=== PATIENT | male | born 1945 | race Caucasian/White ===

== ENCOUNTER 2022-02-03 10:40 | Inpatient (IN) | payer MEDICARE, SELFPAY ==
--- NOTE | ~2022-02-03 | US_ITS ---
EXAMINATION: BILATERAL LOWER EXTREMITY VENOUS ULTRASOUND CLINICAL INFORMATION: Bilateral leg swelling. Right calf pain on exam. COMPARISON: None TECHNIQUE: Doppler spectral analysis and color flow Doppler imaging was performed of the lower extremities. Compression and augmentation maneuvers were performed. FINDINGS: The right and left common femoral vein, greater saphenous vein takeoff, femoral vein, and popliteal vein are normally compressible with normal augmentation responses and phasic changes seen with Doppler imaging. The midcalf peroneal and posterior tibial veins are patent as well. No popliteal cyst is seen. US/US venous duplex LE BI IMPRESSION: No evidence of deep venous thrombosis in the right or left lower extremity.
--- NOTE | ~2022-02-03 | XR_ITS ---
EXAMINATION: XR CHEST CLINICAL INFORMATION: Shortness of breath COMPARISON: None TECHNIQUE: Frontal view of the chest was obtained. FINDINGS: The cardiac silhouette is enlarged. There is a left subclavian dual chamber pacemaker in satisfactory position. There is pulmonary venous redistribution and increased perihilar markings suggestive of mild pulmonary edema. There is no pleural effusion. There are degenerative changes of the spine. XR/XR chest 1V IMPRESSION: Enlarged cardiac silhouette and mild pulmonary edema.
[2022-02-03 11:12] VITALS: BP 146/93; PULSE 70; O2SAT 97
[2022-02-03 11:13] VITALS: BP 146/83; PULSE 70; RESP 20; O2SAT 96; BMI 40.1
--- NOTE | 2022-02-03 11:28 | ECG_ITS ---
Test Reason : sob Blood Pressure : / mmHG Vent. Rate : 070 BPM Atrial Rate : 078 BPM P-R Int : 208 ms QRS Dur : 198 ms QT Int : 498 ms P-R-T Axes : 000 -64 113 degrees QTc Int : 537 ms Atrial-sensed ventricular-paced rhythm with occasional AV dual-paced complexes Background atrial flutter Abnormal ECG No previous ECGs available Referred By: Tracy Hogan Electronically Signed By:Samuel Meeks
--- NOTE | 2022-02-03 11:32 | ED.SOB ---
HPI - SOB/Dyspnea General Chief Complaint: Dyspnea Stated Complaint: SOB 93% RA,SWELLING GRACE LOW EXT Time Seen by Provider: 02/03/22 11:13 Source: patient, EMS and RN notes reviewed Mode of arrival: EMS Limitations: no limitations History of Present Illness HPI Narrative: This is a 77-year-old male, with a past medical history of diabetes on insulin, CVA in 2016, [place] with pacemaker in 2019, on apixaban, currently being followed by Dr. Matos, hypertension, hyperlipidemia, who presents today with complaints of shortness of breath and dry cough since yesterday. Patient reports that yesterday he noticed that he was extremely short of breath upon exertion and was unable to sleep due to orthopnea. He also notes that while he was sitting yesterday, he had an hour worth chest discomfort, not pain , and had associated shortness of breath at that time. Denies palpitations, numbness, tingling, weakness, headaches, or visual changes. He denies any fevers, chills, nausea, vomiting, diarrhea, sore throat, rhinorrhea or sinus congestion. Denies sick contacts. He denies any recent surgeries, hospitalizations recent travel, history of cancer, or history of clotting disorders or blood clots. He is a former smoker. He quit 20 years ago. He denies history a asthma or COPD. He denies known history of congestive heart failure. 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 Matos next week because he was informed that his pacemaker bliped and he needed to follow up. No other complaints or concerns at this time. MD elicited complaint: shortness of breath and cough Onset (ago): day(s) Timing: constant Severity: moderate Exacerbating factors: lying flat, exertion and coughing Relieving factors: nothing Known history of: diabetes Associated symptoms: chest pain ( discomfort ) and cough Treatment prior to arrival: none Related Data Home oxygen amount: none Home Medications Medication Instructions Recorded Confirmed apixaban 5 mg tablet 5 mg PO BID 02/03/22 02/03/22 atorvastatin 80 mg tablet 1 tab PO DAILY 02/03/22 02/03/22 carvedilol 6.25 mg tablet 6.25 mg PO BID 02/03/22 02/03/22 cyanocobalamin (vitamin B-12) 1,000 mcg PO DAILY 02/03/22 02/03/22 1,000 mcg tablet ergocalciferol (vitamin D2) 1,250 1,250 mcg PO TH@0900 02/03/22 02/03/22 mcg (50,000 unit) capsule furosemide 20 mg tablet 1 tab PO DAILY 02/03/22 02/03/22 insulin aspart U-100 100 unit/mL 18 unit subcut TIDAC 02/03/22 02/03/22 (3 mL) subcutaneous pen (Novolog Flexpen U-100 Insulin aspart) insulin glargine 100 unit/mL (3 44 unit subcut BEDTIME 02/03/22 02/03/22 mL) subcutaneous pen (Lantus Solostar U-100 Insulin) losartan 100 1 tab PO DAILY 02/03/22 02/03/22 mg-hydrochlorothiazide 25 mg tablet melatonin 10 mg tablet 10 mg PO BEDTIME 02/03/22 02/03/22 metformin 1,000 mg tablet 1,000 mg PO BIDWMEAL 02/03/22 02/03/22 sotalol 80 mg tablet 1 tab PO BID 02/03/22 02/03/22 Allergies Allergy/AdvReac Type Severity Reaction Status Date / Time No Known Allergies Allergy Verified 02/03/22 11:15 Review of Systems Review of Systems: Constitutional : No Fever, No Chills, No fatigue, No Malaise ENT/Mouth : No sore throat, No runny nose Eyes: No Discharge Cardiovascular : +SOB, No Chest Pain Respiratory : + dry Cough, +orthopnea, + PATEL/Orthopnea, No Sputum, No Wheezing, No Smoke Exposure Gastrointestinal : No Nausea, No Vomiting, No Diarrhea Genitourinary : No irregular bleeding, No Dysuria, No Urinary Frequency, No Hematuria, No Urinary Incontinence, No Urgency, No Flank Pain, Musculoskeletal : No Myalgia Skin : No rash Neuro : No Headache Yes all other systems are reviewed and are negative [facility] Past Medical History Attestation statement: The following information was validated with the patient. Source: old records reviewed, obtained from family and nursing notes reviewed Social History Social History Advance Directives: No Advance Directives Information Provided: No Physical Exam Vital Signs: Vital Signs: Last Vital Signs Pulse 70 02/03/22 12:03 Resp 18 02/03/22 12:03 BP 146/83 H 02/03/22 11:13 Pulse Ox 96 02/03/22 11:13 O2 Del Method 02/03/22 11:13 BMI result Body Mass Index 40.1 Vital signs have been reviewed. Blood pressure 146/83 Heart rate normal. Respiration normal. Oxygen saturation 96% on 1L Appearance: Alert. Oriented X3. No acute distress. Nasal cannula placed. Head: Normal external exam. Normocephalic. Atraumatic. Eyes: PERRLA. EOMI. Conjunctiva and sclera normal. Eyelids normal. ENT: EAC normal. TM's Normal. Pharynx normal. Uvula midline. Moist mucous membranes. No trismus noted. No drooling noted. No muffled voice noted. No stridor noted. Patient tolerating secretions well. Neck: Normal inspection. Neck supple. FROM. No adenopathy. Thyroid Normal. No meningeal signs. No neck mass noted. CVS: Normal heart rate and rhythm. Heart sound normal. Pulses normal throughout. No murmurs/rales/gallops. Respiratory: Lungs sounds diminished throughout all lung montero. No wheezes, rhonchi or rales. Speaking in 4-5 word sentences. Painless inspiration. Chest nontender. Abdomen: Obese abdomen. Soft and nontender. Bowel sounds normal in all 4 quadrants. No distention noted. No organomegaly noted. No visible injury noted. Back: No CVA tenderness. Full range of motion noted. No rashes/lesion/induration/fluctuance or signs of infection noted. Skin: Skin warm and dry. Normal skin color. Normal skin turgor. No rashes/lesions/lacerations noted. Extremities: Mild tenderness to palpation to the right calf, no erythema, edema or warmth. +3 pitting LE edema. Extremities exhibit normal range of motion. Extremities nontender. Neuro: Oriented X 3. No motor deficit. No sensory deficit. Reflexes normal. Normal steady gait. No focal neuro deficits noted. Vascular: + radial pulses/+ 2 distal pedal pulses/+2 dorsalis pedis b/l. Normal cap refill. No cyanosis noted to upper extremity nails and lower extremity toes nails. Course Course Course Narrative: 1130 - This is a 77-year-old male, with a past medical history of diabetes on insulin, CVA in 2016, [place] with pacemaker in 2019 currently being followed by Dr. Matos, hypertension, hyperlipidemia, who presents today with complaints of shortness of breath and dry cough since yesterday. Patient currently on 1L of O2 via nasal cannula. Plan: EKG, Chest x-ray, COVID-19 swab, labs, US BL lower extremities, Continuous cardiac monitoring ordered. Albuterol 10mg updraft ordered. Reevaluation(s) Reevaluation #1: - WBC 13.0, BUN 25, Creatinine 1.49. Total Bilirubin 1.4; BNP elevated at 866. Lasix 40mg IV push ordered. Time: 12:25 Reevaluation #2: - repeat troponin negative delta went from 29.8-34.9. - patient negative for COVID. - chest x-ray revealed enlarged cardiac silhouette and mild pulmonary edema otherwise no other acute processes noted. - venous duplex ultrasound of bilateral lower extremity negative for DVT. - therefore at this time will admit patient for CHF exacerbation with SUSI with hypoxia requiring nasal cannula oxygen Time: 15:59 MDM - SOB/Dyspnea Differential Diagnosis Differential diagnosis: Likely congestive heart failure, pleural effusion, sleep apnea and anemia Medical Records Attestation: I reviewed the patient's medical records. Lab Data Attestation: I reviewed the patient's lab results. Result diagrams: 02/03/22 11:53 02/03/22 11:53 Labs: Lab Results 02/03/22 02/03/22 02/03/22 Range/Units 11:09 11:53 11:53 WBC 13.0 H (4.8-10.8) X10*3/uL RBC 4.54 L (4.60-5.80) X10*6/uL Hgb 14.4 (14.0-18.0) g/dl Hct 43.4 (42.0-52.0) % MCV 95.6 (80.0-98.0) fL MCH 31.7 (27.0-33.0) pg MCHC 33.2 (31.0-36.0) g/dl RDW 13.4 (11.0-16.0) % Plt Count 240 (160-400) X10*3/uL MPV 10.2 (9.4-12.4) fL Immature Gran % (Auto) 0.4 (0.0-0.4) % Neut % (Auto) 67.6 (45-73) % Lymph % (Auto) 23.0 (20-40) % [place] % (Auto) 7.8 (2-11) % Eos % (Auto) 0.7 (0-4) % Baso % (Auto) 0.5 (0-2) % Lymph # (Auto) 3.0 (1.2-4.9) X10*3/uL [place] # (Auto) 1.0 (0.1-1.2) X10*3/uL Eos # (Auto) 0.1 (0.0-0.4) X10*3/uL Baso # (Auto) 0.1 (0.0-0.2) X10*3/uL Abs Immat Gran (auto) 0.05 H (0.00-0.03) X10*3/uL Absolute Neuts (auto) 8.8 H (2.0-8.3) x10*3/uL Absolute Nucleated RBC 0.000 (0.0-0.012) X10*3/uL Nucleated RBC % (auto) 0.0 (0.0-0.2) /100WBC PT (10.0-13.1) SEC INR (0.9-1.1) Sodium 138 (135-145) mmol/L Potassium 4.2 (3.3-5.1) mmol/L Chloride 99 (96-108) mmol/L Carbon Dioxide 26 (22-29) mmol/L Anion Gap 17 (12-20) BUN 25 H (9-16) mg/dL Creatinine 1.49 H (0.5-1.4) mg/dL Estim Creat Clear Calc 63.4 Estimated GFR 46 Random Glucose 98 (60-115) mg/dL Calcium 9.5 (8.4-10.2) mg/dL Magnesium 1.6 (1.6-2.6) mg/dL Ferritin 105 (20-250) ng/mL Total Bilirubin 1.4 H (0.0-1.0) mg/dL AST 17 (5-37) U/L ALT 13 (0-40) U/L Alkaline Phosphatase 106 (39-117) U/L Troponin I High Sens (<3.5-35.0) ng/L B-Natriuretic Peptide (<100) pg/mL Total Protein 7.1 (6.5-8.0) g/dL Albumin 4.1 (3.5-5.0) g/dL Procalcitonin ng/mL COVID-19 ([facility]) Negative (Negative) COVID-19 Clin Com See Note 02/03/22 02/03/22 02/03/22 Range/Units 11:53 11:53 11:53 WBC (4.8-10.8) X10*3/uL RBC (4.60-5.80) X10*6/uL Hgb (14.0-18.0) g/dl Hct (42.0-52.0) % MCV (80.0-98.0) fL MCH (27.0-33.0) pg MCHC (31.0-36.0) g/dl RDW (11.0-16.0) % Plt Count (160-400) X10*3/uL MPV (9.4-12.4) fL Immature Gran % (Auto) (0.0-0.4) % Neut % (Auto) (45-73) % Lymph % (Auto) (20-40) % [place] % (Auto) (2-11) % Eos % (Auto) (0-4) % Baso % (Auto) (0-2) % Lymph # (Auto) (1.2-4.9) X10*3/uL [place] # (Auto) (0.1-1.2) X10*3/uL Eos # (Auto) (0.0-0.4) X10*3/uL Baso # (Auto) (0.0-0.2) X10*3/uL Abs Immat Gran (auto) (0.00-0.03) X10*3/uL Absolute Neuts (auto) (2.0-8.3) x10*3/uL Absolute Nucleated RBC (0.0-0.012) X10*3/uL Nucleated RBC % (auto) (0.0-0.2) /100WBC PT 16.5 H (10.0-13.1) SEC INR 1.4 H (0.9-1.1) Sodium (135-145) mmol/L Potassium (3.3-5.1) mmol/L Chloride (96-108) mmol/L Carbon Dioxide (22-29) mmol/L Anion Gap (12-20) BUN (9-16) mg/dL Creatinine (0.5-1.4) mg/dL Estim Creat Clear Calc Estimated GFR Random Glucose (60-115) mg/dL Calcium (8.4-10.2) mg/dL Magnesium (1.6-2.6) mg/dL Ferritin (20-250) ng/mL Total Bilirubin (0.0-1.0) mg/dL AST (5-37) U/L ALT (0-40) U/L Alkaline Phosphatase (39-117) U/L Troponin I High Sens 29.8 (<3.5-35.0) ng/L B-Natriuretic Peptide (<100) pg/mL Total Protein (6.5-8.0) g/dL Albumin (3.5-5.0) g/dL Procalcitonin 0.12 ng/mL COVID-19 ([facility]) (Negative) COVID-19 Clin Com 02/03/22 02/03/22 Range/Units 11:53 14:51 WBC (4.8-10.8) X10*3/uL RBC (4.60-5.80) X10*6/uL Hgb (14.0-18.0) g/dl Hct (42.0-52.0) % MCV (80.0-98.0) fL MCH (27.0-33.0) pg MCHC (31.0-36.0) g/dl RDW (11.0-16.0) % Plt Count (160-400) X10*3/uL MPV (9.4-12.4) fL Immature Gran % (Auto) (0.0-0.4) % Neut % (Auto) (45-73) % Lymph % (Auto) (20-40) % [place] % (Auto) (2-11) % Eos % (Auto) (0-4) % Baso % (Auto) (0-2) % Lymph # (Auto) (1.2-4.9) X10*3/uL [place] # (Auto) (0.1-1.2) X10*3/uL Eos # (Auto) (0.0-0.4) X10*3/uL Baso # (Auto) (0.0-0.2) X10*3/uL Abs Immat Gran (auto) (0.00-0.03) X10*3/uL Absolute Neuts (auto) (2.0-8.3) x10*3/uL Absolute Nucleated RBC (0.0-0.012) X10*3/uL Nucleated RBC % (auto) (0.0-0.2) /100WBC PT (10.0-13.1) SEC INR (0.9-1.1) Sodium (135-145) mmol/L Potassium (3.3-5.1) mmol/L Chloride (96-108) mmol/L Carbon Dioxide (22-29) mmol/L Anion Gap (12-20) BUN (9-16) mg/dL Creatinine (0.5-1.4) mg/dL Estim Creat Clear Calc Estimated GFR Random Glucose (60-115) mg/dL Calcium (8.4-10.2) mg/dL Magnesium (1.6-2.6) mg/dL Ferritin (20-250) ng/mL Total Bilirubin (0.0-1.0) mg/dL AST (5-37) U/L ALT (0-40) U/L Alkaline Phosphatase (39-117) U/L Troponin I High Sens 34.9 (<3.5-35.0) ng/L B-Natriuretic Peptide 866 H (<100) pg/mL Total Protein (6.5-8.0) g/dL Albumin (3.5-5.0) g/dL Procalcitonin ng/mL COVID-19 ([facility]) (Negative) COVID-19 Clin Com Imaging Data Chest x-ray: Attestation: I personally reviewed and interpreted this imaging study as follows: Radiologist's impression: FINDINGS: The cardiac silhouette is enlarged. There is a left subclavian dual chamber pacemaker in satisfactory position. There is pulmonary venous redistribution and increased perihilar markings suggestive of mild pulmonary edema. There is no pleural effusion. There are degenerative changes of the spine. XR/XR chest 1V IMPRESSION: Enlarged cardiac silhouette and mild pulmonary edema. Venous US: Attestation: I personally reviewed and interpreted this imaging study as follows: Radiologist's impression: ADM Date: 02/03/22 EXAMINATION: BILATERAL LOWER EXTREMITY VENOUS ULTRASOUND CLINICAL INFORMATION: Bilateral leg swelling. Right calf pain on exam. COMPARISON: None TECHNIQUE: Doppler spectral analysis and color flow Doppler imaging was performed of the lower extremities. Compression and augmentation maneuvers were performed. FINDINGS: The right and left common femoral vein, greater saphenous vein takeoff, femoral vein, and popliteal vein are normally compressible with normal augmentation responses and phasic changes seen with Doppler imaging. The midcalf peroneal and posterior tibial veins are patent as well. No popliteal cyst is seen. US/US venous duplex LE BI IMPRESSION: No evidence of deep venous thrombosis in the right or left lower extremity. ?\ Dictated By: Natalie Feldman MD ECG Data Attestation: I personally reviewed and interpreted this ECG as follows: ECG interpretation date: 02/03/22 ECG interpretation time: 11:55 Prior ECG tracings: available for review Interpretation: Atrial sensed ventricular-paced rhythm with occasional AV dual-paced complexes with a ventricular rate of 70BPM, [place] interval 208, QTC 537. No previous EKG on file for comparison. Critical Care Time Critical Care Time Critical Care Time: Yes Total Critical Care Time: 60 Attestation: I personally attest to this time spent taking care of the patient Discharge Plan Discharge Clinical Impression: Congestive heart failure, SUSI (acute kidney injury), Hypoxia, Pulmonary edema Patient Disposition: Admitted As Inpatient
[2022-02-03 11:38] LABS: COVID-19 Test Negative (Negative)
[2022-02-03 11:57] LABS: MANUAL DIFF FLAG NO
[2022-02-03] MEDS: Albuterol Sulfate (0.083%) 2.5 MG/3 ML VIAL.NEB 10 MG INHALE (11:58)
[2022-02-03 12:00] LABS: Basophils Absolute Auto 0.1 X10*3/uL (0.0-0.2); Basophils Percent Auto 0.5 % (0-2); Eosinophils Absolute Auto 0.1 X10*3/uL (0.0-0.4); Eosinophils Percent Auto 0.7 % (0-4); Hematocrit 43.4 % (42.0-52.0); Hemoglobin 14.4 g/dl (14.0-18.0); Imm Gran Abs Auto 0.05 X10*3/uL (0.00-0.03); Imm Gran Pct Auto 0.4 % (0.0-0.4); Mean Corpuscular HGB Conc 33.2 g/dl (31.0-36.0); Mean Corpuscular Hemoglobin 31.7 pg (27.0-33.0); Mean Corpuscular Volume 95.6 fL (80.0-98.0); Mean Platelet Volume 10.2 fL (9.4-12.4); Monocytes Percent Auto 7.8 % (2-11); Neutrophils Absolute Auto 8.8 x10*3/uL (2.0-8.3); Neutrophils Percent Auto 67.6 % (45-73); Platelet Count 240 X10*3/uL (160-400); Red Blood Count 4.54 X10*6/uL (4.60-5.80); Red Cell Distribution Width 13.4 % (11.0-16.0)
[2022-02-03 12:03] VITALS: PULSE 70; RESP 18; O2SAT 94
[2022-02-03 12:04] LABS: INTERNATIONAL NORM RATIO 1.4 (0.9-1.1); Prothrombin Time 16.5 SEC (10.0-13.1)
[2022-02-03 12:21] LABS: Alanine Aminotransferase 13 U/L (0-40); Albumin Level 4.1 g/dL (3.5-5.0); Alkaline Phosphatase 106 U/L (39-117); Anion Gap 17 (12-20); Aspartate Amino Transferase 17 U/L (5-37); Bilirubin Total 1.4 mg/dL (0.0-1.0); Blood Urea Nitrogen 25 mg/dL (9-16); Calcium 9.5 mg/dL (8.4-10.2); Carbon Dioxide 26 mmol/L (22-29); Chloride 99 mmol/L (96-108); Creatinine Clr Calc Pharmacy 63.4; Estimated Glomerular Filt Rate 46; Glucose Random 98 mg/dL (60-115); Magnesium 1.6 mg/dL (1.6-2.6); Potassium 4.2 mmol/L (3.3-5.1); Sodium 138 mmol/L (135-145); Total Protein 7.1 g/dL (6.5-8.0)
[2022-02-03 12:22] LABS: B Type Natriuretic Peptide 866 pg/mL (<100); Troponin-I High Sensitivity 29.8 ng/L (<3.5-35.0)
[2022-02-03 12:37] LABS: Procalcitonin 0.12 ng/mL
[2022-02-03 12:40] LABS: Ferritin 105 ng/mL (20-250)
[2022-02-03] MEDS: Furosemide 40 MG/4 ML VIAL IVPUSH (13:04)
[2022-02-03 15:15] LABS: Troponin-I High Sensitivity 34.9 ng/L (<3.5-35.0)
--- NOTE | 2022-02-03 15:15 | PHA.MEDREC ---
Pharmacy Consult ? Medication Reconciliation Pharmacy has completed the medication reconciliation. Spoke with patient and who was at bedside. Patient had a list of home medications and fills some at [facility] and [facility] Questioned patient about taking Sotalol and Carvedilol. Pt states he is taking both and it was prescribed by his meter installer and remover in [place] (will notify admitting MD)
[2022-02-03 16:00] VITALS: BP 154/79; PULSE 73; RESP 26; O2SAT 99
[2022-02-03] MEDS: Furosemide 20 MG/2 ML VIAL IVPUSH (16:02)
--- NOTE | 2022-02-03 16:55 | PC.NURSE ---
Pt comes in w/c/o SOB worse with laying flat,pt is A&O4, Lungs diminished throughout, paced in the 70's on the monitor w/occasional PVC's. Pt has L sided residual weakness r/t CVA in 2016. Pt denies any pain at this time. Lasix IV given w/good effect. Pt placed in hospital bed at this time, BLE edema noted +1 pitting. Call vernon within reach, pt urinated clear yellow urine into urinal. Skin intact but dry and flaky on the LE. Pt OOB to bedside to use urinal independently. Will continue to monitor.
[2022-02-03 17:03] VITALS: BP 143/108; PULSE 82; RESP 22; TEMP 36.6; O2SAT 97
--- NOTE | 2022-02-03 17:09 | P.HPHOSP_ITS ---
History of Present Illness Date of Service: 02/03/22 Chief Complaint: dyspnea 77yo M with hx LA in 2019, AF s/p PPM and on apixaban and sotalol, hx CVA in 2016 with no residual and s/p CEA, PAULETTE on CPAP, and insulin-dependent DM2 who presents today with worsening leg sweling, dyspnea, and dry cough for one day. He describes exertional dyspnea and orthopnea. He also had chest tightness yesterday at rest for about an hour associated with dyspnea. Denies syncope or palpitations. Denies fever, chills, purulent sputum, or sick contacts. Denies medication noncompliance or dietary indiscretions; in fact, he has lost 6 lb [facility]. His talent development analyst is Dr Matos but he does not currently have a PCP. He is scheduled to see Dr Matos in 2 days as his pacemaker had some kind of issue. In the ED, he was found to be mildly hypoxic requiring 1L of O2. CXR showed mild pulmonary edema and cardiomegaly. BNP was 866. Hs-Tn-I was 29.8, then 34.9. EKG with paced rhythm. SCr 1.49 with no known baseline. He was given 60 mg of IV fursoemide and his symptoms have improved. He is now off oxygen as well. Review of Systems Review of Systems: Yes all other systems are reviewed and are negative [facility] Medical History (Updated 02/03/22 @ 17:23 by Kwame Gonzales MD) Coronary artery disease History of diverticulitis History of intestinal obstruction Hyperlipidemia Hypertension Morbid obesity Myocardial infarction Obstructive sleep apnea Stroke Type 2 diabetes mellitus Surgical History (Updated 02/03/22 @ 17:17 by Kwame Gonzales MD) History of carotid endarterectomy History of permanent cardiac pacemaker placement Social History Advance Directives: No Advance Directives Information Provided: No Meds Allergies Allergy/AdvReac Type Severity Reaction Status Date / Time No Known Allergies Allergy Verified 02/03/22 11:15 Active Medications: Current Medications Apixaban (Apixaban 5 Mg Tablet) 5 mg PO BID [facility] Atorvastatin Calcium (Atorvastatin Calcium 80 Mg Tablet) 80 mg PO DAILY [facility] Carvedilol (Carvedilol 6.25 Mg Tablet) 6.25 mg PO BID [facility]; Protocol Cyanocobalamin (Cyanocobalamin (Vitamin B-12) 1,000 Mcg Tablet) 1,000 mcg PO DAILY [facility] Dextrose (Dextrose 50 % 25 Gm/50 Ml Syringe) 25 gm IVPUSH Q15M PRN; Protocol PRN Reason: per Hypoglycemia Standing Ord. Ergocalciferol (Ergocalciferol (Vitamin D2) 1,250 Mcg Capsule) 1,250 mcg PO TH@0900 [facility] Furosemide (Furosemide 100 Mg/10 Ml Vial) 60 mg IVPUSH BID@0900,1800 [facility]; Protocol Glucose (Glucose Gel 15 Gm Gel..Gram.) 15 gm PO Q15M PRN; Protocol PRN Reason: per Hypoglycemia Standing Ord. Insulin Glargine (Insulin Glargine,Hum.Rec.Anlog 100 Unit/Ml 10 Ml Vial) 44 unit SUBCUT BEDTIME [facility] Insulin Human Lispro (Insulin Lispro 100 Unit/Ml 3 Ml Vial) 0 unit SUBCUT QIDACHS [facility]; Protocol Losartan Potassium (Losartan Potassium 50 Mg Tablet) 100 mg PO DAILY [facility]; Protocol Melatonin (Melatonin 3 Mg Tablet) 9 mg PO BEDTIME [facility] Pharmacy Consult (Consult Rx Perform Med Rec) 1 each MISCELLANE ONCE PRN PRN Reason: Consult order Sotalol HCl (Sotalol Hcl 80 Mg Tablet) 80 mg PO BID [facility] Home Medications Medication Instructions Recorded Confirmed Last Taken Type apixaban 5 mg tablet 5 mg PO BID 02/03/22 02/03/22 02/03/22 History atorvastatin 80 mg tablet 1 tab PO DAILY 02/03/22 02/03/22 02/03/22 History carvedilol 6.25 mg tablet 6.25 mg PO BID 02/03/22 02/03/22 02/03/22 History cyanocobalamin (vitamin B-12) 1,000 mcg PO DAILY 02/03/22 02/03/22 02/03/22 History 1,000 mcg tablet ergocalciferol (vitamin D2) 1,250 1,250 mcg PO TH@0900 02/03/22 02/03/22 02/01/22 History mcg (50,000 unit) capsule furosemide 20 mg tablet 1 tab PO DAILY 02/03/22 02/03/22 02/03/22 History insulin aspart U-100 100 unit/mL 18 unit subcut TIDAC 07/02/03/22 02/03/22 History (3 mL) subcutaneous pen (Novolog Flexpen U-100 Insulin aspart) insulin glargine 100 unit/mL (3 44 unit subcut BEDTIME 02/03/22 02/03/22 02/02/22 History mL) subcutaneous pen (Lantus Solostar U-100 Insulin) losartan 100 1 tab PO DAILY 02/03/22 02/03/22 02/03/22 History mg-hydrochlorothiazide 25 mg tablet melatonin 10 mg tablet 10 mg PO BEDTIME 02/03/22 02/03/22 02/03/22 History metformin 1,000 mg tablet 1,000 mg PO BIDWMEAL 02/03/22 02/03/22 02/03/22 History sotalol 80 mg tablet 1 tab PO BID 02/03/22 02/03/22 02/03/22 History Physical Exam Vital Signs and Narrative: Vital Signs: Last Vital Signs Pulse 73 02/03/22 16:00 Resp 26 H 02/03/22 16:00 BP 154/79 H 02/03/22 16:00 Pulse Ox 99 02/03/22 16:00 O2 Del Method 02/03/22 16:00 BMI result Body Mass Index 40.1 Gen: in mild resp distress HEENT: sclera anicteric, moist mucus membranes Neck: supple, JVD present Lungs: diminished air entry bilaterally Heart: regular rate and rhythm, no murmurs Abd: soft, non-tender, non-distended, morbidly obese Ext: 1+ pitting LE edema Skin: warm/well-perfused Neuro: alert and oriented x3, no focal findings Psych: appropriate affect Results Labs CBC and Chem 7: 02/03/22 11:53 02/03/22 11:53 Labs: Laboratory Results - last 24 hr 02/03/22 02/03/22 02/03/22 11:09 11:53 11:53 MCV 95.6 MCH 31.7 MCHC 33.2 RDW 13.4 Plt Count 240 MPV 10.2 Immature Gran % (Auto) 0.4 Neut % (Auto) 67.6 Lymph % (Auto) 23.0 [place] % (Auto) 7.8 Eos % (Auto) 0.7 Baso % (Auto) 0.5 Lymph # (Auto) 3.0 [place] # (Auto) 1.0 Eos # (Auto) 0.1 Baso # (Auto) 0.1 Abs Immat Gran (auto) 0.05 H Absolute Neuts (auto) 8.8 H Absolute Nucleated RBC 0.000 Nucleated RBC % (auto) 0.0 PT INR Anion Gap 17 Estim Creat Clear Calc 63.4 Estimated GFR 46 Random Glucose 98 Calcium 9.5 Magnesium 1.6 Ferritin 105 Total Bilirubin 1.4 H AST 17 ALT 13 Alkaline Phosphatase 106 Troponin I High Sens B-Natriuretic Peptide Total Protein 7.1 Albumin 4.1 Procalcitonin COVID-19 ([facility]) Negative COVID-19 Clin Com See Note 02/03/22 02/03/22 02/03/22 11:53 11:53 11:53 MCV MCH MCHC RDW Plt Count MPV Immature Gran % (Auto) Neut % (Auto) Lymph % (Auto) [place] % (Auto) Eos % (Auto) Baso % (Auto) Lymph # (Auto) [place] # (Auto) Eos # (Auto) Baso # (Auto) Abs Immat Gran (auto) Absolute Neuts (auto) Absolute Nucleated RBC Nucleated RBC % (auto) PT 16.5 H INR 1.4 H Anion Gap Estim Creat Clear Calc Estimated GFR Random Glucose Calcium Magnesium Ferritin Total Bilirubin AST ALT Alkaline Phosphatase Troponin I High Sens 29.8 B-Natriuretic Peptide Total Protein Albumin Procalcitonin 0.12 COVID-19 ([facility]) COVID-19 Bypass Mobile Com 02/03/22 02/03/22 11:53 14:51 MCV MCH MCHC RDW Plt Count MPV Immature Gran % (Auto) Neut % (Auto) Lymph % (Auto) [place] % (Auto) Eos % (Auto) Baso % (Auto) Lymph # (Auto) [place] # (Auto) Eos # (Auto) Baso # (Auto) Abs Immat Gran (auto) Absolute Neuts (auto) Absolute Nucleated RBC Nucleated RBC % (auto) PT INR Anion Gap Estim Creat Clear Calc Estimated GFR Random Glucose Calcium Magnesium Ferritin Total Bilirubin AST ALT Alkaline Phosphatase Troponin I High Sens 34.9 B-Natriuretic Peptide 866 H Total Protein Albumin Procalcitonin COVID-19 ([facility]) COVID-19 Clin Com Imaging Radiologist's Impressions: Impressions Venous Duplex 02/03/22 12:34 IMPRESSION: No evidence of deep venous thrombosis in the right or left lower extremity. Chest X-Ray 02/03/22 13:00 IMPRESSION: Enlarged cardiac silhouette and mild pulmonary edema. Assessment and Plan (1) Congestive heart failure: Status: Acute (2) SUSI (acute kidney injury): Status: Acute (3) Hypoxia: Status: Acute (4) Pulmonary edema: Status: Acute Plan 77yo M with hx LA in 2019, AF s/p PPM and on apixaban and sotalol, hx CVA in 2016 with no residual and s/p CEA, and insulin-dependent DM2 presenting with exertional dyspnea, orthopnea, and edema consistent with CHF exacebation. # CHF exacerbation, unknown EF - admit to IMC, diurese with IV furosemide, obtain TTE, monitor electrolytes + I/Os - continue losartan - continue carvedilol # AF s/p PPM - continue carvedilol - continue sotalol - continue apixaban - Cardiology consult re: pacemaker interrogation # acute hypoxic resp failure - resolved # renal insufficiency, unknown chronicity - possible cardiorenal syndrome? monitor SCr and avoid nephrotoxins # DM2 - basal/bolus insulin; hold MTF # PAULETTE - CPAP at night VTE prophylaxis: apixaban code status: DNR/DNI I anticipate that the patient will stay at least 2 midnights in hospital due to the above reasons. It is neither reasonable nor safe to care for them in a less acute setting. Quality Stroke Does the patient have a stroke diagnosis?: No VTE Prior VTE?: No VTE Risk Level:: Medical - moderate - high VTE Device Contraindication: N/A - Device Ordered VTE Drug Contraindication: N/A - Med Ordered
[2022-02-03] MEDS: Furosemide 100 MG/10 ML VIAL 60 MG IVPUSH (19:35)
--- NOTE | 2022-02-03 19:40 | PC.NURSE ---
patient a&ox3, budget director intact, vitals obtained-pt hypertensive, will notify provider, call vernon within reach, will continue to monitor.
[2022-02-03 21:22] LABS: Glucose, Whole Blood 282 mg/dL (60-115)
[2022-02-03] MEDS: Melatonin 3 MG TABLET 9 MG PO (21:27)
[2022-02-03] MEDS: carvediloL 6.25 MG TABLET PO (21:27)
[2022-02-03] MEDS: Apixaban 5 MG TABLET PO (21:27)
[2022-02-03] MEDS: Insulin Glargine,Hum.rec.anlog 100 UNIT/ML 10 ML VIAL 44 UNIT SUBCUT (21:27)
[2022-02-03] MEDS: Insulin Lispro 100 UNIT/ML 3 ML VIAL SUBCUT (21:28)
--- NOTE | 2022-02-03 21:33 | PC.NURSE ---
called respiratory for bipap, called pharmacy for missing med
[2022-02-03] MEDS: Sotalol HCL 80 MG TABLET PO (22:16)
--- NOTE | 2022-02-03 22:26 | PC.NURSE ---
pt lost iv access-accidentally pulled it out, this nurse attempted new access x2- ivs blew while attempting to start, notified charge who will attempt
[2022-02-03 22:40] VITALS: PULSE 70; O2SAT 93
[2022-02-04] VITALS (9 sets, daily range): BP systolic 124–169; BP diastolic 63–89; PULSE 69–76; RESP 16–21; TEMP 36.1–36.4; O2SAT 94–98
[2022-02-04] MEDS: 0.9 % Sodium Chloride Flush 3 ML SYRINGE IVFLUSH ×3 (01:18→23:54)
--- NOTE | 2022-02-04 07:00 | CA_ITS ---
Transthoracic Echocardiogram Patient (Last, First, Middle): Benedict Wang O Gender: Male Date of : 1945 Age: 76 Procedure Date: 02/04/2022 Procedure Type: Transthoracic Echocardiogram Location: ER Height: 185.42 cm Weight: 137.89 kg BSA: 2.57 m2 Heart Rate: 70 bpm BP: 124 / 75 mmHg Land Checker: SB Referring MD: Kwame Gonzales MD Symptoms: CHF Study Quality: Technically Difficult ECG Rhythm: Paced Conclusions: - Left ventricle is dilated. - There is normal left ventricular wall thickness. The left ventricular systolic function is moderately decreased. The visually estimated ejection fraction is between 30-35%. - The basal inferior segment is akinetic. - There is mild dilatation of the ascending aorta measuring 3.80 cm. Findings Procedure Information Contrast agent, definity, is being given per protocol without apparent complications. Left Ventricle There is normal left ventricular wall thickness. The left ventricular systolic function is moderately decreased. The visually estimated ejection fraction is between 30-35%. There is evidence of regional wall motion abnormalities. Diastolic function is indeterminate on the basis of available data. Left ventricle is dilated. Wall Motion Rest Echo Findings The basal inferior segment is akinetic. Right Ventricle Normal right ventricular cavity size and systolic function. Atria The left atrium is mildly dilated. Aortic Valve Normal aortic valve structure and function. There is no aortic valve stenosis. There is no aortic valve regurgitation. Mitral Valve There is mild mitral annular calcification. There is no mitral valve regurgitation. There is no mitral valve stenosis. Pulmonic Valve The pulmonic valve is likely normal. Tricuspid Valve Normal tricuspid valve structure and function. There is trace tricuspid valve regurgitation. Tricuspid regurgitation envelope is inadequate for calculation of right ventricular systolic pressure. Normal right atrial pressure. Great Vessels There is mild dilatation of the ascending aorta measuring 3.80 cm. The visualized portions of the pulmonary artery and branches are normal. Venous The inferior vena cava is normal in size and collapses greater than 50% with inspiration. Pericardium/Pleural There is no evidence of pericardial effusion. Prior Study Comparison No prior study available for comparison. Measurements 2D Linear Measurements IVSd: 1.18 0.6-0.9/0.6-1.0 cm LVIDd: 6.76 3.9-5.3/4.2-5.9 cm LVIDd Index: 2.63 2.4-3.2/2.2-3.1 cm/m2 LVIDs: 5.98 2.0-3.6 cm LVPWd: 0.81 0.7-1.1 cm LA Diam: 5.40 2.7-3.8/3.0-4.0 cm LAIDs Index: 2.10 1.5-2.3 cm/m2 LV Mass: 374.73 67-162/88-224 g LV Mass Index: 145.81 43-95/49-115 g/m2 LVOT Diam: 2.20 3.0+(-)1.3 cm 2D Systolic Function EF 4C: 20.80 >55% EF 2C: 29.20 >55% Aortic Valve AoV Pk Michael: 1.11 AoV Mn Michael: 0.78 AoV VTI: 0.16 AoV Pk Grad: 5.00 Aov Mn Grad: 3.00 ENEIDA Cont.VTI: 2.60 LVOT LVOT Pk Michael: 0.73 LVOT Mn Michael: 0.44 LVOT VTI: 0.11 LVOT Pk Grad: 2.00 LVOT Mn Grad: 1.00 LVOT Diam: 2.20 LVOT Area: 3.80 Tricuspid Valve RA Press: 3.00 Great Vessels Aorta Sinus of Valsalva: 3.60 2.0-3.5 cm Ao Asc: 3.80 2.1-3.4 cm Pulmonary Valve PV Pk Michael: 0.71 Peak PV Grad: 2.00 Updated in Other Vendor System with Status of Final Samuel Meeks MD electronically signed on 02/04/2022 12:56:50 PM with status of Final
[2022-02-04 07:25] LABS: Glucose, Whole Blood 162 mg/dL (60-115)
[2022-02-04] MEDS: Furosemide 100 MG/10 ML VIAL 60 MG IVPUSH ×2 (07:30→19:45)
[2022-02-04] MEDS: Insulin Lispro 100 UNIT/ML 3 ML VIAL SUBCUT ×4 (07:32→22:23)
[2022-02-04] MEDS: Losartan Potassium 50 MG TABLET 100 MG PO (07:34)
[2022-02-04] MEDS: carvediloL 6.25 MG TABLET PO ×2 (07:34→21:36)
[2022-02-04] MEDS: Atorvastatin Calcium 80 MG TABLET PO (07:36)
[2022-02-04] MEDS: Apixaban 5 MG TABLET PO ×2 (07:37→21:36)
[2022-02-04] MEDS: Cyanocobalamin (Vitamin B-12) 1,000 MCG TABLET 1000 MCG PO (07:37)
--- NOTE | 2022-02-04 07:44 | PC.NURSE ---
sitting up eating breakfast. offers no complaints. states he slept well/ no sob noted. medicated as charted
[2022-02-04 07:50] LABS: Hematocrit 44.9 % (42.0-52.0); Hemoglobin 15.1 g/dl (14.0-18.0); Mean Corpuscular HGB Conc 33.6 g/dl (31.0-36.0); Mean Corpuscular Hemoglobin 32.2 pg (27.0-33.0); Mean Corpuscular Volume 95.7 fL (80.0-98.0); Mean Platelet Volume 10.2 fL (9.4-12.4); Platelet Count 250 X10*3/uL (160-400); Red Blood Count 4.69 X10*6/uL (4.60-5.80); Red Cell Distribution Width 13.4 % (11.0-16.0); White Blood Count 10.2 X10*3/uL (4.8-10.8)
[2022-02-04 08:09] LABS: B Type Natriuretic Peptide 588 pg/mL (<100)
[2022-02-04 08:13] LABS: Anion Gap 14 (12-20); Blood Urea Nitrogen 28 mg/dL (9-16); Calcium 9.8 mg/dL (8.4-10.2); Carbon Dioxide 35 mmol/L (22-29); Chloride 94 mmol/L (96-108); Estimated Glomerular Filt Rate 42; Glucose Random 179 mg/dL (60-115); Magnesium 1.6 mg/dL (1.6-2.6); Potassium 4.1 mmol/L (3.3-5.1); Sodium 139 mmol/L (135-145)
--- NOTE | 2022-02-04 09:17 | P.CONCA_ITS ---
History of Present Illness History of Present Illness Date of Service: 02/04/22 Requesting physician: Kwame Gonzales Chief complaint: CHF, renal insuff Narrative: 76-year-old gentleman who is presenting for shortness of breath. He is a poor historian. Saying he had a pacemaker placed 3 years ago while he was in [place]. He is following with Dr. Matos. It appears he had an appointment coming up in few days for a pacemaker check. I reached out to Dr. Matos and did noticed episodes of atrial fibrillation and he was bringing him in for that. Patient is denying any symptoms currently. He was getting progressive short of breath and having some orthopnea. He also has been experiencing central chest discomfort ongoing for approximately 1 year. He is saying he walks 50 ft and gets chest discomfort. He also reports a heart attack 3 years ago when he had the pacemaker placed. He does not recall having any chest pains at that time. Overall as mentioned he is a poor historian. [facility] Past Medical History Medical History (Updated 02/03/22 @ 17:23 by Kwame Gonzales MD) Coronary artery disease History of diverticulitis History of intestinal obstruction Hyperlipidemia Hypertension Morbid obesity Myocardial infarction Obstructive sleep apnea Stroke Type 2 diabetes mellitus Surgical History Surgical History (Updated 02/03/22 @ 17:17 by Kwame Gonzales MD) History of carotid endarterectomy History of permanent cardiac pacemaker placement Social History Social History Advance Directives: No Advance Directives Information Provided: No Meds Allergies Allergy/AdvReac Type Severity Reaction Status Date / Time No Known Allergies Allergy Verified 02/03/22 11:15 Active Medications: Current Medications Acetaminophen (Acetaminophen 325 Mg Tablet) 650 mg PO Q6H PRN PRN Reason: Pain, Mild (Pain Scale 1-3) Apixaban (Apixaban 5 Mg Tablet) 5 mg PO BID [facility] Last Admin: 02/04/22 07:37 Dose: 5 mg Atorvastatin Calcium (Atorvastatin Calcium 80 Mg Tablet) 80 mg PO DAILY [facility] Last Admin: 02/04/22 07:36 Dose: 80 mg Carvedilol (Carvedilol 6.25 Mg Tablet) 6.25 mg PO BID [facility]; Protocol Last Admin: 02/04/22 07:34 Dose: 6.25 mg Cyanocobalamin (Cyanocobalamin (Vitamin B-12) 1,000 Mcg Tablet) 1,000 mcg PO DAILY [facility] Last Admin: 02/04/22 07:37 Dose: 1,000 mcg Dextrose (Dextrose 50 % 25 Gm/50 Ml Syringe) 25 gm IVPUSH Q15M PRN; Protocol PRN Reason: per Hypoglycemia Standing Ord. Ergocalciferol (Ergocalciferol (Vitamin D2) 1,250 Mcg Capsule) 1,250 mcg PO TH@0900 [facility] Furosemide (Furosemide 100 Mg/10 Ml Vial) 60 mg IVPUSH BID@0900,1800 [facility]; Protocol Last Admin: 02/04/22 07:30 Dose: 60 mg Glucose (Glucose Gel 15 Gm Gel..Gram.) 15 gm PO Q15M PRN; Protocol PRN Reason: per Hypoglycemia Standing Ord. Insulin Glargine (Insulin Glargine,Hum.Rec.Anlog 100 Unit/Ml 10 Ml Vial) 44 unit SUBCUT BEDTIME [facility] Last Admin: 02/03/22 21:27 Dose: 44 unit Insulin Human Lispro (Insulin Lispro 100 Unit/Ml 3 Ml Vial) 0 unit SUBCUT QIDACHS [facility]; Protocol Last Admin: 02/04/22 07:32 Dose: 2 unit Losartan Potassium (Losartan Potassium 50 Mg Tablet) 100 mg PO DAILY [facility]; Protocol Last Admin: 02/04/22 07:34 Dose: 100 mg Melatonin (Melatonin 3 Mg Tablet) 9 mg PO BEDTIME [facility] Last Admin: 02/03/22 21:27 Dose: 9 mg Ondansetron HCl (Ondansetron Hcl 4 Mg/2 Ml Vial) 4 mg IVPUSH Q8H PRN PRN Reason: Nausea and Vomiting Pharmacy Consult (Consult Rx Perform Med Rec) 1 each MISCELLANE ONCE PRN PRN Reason: Consult order Sodium Chloride (0.9 % Sodium Chloride Flush 3 Ml Syringe) 3 ml IVFLUSH QSHIFT [facility] Last Admin: 02/04/22 07:37 Dose: 3 ml Sotalol HCl (Sotalol Hcl 80 Mg Tablet) 80 mg PO BID [facility] Last Admin: 02/03/22 22:16 Dose: 80 mg Home Medications Medication Instructions Recorded Confirmed Last Taken Type apixaban 5 mg tablet 5 mg PO BID 02/03/22 02/03/22 02/03/22 History atorvastatin 80 mg tablet 1 tab PO DAILY 02/03/22 02/03/22 02/03/22 History carvedilol 6.25 mg tablet 6.25 mg PO BID 02/03/22 02/03/22 02/03/22 History cyanocobalamin (vitamin B-12) 1,000 mcg PO DAILY 02/03/22 02/03/22 02/03/22 History 1,000 mcg tablet ergocalciferol (vitamin D2) 1,250 1,250 mcg PO TH@0900 02/03/22 02/03/22 History mcg (50,000 unit) capsule furosemide 20 mg tablet 1 tab PO DAILY 02/03/22 02/03/22 02/03/22 History insulin aspart U-100 100 unit/mL 18 unit subcut TIDAC 02/03/22 02/03/22 02/03/22 History (3 mL) subcutaneous pen (Novolog Flexpen U-100 Insulin aspart) insulin glargine 100 unit/mL (3 44 unit subcut BEDTIME 02/03/22 02/03/22 02/02/22 History mL) subcutaneous pen (Lantus Solostar U-100 Insulin) losartan 100 1 tab PO DAILY 02/03/22 02/03/22 02/03/22 History mg-hydrochlorothiazide 25 mg tablet melatonin 10 mg tablet 10 mg PO BEDTIME 02/03/22 02/03/22 02/03/22 History metformin 1,000 mg tablet 1,000 mg PO BIDWMEAL 02/03/22 02/03/22 02/03/22 History sotalol 80 mg tablet 1 tab PO BID 02/03/22 02/03/22 02/03/22 History Physical Exam Vital Signs: Vital Signs: Last Vital Signs Temp 97.6 F 02/04/22 05:44 Pulse 70 02/04/22 07:45 Resp 19 02/04/22 05:44 BP 124/75 02/04/22 07:45 Pulse Ox 96 02/04/22 07:45 O2 Del Method 02/04/22 07:45 O2 Flow Rate 2 02/03/22 17:03 BMI result Body Mass Index 40.1 GENERAL APPEARANCE: in no acute distress. NECK: no carotid bruit, + jugular venous distention. SKIN: no suspicious lesions, warm and dry. HEART: no murmurs, regular rate and rhythm. LUNGS: Few crackles at bases. ABDOMEN: soft, nontender. EXTREMITIES: Mild edema. PERIPHERAL PULSES: equal. NEUROLOGIC: No gross deficits, AAO X 3 Objective Labs and Meds Result diagrams: 02/04/22 07:44 02/04/22 07:44 Lab results: Laboratory Results - last 24 hr 02/03/22 02/03/22 02/03/22 11:09 11:53 11:53 WBC 13.0 H RBC 4.54 L Hgb 14.4 Hct 43.4 MCV 95.6 MCH 31.7 MCHC 33.2 RDW 13.4 Plt Count 240 MPV 10.2 Immature Gran % (Auto) 0.4 Neut % (Auto) 67.6 Lymph % (Auto) 23.0 Weld % (Auto) 7.8 Eos % (Auto) 0.7 Baso % (Auto) 0.5 Lymph # (Auto) 3.0 Weld # (Auto) 1.0 Eos # (Auto) 0.1 Baso # (Auto) 0.1 Abs Immat Gran (auto) 0.05 H Absolute Neuts (auto) 8.8 H Absolute Nucleated RBC 0.000 Nucleated RBC % (auto) 0.0 PT INR Sodium 138 Potassium 4.2 Chloride 99 Carbon Dioxide 26 Anion Gap 17 BUN 25 H Creatinine 1.49 H Estim Creat Clear Calc 63.4 Estimated GFR 46 POC Glucose Random Glucose 98 Calcium 9.5 Magnesium 1.6 Ferritin 105 Total Bilirubin 1.4 H AST 17 ALT 13 Alkaline Phosphatase 106 Troponin I High Sens B-Natriuretic Peptide Total Protein 7.1 Albumin 4.1 Procalcitonin COVID-19 ([facility]) Negative COVID-19 Clin Com See Note 02/03/22 02/03/22 02/03/22 11:53 11:53 11:53 WBC RBC Hgb Hct MCV MCH MCHC RDW Plt Count MPV Immature Gran % (Auto) Neut % (Auto) Lymph % (Auto) Weld % (Auto) Eos % (Auto) Baso % (Auto) Lymph # (Auto) Weld # (Auto) Eos # (Auto) Baso # (Auto) Abs Immat Gran (auto) Absolute Neuts (auto) Absolute Nucleated RBC Nucleated RBC % (auto) PT 16.5 H INR 1.4 H Sodium Potassium Chloride Carbon Dioxide Anion Gap BUN Creatinine Estim Creat Clear Calc Estimated GFR POC Glucose Random Glucose Calcium Magnesium Ferritin Total Bilirubin AST ALT Alkaline Phosphatase Troponin I High Sens 29.8 B-Natriuretic Peptide Total Protein Albumin Procalcitonin 0.12 COVID-19 ([facility]) COVID-19 Syn[employer] Com 02/03/22 02/03/22 02/03/22 11:53 14:51 21:19 WBC RBC Hgb Hct MCV MCH MCHC RDW Plt Count MPV Immature Gran % (Auto) Neut % (Auto) Lymph % (Auto) Weld % (Auto) Eos % (Auto) Baso % (Auto) Lymph # (Auto) Weld # (Auto) Eos # (Auto) Baso # (Auto) Abs Immat Gran (auto) Absolute Neuts (auto) Absolute Nucleated RBC Nucleated RBC % (auto) PT INR Sodium Potassium Chloride Carbon Dioxide Anion Gap BUN Creatinine Estim Creat Clear Calc Estimated GFR POC Glucose 282 H Random Glucose Calcium Magnesium Ferritin Total Bilirubin AST ALT Alkaline Phosphatase Troponin I High Sens 34.9 B-Natriuretic Peptide 866 H Total Protein Albumin Procalcitonin COVID-19 ([facility]) COVID-19 [employer] 02/04/22 02/04/22 02/04/22 07:21 07:44 07:44 WBC 10.2 RBC 4.69 Hgb 15.1 Hct 44.9 MCV 95.7 MCH 32.2 MCHC 33.6 RDW 13.4 Plt Count 250 MPV 10.2 Immature Gran % (Auto) Neut % (Auto) Lymph % (Auto) Weld % (Auto) Eos % (Auto) Baso % (Auto) Lymph # (Auto) Weld # (Auto) Eos # (Auto) Baso # (Auto) Abs Immat Gran (auto) Absolute Neuts (auto) Absolute Nucleated RBC 0.000 Nucleated RBC % (auto) 0.0 PT INR Sodium 139 Potassium 4.1 Chloride 94 L Carbon Dioxide 35 H Anion Gap 14 BUN 28 H Creatinine 1.60 H Estim Creat Clear Calc 59.0 Estimated GFR 42 POC Glucose 162 H Random Glucose 179 H D Calcium 9.8 Magnesium 1.6 Ferritin Total Bilirubin AST ALT Alkaline Phosphatase Troponin I High Sens B-Natriuretic Peptide Total Protein Albumin Procalcitonin COVID-19 ([facility]) COVID-19 Synovex Com 02/04/22 07:44 WBC RBC Hgb Hct MCV MCH MCHC RDW Plt Count MPV Immature Gran % (Auto) Neut % (Auto) Lymph % (Auto) Weld % (Auto) Eos % (Auto) Baso % (Auto) Lymph # (Auto) Weld # (Auto) Eos # (Auto) Baso # (Auto) Abs Immat Gran (auto) Absolute Neuts (auto) Absolute Nucleated RBC Nucleated RBC % (auto) PT INR Sodium Potassium Chloride Carbon Dioxide Anion Gap BUN Creatinine Estim Creat Clear Calc Estimated GFR POC Glucose Random Glucose Calcium Magnesium Ferritin Total Bilirubin AST ALT Alkaline Phosphatase Troponin I High Sens B-Natriuretic Peptide 588 H Total Protein Albumin Procalcitonin COVID-19 ([facility]) COVID-19 Clin Com Imaging Radiologist's impression: Impressions Venous Duplex 02/03/22 12:34 IMPRESSION: No evidence of deep venous thrombosis in the right or left lower extremity. Chest X-Ray 02/03/22 13:00 IMPRESSION: Enlarged cardiac silhouette and mild pulmonary edema. Assessment and Plan (1) Congestive heart failure: Status: Acute Plan [age] year gentleman presenting for shortness of breath and congestive heart failure. Clinically volume overloaded and agree with IV diuretics. He was started on sotalol recently and is currently taking 80 mg b.i.d. sotalol. Given creatinine clearance of 42 I think his sotalol dose should be decreased to once a day. Monitor electrolytes closely. We have requested some records and will review them as we receive them from Dr. Matos's office. He has EKG showing paced rhythm with background atrial flutter. Diurese and reassess him. It is possible that this led to his decompensation. Continue Eliquis uninterrupted in case we have to cardiovert. For his chest discomfort, I am going to reviewed records 1st to see if there is any testing planned for him. As he improves he will need stress testing as outpatient as these symptoms are approximately 1-year-old as per his report. Thank you for allowing me to participate in the care of your patient. Please feel free to contact me if you have any questions. Procedures Date of Service Date of Service: 02/04/22
--- NOTE | 2022-02-04 12:02 | P.PNIM_ITS ---
Subjective Subjective Date of Service: 02/04/22 Interval History: breathing improved no further chest pressure -1.7L thus far this admission Review of Systems Review of Systems: Yes all other systems are reviewed and are negative Physical Exam Vital Signs: Vital Signs: Last Vital Signs Temp 97.6 F 02/04/22 05:44 Pulse 70 02/04/22 07:45 Resp 19 02/04/22 05:44 BP 124/75 02/04/22 07:45 Pulse Ox 96 02/04/22 07:45 O2 Del Method 02/04/22 07:45 O2 Flow Rate 2 02/03/22 17:03 BMI result Body Mass Index 40.1 Gen: NAD HEENT: sclera anicteric, moist mucus membranes Neck: supple, JVD present Lungs: diminished air entry bilaterally Heart: regular rate and rhythm, no murmurs Abd: soft, non-tender, non-distended, morbidly obese Ext: 1+ pitting LE edema Skin: warm/well-perfused Neuro: alert and oriented x3, no focal findings Psych: appropriate affect Objective Data Active Medications Acetaminophen (Acetaminophen 325 Mg Tablet) 650 mg PO Q6H PRN PRN Reason: Pain, Mild (Pain Scale 1-3) Apixaban (Apixaban 5 Mg Tablet) 5 mg PO BID [facility] Last Admin: 02/04/22 07:37 Dose: 5 mg Documented By: ANDREW Atorvastatin Calcium (Atorvastatin Calcium 80 Mg Tablet) 80 mg PO DAILY [facility] Last Admin: 02/04/22 07:36 Dose: 80 mg Documented By: ANDREW Carvedilol (Carvedilol 6.25 Mg Tablet) 6.25 mg PO BID [facility]; Protocol Last Admin: 02/04/22 07:34 Dose: 6.25 mg Documented By: ANDREW Cyanocobalamin (Cyanocobalamin (Vitamin B-12) 1,000 Mcg Tablet) 1,000 mcg PO DAILY [facility] Last Admin: 02/04/22 07:37 Dose: 1,000 mcg Documented By: ANDREW Dextrose (Dextrose 50 % 25 Gm/50 Ml Syringe) 25 gm IVPUSH Q15M PRN; Protocol PRN Reason: per Hypoglycemia Standing Ord. Ergocalciferol (Ergocalciferol (Vitamin D2) 1,250 Mcg Capsule) 1,250 mcg PO TH@0900 [facility] Furosemide (Furosemide 100 Mg/10 Ml Vial) 60 mg IVPUSH BID@0900,1800 [facility]; Protocol Last Admin: 02/04/22 07:30 Dose: 60 mg Documented By: ANDREW Glucose (Glucose Gel 15 Gm Gel..Gram.) 15 gm PO Q15M PRN; Protocol PRN Reason: per Hypoglycemia Standing Ord. Insulin Glargine (Insulin Glargine,Hum.Rec.Anlog 100 Unit/Ml 10 Ml Vial) 44 unit SUBCUT BEDTIME [facility] Last Admin: 02/03/22 21:27 Dose: 44 unit Documented By: ALLEN Insulin Human Lispro (Insulin Lispro 100 Unit/Ml 3 Ml Vial) 0 unit SUBCUT QIDACHS [facility]; Protocol Last Admin: 02/04/22 07:32 Dose: 2 unit Documented By: ANDREW Losartan Potassium (Losartan Potassium 50 Mg Tablet) 100 mg PO DAILY [facility]; Protocol Last Admin: 02/04/22 07:34 Dose: 100 mg Documented By: ANDREW Melatonin (Melatonin 3 Mg Tablet) 9 mg PO BEDTIME [facility] Last Admin: 02/03/22 21:27 Dose: 9 mg Documented By: ALLEN Ondansetron HCl (Ondansetron Hcl 4 Mg/2 Ml Vial) 4 mg IVPUSH Q8H PRN PRN Reason: Nausea and Vomiting Pharmacy Consult (Consult Rx Perform Med Rec) 1 each MISCELLANE ONCE PRN PRN Reason: Consult order Sodium Chloride (0.9 % Sodium Chloride Flush 3 Ml Syringe) 3 ml IVFLUSH QSHIFT [facility] Last Admin: 02/04/22 07:37 Dose: 3 ml Documented By: ANDREW Sotalol HCl (Sotalol Hcl 80 Mg Tablet) 80 mg PO DAILY [facility] Labs CBC & Chem 7: 02/04/22 07:44 02/04/22 07:44 Labs: Laboratory Results - last 24 hr 02/03/22 02/03/22 02/03/22 11:53 11:53 11:53 MCV MCH MCHC RDW Plt Count MPV Absolute Nucleated RBC Nucleated RBC % (auto) PT INR Anion Gap 17 Estim Creat Clear Calc 63.4 Estimated GFR 46 POC Glucose Random Glucose 98 Calcium 9.5 Magnesium 1.6 Ferritin 105 Total Bilirubin 1.4 H AST 17 ALT 13 Alkaline Phosphatase 106 Troponin I High Sens 29.8 B-Natriuretic Peptide Total Protein 7.1 Albumin 4.1 Procalcitonin 0.12 02/03/22 02/03/22 02/03/22 11:53 11:53 14:51 MCV MCH MCHC RDW Plt Count MPV Absolute Nucleated RBC Nucleated RBC % (auto) PT 16.5 H INR 1.4 H Anion Gap Estim Creat Clear Calc Estimated GFR POC Glucose Random Glucose Calcium Magnesium Ferritin Total Bilirubin AST ALT Alkaline Phosphatase Troponin I High Sens 34.9 B-Natriuretic Peptide 866 H Total Protein Albumin Procalcitonin 02/03/22 02/04/22 02/04/22 21:19 07:21 07:44 MCV 95.7 MCH 32.2 MCHC 33.6 RDW 13.4 Plt Count 250 MPV 10.2 Absolute Nucleated RBC 0.000 Nucleated RBC % (auto) 0.0 PT INR Anion Gap Estim Creat Clear Calc Estimated GFR POC Glucose 282 H 162 H Random Glucose Calcium Magnesium Ferritin Total Bilirubin AST ALT Alkaline Phosphatase Troponin I High Sens B-Natriuretic Peptide Total Protein Albumin Procalcitonin 02/04/22 02/04/22 07:44 07:44 MCV MCH MCHC RDW Plt Count MPV Absolute Nucleated RBC Nucleated RBC % (auto) PT INR Anion Gap 14 Estim Creat Clear Calc 59.0 Estimated GFR 42 POC Glucose Random Glucose 179 H D Calcium 9.8 Magnesium 1.6 Ferritin Total Bilirubin AST ALT Alkaline Phosphatase Troponin I High Sens B-Natriuretic Peptide 588 H Total Protein Albumin Procalcitonin Assessment and Plan (1) Congestive heart failure: Status: Acute Plan hospital d#2 77yo M with hx DE in 2019, AF s/p PPM and on apixaban and sotalol, hx CVA in 2015 with no residual and s/p CEA, and insulin-dependent DM2 presenting with exertional dyspnea, orthopnea, and edema consistent with CHF exacebation. # CHF exacerbation, unknown EF - continue diuresis with IV furosemide, obtain TTE, monitor electrolytes + I/Os - continue losartan - continue carvedilol # AF s/p PPM - continue carvedilol - continue sotalol; reduce dose for CrCl<60; if CrCl <40, contraindicated - continue apixaban - Dr Meeks spoke to Dr Matos and AF was noted on pacemaker, no other issues with the pacemaker - background A flutter- ?led to CHF- Cardiology evaluating # acute hypoxic resp failure - resolved # renal insufficiency, unknown chronicity - possible cardiorenal syndrome?? monitor SCr and avoid nephrotoxins. unknown baseline SCr- will request records from pt's prior PCP Dr Fitch at [facility] # DM2 - basal/bolus insulin; hold MTF # PAULETTE - CPAP at night VTE prophylaxis: apixaban In my clinical judgment, the patient requires continued hospitalization for the following reasons: IV diuresis Quality Stroke Does the patient have a stroke diagnosis?: No VTE Prior VTE?: No VTE Risk Level:: Medical - moderate - high VTE Device Contraindication: N/A - Device Ordered VTE Drug Contraindication: N/A - Med Ordered
[2022-02-04 13:19] LABS: Glucose, Whole Blood 248 mg/dL (60-115)
--- NOTE | 2022-02-04 15:02 | MHC.CM.PN ---
PT REPORTS HE LIVES WITH HIS AND IS INDEPENDENT HE HAS A CPAP FOR DME NO HOME SERVICES PT DOES NOT HAVE A PCP, HIS LEFT THE PRACTICE AND HE HAS BEEN UNABLE TO FIND A NEW ONE COPY OF HCP REQUESTED IMM DELIVERED, COPY SENT TO [facility] CURRENT DC PLAN IS HOME TO TRANSPORT
[2022-02-04 16:51] LABS: Glucose, Whole Blood 299 mg/dL (60-115)
[2022-02-04 19:29] LABS: Glucose, Whole Blood 361 mg/dL (60-115)
[2022-02-04] MEDS: Melatonin 3 MG TABLET 9 MG PO (21:36)
[2022-02-04] MEDS: Insulin Glargine,Hum.rec.anlog 100 UNIT/ML 10 ML VIAL 44 UNIT SUBCUT (21:37)
[2022-02-04 21:41] LABS: Glucose, Whole Blood 394 mg/dL (60-115)
--- NOTE | 2022-02-04 22:23 | PC.NURSE ---
report given to multimedia technician. awar of POC glucose
[2022-02-05] VITALS (7 sets, daily range): BP systolic 110–169; BP diastolic 68–90; PULSE 69–74; RESP 18–20; TEMP 36–36.9; O2SAT 90–98; BMI 39.6
[2022-02-05 07:20] LABS: Glucose, Whole Blood 163 mg/dL (60-115)
[2022-02-05 07:40] LABS: Anion Gap 17 (12-20); Blood Urea Nitrogen 36 mg/dL (9-16); Carbon Dioxide 31 mmol/L (22-29); Chloride 94 mmol/L (96-108); Estimated Glomerular Filt Rate 39; Glucose Random 146 mg/dL (60-115); Magnesium 1.8 mg/dL (1.6-2.6); Potassium 4.3 mmol/L (3.3-5.1); Sodium 138 mmol/L (135-145)
[2022-02-05 07:47] LABS: B Type Natriuretic Peptide 286 pg/mL (<100)
[2022-02-05] MEDS: 0.9 % Sodium Chloride Flush 3 ML SYRINGE IVFLUSH ×2 (08:13→17:00)
[2022-02-05] MEDS: carvediloL 6.25 MG TABLET PO ×2 (08:13→20:32)
[2022-02-05] MEDS: Insulin Lispro 100 UNIT/ML 3 ML VIAL SUBCUT ×4 (08:13→20:33)
[2022-02-05] MEDS: Atorvastatin Calcium 80 MG TABLET PO (08:13)
[2022-02-05] MEDS: Apixaban 5 MG TABLET PO ×2 (08:13→20:32)
[2022-02-05] MEDS: Sotalol HCL 80 MG TABLET PO (08:14)
[2022-02-05] MEDS: Cyanocobalamin (Vitamin B-12) 1,000 MCG TABLET 1000 MCG PO (08:14)
[2022-02-05 11:34] LABS: Glucose, Whole Blood 218 mg/dL (60-115)
--- NOTE | 2022-02-05 13:11 | P.PNIM_ITS ---
Subjective Subjective Date of Service: 02/05/22 Interval History: had some chest pressure today while walking to the bathroom, resolved with rest dyspnea resolved edema improved Review of Systems Review of Systems: Yes all other systems are reviewed and are negative Physical Exam Vital Signs: Vital Signs: Last Vital Signs Temp 98.3 F 02/05/22 10:49 Pulse 74 02/05/22 10:49 Resp 18 02/05/22 10:49 BP 121/71 02/05/22 10:49 Pulse Ox 95 02/05/22 10:49 O2 Del Method 02/05/22 10:49 O2 Flow Rate 2 02/04/22 13:42 Oxygen Flow Rate 3 02/05/22 08:00 BMI result Body Mass Index 39.6 Gen: NAD HEENT: sclera anicteric, moist mucus membranes Neck: supple, JVD present Lungs: diminished air entry bilaterally Heart: regular rate and rhythm, no murmurs Abd: soft, non-tender, non-distended, morbidly obese Ext: trace LE edema Skin: warm/well-perfused Neuro: alert and oriented x3, no focal findings Psych: appropriate affect Objective Data Active Medications Acetaminophen (Acetaminophen 325 Mg Tablet) 650 mg PO Q6H PRN PRN Reason: Pain, Mild (Pain Scale 1-3) Apixaban (Apixaban 5 Mg Tablet) 5 mg PO BID [facility] Last Admin: 02/05/22 08:13 Dose: 5 mg Documented By: JYOTI Atorvastatin Calcium (Atorvastatin Calcium 80 Mg Tablet) 80 mg PO DAILY [facility] Last Admin: 02/05/22 08:13 Dose: 80 mg Documented By: JYOTI Carvedilol (Carvedilol 6.25 Mg Tablet) 6.25 mg PO BID [facility]; Protocol Last Admin: 02/05/22 08:13 Dose: 6.25 mg Documented By: JYOTI Cyanocobalamin (Cyanocobalamin (Vitamin B-12) 1,000 Mcg Tablet) 1,000 mcg PO DAILY [facility] Last Admin: 02/05/22 08:14 Dose: 1,000 mcg Documented By: JYOTI Dextrose (Dextrose 50 % 25 Gm/50 Ml Syringe) 25 gm IVPUSH Q15M PRN; Protocol PRN Reason: per Hypoglycemia Standing Ord. Ergocalciferol (Ergocalciferol (Vitamin D2) 1,250 Mcg Capsule) 1,250 mcg PO TH@0900 [facility] Glucose (Glucose Gel 15 Gm Gel..Gram.) 15 gm PO Q15M PRN; Protocol PRN Reason: per Hypoglycemia Standing Ord. Insulin Glargine (Insulin Glargine,Hum.Rec.Anlog 100 Unit/Ml 10 Ml Vial) 44 unit SUBCUT BEDTIME [facility] Last Admin: 02/04/22 21:37 Dose: 44 unit Documented By: SUNDAY Insulin Human Lispro (Insulin Lispro 100 Unit/Ml 3 Ml Vial) 0 unit SUBCUT QIDACHS [facility]; Protocol Last Admin: 02/05/22 12:00 Dose: 12 unit Documented By: JYOTI Melatonin (Melatonin 3 Mg Tablet) 9 mg PO BEDTIME [facility] Last Admin: 02/04/22 21:36 Dose: 9 mg Documented By: SUNDAY Ondansetron HCl (Ondansetron Hcl 4 Mg/2 Ml Vial) 4 mg IVPUSH Q8H PRN PRN Reason: Nausea and Vomiting Pharmacy Consult (Consult Rx Perform Med Rec) 1 each MISCELLANE ONCE PRN PRN Reason: Consult order Sodium Chloride (0.9 % Sodium Chloride Flush 3 Ml Syringe) 3 ml IVFLUSH QSHIFT [facility] Last Admin: 02/05/22 08:13 Dose: 3 ml Documented By: JYOTI Labs CBC & Chem 7: 02/04/22 07:44 02/05/22 06:34 Labs: Laboratory Results - last 24 hr 02/04/22 02/04/22 02/04/22 13:12 16:45 19:23 Anion Gap Estim Creat Clear Calc Estimated GFR POC Glucose 248 H 299 H 361 H* Random Glucose Calcium Magnesium B-Natriuretic Peptide 02/04/22 02/05/22 02/05/22 21:37 06:34 06:34 Anion Gap 17 Estim Creat Clear Calc 54.0 Estimated GFR 39 POC Glucose 394 H* Random Glucose 146 H Calcium 10.0 Magnesium 1.8 B-Natriuretic Peptide 286 H 02/05/22 02/05/22 07:02 10:53 Anion Gap Estim Creat Clear Calc Estimated GFR POC Glucose 163 H 218 H Random Glucose Calcium Magnesium B-Natriuretic Peptide TTE 02/04/22 - Left ventricle is dilated. ? - There is normal left ventricular wall thickness.? The left ? ? ventricular systolic function is moderately decreased.? The? ? ? visually estimated ejection fraction is between 30-35%.? - The basal inferior segment is akinetic.? - There is mild dilatation of the ascending aorta measuring 3.80 cm.? Assessment and Plan (1) Congestive heart failure: Status: Acute Plan hospital d#3 77yo M with hx [place] in 2019, AF s/p PPM and on apixaban and sotalol, hx CVA in 2016 with no residual and s/p CEA, and insulin-dependent DM2 presenting with exertional dyspnea, orthopnea, and edema consistent with CHF exacerbation; also exertional chest pain # acute/chronic HFrEF, ischemic cardiomyopathy - d/c IV furosemide; continue carvedilol; d/c losartan for now due to increasing SCr # exertional chest pain - Cardiology consulted; may need inpt stress test # renal insufficiency, unknown chronicity - monitor SCr and avoid nephrotoxins. unknown baseline SCr- will request records from pt's prior PCP Dr Fitch at [facility] # AF s/p PPM - continue carvedilol - d/c'ed sotalol due to renal insufficiency - continue apixaban - Dr Meeks spoke to Dr Matos and AF was noted on pacemaker, no other issues with the pacemaker - background A flutter- ?led to CHF- Cardiology evaluating # acute hypoxic respiratory failure - resolved # DM2 - basal/bolus insulin; hold MTF # PAULETTE - CPAP at night VTE prophylaxis: apixaban dispo: eventual home with [facility] In my clinical judgment, the patient requires continued hospitalization for the following reasons: renal insufficency, stress test Quality Stroke Does the patient have a stroke diagnosis?: No VTE Prior VTE?: No VTE Risk Level:: Medical - moderate - high VTE Device Contraindication: N/A - Device Ordered VTE Drug Contraindication: N/A - Med Ordered
[2022-02-05 16:25] LABS: Glucose, Whole Blood 239 mg/dL (60-115)
--- NOTE | 2022-02-05 16:57 | P.PNCA_ITS ---
Subjective Subjective Date of Service: 02/05/22 Interval history: Seen and examined at bedside. Saying that he walked the hallways 2 times without any chest discomfort or shortness of breath. Feeling quite well. His creatinine was rising with diuretics and his IV diuretics have been held. Physical Exam Vital Signs: Last Vital Signs Temp 98.0 F 02/05/22 15:40 Pulse 69 02/05/22 15:40 Resp 18 02/05/22 15:40 BP 121/74 02/05/22 15:40 Pulse Ox 96 02/05/22 15:40 O2 Del Method 02/05/22 15:40 O2 Flow Rate 2 02/04/22 13:42 Oxygen Flow Rate 3 02/05/22 08:00 BMI result Body Mass Index 39.6 GENERAL APPEARANCE: in no acute distress. SKIN: no suspicious lesions, warm and dry. HEART: no murmurs, regular rate and rhythm. LUNGS: Lungs clear to auscultation. ABDOMEN: soft, nontender. EXTREMITIES: No significant peripheral edema. PERIPHERAL PULSES: equal. NEUROLOGIC: No gross deficits, AAO X 3 Objective Labs and Meds Result diagrams: 02/04/22 07:44 02/05/22 06:34 Lab results: Laboratory Results - last 24 hr 02/04/22 02/04/22 02/05/22 19:23 21:37 06:34 Sodium 138 Potassium 4.3 Chloride 94 L Carbon Dioxide 31 H Anion Gap 17 BUN 36 H Creatinine 1.74 H Estim Creat Clear Calc 54.0 Estimated GFR 39 POC Glucose 361 H* 394 H* Random Glucose 146 H Calcium 10.0 Magnesium 1.8 B-Natriuretic Peptide 02/05/22 02/05/22 02/05/22 06:34 07:02 10:53 Sodium Potassium Chloride Carbon Dioxide Anion Gap BUN Creatinine Estim Creat Clear Calc Estimated GFR POC Glucose 163 H 218 H Random Glucose Calcium Magnesium B-Natriuretic Peptide 286 H 02/05/22 16:19 Sodium Potassium Chloride Carbon Dioxide Anion Gap BUN Creatinine Estim Creat Clear Calc Estimated GFR POC Glucose 239 H Random Glucose Calcium Magnesium B-Natriuretic Peptide Progress Note: A&P Assessment and plan (1) Congestive heart failure: Status: Acute Plan 76-year-old gentleman who is presenting with shortness of breath and congestive heart failure. He has background history of atrial flutter. He recently had device interrogation which showed atrial flutter and was due to see Dr. Matos in follow-up to discuss management. His EKG at [facility] is showing paced rhythm with background atrial flutter. Echocardiography has shown ejection fraction of 30 35%. As per discussion with the patient's is a new diagnosis for him. Clinically he is improving with diuretics. His creatinine is rising so diuretics have been held. Because of worsening creatinine clearanc e have stopped the sotalol. I think he can be changed to oral diuretics tomorrow. If feeling better that potentially home with follow-up with Dr. Matos for further workup for his cardiomyopathy. Given exertion chest discomfort he potentially will need ischemic evaluation. Interestingly after diuresis he is feeling better and has no chest discomfort with ambulation. In any case he will need ischemic evaluation as outpatient. If no coronary disease then maybe this is related to pacemaker and related dyssynchrony and he may need cardiac resynchronization therapy. Stopping sotalol for now because his creatinine clearance is too low. Thank you for allowing me to participate in the care of your patient. Please feel free to contact me if you have any questions. Time Spent With Patient Time: Total time spent is greater than 50% in coordination of care (as documented) at patient's floor/unit and/or counseling patient: Progress Note: Quality Stroke Does the patient have a stroke diagnosis?: No Procedures Date of Service Date of Service: 02/05/22
[2022-02-05 20:13] LABS: Glucose, Whole Blood 315 mg/dL (60-115)
[2022-02-05] MEDS: Melatonin 3 MG TABLET 9 MG PO (20:32)
[2022-02-05] MEDS: Insulin Glargine,Hum.rec.anlog 100 UNIT/ML 10 ML VIAL 44 UNIT SUBCUT (20:33)
[2022-02-06] VITALS: BP 130/63; PULSE 70; RESP 18; TEMP 36.7; O2SAT 98
[2022-02-06] MEDS: 0.9 % Sodium Chloride Flush 3 ML SYRINGE IVFLUSH ×2 (00:21→09:18)
[2022-02-06 04:00] VITALS: BP 114/66; PULSE 69; RESP 18; TEMP 36.6; O2SAT 96
[2022-02-06 07:17] LABS: Anion Gap 14 (12-20); Blood Urea Nitrogen 41 mg/dL (9-16); Calcium 9.6 mg/dL (8.4-10.2); Carbon Dioxide 31 mmol/L (22-29); Chloride 96 mmol/L (96-108); Creatinine Clr Calc Pharmacy 56.9; Estimated Glomerular Filt Rate 41; Glucose Random 154 mg/dL (60-115); Potassium 4.1 mmol/L (3.3-5.1); Sodium 137 mmol/L (135-145)
[2022-02-06 07:36] VITALS: BP 133/67; PULSE 71; RESP 18; TEMP 36; O2SAT 95
[2022-02-06 07:42] LABS: Glucose, Whole Blood 199 mg/dL (60-115)
[2022-02-06] MEDS: Insulin Lispro 100 UNIT/ML 3 ML VIAL SUBCUT ×2 (09:17→11:48)
--- NOTE | 2022-02-06 09:17 | PM.PNCARD ---
Subjective Subjective Date of Service: 02/06/22 Interval history: Seen at bedside. Feeling better. Creatinine stable. Has been of IV diuretics since yesterday. Physical Exam Vital Signs: Last Vital Signs Temp 96.8 F 02/06/22 07:36 Pulse 71 02/06/22 07:36 Resp 18 02/06/22 07:36 BP 133/67 02/06/22 07:36 Pulse Ox 95 02/06/22 07:36 O2 Del Method 02/06/22 07:36 O2 Flow Rate 2 02/04/22 13:42 Oxygen Flow Rate 2 02/05/22 20:00 BMI result Body Mass Index 39.6 GENERAL APPEARANCE: in no acute distress. SKIN: no suspicious lesions, warm and dry. HEART: no murmurs, regular rate and rhythm. LUNGS: Lungs clear to auscultation. ABDOMEN: soft, nontender. EXTREMITIES: No significant peripheral edema. PERIPHERAL PULSES: equal. NEUROLOGIC: No gross deficits, AAO X 3 Objective Labs and Meds Result diagrams: 02/04/22 07:44 02/06/22 05:50 Lab results: Laboratory Results - last 24 hr 02/05/22 02/05/22 02/05/22 10:53 16:19 20:08 Sodium Potassium Chloride Carbon Dioxide Anion Gap BUN Creatinine Estim Creat Clear Calc Estimated GFR POC Glucose 218 H 239 H 315 H Random Glucose Calcium 02/06/22 02/06/22 05:50 07:38 Sodium 137 Potassium 4.1 Chloride 96 Carbon Dioxide 31 H Anion Gap 14 BUN 41 H Creatinine 1.65 H Estim Creat Clear Calc 56.9 Estimated GFR 41 POC Glucose 199 H Random Glucose 154 H Calcium 9.6 Progress Note: A&P Assessment and plan (1) Congestive heart failure: Status: Acute Plan [age] gentleman presenting for congestive heart failure. Echocardiography has shown moderately reduced ejection fraction. He had permanent pacemaker placed in [place] and his rhythm is mostly paced with background atrial flutter. Given abnormal kidney function I am stopping the sotalol. After diuresis he looks more last euvolemic at this stage. He has been walking without any exertional symptoms including no chest discomfort which he was complaining before. I think continue carvedilol at the same dose. Add 40 mg Lasix once a day. Stop the hydrochlorothiazide for now. He should have basic metabolic panel checked in the 3-4 days and if creatinine is stable his losartan should be resumed. He will need further workup for cardiomyopathy. I have advised him to see Dr. Matos to discuss about ischemic evaluation. Other possibility can be that the cardiomyopathy is due to cardiac pacing but ischemia has to be ruled out 1st. Sotalol has been discontinued. Detailed discussion with patient's and son was done at bedside. Thank you for allowing me to participate in the care of your patient. Please feel free to contact me if you have any questions. Time Spent With Patient Time: Total time spent is greater than 50% in coordination of care (as documented) at patient's floor/unit and/or counseling patient: Progress Note: Quality Stroke Does the patient have a stroke diagnosis?: No Procedures Date of Service Date of Service: 02/06/22
[2022-02-06] MEDS: Apixaban 5 MG TABLET PO (09:18)
[2022-02-06] MEDS: Atorvastatin Calcium 80 MG TABLET PO (09:18)
[2022-02-06] MEDS: carvediloL 6.25 MG TABLET PO (09:18)
[2022-02-06] MEDS: Cyanocobalamin (Vitamin B-12) 1,000 MCG TABLET 1000 MCG PO (09:18)
[2022-02-06 11:14] VITALS: BP 114/60; PULSE 73; RESP 18; TEMP 36.2; O2SAT 92
[2022-02-06 11:39] LABS: Glucose, Whole Blood 333 mg/dL (60-115)
--- NOTE | 2022-02-06 11:40 | MHC.CM.PN ---
CURRENT PLAN IS HOME TODAY WITH PCP FOLLOW UP
--- NOTE | 2022-02-06 14:04 | P.DS_ITS ---
DS: Providers Provider Date of Service: 02/06/22 Date of admission: 02/03/22 17:03 Primary care physician: Corine Fitch MD Consults: 02/03/22 16:47 Consult to Cardiology Routine Consulting Provider: [facility] [place] Cardiovascular Services Reason for consultation: CHF exacerbation, pacer check DS: Diagnosis Discharge Diagnosis (1) Congestive heart failure: Status: Acute DS: Summary Hospital Course Hospital Course: Chief Complaint: dyspnea 77yo M with hx CA in 2019, AF s/p PPM and on apixaban and sotalol, hx CVA in 2015 with no residual and s/p CEA, PAULETTE on CPAP, and insulin-dependent DM2 who presents today with worsening leg sweling, dyspnea, and dry cough for one day.? He describes exertional dyspnea and orthopnea.? He also had chest tightness yesterday at rest for about an hour associated with dyspnea.? Denies syncope or palpitations.? Denies fever, chills, purulent sputum, or sick contacts.? Denies medication noncompliance or dietary indiscretions; in fact, [facility] His pin drafting machine operator is Dr Matos but he does not currently have a PCP.? He is scheduled to see Dr Matos in 2 days as his pacemaker had some kind of issue. In the ED, he was found to be mildly hypoxic requiring 1L of O2.? CXR showed mild pulmonary edema and cardiomegaly.? BNP was 866.? Hs-Tn-I was 29.8, then 34.9.? EKG with paced rhythm.? SCr 1.49 with no known baseline.? He was given 60 mg of IV fursoemide and his symptoms have improved.? He is now off oxygen as well. Hospital course 77yo M with hx CA in 2019, AF s/p PPM and on apixaban and sotalol, hx CVA in 2016 with no residual and s/p CEA, and insulin-dependent DM2 presenting with exertional dyspnea, orthopnea, and edema consistent with CHF exacerbation; also exertional chest pain # admitted with diagnosis of acute/chronic HFrEF, ischemic cardiomyopathy patient treated with IV Lasix with good response, was continued on Coreg, due to renal insufficiency losartan/hydrochlorothiazide was discontinued Since patient is hemodynamically stable, he is being discharged home to have close outpatient follow-up with primary pin drafting machine operator, patient was evaluated by Dr. Meeks and since patient chest pain is not typical for ischemia he Does not recommend patient stress test, initially noted to have acute hypoxic respiratory failure that resolved with treatment # renal insufficiency, unknown chronicity recommend outpatient follow-up with PCP. # chronic persistent AF s/p PPM continued on Coreg, and Eliquis, sotalol discontinued as per Cardiology due to renal insufficiency, background atrial flutter question led to congestive heart failure # DM2 metformin discontinued due to renal insufficiency, recommend to continue Lantus and NovoLog sliding scale # PAULETTE recommend to continue CPAP Time Spent with Patient Time attestation: Total time spent providing and/or coordinating discharge services: Discharge coordination time: Greater than 30 minutes Quality: Safe Use of Opioids Does Pt have an Active Cancer Diagnosis on the Problem List?: No Quality: Stroke Does the patient have a stroke diagnosis?: No Physical Exam Vital Signs: Vital Signs: Last Vital Signs Temp 97.2 F 02/06/22 11:14 Pulse 73 02/06/22 11:14 Resp 18 02/06/22 11:14 BP 114/60 02/06/22 11:14 Pulse Ox 92 02/06/22 11:14 O2 Del Method 02/06/22 11:14 O2 Flow Rate 2 02/04/22 13:42 Oxygen Flow Rate 2 02/05/22 20:00 BMI result Body Mass Index 39.6 Const: Other: Gen: Awake alert, no acute distress HEENT: sclera anicteric, moist mucus membranes Neck: supple, no JVD present Lungs: Good air entry bilaterally Heart: regular rate and rhythm, no murmurs Abd: soft, non-tender, non-distended, morbidly obese Ext:no LE edema Skin: warm/well-perfused Neuro: alert and oriented x3, no focal findings Psych: appropriate affect ? DS: Data Data Completed and Pending Labs on day of discharge: Laboratory Results - last 24 hr 02/05/22 02/05/22 02/06/22 16:19 20:08 05:50 Sodium 137 Potassium 4.1 Chloride 96 Carbon Dioxide 31 H Anion Gap 14 BUN 41 H Creatinine 1.65 H Estim Creat Clear Calc 56.9 Estimated GFR 41 POC Glucose 239 H 315 H Random Glucose 154 H Calcium 9.6 02/06/22 02/06/22 07:38 11:18 Sodium Potassium Chloride Carbon Dioxide Anion Gap BUN Creatinine Estim Creat Clear Calc Estimated GFR POC Glucose 199 H 333 H Random Glucose Calcium Discharge Plan Discharge Patient Disposition: Home, Self-Care Discharge Diagnosis: Acute on chronic congestive heart failure with reduced EF Chronic persistent AFib Acute hypoxic respiratory failure Referrals: Corine Fitch MD [Primary Care Provider] - 1 Week Discharge Medications: New furosemide [Lasix] 40 mg tablet 40 mg PO DAILY Qty: 30 0RF Continued atorvastatin 80 mg tablet 1 tab PO DAILY carvedilol 6.25 mg Tablet 6.25 mg PO BID Rx Instructions: must administer with a meal/food ergocalciferol (vitamin D2) 1,250 mcg (50,000 unit) Capsule 1,250 mcg PO TH@0900 insulin aspart U-100 [Novolog Flexpen U-100 Insulin] 100 unit/mL (3 mL) Insulin Pen 18 unit SUBCUT TIDAC insulin glargine [Lantus Solostar U-100 Insulin] 100 unit/mL (3 mL) Insulin Pen 44 unit SUBCUT BEDTIME melatonin 10 mg Tablet 10 mg PO BEDTIME apixaban 5 mg Tablet 5 mg PO BID cyanocobalamin (vitamin B-12) 1,000 mcg Tablet 1,000 mcg PO DAILY Discontinued sotalol 80 mg tablet 1 tab PO BID losartan-hydrochlorothiazide 100-25 mg tablet 1 tab PO DAILY metformin 1,000 mg Tablet 1,000 mg PO BIDWMEAL furosemide 20 mg tablet 1 tab PO DAILY Discharge Orders: Discharge Order (Routine); Ordered 02/06/22 Ordered By: Nathan Payne Diet: Low fat, low cholesterol Activity on Discharge: As tolerated Stand Alone Forms: Patient Portal Discharge page Other Ambulatory Orders: Basic Metabolic Panel Fasting (Routine) Timeframe: [id number] Facility: [facility] - Location: Laboratory Ordered By: Nathan Payne Care Plan Goals: Acute CHF resolved, hypoxia resolved, take all medications as prescribed, check BMP in 1 week Health Concerns: CHF/diabetes follow low-calorie diet and monitor blood sugar Plan of Treatment: Outpatient follow-up with Dr. Matos call to make appointment in 1 week Assessment: As per discharge summary Discharge Date/Time: 02/06/22 14:44
--- NOTE | 2022-02-06 14:12 | MHC.CM.PN ---
PATIENT IS DC HOME - SELF CARE
== END 2022-02-06 14:44 | disposition home or self-care (01) | DRG 291 ==
LOC: HO.ED 12:34 → HO.EDOVER 17:10 → HO.S3 02-04 20:16
PROVIDERS: Physician Assistant Medical; Admitting Provider Family Medicine; Emergency Provider Emergency Medicine; PCP Family Medicine; Visit Provider Hospitalist
DX: I11.0 Hypertensive heart disease with heart failure (principal); I50.23 Acute on chronic systolic (congestive) heart failure; J96.01 Acute respiratory failure with hypoxia; I48.19 Other persistent atrial fibrillation; I48.92 Unspecified atrial flutter; I25.5 Ischemic cardiomyopathy; G47.33 Obstructive sleep apnea (adult) (pediatric); E78.5 Hyperlipidemia, unspecified; E66.01 Morbid (severe) obesity due to excess calories; I25.10 Atherosclerotic heart disease of native coronary artery without angina pectoris; Z20.822 Contact with and (suspected) exposure to COVID-19; N28.9 Disorder of kidney and ureter, unspecified; I25.2 Old myocardial infarction; Z86.73 Personal history of transient ischemic attack (TIA), and cerebral infarction without residual deficits; Z95.0 Presence of cardiac pacemaker; Z87.891 Personal history of nicotine dependence; Z79.4 Long term (current) use of insulin; Z79.01 Long term (current) use of anticoagulants; Z79.899 Other long term (current) drug therapy
CPT/HCPCS: 36415; 71045; 80048; 80053; 82728; 82947; 83735; 83880; 84145; 84484; 85025; 85027; 85610; 87635; 93005; 93306; 93970; 94640; 94660; 96374; 96376; 97162; 99285; J1940; Q9957

== ENCOUNTER 2022-03-31 14:08 | Inpatient (IN) | payer OTHER, MEDICARE, SELFPAY ==
--- NOTE | ~2022-03-31 | XR_ITS ---
EXAMINATION: XR CHEST CLINICAL INFORMATION: Shortness of breath. COMPARISON: February 03, 2022. TECHNIQUE: Portable AP view of the chest was obtained. XR/XR chest 1V FINDINGS/IMPRESSION: Examination demonstrates prominence of the pulmonary veins in their nondependent portions consistent with pulmonary venous hypertension, as well as diffuse bilateral interstitial prominence with Olivia B-lines, consistent with pulmonary edema. No effusion or pneumothorax is seen. The heart size is poorly evaluated. The aorta is atherosclerotic. The tips of left subclavian pulse generator device leads project over the right atrium and right ventricle. There are mild degenerative changes of the spine and acromioclavicular joints.
--- NOTE | 2022-03-31 14:13 | ED_ITS ---
HPI - General Adult General Chief complaint: Dyspnea Stated complaint: SOB X 4 DAYS Time Seen by Provider: 03/31/22 14:12 Source: patient and EMS Mode of arrival: EMS Limitations: no limitations History of Present Illness HPI narrative: Patient is a 76 year old male presenting to the emergency department today with shortness of breath for the last 4 days. Patient states that over the last 4 days, he has had shortness of breath that's worsening. Patient states that he had a heart attack at [facility] a week and a half ago. Patient states that they said they didn't need to do anything from an intervention stand point and discharged him with medications. Patient states that he was using his CPAP mach ine to help him breathe while sitting up and he believes that helped him somewhat. Patient denies any dizziness, lightheadedness, abdominal pain, nausea, vomiting, fever, chills, blurry vision, double vision, loss of vision, chest pain, difficulty breathing, back pain, night sweats, pain with urination, increased urinary frequency, increased urinary urgency, blood in his urine or stool, syncope or a near syncopal episode, recent trauma or falls, bowel incontinence, bladder incontinence, bowel retention, bladder retention, or any other complaints at this time. Onset (ago): day(s) (4) Severity: moderate Severity scale (1-10): 5 Relieving factors: none Exacerbating factors: movement and other (lying flat) Associated symptoms: shortness of breath Treatments prior to arrival: none Related Data Home Medications Medication Instructions Recorded Confirmed apixaban 5 mg tablet 5 mg PO BID 02/03/22 02/03/22 atorvastatin 80 mg tablet 1 tab PO DAILY 02/03/22 02/03/22 carvedilol 6.25 mg tablet 6.25 mg PO BID 02/03/22 02/03/22 cyanocobalamin (vitamin B-12) 1,000 mcg PO DAILY 02/03/22 02/03/22 1,000 mcg tablet ergocalciferol (vitamin D2) 1,250 1,250 mcg PO TH@0900 02/03/22 02/03/22 mcg (50,000 unit) capsule insulin aspart U-100 100 unit/mL 18 unit subcut TIDAC 02/03/22 02/03/22 (3 mL) subcutaneous pen (Novolog Flexpen U-100 Insulin aspart) insulin glargine 100 unit/mL (3 44 unit subcut BEDTIME 02/03/22 02/03/22 mL) subcutaneous pen (Lantus Solostar U-100 Insulin) melatonin 10 mg tablet 10 mg PO BEDTIME 02/03/22 02/03/22 amiodarone 200 mg tablet 400 mg PO BID 03/31/22 carvedilol 25 mg tablet 1 tab PO BID 03/31/22 03/31/22 losartan 100 1 tab PO DAILY 03/31/22 03/31/22 mg-hydrochlorothiazide 25 mg tablet nitroglycerin 0.4 mg sublingual mg 03/31/22 tablet Previous Rx's Medication Instructions Recorded furosemide 40 mg tablet (Lasix) 40 mg PO DAILY #30 tabs 02/06/22 Allergies Allergy/AdvReac Type Severity Reaction Status Date / Time No Known Allergies Allergy Verified 02/03/22 11:15 Review of Systems Constitutional: Constitutional: Reports no additional constitutional complaints, Denies chills, Denies fever(s) and Denies night sweats Eyes: Eyes: Reports no additional eye complaints, Denies blurry vision, Denies change in vision, Denies diplopia, Denies eye discharge, Denies loss of vision and Denies eye pain ENT: Denies dizziness Cardiovascular: Cardiovascular: Reports no additional cardiovascular complaints, Denies chest pain, Denies lightheadedness, Denies Loss of Consc iousness and Reports dyspnea Respiratory: Respiratory: Reports no additional respiratory complaints and Reports dyspnea Gastrointestinal: Gastrointestinal: Reports no additional gastrointestinal complaints, Denies abdominal pain, Denies melena, Denies hematochezia, Denies change in bowel habits and Denies change in stool character Genitourinary: Genitourinary: Reports no additional male genitourinary complaints, Denies hematuria, Denies oliguria, Denies difficulty urinating, Denies dysuria, Denies urinary frequency, Denies urinary hesitancy, Denies urinary incontinence and Denies urinary urgency Musculoskeletal: Musculoskeletal: Reports no additional musculoskeletal complaints, Denies numbness and Denies tingling Neurologic: Denies dizziness, Denies loss of vision, Denies numbness and Denies tingling Psychiatric: Psychiatric: Reports no additional psychiatric complaints Endocrine: Endocrine: Reports no additional endocrine complaints Hematologic/Lymphatic: Hematologic/Lymphatic: Reports no additional hematologic/lymphatic complaints Allergic/Immunologic: Allergic/Immunologic: Reports no additional allergic/immunologic complaints PMFSH Past Medical History Attestation statement: The following information was validated with the patient. Source: old records reviewed Medical History Coronary artery disease History of diverticulitis History of intestinal obstruction Hyperlipidemia Hypertension Morbid obesity Myocardial infarction Obstructive sleep apnea Stroke Type 2 diabetes mellitus Surgical History History of carotid endarterectomy History of permanent cardiac pacemaker placement Social History Social History Household Members: Spouse Housing: House Do you presently have visiting nurse or other home services: No Patient Tobacco Use Status: Former Tobacco user Quit Date: QUIT 20 YEARS AGO PER PT Tobacco use type: Cigarette e-Cigarette/Vaping Use: Never Used Second Hand Smoke Exposure: No Advance Directives: No Advance Directives Information Provided: Yes service: Yes Current occupational status: retired Physical Exam ED Vital Signs: Vital Signs - 24 hr 03/31/22 14:22 Temperature 97.6 F Pulse Rate 70 Respiratory Rate 20 Blood Pressure 136/73 Pulse Oximetry 96 Oxygen Delivery Method Nasal Cannula BMI result Body Mass Index 39.8 Const General: cooperative, no acute distress, alert and awake Nutritional Appearance: well nourished Orientation/consciousness: patient oriented x3 Limitations: no limitations HENMT Head: Yes normal to inspection and Yes atraumatic Ears: hearing grossly normal bilaterally and external ears normal General nose exam: Normal external nose present, no nasal discharge noted and no epistaxis Face and sinus: Yes normal facial exam, No abrasion and No laceration Mouth: Normal oral and palatal mucosa present, no drooling and no muffled voice Eyes General: appearance normal, both eyes and all related structures Periorbital: periorbital findings normal Eyelids: Yes eyelids normal Conjunctivae: conjunctivae normal Pupils: Equal, round and reactive pupils present EOM: EOMs intact bilaterally Neck Neck: Yes normal visual inspection, Yes full ROM and Yes no lymphadenopathy Chest Chest palpation & inspection: normal inspection of the chest Resp Effort & Inspection: able to speak in complete sentences, labored and tachypneic Auscultation: crackles diffuse Cardio Rate: regular rate Rhythm: regular rhythm GI Inspection: Yes normal to inspection Neuro General: patient oriented x3 and moves all extremities Cranial nerves: Yes Equal, round and reactive pupils present Cognition (Neuro): normal cognition Motor exam (neuro): 5/5 motor strength present throughout Sensory Exam: Normal double simultaneous stimulation for sensation Coordination: [id number] test normal Extrem General: Yes normal to inspection, Yes full ROM and Yes capillary refill normal Psych Appearance: grossly normal Mental Status: mental status grossly normal Affect: normal affect Attitude: cooperative Thought process: Normal thought process present Thought content: Normal thought content present Insight: Good insight present (Psych) Medical Decision Making MDM Narrative Medical decision making narrative: Patient is a 76 year old male presenting to the emergency department today with increased shortness of breath over the last 4 days. Patient's physical exam showed mild labored respirations with tachypnea and diffuse crackles. Patient was initially saturating at 90% on RA and was placed on 2LPM via NC which put him up to 100% SPO2. Patient's blood work showed an elevated BNP of >700 as well as an elevated CR 2.09. Patient's WBC count was slightly elevated as well. Giselle ent is not septic and his clinical picture is most consistent with a CHF exacerbation, not an infectious process. At this time, the patient is not requiring bipap or CPAP. Patient's urine is pending. Patient's EKG was unremarkable. Patient's chest x-ray showed evidence of pulmonary edema/congestion. I explained my physical exam findings as well as all test results to the patient and the patient's . I answered all questions asked by the patient and the patient's . Patient was given 20mg of IV Lasix and 0.4 of transdermal nitro. I spoke to Melina Danielle, the FIORELLA, who agreed to admission. Patient and the patient's verbalized agreement and understanding with this treatment plan and admission. Medical Records Medical records reviewed: Yes I reviewed the patient's medical records. Lab Data Lab results reviewed: Yes I reviewed the patient's lab results. Result diagrams: 03/31/22 14:30 03/31/22 14:30 Labs: Lab Results 03/31/22 03/31/22 03/31/22 Range/Units 14:30 14:30 14:30 WBC 11.8 H (4.8-10.8) X10*3/uL RBC 4.36 L (4.60-5.80) X10*6/uL Hgb 14.0 (14.0-18.0) g/dl Hct 42.2 (42.0-52.0) % MCV 96.8 (80.0-98.0) fL MCH 32.1 (27.0-33.0) pg MCHC 33.2 (31.0-36.0) g/dl RDW 13.6 (11.0-16.0) % Plt Count 267 (160-400) X10*3/uL MPV 10.8 (9.4-12.4) fL Immature Gran % (Auto) 0.5 H (0.0-0.4) % Neut % (Auto) 68.8 (45-73) % Lymph % (Auto) 21.8 (20-40) % Daggett % (Auto) 7.4 (2-11) % Eos % (Auto) 1.1 (0-4) % Baso % (Auto) 0.4 (0-2) % Lymph # (Auto) 2.6 (1.2-4.9) X10*3/uL Daggett # (Auto) 0.9 (0.1-1.2) X10*3/uL Eos # (Auto) 0.1 (0.0-0.4) X10*3/uL Baso # (Auto) 0.1 (0.0-0.2) X10*3/uL Abs Immat Gran (auto) 0.06 H (0.00-0.03) X10*3/uL Absolute Neuts (auto) 8.1 (2.0-8.3) x10*3/uL Absolute Nucleated RBC 0.000 (0.0-0.012) X10*3/uL Nucleated RBC % (auto) 0.0 (0.0-0.2) /100WBC VBG pH (7.32-7.43) VBG pCO2 mmHg VBG pO2 mmHg VBG HCO3 (22-26) mmol/L VBG O2 Saturation % VBG Base Excess mmol/L Sodium 139 (135-145) mmol/L Potassium 4.3 (3.3-5.1) mmol/L Chloride 100 (96-108) mmol/L Carbon Dioxide 27 (22-29) mmol/L Anion Gap 16 (12-20) BUN 37 H (9-16) mg/dL Creatinine 2.09 H (0.5-1.4) mg/dL Estim Creat Clear Calc 45.0 Estimated GFR 31 Random Glucose 160 H (60-115) mg/dL Calcium 9.2 (8.4-10.2) mg/dL Magnesium 2.1 (1.6-2.6) mg/dL Total Bilirubin 1.4 H (0.0-1.0) mg/dL AST 13 (5-37) U/L ALT 17 (0-40) U/L Alkaline Phosphatase 132 H D (39-117) U/L Troponin I High Sens 26.3 (<3.5-35.0) ng/L B-Natriuretic Peptide 796 H (<100) pg/mL Total Protein 6.9 (6.5-8.0) g/dL Albumin 4.0 (3.5-5.0) g/dL 03/31/22 Range/Units 14:38 WBC (4.8-10.8) X10*3/uL RBC (4.60-5.80) X10*6/uL Hgb (14.0-18.0) g/dl Hct (42.0-52.0) % MCV (80.0-98.0) fL MCH (27.0-33.0) pg MCHC (31.0-36.0) g/dl RDW (11.0-16.0) % Plt Count (160-400) X10*3/uL MPV (9.4-12.4) fL Immature Gran % (Auto) (0.0-0.4) % Neut % (Auto) (45-73) % Lymph % (Auto) (20-40) % Daggett % (Auto) (2-11) % Eos % (Auto) (0-4) % Baso % (Auto) (0-2) % Lymph # (Auto) (1.2-4.9) X10*3/uL Daggett # (Auto) (0.1-1.2) X10*3/uL Eos # (Auto) (0.0-0.4) X10*3/uL Baso # (Auto) (0.0-0.2) X10*3/uL Abs Immat Gran (auto) (0.00-0.03) X10*3/uL Absolute Neuts (auto) (2.0-8.3) x10*3/uL Absolute Nucleated RBC (0.0-0.012) X10*3/uL Nucleated RBC % (auto) (0.0-0.2) /100WBC VBG pH 7.34 (7.32-7.43) VBG pCO2 37 mmHg VBG pO2 46 mmHg VBG HCO3 20 L (22-26) mmol/L VBG O2 Saturation 66.0 % VBG Base Excess -4.7 mmol/L Sodium (135-145) mmol/L Potassium (3.3-5.1) mmol/L Chloride (96-108) mmol/L Carbon Dioxide (22-29) mmol/L Anion Gap (12-20) BUN (9-16) mg/dL Creatinine (0.5-1.4) mg/dL Estim Creat Clear Calc Estimated GFR Random Glucose (60-115) mg/dL Calcium (8.4-10.2) mg/dL Magnesium (1.6-2.6) mg/dL Total Bilirubin (0.0-1.0) mg/dL AST (5-37) U/L ALT (0-40) U/L Alkaline Phosphatase (39-117) U/L Troponin I High Sens (<3.5-35.0) ng/L B-Natriuretic Peptide (<100) pg/mL Total Protein (6.5-8.0) g/dL Albumin (3.5-5.0) g/dL Imaging Data Chest x-ray: Attestation: I personally reviewed and interpreted this imaging study as follows: My impression: CHF/Pulmonary edema. Radiologist's impression: EXAMINATION: XR CHEST CLINICAL INFORMATION: Shortness of breath. COMPARISON: February 03, 2022. TECHNIQUE: Portable AP view of the chest was obtained. XR/XR chest 1V FINDINGS/IMPRESSION: ? Examination demonstrates prominence of the pulmonary veins in their nondependent portions consistent with pulmonary venous hypertension, as well as diffuse bilateral interstitial prominence with Olivia B-lines, consistent with pulmonary edema. ? No effusion or pneumothorax is seen. ? The heart size is poorly evaluated. The aorta is atherosclerotic. The tips of left subclavian pulse generator device leads project over the right atrium and right ventricle. ? There are mild degenerative changes of the spine and acromioclavicular joints. Dictated By: Bipin Hdez Signed By: Electronically signed by Bipin Hdez 03/31/22 [id number] ECG Data Attestation: I personally reviewed and interpreted this ECG as follows: Prior ECG tracings: available for review Interpretation: Vent. Rate: 084 BPM ? ? Atrial Rate: 063 BPM P-R Int: 000 ms? QRS Dur: 166 ms QT Int: 500 ms ? ? ? P-R-T Axes: 000 -55 111 degrees QTc Int: 590 ms ? Ventricular-paced rhythm with frequent , and consecutive Premature ventricular complexes Abnormal ECG When compared with ECG of 03-FEB-2022 11:55, Premature ventricular complexes are now Present Vent. rate has increased BY? 14 BPM DD/ [id number] Discharge Plan Discharge Patient Disposition: Admitted As Inpatient Prescriptions: No Action atorvastatin 80 mg tablet 1 tab PO DAILY carvedilol 6.25 mg Tablet 6.25 mg PO BID Rx Instructions: must administer with a meal/food ergocalciferol (vitamin D2) 1,250 mcg (50,000 unit) Capsule 1,250 mcg PO TH@0900 insulin aspart U-100 [Novolog Flexpen U-100 Insulin] 100 unit/mL (3 mL) Insulin Pen 18 unit SUBCUT TIDAC insulin glargine [Lantus Solostar U-100 Insulin] 100 unit/mL (3 mL) Insulin Pen 44 unit SUBCUT BEDTIME melatonin 10 mg Tablet 10 mg PO BEDTIME apixaban 5 mg Tablet 5 mg PO BID cyanocobalamin (vitamin B-12) 1,000 mcg Tablet 1,000 mcg PO DAILY furosemide [Lasix] 40 mg tablet 40 mg PO DAILY Qty: 30 0RF carvedilol 25 mg tablet 1 tab PO BID amiodarone 200 mg tablet 400 mg PO BID Rx Instructions: take until 04/04 2 bid then 1 daily thereafter losartan-hydrochlorothiazide 100-25 mg tablet 1 tab PO DAILY nitroglycerin 0.4 mg tablet, sublingual
--- NOTE | 2022-03-31 14:17 | ECG_ITS ---
Test Reason : SOB Blood Pressure : / mmHG Vent. Rate : 084 BPM Atrial Rate : 063 BPM P-R Int : 000 ms QRS Dur : 166 ms QT Int : 500 ms P-R-T Axes : 000 -55 111 degrees QTc Int : 590 ms Ventricular-paced rhythm with Premature ventricular complexes Abnormal ECG When compared with ECG of 03-FEB-2022 11:55, Premature ventricular complexes are now Present Vent. rate has increased BY 14 BPM Referred By: Nellie Frost Electronically Signed By:ANGELI PLASCENCIA
[2022-03-31 14:22] VITALS: BP 136/73; BP 140/88; PULSE 70; PULSE 72; RESP 20; TEMP 36.4; O2SAT 96; O2SAT 97; BMI 39.8
[2022-03-31 14:33] LABS: MANUAL DIFF FLAG NO
[2022-03-31 14:35] LABS: Basophils Absolute Auto 0.1 X10*3/uL (0.0-0.2); Basophils Percent Auto 0.4 % (0-2); Eosinophils Absolute Auto 0.1 X10*3/uL (0.0-0.4); Eosinophils Percent Auto 1.1 % (0-4); Hematocrit 42.2 % (42.0-52.0); Imm Gran Abs Auto 0.06 X10*3/uL (0.00-0.03); Imm Gran Pct Auto 0.5 % (0.0-0.4); Lymphocytes Absolute Auto 2.6 X10*3/uL (1.2-4.9); Lymphocytes Percent Auto 21.8 % (20-40); Mean Corpuscular HGB Conc 33.2 g/dl (31.0-36.0); Mean Corpuscular Hemoglobin 32.1 pg (27.0-33.0); Mean Corpuscular Volume 96.8 fL (80.0-98.0); Mean Platelet Volume 10.8 fL (9.4-12.4); Monocytes Absolute Auto 0.9 X10*3/uL (0.1-1.2); Monocytes Percent Auto 7.4 % (2-11); Neutrophils Absolute Auto 8.1 x10*3/uL (2.0-8.3); Neutrophils Percent Auto 68.8 % (45-73); Platelet Count 267 X10*3/uL (160-400); Red Blood Count 4.36 X10*6/uL (4.60-5.80); Red Cell Distribution Width 13.6 % (11.0-16.0); White Blood Count 11.8 X10*3/uL (4.8-10.8)
[2022-03-31 14:42] LABS: VBG Base Excess -4.7 mmol/L; VBG HCO3 20 mmol/L (22-26); VBG pCO2 37 mmHg; VBG pH 7.34 (7.32-7.43); VBG pO2 46 mmHg
[2022-03-31 14:45] LABS: Venous Blood Gas Refer to POC result
[2022-03-31 14:51] LABS: Alanine Aminotransferase 17 U/L (0-40); Alkaline Phosphatase 132 U/L (39-117); Anion Gap 16 (12-20); Aspartate Amino Transferase 13 U/L (5-37); Bilirubin Total 1.4 mg/dL (0.0-1.0); Blood Urea Nitrogen 37 mg/dL (9-16); Calcium 9.2 mg/dL (8.4-10.2); Carbon Dioxide 27 mmol/L (22-29); Chloride 100 mmol/L (96-108); Estimated Glomerular Filt Rate 31; Glucose Random 160 mg/dL (60-115); Magnesium 2.1 mg/dL (1.6-2.6); Potassium 4.3 mmol/L (3.3-5.1); Sodium 139 mmol/L (135-145); Total Protein 6.9 g/dL (6.5-8.0)
[2022-03-31 14:57] LABS: B Type Natriuretic Peptide 796 pg/mL (<100); Troponin-I High Sensitivity 26.3 ng/L (<3.5-35.0)
[2022-03-31] MEDS: Furosemide 20 MG/2 ML VIAL IVPUSH (15:35)
--- NOTE | 2022-03-31 16:22 | PM.IMHP ---
History of Present Illness Date of Service: 03/31/22 Attending physician on admission: Kwame Gonzales Chief Complaint: shortness of breath This is a 76 year old male with history of chronic afib s/p ablation, PPM and recent DCCV, HFrEF, PAULETTE on CPAP, IDDM, HTN and recent admission to [facility] for NSTEMI and CHF who presents to the ED with shortness of breath. Patient was admitted to [facility] on March 14 with dyspnea and hypoxic respiratory failure found to have acute CHF/NSTEMI in the setting of hypertensive emergency and flash pulmonary edema. Was diuresed and evaluated by Cardiology. He had an echocardiogram showed reduced left ventricular ejection fraction and several wall motion abnormalities concerning for ischemia. He underwent cardiac catheterization on March 20 which demonstrated multivessel disease however cardiology recommended for medical management as he had no target lesion for PCI. His pacemaker was interrogated he was also noted to have high burden of tachyarrhythmia which was concerning to contribute to his cardiomyopathy. He underwent cardioversion on March 22 and was started on amiodarone. He was discharge from [facility] on March 22. Initially it appears he was feeling okay but he has beak some increasingly short of breath over the past 3-4 days. He endorses orthopnea, paroxysmal nocturnal dyspnea as well as dyspnea on exertion. He has intermittent dry cough. He denies any chest pain, palpitations, fever, chills. He has been unable to sleep lying flat. En route to the hospital his oxygen saturation was around 90% per EMS. Workup in the emergency department was consistent with acute CHF. Chest x-ray shows evidence of vascular congestion. BNP was elevated around 800. He received dose of IV Lasix as well as nitropaste. Lab work was significant for SUSI with a creatinine of 2.09. Initial highly sensitive troponin was 26.3, repeat pending at this time. The decision was made to admit him for further management of acute CHF. Review of Systems Review of Systems: Yes all other systems are reviewed and are negative Constitutional: Constitutional: Denies chills and Denies fever(s) ENT: Denies dizziness Cardiovascular: Cardiovascular: Denies chest pain, Denies palpitations, Reports dyspnea, Reports dyspnea on exertion and Reports orthopnea Respiratory: Respiratory: Reports cough, Reports dyspnea and Reports dyspnea on exertion Gastrointestinal: Gastrointestinal: Denies abdominal pain, Denies nausea and Denies vomiting Neurologic: Denies dizziness Endocrine: Endocrine: Denies palpitations [facility] Medical History Coronary artery disease History of diverticulitis History of intestinal obstruction Hyperlipidemia Hypertension Morbid obesity Myocardial infarction Obstructive sleep apnea Stroke Type 2 diabetes mellitus Functional capacity: independent ambulation Surgical History History of carotid endarterectomy History of permanent cardiac pacemaker placement Social History Household Members: Spouse Housing: House Do you presently have visiting nurse or other home services: No Patient Tobacco Use Status: Former Tobacco user Quit Date: QUIT 20 YEARS AGO PER PT Tobacco use type: Cigarette e-Cigarette/Vaping Use: Never Used Second Hand Smoke Exposure: No Advance Directives: No Advance Directives Information Provided: Yes service: Yes Current occupational status: retired [employer] Allergies Allergy/AdvReac Type Severity Reaction Status Date / Time No Known Allergies Allergy Verified 02/03/22 11:15 Active Medications: Current Medications Pharmacy Consult (Consult Rx Perform Med Rec) 1 each MISCELLANE ONCE PRN PRN Reason: Consult order Home Medications Medication Instructions Recorded Confirmed Last Taken Type apixaban 5 mg tablet 5 mg PO BID 02/03/22 03/31/22 03/31/22 History atorvastatin 80 mg tablet 1 tab PO BEDTIME 02/03/22 03/31/22 03/30/22 History cyanocobalamin (vitamin B-12) 1,000 mcg PO DAILY 02/03/22 03/31/22 03/31/22 History 1,000 mcg tablet insulin aspart U-100 100 unit/mL 18 unit subcut TIDAC 02/03/22 03/31/22 03/31/22 History (3 mL) subcutaneous pen (Novolog Flexpen U-100 Insulin aspart) insulin glargine 100 unit/mL (3 50 unit subcut BEDTIME 02/03/22 03/31/22 03/30/22 History mL) subcutaneous pen (Lantus Solostar U-100 Insulin) melatonin 10 mg tablet 10 mg PO BEDTIME PRN Insomnia 02/03/22 03/31/22 03/30/22 History amiodarone 200 mg tablet 400 mg PO BID 03/31/22 03/31/22 03/31/22 History carvedilol 25 mg tablet 1 tab PO BID 03/31/22 03/31/22 03/31/22 History furosemide 40 mg tablet (Lasix) 80 mg PO DAILY 03/31/22 03/31/22 03/31/22 History nitroglycerin 0.4 mg sublingual 0.4 mg sublingual Q5M 03/31/22 03/31/22 Unknown History tablet Physical Exam Vital Signs and Narrative: Vital Signs: Last Vital Signs Temp 97.6 F 03/31/22 14:22 Pulse 70 03/31/22 14:22 Resp 20 03/31/22 14:22 BP 136/73 03/31/22 14:22 Pulse Ox 96 03/31/22 14:22 O2 Del Method 03/31/22 14:22 Oxygen Flow Rate 4 03/31/22 14:22 BMI result Body Mass Index 39.8 Const: General: cooperative, alert and awake Nutritional Appearance: obese Orientation/consciousness: patient oriented x3 Resp: Other: speaks in few word sentences Effort & Inspection: tachypneic and uses accessory muscles Auscultation: diminished lung sounds Cardio: Rate: regular rate Heart sounds: S1 normal heart sound present and S2 normal heart sound present GI: Inspection: No distended and Yes obesity Palpation (GI): Soft to palpation and nontender Neuro: General: patient oriented x3 and CN's II-XI intact bilaterally Extrem: General: Yes no pedal edema Results Labs CBC and Chem 7: 03/31/22 14:30 03/31/22 14:30 Labs: Laboratory Results - last 24 hr 03/31/22 03/31/22 03/31/22 14:30 14:30 14:30 MCV 96.8 MCH 32.1 MCHC 33.2 RDW 13.6 Plt Count 267 MPV 10.8 Immature Gran % (Auto) 0.5 H Neut % (Auto) 68.8 Lymph % (Auto) 21.8 [place] % (Auto) 7.4 Eos % (Auto) 1.1 Baso % (Auto) 0.4 Lymph # (Auto) 2.6 [place] # (Auto) 0.9 Eos # (Auto) 0.1 Baso # (Auto) 0.1 Abs Immat Gran (auto) 0.06 H Absolute Neuts (auto) 8.1 Absolute Nucleated RBC 0.000 Nucleated RBC % (auto) 0.0 VBG pH VBG pCO2 VBG pO2 VBG HCO3 VBG O2 Saturation VBG Base Excess Anion Gap 16 Estim Creat Clear Calc 45.0 Estimated GFR 31 Random Glucose 160 H Calcium 9.2 Magnesium 2.1 Total Bilirubin 1.4 H AST 13 ALT 17 Alkaline Phosphatase 132 H D B-Natriuretic Peptide 796 H Total Protein 6.9 Albumin 4.0 03/31/22 14:38 MCV MCH MCHC RDW Plt Count MPV Immature Gran % (Auto) Neut % (Auto) Lymph % (Auto) [place] % (Auto) Eos % (Auto) Baso % (Auto) Lymph # (Auto) [place] # (Auto) Eos # (Auto) Baso # (Auto) Abs Immat Gran (auto) Absolute Neuts (auto) Absolute Nucleated RBC Nucleated RBC % (auto) VBG pH 7.34 VBG pCO2 37 VBG pO2 46 VBG HCO3 20 L VBG O2 Saturation 66.0 VBG Base Excess -4.7 Anion Gap Estim Creat Clear Calc Estimated GFR Random Glucose Calcium Magnesium Total Bilirubin AST ALT Alkaline Phosphatase B-Natriuretic Peptide Total Protein Albumin Imaging Radiologist's Impressions: Impressions Chest X-Ray 03/31/22 14:35 FINDINGS/IMPRESSION: Examination demonstrates prominence of the pulmonary veins in their nondependent portions consistent with pulmonary venous hypertension, as well as diffuse bilateral interstitial prominence with Olivia B-lines, consistent with pulmonary edema. No effusion or pneumothorax is seen. The heart size is poorly evaluated. The aorta is atherosclerotic. The tips of left subclavian pulse generator device leads project over the right atrium and right ventricle. There are mild degenerative changes of the spine and acromioclavicular joints. Assessment and Plan (1) SUSI (acute kidney injury): Status: Acute (2) Acute CHF: Status: Acute Plan This is a 76 year old male with history of chronic afib s/p PPM and recent cardioversion, HFrEF, PAULETTE on CPAP, IDDM, HTN, prior CVA s/p left CEA, recent admission to [facility] [facility] for CHF/NSTEMI (discharged 03/22) who presents with progressively worsening shortness of breath found to be in CHF Acute respiratory failure with hypoxia saturating mid 90s on 4L NC r/t CHF does have long history of smoking, but no formal diagnosis of COPD -continue supplemental oxygen, wean as tolerated Acute on chronic HFrEF LVEF 30-35% trop flat -IV lasix -follow Is&Os; low sodium diet -cardiology consult chronic afib had DCCV 03/22 at [facility] and was started on amio load; in vpaced rhythm continue amio continue AC with Eliquis SUSI on CKD3 creatinine 2.09, basline around 1.6 getting diuresed for CHF, follow renal function closely CAD/ischemic cardiomyopathy cardiac cath at [facility] 03/20 showing multivessel dz - deemed not to be candidate for CABG and no target lesion for PCI - managed medically -continue coreg, atorastatin, IDDM -SSI, POCs, ADA diet -continue Lantus -hold premeal insulin for now, if sugars elevated can be resumed PAULETTE continue CPAP Morbid obesity BMI 39.8 dvt ppx - code status - pt with MOL[facility] form indicating wishes to be DNR/DNI HCP - son Carlos Eduardo and daughter Quality Stroke Does the patient have a stroke diagnosis?: No VTE Prior VTE?: No VTE Risk Level:: Medical - moderate - high VTE Device Contraindication: N/A - Device Ordered VTE Drug Contraindication: N/A - Med Ordered
[2022-03-31] MEDS: Nitroglycerin 0.4 MG PATCH.TD24 TRANSDERMA (16:27)
[2022-03-31 16:31] LABS: COVID-19 Test Negative (Negative); IDNOW Serial# 16C4AD1C
[2022-03-31 16:36] LABS: Troponin-I High Sensitivity 28.1 ng/L (<3.5-35.0)
--- NOTE | 2022-03-31 17:11 | PHA.MEDREC ---
Pharmacy Consult ? Medication Reconciliation Pharmacy has completed the medication reconciliation. Patient has starting amiodarone 400mg bid for 13 days and then will go down to 200mg once daily starting 04/04.
[2022-03-31] MEDS: Furosemide 40 MG/4 ML VIAL IVPUSH (18:37)
--- NOTE | 2022-03-31 18:59 | PM.EVENT ---
Event Note Date of Service: 03/31/22 Event Note: Addendum to history and physical by mid-level provider FIORELLA Danielle I interviewed and examined the patient. I discussed their presentation and management with the mid-level provider. I reviewed the history and physical and agree with the documentation, with the following additions and corrections: 76yo M with chronic AF s/p ablation + PPM and recent DCCV, HFrEF [30%], PAULETTE on CPAP, DM2, HTN, recently admitted to [facility] for CHF + NSTEMI with HTN urgency + flash pulmonary edema. Cardiac cath 03/20/22 showed multivessel dz; medical mgmt recommended. DCCV 03/22 due to high burden of tachyarrhythmia and concern for cardiomyopathy trigger. Started on amiodarone. C/o 4 days of worsening orthopnea + dyspnea. Found to be hypoxic with pulmonary vascular congestion. Plan admit for IV diuresis, supplemetnal O2 to wean as tolerated, Cardiology consultation. ?addition of spironolactone, Jardiance
[2022-03-31 19:58] VITALS: BP 121/59; PULSE 70; RESP 26; TEMP 36.8; O2SAT 94
[2022-03-31 20:06] LABS: Glucose, Whole Blood 179 mg/dL (60-115)
[2022-03-31 20:09] LABS: Appearance Urine Clear; Color Urine Yellow; Glucose Urine UA Negative (Negative); Leukocyte Esterase Urine Negative (Negative); Nitrite Urine Negative (Negative); Urine Blood Negative (Negative); Urine Ketones Negative (Negative); Urine Protein Negative (Neg-Trace)
[2022-03-31] MEDS: Insulin Glargine,Hum.rec.anlog 100 UNIT/ML 10 ML VIAL 50 UNIT SUBCUT (21:30)
[2022-03-31] MEDS: Insulin Lispro 100 UNIT/ML 3 ML VIAL SUBCUT (21:31)
[2022-03-31] MEDS: Amiodarone HCL 200 MG TABLET 400 MG PO (21:31)
[2022-03-31] MEDS: Atorvastatin Calcium 80 MG TABLET PO (21:32)
[2022-03-31] MEDS: carvediloL 25 MG TABLET PO (21:32)
[2022-03-31] MEDS: Apixaban 5 MG TABLET PO (21:32)
[2022-03-31 21:33] VITALS: BP 111/81; PULSE 72; RESP 20; O2SAT 92
--- NOTE | 2022-03-31 22:06 | PC.NURSE ---
Nurse to nurse report provided to Renetta CASPER. Pt pending transport via stretcher to [facility]
[2022-03-31 23:16] VITALS: BP 118/74; PULSE 70; RESP 19; TEMP 36.4; O2SAT 95
[2022-03-31] MEDS: 0.9 % Sodium Chloride Flush 3 ML SYRINGE IVFLUSH (23:56)
[2022-04-01] VITALS (7 sets, daily range): BP systolic 100–138; BP diastolic 65–82; PULSE 69–74; RESP 16–20; TEMP 35.7–36.6; O2SAT 90–97
[2022-04-01 08:00] LABS: Hematocrit 40.6 % (42.0-52.0); Hemoglobin 13.5 g/dl (14.0-18.0); Mean Corpuscular HGB Conc 33.3 g/dl (31.0-36.0); Mean Corpuscular Hemoglobin 31.5 pg (27.0-33.0); Mean Corpuscular Volume 94.9 fL (80.0-98.0); Mean Platelet Volume 10.7 fL (9.4-12.4); Platelet Count 230 X10*3/uL (160-400); Red Blood Count 4.28 X10*6/uL (4.60-5.80); Red Cell Distribution Width 13.8 % (11.0-16.0); White Blood Count 8.2 X10*3/uL (4.8-10.8)
[2022-04-01 08:08] LABS: Glucose, Whole Blood 110 mg/dL (60-115)
[2022-04-01 08:14] LABS: Anion Gap 14 (12-20); Blood Urea Nitrogen 33 mg/dL (9-16); Calcium 9.1 mg/dL (8.4-10.2); Carbon Dioxide 30 mmol/L (22-29); Chloride 101 mmol/L (96-108); Creatinine Clr Calc Pharmacy 49.5; Estimated Glomerular Filt Rate 35; Glucose Random 102 mg/dL (60-115); Potassium 4.1 mmol/L (3.3-5.1); Sodium 141 mmol/L (135-145)
[2022-04-01] MEDS: Furosemide 40 MG/4 ML VIAL IVPUSH (09:22)
[2022-04-01] MEDS: Cyanocobalamin (Vitamin B-12) 1,000 MCG TABLET 1000 MCG PO (09:22)
[2022-04-01] MEDS: carvediloL 25 MG TABLET PO ×2 (09:22→20:55)
[2022-04-01] MEDS: Amiodarone HCL 200 MG TABLET 400 MG PO ×2 (09:22→20:55)
[2022-04-01] MEDS: Apixaban 5 MG TABLET PO ×2 (09:22→20:55)
[2022-04-01] MEDS: 0.9 % Sodium Chloride Flush 3 ML SYRINGE IVFLUSH ×2 (09:23→17:45)
--- NOTE | 2022-04-01 09:24 | P.CONCA_ITS ---
History of Present Illness History of Present Illness Date of Service: 04/01/22 Requesting physician: Melina Danielle Consult reason: congestive heart failure Chief complaint: dyspnea Narrative: I was consulted to see Benedict in cardiology consultation today for progressive shortness of breath and elevated BNP consistent with decompensated congestive heart failure. Benedict has a complicated past medical history with prior history of severe LV systolic dysfunction with diffuse severe three-vessel disease not revascularize able, findings most consistent with ischemic cardiomyopathy, heart failure with reduced ejection fraction, atrial fibrillation, dual-chamber [employer] pacemaker placement for sick sinus syndrome / ablation, he has had atrial flutter ablation in the past, chronic kidney disease, hypertension. He was recently discharged in [facility] after admission for decompensated congestive heart failure ean underwent a cardiac catheterization as per the note, I do not have a copy of the same. Maribel don was noted to have severe diffuse three-vessel coronary disease not revascularize above I PCI or surgical revascularization. He was noted to be in persistent atrial fibrillation at that time and was then cardioverted and started loading with amiodarone. He continues to be on amiodarone loading which completes on 04/03/2022. He is on oral anticoagulation with Eliquis which she has been taking. He has also been taking his diuretic regimen. He said he did see his energy consultant office and did complain of shortness of breath however it was felt that this was not cardiac in origin at that point time. However since then he has been getting progressively increasing shortness of breath along with orthopnea. He has not noted much weight increase or significant leg edema or abdominal distension. He has not had any chest discomfort. He came to the emergency room because of progressive shortness of breath very was noted to be in decompensated congestive heart failure with BNP in the 800 range with creatinine up to 2. He was then started on Lasix IV and has diuresed as per the chart up to 900 cc. He said he feels better. I was apparently still short of breath walking back from the bathroom to the bed. He denies any chest pain right now. Denies any palpitations, lightheadedness, syncope. EKG shows ventricular paced rhythm and underlying atrial rhythm is unclear but could be atrial fibrillation again. He denies any fever, chills or any other systemic symptoms. Has been taking all his medications regularly. Review of Systems Constitutional: Constitutional: Reports no additional constitutional complaints Eyes: Eyes: Reports no additional eye complaints Cardiovascular: Cardiovascular: Denies Abdominal Distension, Denies chest pain, Denies rapid heart rate, Denies leg edema, Denies lightheadedness, Denies Loss of Consciousness, Denies palpitations, Reports dyspnea on exertion and Reports orthopnea Respiratory: Respiratory: Reports no additional respiratory complaints, Reports cough and Reports dyspnea on exertion Gastrointestinal: Gastrointestinal: Reports no additional gastrointestinal complaints Genitourinary: Genitourinary: Reports no additional male genitourinary complaints Musculoskeletal: Musculoskeletal: Reports no additional musculoskeletal complaints Integumentary/Breasts: Skin/Breast: Reports system reviewed and no additional complaints, except as docu Neurologic: Reports system reviewed and no additional complaints, except as documented Psychiatric: Psychiatric: Reports no additional psychiatric complaints Endocrine: Endocrine: Denies palpitations PMFSH Past Medical History Medical History Coronary artery disease History of diverticulitis History of intestinal obstruction Hyperlipidemia Hypertension Morbid obesity Myocardial infarction Obstructive sleep apnea Stroke Type 2 diabetes mellitus Functional capacity: independent ambulation Surgical History Surgical History History of carotid endarterectomy History of permanent cardiac pacemaker placement Social History Social History Household Members: Spouse Housing: House Do you presently have visiting nurse or other home services: No Patient Tobacco Use Status: Former Tobacco user Quit Date: QUIT 20 YEARS AGO PER PT Tobacco use type: Cigarette e-Cigarette/Vaping Use: Never Used Second Hand Smoke Exposure: No service: Yes Current occupational status: retired [employer] Allergies Allergy/AdvReac Type Severity Reaction Status Date / Time No Known Allergies Allergy Verified 02/03/22 11:15 Active Medications: Current Medications Acetaminophen (Acetaminophen 325 Mg Tablet) 650 mg PO Q6H PRN PRN Reason: Pain, Mild (Pain Scale 1-3) Amiodarone HCl (Amiodarone Hcl 200 Mg Tablet) 400 mg PO BID [facility] Stop: 04/03/22 20:59 Last Admin: 04/01/22 09:22 Dose: 400 mg Amiodarone HCl (Amiodarone Hcl 200 Mg Tablet) 200 mg PO DAILY [facility] Apixaban (Apixaban 5 Mg Tablet) 5 mg PO BID [facility] Last Admin: 04/01/22 09:22 Dose: 5 mg Atorvastatin Calcium (Atorvastatin Calcium 80 Mg Tablet) 80 mg PO BEDTIME [facility] Last Admin: 03/31/22 21:32 Dose: 80 mg Carvedilol (Carvedilol 25 Mg Tablet) 25 mg PO BID [facility]; Protocol Last Admin: 04/01/22 09:22 Dose: 25 mg Cyanocobalamin (Cyanocobalamin (Vitamin B-12) 1,000 Mcg Tablet) 1,000 mcg PO DAILY [facility] Last Admin: 04/01/22 09:22 Dose: 1,000 mcg Dextrose (Dextrose 50 % 25 Gm/50 Ml Syringe) 25 gm IVPUSH Q15M PRN; Protocol PRN Reason: per Hypoglycemia Standing Ord. Docusate Sodium (Docusate Sodium 100 Mg Capsule) 100 mg PO DAILY PRN PRN Reason: Constipation Furosemide (Furosemide 40 Mg/4 Ml Vial) 40 mg IVPUSH BID@0900,1800 [facility]; Protocol Last Admin: 04/01/22 09:22 Dose: 40 mg Glucose (Glucose Gel 15 Gm Gel..Gram.) 15 gm PO Q15M PRN; Protocol PRN Reason: per Hypoglycemia Standing Ord. Insulin Glargine (Insulin Glargine,Hum.Rec.Anlog 100 Unit/Ml 10 Ml Vial) 50 unit SUBCUT BEDTIME [facility] Last Admin: 03/31/22 21:30 Dose: 50 unit Insulin Human Lispro (Insulin Lispro 100 Unit/Ml 3 Ml Vial) 0 unit SUBCUT QIDACHS [facility]; Protocol Last Admin: 04/01/22 09:17 Dose: Not Given Melatonin (Melatonin 3 Mg Tablet) 9 mg PO BEDTIME PRN PRN Reason: Insomnia Pharmacy Consult (Consult Rx Perform Med Rec) 1 each MISCELLANE ONCE PRN PRN Reason: Consult order Sodium Chloride (0.9 % Sodium Chloride Flush 3 Ml Syringe) 3 ml IVFLUSH QSHIFT [facility] Last Admin: 04/01/22 09:23 Dose: 3 ml Home Medications Medication Instructions Recorded Confirmed Last Taken Type apixaban 5 mg tablet 5 mg PO BID 02/03/22 03/31/22 03/31/22 History atorvastatin 80 mg tablet 1 tab PO BEDTIME 02/03/22 03/31/22 03/30/22 History cyanocobalamin (vitamin B-12) 1,000 mcg PO DAILY 02/03/22 03/31/22 03/31/22 History 1,000 mcg tablet insulin aspart U-100 100 unit/mL 18 unit subcut TIDAC 02/03/22 03/31/22 03/31/22 History (3 mL) subcutaneous pen (Novolog Flexpen U-100 Insulin aspart) insulin glargine 100 unit/mL (3 50 unit subcut BEDTIME 02/03/22 03/31/22 03/30/22 History mL) subcutaneous pen (Lantus Solostar U-100 Insulin) melatonin 10 mg tablet 10 mg PO BEDTIME PRN Insomnia 02/03/22 03/31/22 03/30/22 History amiodarone 200 mg tablet 400 mg PO BID 03/31/22 03/31/22 03/31/22 History aspirin 81 mg tablet,delayed 81 mg PO DAILY 03/31/22 03/31/22 03/31/22 History release carvedilol 25 mg tablet 1 tab PO BID 03/31/22 03/31/22 03/31/22 History furosemide 40 mg tablet (Lasix) 80 mg PO DAILY 03/31/22 03/31/22 03/31/22 History nitroglycerin 0.4 mg sublingual 0.4 mg sublingual Q5M 03/31/22 03/31/22 Unknown History tablet Physical Exam Vital Signs: Vital Signs: Last Vital Signs Temp 96.9 F 04/01/22 07:13 Pulse 69 04/01/22 07:13 Resp 17 04/01/22 07:13 BP 125/74 04/01/22 07:13 Pulse Ox 96 04/01/22 07:13 O2 Del Method 04/01/22 07:13 O2 Flow Rate 2 04/01/22 07:13 Oxygen Flow Rate 4 03/31/22 14:22 BMI result Body Mass Index 39.8 Const: General: cooperative, comfortable, alert, awake and in distress mild and respiratory Nutritional Appearance: obese Orientation/consciousness: patient oriented x3 Limitations: no limitations HEENT: Head: Yes normocephalic and Yes atraumatic Neck: Neck: Yes trachea midline, Yes supple and Yes JVD Chest: Chest palpation & inspection: normal inspection of the chest Resp: Effort & Inspection: normal respiratory effort Auscultation: clear to auscultation bilaterally Cardio: Jugular venous distension: JVD Palpation: abnormal PMI displaced PMI Rate: regular rate Rhythm: regular rhythm Heart sounds: S1 normal heart sound present, S2 normal heart sound present, no click, no gallops and no murmurs GI: Auscultation: normal bowel sounds Skin: General skin exam: no rashes or lesions noted Neuro: General: patient oriented x3 and no focal motor deficits Extrem: General: No clubbing, No cyanosis and Yes edema Objective Labs and Meds Result diagrams: 04/01/22 07:39 04/01/22 07:39 Lab results: Laboratory Results - last 24 hr 03/31/22 03/31/22 03/31/22 14:30 14:30 14:30 WBC 11.8 H RBC 4.36 L Hgb 14.0 Hct 42.2 MCV 96.8 MCH 32.1 MCHC 33.2 RDW 13.6 Plt Count 267 MPV 10.8 Immature Gran % (Auto) 0.5 H Neut % (Auto) 68.8 Lymph % (Auto) 21.8 [place] % (Auto) 7.4 Eos % (Auto) 1.1 Baso % (Auto) 0.4 Lymph # (Auto) 2.6 [place] # (Auto) 0.9 Eos # (Auto) 0.1 Baso # (Auto) 0.1 Abs Immat Gran (auto) 0.06 H Absolute Neuts (auto) 8.1 Absolute Nucleated RBC 0.000 Nucleated RBC % (auto) 0.0 VBG pH VBG pCO2 VBG pO2 VBG HCO3 VBG O2 Saturation VBG Base Excess Sodium 139 Potassium 4.3 Chloride 100 Carbon Dioxide 27 Anion Gap 16 BUN 37 H Creatinine 2.09 H Estim Creat Clear Calc 45.0 Estimated GFR 31 POC Glucose Random Glucose 160 H Calcium 9.2 Magnesium 2.1 Total Bilirubin 1.4 H AST 13 ALT 17 Alkaline Phosphatase 132 H D Troponin I High Sens 26.3 B-Natriuretic Peptide 796 H Total Protein 6.9 Albumin 4.0 Urine Color Urine Appearance Urine pH Ur Specific [place] Urine Protein Urine Glucose (UA) Urine Ketones Urine Blood Urine Nitrite Ur Leukocyte Esterase COVID-19 ([facility]) COVID-19 Clin Com 03/31/22 03/31/22 03/31/22 14:38 16:07 16:07 WBC RBC Hgb Hct MCV MCH MCHC RDW Plt Count MPV Immature Gran % (Auto) Neut % (Auto) Lymph % (Auto) [place] % (Auto) Eos % (Auto) Baso % (Auto) Lymph # (Auto) [place] # (Auto) Eos # (Auto) Baso # (Auto) Abs Immat Gran (auto) Absolute Neuts (auto) Absolute Nucleated RBC Nucleated RBC % (auto) VBG pH 7.34 VBG pCO2 37 VBG pO2 46 VBG HCO3 20 L VBG O2 Saturation 66.0 VBG Base Excess -4.7 Sodium Potassium Chloride Carbon Dioxide Anion Gap BUN Creatinine Estim Creat Clear Calc Estimated GFR POC Glucose Random Glucose Calcium Magnesium Total Bilirubin AST ALT Alkaline Phosphatase Troponin I High Sens 28.1 B-Natriuretic Peptide Total Protein Albumin Urine Color Urine Appearance Urine pH Ur Specific [place] Urine Protein Urine Glucose (UA) Urine Ketones Urine Blood Urine Nitrite Ur Leukocyte Esterase COVID-19 ([facility]) Negative COVID-19 Countdown To Buy Com See Note 03/31/22 03/31/22 04/01/22 20:01 20:03 07:39 WBC 8.2 RBC 4.28 L Hgb 13.5 L Hct 40.6 L MCV 94.9 MCH 31.5 MCHC 33.3 RDW 13.8 Plt Count 230 MPV 10.7 Immature Gran % (Auto) Neut % (Auto) Lymph % (Auto) [place] % (Auto) Eos % (Auto) Baso % (Auto) Lymph # (Auto) [place] # (Auto) Eos # (Auto) Baso # (Auto) Abs Immat Gran (auto) Absolute Neuts (auto) Absolute Nucleated RBC 0.000 Nucleated RBC % (auto) 0.0 VBG pH VBG pCO2 VBG pO2 VBG HCO3 VBG O2 Saturation VBG Base Excess Sodium Potassium Chloride Carbon Dioxide Anion Gap BUN Creatinine Estim Creat Clear Calc Estimated GFR POC Glucose 179 H Random Glucose Calcium Magnesium Total Bilirubin AST ALT Alkaline Phosphatase Troponin I High Sens B-Natriuretic Peptide Total Protein Albumin Urine Color Yellow Urine Appearance Clear Urine pH 6.0 Ur Specific [place] 1.010 Urine Protein Negative Urine Glucose (UA) Negative Urine Ketones Negative Urine Blood Negative Urine Nitrite Negative Ur Leukocyte Esterase Negative COVID-19 ([facility]) COVID-[employer]ium Com 04/01/22 04/01/22 07:39 08:04 WBC RBC Hgb Hct MCV MCH MCHC RDW Plt Count MPV Immature Gran % (Auto) Neut % (Auto) Lymph % (Auto) [place] % (Auto) Eos % (Auto) Baso % (Auto) Lymph # (Auto) [place] # (Auto) Eos # (Auto) Baso # (Auto) Abs Immat Gran (auto) Absolute Neuts (auto) Absolute Nucleated RBC Nucleated RBC % (auto) VBG pH VBG pCO2 VBG pO2 VBG HCO3 VBG O2 Saturation VBG Base Excess Sodium 141 Potassium 4.1 Chloride 101 Carbon Dioxide 30 H Anion Gap 14 BUN 33 H Creatinine 1.90 H Estim Creat Clear Calc 49.5 Estimated GFR 35 POC Glucose 110 Random Glucose 102 D Calcium 9.1 Magnesium Total Bilirubin AST ALT Alkaline Phosphatase Troponin I High Sens B-Natriuretic Peptide Total Protein Albumin Urine Color Urine Appearance Urine pH Ur Specific [place] Urine Protein Urine Glucose (UA) Urine Ketones Urine Blood Urine Nitrite Ur Leukocyte Esterase COVID-19 ([facility]) COVID-19 Clin Com Imaging Radiologist's impression: Impressions Chest X-Ray 03/31/22 14:35 FINDINGS/IMPRESSION: Examination demonstrates prominence of the pulmonary veins in their nondependent portions consistent with pulmonary venous hypertension, as well as diffuse bilateral interstitial prominence with Olivia B-lines, consistent with pulmonary edema. No effusion or pneumothorax is seen. The heart size is poorly evaluated. The aorta is atherosclerotic. The tips of left subclavian pulse generator device leads project over the right atrium and right ventricle. There are mild degenerative changes of the spine and acromioclavicular joints. Assessment and Plan (1) Acute CHF: Status: Acute Patient presents with symptoms consistent with acute decompensated congestive heart failure. Cause unclear. There is no dietary indiscretion or medical noncompliance. He was noted to be slightly hypertensive on admission at this possibility of renal artery stenosis given his diffuse vascular disease. Also possibility of recurrent atrial fibrillation with loss of atrial kick and AV synchrony. Will need to check his pacemaker as 12 lead EKG is not completely diagnostic for the same. This might correlate with this symptom onset. If he has recurrent atrial fibrillation as determine by pacer evaluation will require possible repeat cardioversion after complete loading of amiodarone has been done to achieve better long-term success results. Continue full oral anticoagulation Eliquis for now. Continue IV diuresis but will switch her to Lasix drip 5 mg an hour. He is already on carvedilol therapy and should continue the same. Currently not on any renin angiotensin receptor antagonist and should consider Diovan 40 mg b.i.d. for afterload reduction as well as neurohormonal modulation. Follow renal function closely. Continue strict intake and output chart. Provide with CHF education. Continue supportive care. Advised patient to ambulate in the room as much as possible. Will continue to follow with you Procedures Date of Service Date of Service: 04/01/22
[2022-04-01 11:06] LABS: Glucose, Whole Blood 287 mg/dL (60-115)
--- NOTE | 2022-04-01 11:59 | P.PNIM_ITS ---
Subjective Subjective Date of Service: 04/01/22 Interval History: Follow-up congestive heart failure Still with some dyspnea especially with exertion and lying flat Denies chest pain, nausea, vomiting, diarrhea Review of Systems Review of Systems: Yes all other systems are reviewed and are negative Physical Exam Vital Signs: Vital Signs: Last Vital Signs Temp 97.1 F 04/01/22 10:55 Pulse 70 04/01/22 10:55 Resp 18 04/01/22 10:55 BP 100/65 04/01/22 10:55 Pulse Ox 94 04/01/22 10:55 O2 Del Method 04/01/22 10:55 O2 Flow Rate 2 04/01/22 10:55 Oxygen Flow Rate 4 03/31/22 14:22 BMI result Body Mass Index 39.8 Appearing in no acute distress lung sounds mild rales heart regular rate rhythm, clear S1, S2, LE edema noted positive bowel sounds, abdomen is soft, nontender neuro patient is alert x3, no focal deficits Objective Data Active Medications Acetaminophen (Acetaminophen 325 Mg Tablet) 650 mg PO Q6H PRN PRN Reason: Pain, Mild (Pain Scale 1-3) Amiodarone HCl (Amiodarone Hcl 200 Mg Tablet) 400 mg PO BID [facility] Stop: 04/03/22 20:59 Last Admin: 04/01/22 09:22 Dose: 400 mg Documented By: JYOTI Amiodarone HCl (Amiodarone Hcl 200 Mg Tablet) 200 mg PO DAILY [facility] Apixaban (Apixaban 5 Mg Tablet) 5 mg PO BID [facility] Last Admin: 04/01/22 09:22 Dose: 5 mg Documented By: JYOTI Atorvastatin Calcium (Atorvastatin Calcium 80 Mg Tablet) 80 mg PO BEDTIME [facility] Last Admin: 03/31/22 21:32 Dose: 80 mg Documented By: ASHLEE Carvedilol (Carvedilol 25 Mg Tablet) 25 mg PO BID [facility]; Protocol Last Admin: 04/01/22 09:22 Dose: 25 mg Documented By: JYOTI Cyanocobalamin (Cyanocobalamin (Vitamin B-12) 1,000 Mcg Tablet) 1,000 mcg PO DAILY [facility] Last Admin: 04/01/22 09:22 Dose: 1,000 mcg Documented By: JYOTI Dextrose (Dextrose 50 % 25 Gm/50 Ml Syringe) 25 gm IVPUSH Q15M PRN; Protocol PRN Reason: per Hypoglycemia Standing Ord. Docusate Sodium (Docusate Sodium 100 Mg Capsule) 100 mg PO DAILY PRN PRN Reason: Constipation Furosemide (Furosemide 40 Mg/4 Ml Vial) 40 mg IVPUSH BID@0900,1800 [facility]; Protocol Last Admin: 04/01/22 09:22 Dose: 40 mg Documented By: JYOTI Glucose (Glucose Gel 15 Gm Gel..Gram.) 15 gm PO Q15M PRN; Protocol PRN Reason: per Hypoglycemia Standing Ord. Insulin Glargine (Insulin Glargine,Hum.Rec.Anlog 100 Unit/Ml 10 Ml Vial) 50 unit SUBCUT BEDTIME [facility] Last Admin: 03/31/22 21:30 Dose: 50 unit Documented By: ASHLEE Insulin Human Lispro (Insulin Lispro 100 Unit/Ml 3 Ml Vial) 0 unit SUBCUT QIDACHS [facility]; Protocol Last Admin: 04/01/22 09:17 Dose: Not Given Documented By: JYOTI Non-Admin Reason: No Insulin Coverage Melatonin (Melatonin 3 Mg Tablet) 9 mg PO BEDTIME PRN PRN Reason: Insomnia Pharmacy Consult (Consult Rx Perform Med Rec) 1 each MISCELLANE ONCE PRN PRN Reason: Consult order Sodium Chloride (0.9 % Sodium Chloride Flush 3 Ml Syringe) 3 ml IVFLUSH QSHIFT [facility] Last Admin: 04/01/22 09:23 Dose: 3 ml Documented By: JYOTI Labs CBC & Chem 7: 04/01/22 07:39 04/01/22 07:39 Labs: Laboratory Results - last 24 hr 03/31/22 03/31/22 03/31/22 14:30 14:30 14:30 MCV 96.8 MCH 32.1 MCHC 33.2 RDW 13.6 Plt Count 267 MPV 10.8 Immature Gran % (Auto) 0.5 H Neut % (Auto) 68.8 Lymph % (Auto) 21.8 [place] % (Auto) 7.4 Eos % (Auto) 1.1 Baso % (Auto) 0.4 Lymph # (Auto) 2.6 [place] # (Auto) 0.9 Eos # (Auto) 0.1 Baso # (Auto) 0.1 Abs Immat Gran (auto) 0.06 H Absolute Neuts (auto) 8.1 Absolute Nucleated RBC 0.000 Nucleated RBC % (auto) 0.0 VBG pH VBG pCO2 VBG pO2 VBG HCO3 VBG O2 Saturation VBG Base Excess Anion Gap 16 Estim Creat Clear Calc 45.0 Estimated GFR 31 POC Glucose Random Glucose 160 H Calcium 9.2 Magnesium 2.1 Total Bilirubin 1.4 H AST 13 ALT 17 Alkaline Phosphatase 132 H D B-Natriuretic Peptide 796 H Total Protein 6.9 Albumin 4.0 Urine Color Urine Appearance Urine pH Ur Specific [place] Urine Protein Urine Glucose (UA) Urine Ketones Urine Blood Urine Nitrite Ur Leukocyte Esterase COVID-19 ([facility]) COVID-19 Clin Com 03/31/22 03/31/22 03/31/22 14:38 16:07 20:01 MCV MCH MCHC RDW Plt Count MPV Immature Gran % (Auto) Neut % (Auto) Lymph % (Auto) [place] % (Auto) Eos % (Auto) Baso % (Auto) Lymph # (Auto) [place] # (Auto) Eos # (Auto) Baso # (Auto) Abs Immat Gran (auto) Absolute Neuts (auto) Absolute Nucleated RBC Nucleated RBC % (auto) VBG pH 7.34 VBG pCO2 37 VBG pO2 46 VBG HCO3 20 L VBG O2 Saturation 66.0 VBG Base Excess -4.7 Anion Gap Estim Creat Clear Calc Estimated GFR POC Glucose Random Glucose Calcium Magnesium Total Bilirubin AST ALT Alkaline Phosphatase B-Natriuretic Peptide Total Protein Albumin Urine Color Yellow Urine Appearance Clear Urine pH 6.0 Ur Specific [place] 1.010 Urine Protein Negative Urine Glucose (UA) Negative Urine Ketones Negative Urine Blood Negative Urine Nitrite Negative Ur Leukocyte Esterase Negative COVID-19 ([facility]) Negative COVID-19 Clin Com See Note 03/31/22 04/01/22 04/01/22 20:03 07:39 07:39 MCV 94.9 MCH 31.5 MCHC 33.3 RDW 13.8 Plt Count 230 MPV 10.7 Immature Gran % (Auto) Neut % (Auto) Lymph % (Auto) [place] % (Auto) Eos % (Auto) Baso % (Auto) Lymph # (Auto) [place] # (Auto) Eos # (Auto) Baso # (Auto) Abs Immat Gran (auto) Absolute Neuts (auto) Absolute Nucleated RBC 0.000 Nucleated RBC % (auto) 0.0 VBG pH VBG pCO2 VBG pO2 VBG HCO3 VBG O2 Saturation VBG Base Excess Anion Gap 14 Estim Creat Clear Calc 49.5 Estimated GFR 35 POC Glucose 179 H Random Glucose 102 D Calcium 9.1 Magnesium Total Bilirubin AST ALT Alkaline Phosphatase B-Natriuretic Peptide Total Protein Albumin Urine Color Urine Appearance Urine pH Ur Specific [place] Urine Protein Urine Glucose (UA) Urine Ketones Urine Blood Urine Nitrite Ur Leukocyte Esterase COVID-19 ([facility]) COVID-19 Clin Com 04/01/22 04/01/22 08:04 11:02 MCV MCH MCHC RDW Plt Count MPV Immature Gran % (Auto) Neut % (Auto) Lymph % (Auto) [place] % (Auto) Eos % (Auto) Baso % (Auto) Lymph # (Auto) [place] # (Auto) Eos # (Auto) Baso # (Auto) Abs Immat Gran (auto) Absolute Neuts (auto) Absolute Nucleated RBC Nucleated RBC % (auto) VBG pH VBG pCO2 VBG pO2 VBG HCO3 VBG O2 Saturation VBG Base Excess Anion Gap Estim Creat Clear Calc Estimated GFR POC Glucose 110 287 H Random Glucose Calcium Magnesium Total Bilirubin AST ALT Alkaline Phosphatase B-Natriuretic Peptide Total Protein Albumin Urine Color Urine Appearance Urine pH Ur Specific [place] Urine Protein Urine Glucose (UA) Urine Ketones Urine Blood Urine Nitrite Ur Leukocyte Esterase COVID-19 ([facility]) COVID-19 Clin Com Assessment and Plan (1) Congestive heart failure: Status: Resolved Plan 77yo M with hx VT in 2018, AF s/p PPM and on apixaban and sotalol, hx CVA in 2015 with no residual and s/p CEA, and insulin-dependent DM2 presenting with exertional dyspnea, orthopnea, and edema consistent with CHF exacerbation; also exertional chest pain Acute on chronic heart failure with reduced ejection fraction, ischemic cardiomyopathy with acute on chronic respiratory failure Was on scheduled Lasix now will start Lasix drip continue carvedilol, losartan. Due to increasing creatinine On 2 L nasal cannula CKD 3 baseline Avoid nephrotoxins Chronic paroxysmal atrial fibrillation History of pacemaker placement Continue carvedilol Sotalol DC due to renal insufficiency Continue apixaban Pacemaker interrogation while inpatient Status post NSTEMI Admission to [facility] on 03/14 Cardiac catheterization revealed left main mild disease, RCA occluded at origin with poor collaterals, lad with subtotal occlusion of distal LAD, left circumflex with collaterals and 60% mid left circ stenosis Apparently patient was not a candidate for stent placement according to the patient's likely not a candidate for CABG either For now treating symptoms of severe coronary artery disease symptomatically Acute hypoxic respiratory failure secondary to acute congestive heart failure Resolved Diabetes mellitus Sliding scale, ADA diet and PAULETTE CPAP at night VTE prophylaxis: apixaban dispo: eventual home with VNA Attending Dr. Bahena In my clinical judgment, the patient requires continued hospitalization for the following reasons: renal insufficency, stress test Quality Stroke Does the patient have a stroke diagnosis?: No VTE Prior VTE?: No VTE Risk Level:: Medical - moderate - high VTE Device Contraindication: N/A - Device Ordered VTE Drug Contraindication: N/A - Med Ordered
[2022-04-01] MEDS: Insulin Lispro 100 UNIT/ML 3 ML VIAL SUBCUT ×3 (12:37→20:54)
--- NOTE | 2022-04-01 16:31 | MHC.CM.PN ---
IMM 04/01/22 Male 76 DX Dyspnea He lives with his . He is independent with all functional mobility. He is [facility] connected. VA PCP. [facility] pharmacy with [facility] Mian Chatman for new prescriptions. A HCP has been documented and placed on the chart. He has been vaccinated x4 Moderna. DP home no services family transport.
[2022-04-01 16:52] LABS: Glucose, Whole Blood 218 mg/dL (60-115)
[2022-04-01] MEDS: Furosemide 200 MG in 0.9 % Sodium Chloride 80 ML IVCONT (18:22)
--- NOTE | 2022-04-01 18:47 | PC.NURSE ---
Alert and oriented. Denies pain, VSS, afebrile,no acute resp. distress noted. Medicated per SEP. IVP lasix changed to Lasix gtt 5mg/hr. VSS remained stable.
[2022-04-01 20:47] LABS: Glucose, Whole Blood 238 mg/dL (60-115)
[2022-04-01] MEDS: Insulin Glargine,Hum.rec.anlog 100 UNIT/ML 10 ML VIAL 50 UNIT SUBCUT (20:54)
[2022-04-01] MEDS: Atorvastatin Calcium 80 MG TABLET PO (20:55)
[2022-04-01] MEDS: Melatonin 3 MG TABLET 9 MG PO (20:55)
[2022-04-02 03:40] VITALS: BP 121/76; PULSE 70; RESP 16; TEMP 36.4; O2SAT 94
[2022-04-02 07:05] VITALS: BP 113/88; PULSE 70; RESP 18; TEMP 36.4; O2SAT 99
[2022-04-02 07:11] LABS: Glucose, Whole Blood 157 mg/dL (60-115)
[2022-04-02] MEDS: Cyanocobalamin (Vitamin B-12) 1,000 MCG TABLET 1000 MCG PO (08:05)
[2022-04-02] MEDS: Insulin Lispro 100 UNIT/ML 3 ML VIAL SUBCUT ×4 (08:05→21:05)
[2022-04-02] MEDS: carvediloL 25 MG TABLET PO ×2 (08:06→21:06)
[2022-04-02] MEDS: Amiodarone HCL 200 MG TABLET 400 MG PO ×2 (08:06→21:06)
[2022-04-02] MEDS: Apixaban 5 MG TABLET PO ×2 (08:06→21:06)
[2022-04-02 08:51] LABS: Anion Gap 14 (12-20); Blood Urea Nitrogen 33 mg/dL (9-16); Calcium 9.5 mg/dL (8.4-10.2); Carbon Dioxide 31 mmol/L (22-29); Chloride 101 mmol/L (96-108); Creatinine Clr Calc Pharmacy 45.4; Estimated Glomerular Filt Rate 32; Glucose Random 202 mg/dL (60-115); Potassium 4.6 mmol/L (3.3-5.1); Sodium 141 mmol/L (135-145)
[2022-04-02 08:57] LABS: B Type Natriuretic Peptide 529 pg/mL (<100)
[2022-04-02 11:17] VITALS: BP 142/73; PULSE 71; RESP 17; TEMP 36.2; O2SAT 95
[2022-04-02 11:22] LABS: Glucose, Whole Blood 246 mg/dL (60-115)
--- NOTE | 2022-04-02 12:40 | P.PNCA_ITS ---
Subjective Subjective Date of Service: 04/02/22 <JILL Draper - Last Filed: 04/02/22 13:05> 04/02/22 <Carlos Salcedo MD - Last Filed: 04/02/22 15:00> Principal diagnosis: CHF <JILL Draper - Last Filed: 04/02/22 13:05> Interval history: Seen at 0945. Today he report feeling better but breathing not completely back to normal yet. He has sob in laying down position. No cough. Still requires use of supplemental O2. Slept with CPAP. Edema in legs improved. No chest pains, palpitations or dizziness. IV Lasix drip infusing. Voiding frequently. Tele showing V paced rhythm, P waves difficult to see. <JILL Draper - Last Filed: 04/02/22 13:05> Review of Systems Review of Systems as above <JILL Draper - Last Filed: 04/02/22 13:05> Yes all other systems are reviewed and are negative <JILL Draper - Last Filed: 04/02/22 13:05> Physical Exam Vital Signs: Last Vital Signs Temp 97.2 F 04/02/22 11:17 Pulse 71 04/02/22 11:17 Resp 17 04/02/22 11:17 BP 142/73 H 04/02/22 11:17 Pulse Ox 95 04/02/22 11:17 O2 Del Method 04/02/22 11:17 O2 Flow Rate 2 04/02/22 11:17 Oxygen Flow Rate 4 03/31/22 14:22 BMI result Body Mass Index 39.8 <JILL Draper - Last Filed: 04/02/22 13:05> Const Other: Obese, sitting on edge of bed <JILL Draper - Last Filed: 13:05> General: cooperative, comfortable and no acute distress <JILL Draper - Last Filed: 04/02/22 13:05> Orientation/consciousness: patient oriented x3 <JILL Draper - Last Filed: 04/02/22 13:05> Neck Neck: Yes normal visual inspection (Obese, difficult to assess for JVD) <Magda MontemayorJOVONC - Last Filed: 04/02/22 13:05> Chest Other: Pacer site left upper chest benign <Magda MontemayorJOVON - Last Filed: 04/02/22 13:05> Resp Other: Wearing O2 with nasal cannula <Magda MontemayorJOVONC - Last Filed: 04/02/22 13:05> Effort & Inspection: normal respiratory effort <Magda MontemayorJOVON - Last Filed: 04/02/22 13:05> Auscultation: clear to auscultation bilaterally, no crackles, no rales, no rhonchi and no wheezes <Magda MontemayorJOVON - Last Filed: 04/02/22 13:05> Cardio Rate: regular rate <Magda MontemayorJOVON - Last Filed: 04/02/22 13:05> Rhythm: regular rhythm <Magda Montemayor [facility] - Last Filed: 04/02/22 13:05> Heart sounds: S1 normal heart sound present, S2 normal heart sound present, no gallops, no murmurs and no rubs <Magda MontemayorJOVONC - Last Filed: 04/02/22 13:05> GI Inspection: Yes normal to inspection <Magda MontemayorJOVON - Last Filed: 04/02/22 13:05> Neuro General: patient oriented x3 <Magda MontemayorJOVON - Last Filed: 04/02/22 13:05> Extrem Other: No pitting edema in lower legs. Purple discoloration in feet and ankle with legs in dependent position. Denies numbness, has normal mobility <Magda Proctor JOVON MontemayorC - Last Filed: 04/02/22 13:05> Psych Appearance: grossly normal <Magda MontemayorJOVONC - Last Filed: 04/02/22 13:05> Mental Status: mental status grossly normal <Magda MontemayorJOVONC - Last Filed: 04/02/22 13:05> Speech and movement: Normal speech and movement present <Magda Proctor JOVON Montemayor-C - Last Filed: 04/02/22 13:05> Objective Labs and Meds Result diagrams: : 04/01/22 07:39 04/02/22 08:18 <JILL Draper - Last Filed: 04/02/22 13:05> Lab results: Laboratory Results - last 24 hr 04/01/22 04/01/22 04/02/22 16:45 20:44 07:03 Sodium Potassium Chloride Carbon Dioxide Anion Gap BUN Creatinine Estim Creat Clear Calc Estimated GFR POC Glucose 218 H 238 H 157 H Random Glucose Calcium B-Natriuretic Peptide 04/02/22 04/02/22 04/02/22 08:18 08:18 11:15 Sodium 141 Potassium 4.6 Chloride 101 Carbon Dioxide 31 H Anion Gap 14 BUN 33 H Creatinine 2.07 H Estim Creat Clear Calc 45.4 Estimated GFR 32 POC Glucose 246 H Random Glucose 202 H D Calcium 9.5 B-Natriuretic Peptide 529 H <JILL Draper - Last Filed: 04/02/22 13:05> Progress Note: A&P Assessment and plan (1) Acute CHF: Status: Acute <JILL Draper - Last Filed: 04/02/22 13:05> Assessment and Plan: Recent [facility] admission with Congestive heart failure, new finding of cardiomyopathy, NSTEMI, AFib, status post cardioversion. Was discharged on 03/22 and [place] [facility] [place] increasing shortness of breath. His BNP was elevated at 796 and chest x-ray showed findings of pulmonary edema. Unknown cause of his current decompensation. Last echo done 02/04/2022 showed EF 30-35%, basal inferior akinesis. He is now known to have significant CAD and his reduced EF is likely related to ischemic cardiomyopathy. This admission, He is being diuresed with IV Lasix drip. Fluid balance currently 3980 cc since a dmission. He continues to report orthopnea and requires O2 supplement. He did wear a CPAP during the night which he states is his usual at home. On exam lungs are now clear and edema improved. He has known CKD and creatinine 2.07 today which is mild increased from yesterday. BNP is down to 529. Unable to start Arb due to kidney function. Will start hydralazine 10 mg t.i.d. and Isordil 2.5 mg t.i.d, to help with preload and afterload reduction. His currently V pacing at heart rate of 70. He is not on beta-rocío however is on amiodarone. Continue strict I&O monitoring, close monitoring of electrolytes and kidney function. BNP in the a.m. O2 supplement as needed to keep sat greater t sotomayor 90%. Nighttime use of CPAP. We will continue to follow. <JILL Varner Ch - Last Filed: 04/02/22 13:05> Recent [facility] admission with Congestive heart failure, new finding of cardiomyopathy, NSTEMI, AFib, status post cardioversion. Was discharged on 03/22 and [place] [facility] [place] with increasing shortness of breath. His BNP was elevated at 796 and chest x-ray showed findings of pulmonary edema. Unknown cause of his current decompensation. Last echo done 02/04/2022 showed EF 30-35%, basal inferior akinesis. He is now known to have significant CAD and his reduced EF is likely related to ischemic cardiomyopathy. This admission, He is being diuresed with IV Lasix drip. Fluid balance currently 3980 cc since admission. He continues to report orthopnea and requires O2 supplement. He did wear a CPAP during the night which he states is his usual at home. On exam lungs are now clear and edema improved. He has known CKD and creatinine 2.07 today which is mild increased from yesterday. BNP is down to 529. Unable to start Arb due to kidney function. Will start hydralazine 10 mg t.i.d. and Isordil 2.5 mg t.i.d, to help with preload and afterload reduction. His currently V pacing at heart rate of 70. He is not on beta-rocío however is on amiodarone. Continue strict I&O monitoring, close monitoring of electrolytes and kidney function. BNP in the a.m. O2 supplement as needed to keep sat greater than 90%. Nighttime use of CPAP. We will continue to follow. Patient seen and examined. Case discussed with Magda roach here. Patient says he is feeling better. Has diuresed well. Continue IV diuresis. Creatinine is stable. Will start on afterload and preload reduction with Isordil and hydralazine slowly. Continue to trend renal function as well as BNP. Need to check his pacemaker to see if he has recurrent atrial fibrillation for which she may require repeat cardioversion after complete loading of amiodarone. Will continue to follow with you <Carlos Salcedo MD - Last Filed: 04/02/22 15:00> (2) Ischemic cardiomyopathy: Status: Acute <JILL Draper - Last Filed: 04/02/22 13:05> (3) Coronary artery disease: Status: Acute <JILL Draper - Last Filed: 04/02/22 13:05> Assessment and Plan: Cardiac catheterization done on 03/20/2022 showing LAD distal 99% stenosis, left circumflex proximal ostial 60% stenosis, RCA proximal [employer] with collaterals, manage medically. He is currently not on rate slowing medication with the exception of amiodarone. He is not on aspirin as he is on Eliquis. He is on high-dose atorvastatin. No reports of angina. Troponins normal this admission. <JILL Draper - Last Filed: 04/02/22 13:05> (4) Afib: Status: Acute <JILL Draper - Last Filed: 04/02/22 13:05> Assessment and Plan: History of atrial fibrillation with prior ablation. He had recurrent AFib during recent [facility] admission and did have a cardioversion there on 03/22/22. He was then started on an amiodarone loading dose of 400 mg b.i.d. for 2 weeks. Starting on 04/04 he will be again 200 mg once daily. experimental [employer] shows V paced rhythm. Unclear if he has underlying atrial fib rillation or not. We will be obtaining a [employer] device interrogation to better evaluate. Remains on Eliquis for anticoagulation. No bleeding issues reported. <JILL Draper - Last Filed: 04/02/22 13:05> (5) History of permanent cardiac pacemaker placement: Status: Acute <JILL Draper - Last Filed: 04/02/22 13:05> Assessment and Plan: [employer] pacemaker in place. Site benign. Appears to be functioning normally on telemetry monitoring. Interrogation as above <JILL Draper - Last Filed: 04/02/22 13:05> Time Spent With Patient Time: Total time spent is greater than 50% in coordination of care (as documented) at patient's floor/unit and/or counseling patient: 22 <JILL Draper - Last Filed: 04/02/22 13:05> Progress Note: Quality Stroke Does the patient have a stroke diagnosis?: No <JILL Draper - Last Filed: 04/02/22 13:05> Procedures Date of Service Date of Service: 04/02/22 <JILL Draper - Last Filed: 04/02/22 13:05>
--- NOTE | 2022-04-02 12:58 | P.CDIC_ITS ---
CDI Concurrent Query Documentation Clarification: PHYSICIAN'S DOCUMENTATION REQUEST Date of Query: 04/02/22 1259 Patient Name: Benedict Wang Admit Date: 03/31/22 Dear Doctor, A review of the medical record indicates additional documentation may be needed. Please review below and update the documentation accordingly. Clinical Indicators: Is there a diagnosis that correlates with these lab findings below: Risk Factors/Clinical Indicators/Treatments POCs: 04/01 Based on the above, could you clarify in the Progress Notes the appropriate diagnosis, if significant, that supports the above abnormalities and additional evaluation, monitoring, and/or treatment rendered: * Hyperglycemia * Other (please specify) * Unable to determine Use of terms such as suspected, likely, concern for, or probable (associated with a specific diagnosis that is being evaluated, monitored, or treated as if it exists) are acceptable and can be coded in the inpatient setting, when documented at the time of discharge. Thank you, Ade Gipson MS, RN, CCRN Extension: [phone] Please use your independent medical judgment in providing your response. THIS QUERY IS PART OF THE PERMANENT MEDICAL RECORD Other Diagnosis: Diabetes with hyperglycemia
--- NOTE | 2022-04-02 13:08 | P.PNIM_ITS ---
Subjective Subjective Date of Service: 04/02/22 Physical Exam Vital Signs: Vital Signs: Last Vital Signs Temp 97.2 F 04/02/22 11:17 Pulse 71 04/02/22 11:17 Resp 17 04/02/22 11:17 BP 142/73 H 04/02/22 11:17 Pulse Ox 95 04/02/22 11:17 O2 Del Method 04/02/22 11:17 O2 Flow Rate 2 04/02/22 11:17 Oxygen Flow Rate 4 03/31/22 14:22 BMI result Body Mass Index 39.8 Objective Data Active Medications Acetaminophen (Acetaminophen 325 Mg Tablet) 650 mg PO Q6H PRN PRN Reason: Pain, Mild (Pain Scale 1-3) Amiodarone HCl (Amiodarone Hcl 200 Mg Tablet) 400 mg PO BID [facility] Stop: 04/03/22 20:59 Last Admin: 04/02/22 08:06 Dose: 400 mg Documented By: JYOTI Amiodarone HCl (Amiodarone Hcl 200 Mg Tablet) 200 mg PO DAILY [facility] Apixaban (Apixaban 5 Mg Tablet) 5 mg PO BID [facility] Last Admin: 04/02/22 08:06 Dose: 5 mg Documented By: JYOTI Atorvastatin Calcium (Atorvastatin Calcium 80 Mg Tablet) 80 mg PO BEDTIME [facility] Last Admin: 04/01/22 20:55 Dose: 80 mg Documented By: OMID Carvedilol (Carvedilol 25 Mg Tablet) 25 mg PO BID [facility]; Protocol Last Admin: 04/02/22 08:06 Dose: 25 mg Documented By: JYOTI Cyanocobalamin (Cyanocobalamin (Vitamin B-12) 1,000 Mcg Tablet) 1,000 mcg PO DAILY [facility] Last Admin: 04/02/22 08:05 Dose: 1,000 mcg Documented By: JYOTI Dextrose (Dextrose 50 % 25 Gm/50 Ml Syringe) 25 gm IVPUSH Q15M PRN; Protocol PRN Reason: per Hypoglycemia Standing Ord. Docusate Sodium (Docusate Sodium 100 Mg Capsule) 100 mg PO DAILY PRN PRN Reason: Constipation Glucose (Glucose Gel 15 Gm Gel..Gram.) 15 gm PO Q15M PRN; Protocol PRN Reason: per Hypoglycemia Standing Ord. Hydralazine HCl (Hydralazine Hcl 10 Mg Tablet) 10 mg PO TID [facility]; Protocol Furosemide 200 mg/ Sodium (Chloride) 100 mls @ 2.5 mls/hr IVCONT .Q24H [facility] Last Admin: 04/01/22 18:22 Dose: 5 mg/hr, 2.5 mls/hr Documented By: JYOTI Insulin Glargine (Insulin Glargine,Hum.Rec.Anlog 100 Unit/Ml 10 Ml Vial) 50 unit SUBCUT BEDTIME [facility] Last Admin: 04/01/22 20:54 Dose: 50 unit Documented By: OMID Insulin Human Lispro (Insulin Lispro 100 Unit/Ml 3 Ml Vial) 0 unit SUBCUT QIDACHS [facility]; Protocol Last Admin: 04/02/22 11:50 Dose: 4 unit Documented By: JYOTI Isosorbide Dinitrate (Isosorbide Dinitrate 5 Mg Tablet) 2.5 mg PO TID [facility]; Protocol Melatonin (Melatonin 3 Mg Tablet) 9 mg PO BEDTIME PRN PRN Reason: Insomnia Last Admin: 04/01/22 20:55 Dose: 9 mg Documented By: OMID Pharmacy Consult (Consult Rx Perform Med Rec) 1 each MISCELLANE ONCE PRN PRN Reason: Consult order Sodium Chloride (0.9 % Sodium Chloride Flush 3 Ml Syringe) 3 ml IVFLUSH QSHIFT [facility] Last Admin: 04/02/22 08:04 Dose: Not Given Documented By: JYOTI Non-Admin Reason: IV Running Labs CBC & Chem 7: 04/01/22 07:39 04/02/22 08:18 Labs: Laboratory Results - last 24 hr 04/01/22 04/01/22 04/02/22 16:45 20:44 07:03 Anion Gap Estim Creat Clear Calc Estimated GFR POC Glucose 218 H 238 H 157 H Random Glucose Calcium B-Natriuretic Peptide 04/02/22 04/02/22 04/02/22 08:18 08:18 11:15 Anion Gap 14 Estim Creat Clear Calc 45.4 Estimated GFR 32 POC Glucose 246 H Random Glucose 202 H D Calcium 9.5 B-Natriuretic Peptide 529 H Assessment and Plan (1) Congestive heart failure: Status: Resolved Plan 77yo M with hx AK in 2019, AF s/p PPM and on apixaban and sotalol, hx CVA in 2016 with no residual and s/p CEA, and insulin-dependent DM2 presenting with exertional dyspnea, orthopnea, and edema consistent with CHF exacerbation; also exertional chest pain Acute on chronic heart failure with reduced ejection fraction, ischemic cardiomyopathy with acute on chronic respiratory failure Continue Lasix drip 5 mg an hour Continue isosorbide, amiodarone, carvedilol On 2 L nasal cannula -3.9 L Follow daily weights, strict intake and output CKD 3 baseline Avoid nephrotoxins Chronic paroxysmal atrial fibrillation History of pacemaker placement, paced rhythm Continue carvedilol Sotalol DC due to renal insufficiency Continue apixaban Pacemaker interrogation while inpatient Status post NSTEMI Admission to [facility] on 03/14 Cardiac catheterization revealed left main mild disease, RCA occluded at origin with poor collaterals, lad with subtotal occlusion of distal LAD, left circumf fito with collaterals and 60% mid left circ stenosis Apparently patient was not a candidate for stent placement according to the patient's likely not a candidate for CABG either For now treating symptoms of severe coronary artery disease symptomatically Acute hypoxic respiratory failure secondary to acute congestive heart failure Resolved Diabetes mellitus with episodes of hyperglycemia Sliding scale, ADA diet and PAULETTE CPAP at night VTE prophylaxis: apixaban dispo: eventual home with VNA Attending Dr. Bahena In my clinical judgment, the patient requires continued hospitalization for the following reasons: renal insufficency, stress test Quality Stroke Does the patient have a stroke diagnosis?: No VTE Prior VTE?: No VTE Risk Level:: Medical - moderate - high VTE Device Contraindication: N/A - Device Ordered VTE Drug Contraindication: N/A - Med Ordered
[2022-04-02 16:00] VITALS: BP 124/85; PULSE 69; RESP 18; TEMP 36.2; O2SAT 93
[2022-04-02] MEDS: Isosorbide Dinitrate 5 MG TABLET 2.5 MG PO ×2 (16:01→21:06)
[2022-04-02] MEDS: hydrALAZINE HCl 10 MG TABLET PO ×2 (16:02→21:06)
[2022-04-02 16:57] LABS: Glucose, Whole Blood 182 mg/dL (60-115)
[2022-04-02] MEDS: Furosemide 200 MG in 0.9 % Sodium Chloride 80 ML IVCONT (17:33)
[2022-04-02 20:00] VITALS: BP 127/60; PULSE 71; RESP 18; TEMP 36.3; O2SAT 93
[2022-04-02 20:52] LABS: Glucose, Whole Blood 230 mg/dL (60-115)
[2022-04-02] MEDS: Insulin Glargine,Hum.rec.anlog 100 UNIT/ML 10 ML VIAL 50 UNIT SUBCUT (21:05)
[2022-04-02] MEDS: Melatonin 3 MG TABLET 9 MG PO (21:06)
[2022-04-02] MEDS: Atorvastatin Calcium 80 MG TABLET PO (21:06)
[2022-04-02] MEDS: 0.9 % Sodium Chloride Flush 3 ML SYRINGE IVFLUSH (21:07)
[2022-04-02 23:47] VITALS: BP 117/61; PULSE 69; RESP 18; TEMP 36.6; O2SAT 97
[2022-04-03 03:37] VITALS: BP 119/77; PULSE 70; RESP 18; TEMP 36.6; O2SAT 100
[2022-04-03 06:00] VITALS: BMI 39.4
[2022-04-03 06:56] LABS: Anion Gap 15 (12-20); Blood Urea Nitrogen 36 mg/dL (9-16); Calcium 9.1 mg/dL (8.4-10.2); Carbon Dioxide 29 mmol/L (22-29); Chloride 99 mmol/L (96-108); Creatinine Clr Calc Pharmacy 45.9; Estimated Glomerular Filt Rate 32; Glucose Random 179 mg/dL (60-115); Potassium 3.8 mmol/L (3.3-5.1); Sodium 139 mmol/L (135-145)
[2022-04-03 06:59] LABS: B Type Natriuretic Peptide 361 pg/mL (<100)
[2022-04-03 07:19] VITALS: BP 124/69; PULSE 70; RESP 20; TEMP 37; O2SAT 97
[2022-04-03 07:22] LABS: Glucose, Whole Blood 155 mg/dL (60-115)
[2022-04-03] MEDS: Insulin Lispro 100 UNIT/ML 3 ML VIAL SUBCUT ×4 (07:26→20:26)
[2022-04-03] MEDS: Amiodarone HCL 200 MG TABLET 400 MG PO (07:26)
[2022-04-03] MEDS: 0.9 % Sodium Chloride Flush 3 ML SYRINGE IVFLUSH ×2 (07:26→15:57)
[2022-04-03] MEDS: hydrALAZINE HCl 10 MG TABLET PO ×2 (07:27→15:57)
[2022-04-03] MEDS: Apixaban 5 MG TABLET PO ×2 (07:27→20:27)
[2022-04-03] MEDS: Isosorbide Dinitrate 5 MG TABLET 2.5 MG PO ×2 (07:27→15:56)
[2022-04-03] MEDS: carvediloL 25 MG TABLET PO ×2 (07:27→20:27)
[2022-04-03] MEDS: Cyanocobalamin (Vitamin B-12) 1,000 MCG TABLET 1000 MCG PO (07:27)
[2022-04-03 10:49] VITALS: BP 105/59; PULSE 70; RESP 20; TEMP 36.3; O2SAT 93
[2022-04-03 10:56] LABS: Glucose, Whole Blood 225 mg/dL (60-115)
--- NOTE | 2022-04-03 11:53 | HO.PM.IMPN ---
Subjective Subjective Date of Service: 04/03/22 Review of Systems Follow-up congestive heart failure Feeling better with less shortness of breath but still shortness breath with exertion Denies chest pain Physical Exam Vital Signs: Vital Signs: Last Vital Signs Temp 97.3 F 04/03/22 10:49 Pulse 70 04/03/22 10:49 Resp 20 04/03/22 10:49 BP 105/59 L 04/03/22 10:49 Pulse Ox 93 04/03/22 10:49 O2 Del Method 04/03/22 10:49 O2 Flow Rate 2 04/03/22 10:49 Oxygen Flow Rate 4 03/31/22 14:22 BMI result Body Mass Index 39.4 Appearing in no acute distress lung sounds are clear to auscultation heart regular rate rhythm, clear S1, S2 positive bowel sounds, abdomen is soft, nontender neuro patient is alert x3, no focal deficits Objective Data Active Medications Acetaminophen (Acetaminophen 325 Mg Tablet) 650 mg PO Q6H PRN PRN Reason: Pain, Mild (Pain Scale 1-3) Amiodarone HCl (Amiodarone Hcl 200 Mg Tablet) 400 mg PO BID [facility] Stop: 04/03/22 20:59 Last Admin: 04/03/22 07:26 Dose: 400 mg Documented By: LG Amiodarone HCl (Amiodarone Hcl 200 Mg Tablet) 200 mg PO DAILY [facility] Apixaban (Apixaban 5 Mg Tablet) 5 mg PO BID [facility] Last Admin: 04/03/22 07:27 Dose: 5 mg Documented By: LG Atorvastatin Calcium (Atorvastatin Calcium 80 Mg Tablet) 80 mg PO BEDTIME [facility] Last Admin: 04/02/22 21:06 Dose: 80 mg Documented By: PIERO Carvedilol (Carvedilol 25 Mg Tablet) 25 mg PO BID [facility]; Protocol Last Admin: 04/03/22 07:27 Dose: 25 mg Documented By: LG Cyanocobalamin (Cyanocobalamin (Vitamin B-12) 1,000 Mcg Tablet) 1,000 mcg PO DAILY [facility] Last Admin: 04/03/22 07:27 Dose: 1,000 mcg Documented By: LG Dextrose (Dextrose 50 % 25 Gm/50 Ml Syringe) 25 gm IVPUSH Q15M PRN; Protocol PRN Reason: per Hypoglycemia Standing Ord. Docusate Sodium (Docusate Sodium 100 Mg Capsule) 100 mg PO DAILY PRN PRN Reason: Constipation Glucose (Glucose Gel 15 Gm Gel..Gram.) 15 gm PO Q15M PRN; Protocol PRN Reason: per Hypoglycemia Standing Ord. Hydralazine HCl (Hydralazine Hcl 10 Mg Tablet) 10 mg PO TID [facility]; Protocol Last Admin: 04/03/22 07:27 Dose: 10 mg Documented By: LG Comments: BP-124/69, HR-70 Furosemide 200 mg/ Sodium (Chloride) 100 mls @ 2.5 mls/hr IVCONT .Q24H [facility] Last Admin: 04/02/22 17:33 Dose: 5 mg/hr, 2.5 mls/hr Documented By: JYOTI Insulin Glargine (Insulin Glargine,Hum.Rec.Anlog 100 Unit/Ml 10 Ml Vial) 50 unit SUBCUT BEDTIME [facility] Last Admin: 04/02/22 21:05 Dose: 50 unit Documented By: PIERO Insulin Human Lispro (Insulin Lispro 100 Unit/Ml 3 Ml Vial) 0 unit SUBCUT QIDACHS [facility]; Protocol Last Admin: 04/03/22 11:16 Dose: 4 unit Documented By: LG Isosorbide Dinitrate (Isosorbide Dinitrate 5 Mg Tablet) 2.5 mg PO TID [facility]; Protocol Last Admin: 04/03/22 07:27 Dose: 2.5 mg Documented By: LG Melatonin (Melatonin 3 Mg Tablet) 9 mg PO BEDTIME PRN PRN Reason: Insomnia Last Admin: 04/02/22 21:06 Dose: 9 mg Documented By: PIERO Pharmacy Consult (Consult Rx Perform Med Rec) 1 each MISCELLANE ONCE PRN PRN Reason: Consult order Sodium Chloride (0.9 % Sodium Chloride Flush 3 Ml Syringe) 3 ml IVFLUSH QSHIFT [facility] Last Admin: 04/03/22 07:26 Dose: 3 ml Documented By: LG Labs CBC & Chem 7: 04/01/22 07:39 04/03/22 06:27 Labs: Laboratory Results - last 24 hr 04/02/22 04/02/22 04/03/22 16:34 20:47 06:27 Anion Gap 15 Estim Creat Clear Calc 45.9 Estimated GFR 32 POC Glucose 182 H 230 H Random Glucose 179 H Calcium 9.1 B-Natriuretic Peptide 04/03/22 04/03/22 04/03/22 06:27 07:15 10:48 Anion Gap Estim Creat Clear Calc Estimated GFR POC Glucose 155 H 225 H Random Glucose Calcium B-Natriuretic Peptide 361 H Assessment and Plan (1) Congestive heart failure: Status: Resolved Plan 77yo M with hx [place] in 2019, AF s/p PPM and on apixaban and sotalol, hx CVA in 2015 with no residual and s/p CEA, and insulin-dependent DM2 presenting with exertional dyspnea, orthopnea, and edema consistent with CHF exacerbation; also exertional chest pain Acute on chronic heart failure with reduced ejection fraction, ischemic cardiomyopathy with acute on chronic respiratory failure Continue Lasix drip 5 mg an hour Continue isosorbide, amiodarone, carvedilol On 2 L nasal cannula -5.5 L Follow daily weights, strict intake and output CKD 3 baseline Avoid nephrotoxins Chronic paroxysmal atrial fibrillation History of pacemaker placement, paced rhythm Continue carvedilol Sotalol DC due to renal insufficiency, started on amiodarone Continue apixaban Plan for cardioversion tomorrow npo after breakfast sched for 4pm has been on eliquis for total 10 days and before that he was at [facility] Status post NSTEMI Admission to [facility] on 03/14 Cardiac catheterization revealed left main mild disease, RCA occluded at origin with poor collaterals, lad with subtotal occlusion of distal LAD, left circumflex with collaterals and 60% mid left circ stenosis Apparently patient was not a candidate for stent placement according to the patient's likely not a candidate for CABG either For now treating symptoms of severe coronary artery disease symptomatically Acute hypoxic respiratory failure secondary to acute congestive heart failure Resolved Diabetes mellitus with episodes of hyperglycemia Sliding scale, ADA diet and PAULETTE CPAP at night VTE prophylaxis: apixaban dispo: eventual home with VNA Attending Dr. Bahena continued hospitalization for renal insufficency, cardioversion Quality Stroke Does the patient have a stroke diagnosis?: No VTE Prior VTE?: No VTE Risk Level:: Medical - moderate - high VTE Device Contraindication: N/A - Device Ordered VTE Drug Contraindication: N/A - Med Ordered
--- NOTE | 2022-04-03 12:11 | PM.PNCARD ---
Subjective Subjective Date of Service: 04/03/22 <JILL Draper - Last Filed: 04/03/22 12:27> 04/03/22 <Carlos Salcedo MD - Last Filed: 04/03/22 15:57> Principal diagnosis: CHF, afib <JILL Draper - Last Filed: 04/03/22 12:27> Interval history: Seen at 1100. Today he reports ongoing sob in laying down position. Continues to require supplemental O2. Denies feeling sob with walking in room. No chest pains, palpitations, dizziness, edema. Voiding large amounts. Tele showing afib, V paced rhythm. IV lasix drip infusing. <JILL Draper - Last Filed: 04/03/22 12:27> Review of Systems Review of Systems as above <JILL Draper - Last Filed: 04/03/22 12:27> Yes all other systems are reviewed and are negative <JILL Draper - Last Filed: 04/03/22 12:27> Physical Exam Vital Signs: Last Vital Signs Temp 97.3 F 04/03/22 10:49 Pulse 70 04/03/22 10:49 Resp 20 04/03/22 10:49 BP 105/59 L 04/03/22 10:49 Pulse Ox 93 04/03/22 10:49 O2 Del Method 04/03/22 10:49 O2 Flow Rate 2 04/03/22 10:49 Oxygen Flow Rate 4 03/31/22 14:22 BMI result Body Mass Index 39.4 <JILL Draper - Last Filed: 04/03/22 12:27> Const General: cooperative, comfortable and no acute distress <JILL Draper - Last Filed: 04/03/22 12:27> Neck Neck: Yes normal visual inspection <JILL Draper Last Filed: 04/03/22 12:27> Resp Effort & Inspection: normal respiratory effort <JILL Draper Last Filed: 04/03/22 12:27> Auscultation: clear to auscultation bilaterally, no crackles, no rales, no rhonchi and no wheezes <Magda Montemayor CARMENC - Last Filed: 04/03/22 12:27> Cardio Rate: regular rate <Magda Montemayor JILL - Last Filed: 04/03/22 12:27> Rhythm: regular rhythm <Magda Montemayor CARMENC - Last Filed: 04/03/22 12:27> Heart sounds: S1 normal heart sound present, S2 normal heart sound present, no gallops, no murmurs and no rubs <Magda MontemayorJOVONNetoC - Last Filed: 04/03/22 12:27> GI Inspection: Yes normal to inspection <Magda MontemayorJOVONNetoC - Last Filed: 04/03/22 12:27> Extrem Other: trace edema left schumacher <Magda MontemayorJOVONKen - Last Filed: 04/03/22 12:27> General: Yes normal to inspection <Magda MontemayorJOVONNetoC - Last Filed: 04/03/22 12:27> Psych Appearance: grossly normal <Magda MontemayorJOVONKen - Last Filed: 04/03/22 12:27> Mental Status: mental status grossly normal <Magda Montemayor CARMENC - Last Filed: 04/03/22 12:27> Speech and movement: Normal speech and movement present <Magda MontemayorJOVONKen - Last Filed: 04/03/22 12:27> Objective Labs and Meds Result diagrams: : 04/01/22 07:39 04/03/22 06:27 <Magda MontemayorJOVONNetoC - Last Filed: 04/03/22 12:27> Lab results: Laboratory Results - last 24 hr 04/02/22 04/02/22 04/03/22 16:34 20:47 06:27 Sodium 139 Potassium 3.8 Chloride 99 Carbon Dioxide 29 Anion Gap 15 BUN 36 H Creatinine 2.04 H Estim Creat Clear Calc 45.9 Estimated GFR 32 POC Glucose 182 H 230 H Random Glucose 179 H Calcium 9.1 B-Natriuretic Peptide 04/03/22 04/03/22 04/03/22 06:27 07:15 10:48 Sodium Potassium Chloride Carbon Dioxide Anion Gap BUN Creatinine Estim Creat Clear Calc Estimated GFR POC Glucose 155 H 225 H Random Glucose Calcium B-Natriuretic Peptide 361 H <JILL Draper - Last Filed: 04/03/22 12:27> Progress Note: A&P Assessment and plan (1) Acute CHF: Status: Acute <JILL Draper - Last Filed: 04/03/22 12:27> Assessment and Plan: Recent [facility] admission with Congestive heart failure, new finding of cardiomyopathy, NSTEMI, AFib, status post cardioversion. Was discharged on 03/22 and presented to [facility] on 03/31 with increasing shortness of breath. His BNP was elevated at 796 and chest x-ray showed findings of pulmonary edema. Last echo done 02/04/2022 showed EF 30-35%, basal inferior akinesis. He is now known to have significant CAD and his reduced EF is likely related to ischemic cardiomyopathy. This admission, He is being diuresed with IV Lasix drip. Fluid balance currently 5500 cc since admission, 2000cc in last 24 hr. He continues to report orthopnea and requires O2 supplement. He is wearing CPAP during the night which he states is his usual at home. On exam lungs are clear and edema improved. He has known CKD and creatinine 2.04 today ( stable). BNP down to 361 today.. Unable to start Arb due to kidney function.Yesterday he was started on hydralazine and Isordil to help with preload and afterload reduction. A [employer] Device check yesterday confirms that he is in atrial fibrillation. The loss of atrial kick has most likely contributed to his current CHF. Planning Cardioversion tomorrow. Will continue with IV Lasix drip another day. Continue strict I&O monitoring, close monitoring of electrolytes and kidney function. O2 supplement as needed to keep sat greater than 90%. Nighttime use of CPAP. We will continue to follow. <JILL Draper - Last Filed: 04/03/22 12:27> Recent [facility] admission with Congestive heart failure, new finding of cardiomyopathy, NSTEMI, AFib, status post cardioversion. Was discharged on 03/22 and presented to [facility] on 03/31 with increasing shortness of breath. His BNP was elevated at 796 and chest x-ray showed findings of pulmonary edema. Last echo done 02/04/2022 showed EF 30-35%, basal inferior akinesis. He is now known to have significant CAD and his reduced EF is likely related to ischemic cardiomyopathy. This admission, He is being diuresed with IV Lasix drip. Fluid balance currently 5500 cc since admission, 2000cc in last 24 hr. He continues to report orthopnea and requires O2 supplement. He is wearing CPAP during the night which he states is his usual at home. On exam lungs are clear and edema improved. He has known CKD and creatinine 2.04 today ( stable). BNP down to 361 today.. Unable to start Arb due to kidney function.Yesterday he was started on hydralazine and Isordil to help with preload and afterload reduction. A [employer] Device check yesterday confirms that he is in atrial fibrillation. The loss of atrial kick has most likely contributed to his current CHF. Planning Cardioversion tomorrow. Will continue with IV Lasix drip another day. Continue strict I&O monitoring, close monitoring of electrolytes and kidney function. O2 supplement as needed to keep sat greater than 90%. Nighttime use of CPAP. We will continue to follow. Patient seen and examined. Case discussed with Magda Montemayor. Patient says he is better and does not need oxygen when he is walking around the room. However when he lays back he still gets short of breath and needs to use oxygen. Diuresing well. Creatinine is stable. Overall negative balance of 5.5 L. responding well to diuretic regimen. Tolerating hydralazine and Isordil. Pacemaker evaluation yesterday suggested recurrent atrial fibrillation within 24 hours after last cardioversion. Most likely cause of his recurrent heart failure. Continue current diuresis. Will perform synchronized cardioversion tomorrow see below. Continue neurohormonal modulation with carvedilol and pre and afterload reduction Isordil and hydralazine. <Carlos Salcedo MD - Last Filed: 04/03/22 15:57> (2) Afib: Status: Acute <JILL Draper - Last Filed: 04/03/22 12:27> Assessment and Plan: History of atrial fibrillation with prior ablation. He had recurrent AFib during recent [facility] admission and did have a cardioversion there on 03/22/22. He was then started on an amiodarone loading dose of 400 mg b.i.d. for 2 weeks. Starting on 04/04 he will start 200 mg once daily. photographer assistant shows V paced rhythm, initially unclear if he was in AF however a pacemaker check yesteday confirms that he was in SR only about 12 hrs following his 03/22 cardioversion. Reviewed this with pt and . Plan for cardioversion tomorrow with Dr Salcedo. Procedure and risks discussed, pt agreeable to proceed. With rhythm control, his atrial kick will be restored which will help reduce his risk of recurrent HF. Continue Eliquis for anticoagulation. No bleeding issues reported. <JILL Draper - Last Filed: 04/03/22 12:27> History of atrial fibrillation with prior ablation. He had recurrent AFib during recent [facility] admission and did have a cardioversion there on 03/22/22. He was then started on an amiodarone loading dose of 400 mg b.i.d. for 2 weeks. Starting on 04/04 he will start 200 mg once daily. photographer assistant shows V paced rhythm, initially unclear if he was in AF however a pacemaker check yesteday confirms that he was in SR only about 12 hrs following his 03/22 cardioversion. Reviewed this with pt and . Plan for cardioversion tomorrow with Dr Salcedo. Procedure and risks discussed, pt agreeable to proceed. With rhythm control, his atrial kick will be restored which will help reduce his risk of recurrent HF. Continue Eliquis for anticoagulation. No bleeding issues reported. As discussed above patient requires synchronized cardioversion to hopefully achieve AV synchrony. He is not completely loaded with amiodarone as of end of today. Starting tomorrow will be 200 mg daily and will probably the best chance to convert to sinus rhythm and hopefully maintain it. Continue full oral anticoagulation. Discussed with patient the risks, benefits, alternatives to synchronized cardioversion. Will continue to follow with you <Carlos Salcedo MD - Last Filed: 04/03/22 15:57> (3) Ischemic cardiomyopathy: Status: Acute <JILL Draper - Last Filed: 04/03/22 12:27> (4) Coronary artery disease: Status: Acute <JILL Draper - Last Filed: 04/03/22 12:27> Assessment and Plan: Cardiac catheterization done on 03/20/2022 showing LAD distal 99% stenosis, left circumflex proximal ostial 60% stenosis, RCA proximal SHOEMAKER CUSTOM with collaterals, manage medically. He is currently not on rate slowing medication with the exception of amiodarone. He is not on aspirin as he is on Eliquis. He is on high-dose atorvastatin. No reports of angina. Troponins normal this admission. <JILL Draper - Last Filed: 04/03/22 12:27> (5) History of permanent cardiac pacemaker placement: Status: Acute <JILL Draper - Last Filed: 04/03/22 12:27> Assessment and Plan: [employer] pacemaker in place. Site benign. Appears to be functioning normally on telemetry monitoring. Interrogation done yesterday shows device is functioning normally. Pt is in persistent AF. <JILL Draper - Last Filed: 04/03/22 12:27> Time Spent With Patient Time: Total time spent is greater than 50% in coordination of care (as documented) at patient's floor/unit and/or counseling patient: 24 <JILL Draper - Last Filed: 04/03/22 12:27> Progress Note: Quality Stroke Does the patient have a stroke diagnosis?: No <JILL Draper Last Filed: 04/03/22 12:27> Procedures Date of Service Date of Service: 04/03/22 <JILL Draper - Last Filed: 04/03/22 12:27>
[2022-04-03 15:10] VITALS: BP 136/78; PULSE 69; RESP 18; TEMP 36.4; O2SAT 97
[2022-04-03 16:02] LABS: Glucose, Whole Blood 219 mg/dL (60-115)
--- NOTE | 2022-04-03 16:48 | MHC.CM.PN ---
Male 76 DX Dyspnea No discharge today per MD rounds. Patient remains on an IV lasix gtt. Plan to convert to PO Lasic tomorrow. Patient reports that he has VNA services Friday +. He is not sure of agency. DP home resume services family transport.
[2022-04-03 19:32] VITALS: BP 133/73; PULSE 71; RESP 20; TEMP 36.9; O2SAT 97
[2022-04-03 20:16] LABS: Glucose, Whole Blood 166 mg/dL (60-115)
[2022-04-03] MEDS: hydrALAZINE HCl 25 MG TABLET PO (20:27)
[2022-04-03] MEDS: Atorvastatin Calcium 80 MG TABLET PO (20:27)
[2022-04-03] MEDS: Insulin Glargine,Hum.rec.anlog 100 UNIT/ML 10 ML VIAL 50 UNIT SUBCUT (20:27)
[2022-04-03] MEDS: Isosorbide Dinitrate 5 MG TABLET PO (20:27)
[2022-04-03] MEDS: Furosemide 200 MG in 0.9 % Sodium Chloride 80 ML IVCONT (20:28)
[2022-04-03] MEDS: Melatonin 3 MG TABLET 9 MG PO (20:32)
[2022-04-04] VITALS (16 sets, daily range): BP systolic 99–162; BP diastolic 49–99; PULSE 60–73; RESP 15–24; TEMP 35.8–36.8; O2SAT 92–99; BMI 39.6
[2022-04-04 07:39] LABS: Glucose, Whole Blood 133 mg/dL (60-115)
[2022-04-04] MEDS: Amiodarone HCL 200 MG TABLET PO (08:04)
[2022-04-04] MEDS: Isosorbide Dinitrate 5 MG TABLET PO ×2 (08:05→22:27)
[2022-04-04] MEDS: hydrALAZINE HCl 25 MG TABLET PO ×2 (08:05→22:26)
[2022-04-04] MEDS: Cyanocobalamin (Vitamin B-12) 1,000 MCG TABLET 1000 MCG PO (08:05)
[2022-04-04] MEDS: Apixaban 5 MG TABLET PO ×2 (08:05→22:26)
[2022-04-04] MEDS: carvediloL 25 MG TABLET PO ×2 (08:05→22:27)
[2022-04-04 09:56] LABS: Anion Gap 18 (12-20); Blood Urea Nitrogen 39 mg/dL (9-16); Calcium 9.7 mg/dL (8.4-10.2); Carbon Dioxide 29 mmol/L (22-29); Chloride 99 mmol/L (96-108); Creatinine Clr Calc Pharmacy 42.8; Estimated Glomerular Filt Rate 30; Glucose Random 163 mg/dL (60-115); Potassium 4.4 mmol/L (3.3-5.1); Sodium 142 mmol/L (135-145)
[2022-04-04 09:56] LABS: B Type Natriuretic Peptide 397 pg/mL (<100)
[2022-04-04 11:14] LABS: Glucose, Whole Blood 162 mg/dL (60-115)
--- NOTE | 2022-04-04 12:45 | PM.PNCARD ---
Subjective Subjective Date of Service: 04/04/22 <JILL Draper - Last Filed: 04/04/22 13:04> 04/04/22 <Carlos Salcedo MD - Last Filed: 04/04/22 15:46> Principal diagnosis: CHF, afib <JILL Draper - Last Filed: 04/04/22 13:04> Interval history: See at 0950. Today he reports feeling better. He is noticing less sob when laying down. No cough, no sob with walking in room and aviles. Has been taking O2 supplement off at times. No chest pains, palpitations, dizziness, edema. Had bowl of cereal at 7a today. NPO since then. Plan for cardioversion today. Tele showing atrial flutter with V paced rhythm. <JILL Draper - Last Filed: 04/04/22 13:04> Review of Systems Review of Systems as above <JILL Draper - Last Filed: 04/04/22 13:04> Yes all other systems are reviewed and are negative <JILL Draper - Last Filed: 04/04/22 13:04> Physical Exam Vital Signs: Last Vital Signs Temp 97.5 F 04/04/22 10:59 Pulse 70 04/04/22 10:59 Resp 20 04/04/22 10:59 BP 120/80 04/04/22 10:59 Pulse Ox 96 04/04/22 10:59 O2 Del Method 04/04/22 10:59 O2 Flow Rate 2 04/04/22 10:59 Oxygen Flow Rate 4 03/31/22 14:22 BMI result Body Mass Index 39.6 <JILL Draper - Last Filed: 04/04/22 13:04> Const General: cooperative, healthy appearing, comfortable and no acute distress <JILL Draper Last Filed: 04/04/22 13:04> Orientation/consciousness: patient oriented x3 <JILL Draper - Last Filed: 04/04/22 13:04> Neck Neck: Yes normal visual inspection and Yes no JVD <JILL Draper - Last Filed: 04/04/22 13:04> Resp Effort & Inspection: normal respiratory effort <[facility] - Last Filed: 04/04/22 13:04> Auscultation: clear to auscultation bilaterally, no crackles, no rales, no rhonchi and no wheezes <[facility] - Last Filed: 04/04/22 13:04> Cardio Jugular venous distension: no JVD [facility] Last Filed: 04/04/22 13:04> Rate: regular rate [facility] - Last Filed: 04/04/22 13:04> Rhythm: regular rhythm [facility] Last Filed: 04/04/22 13:04> Heart sounds: S1 normal heart sound present, S2 normal heart sound present, no gallops, no murmurs and no rubs <[facility] - Last Filed: 04/04/22 13:04> Peripheral pulses: Peripheral pulses 2+ throughout <[facility] - Last Filed: 04/04/22 13:04> Neuro General: patient oriented x3 [facility] - Last Filed: 04/04/22 13:04> Extrem General: Yes normal to inspection, No no pedal edema and No calf tenderness [facility] - Last Filed: 04/04/22 13:04> Psych Appearance: grossly normal <[facility] Last Filed: 04/04/22 13:04> Mental Status: mental status grossly normal [facility] - Last Filed: 04/04/22 13:04> Speech and movement: Normal speech and movement present [facility] Last Filed: 04/04/22 13:04> Objective Labs and Meds Result diagrams: : 04/01/22 07:39 04/04/22 08:18 <[facility] Last Filed: 04/04/22 13:04> Lab results: Laboratory Results - last 24 hr 04/03/22 04/03/22 04/04/22 15:58 20:12 07:16 Sodium Potassium Chloride Carbon Dioxide Anion Gap BUN Creatinine Estim Creat Clear Calc Estimated GFR POC Glucose 219 H 166 H 133 H Random Glucose Calcium Magnesium B-Natriuretic Peptide 04/04/22 04/04/22 04/04/22 08:18 09:00 10:58 Sodium 142 Potassium 4.4 Chloride 99 Carbon Dioxide 29 Anion Gap 18 BUN 39 H Creatinine 2.19 H Estim Creat Clear Calc 42.8 Estimated GFR 30 POC Glucose 162 H Random Glucose 163 H Calcium 9.7 D Magnesium 2.0 B-Natriuretic Peptide 397 H <JILL Draper - Last Filed: 04/04/22 13:04> Progress Note: A&P Assessment and plan (1) Acute CHF: Status: Acute <JILL Draper - Last Filed: 04/04/22 13:04> Assessment and Plan: Recent [facility] admission with Congestive heart failure, new finding of cardiomyopathy EF 30-35%, NSTEMI, AFib, status post cardioversion. Was discharged on 03/22 and presented to [facility] on 03/31 with increasing shortness of breath. He has been treated with HFrEF which is likely related to loss of AV syncrony with him having a findng of recurrent Afib. He is being diuresed with IV Lasix drip. Fluid balance currently 5800 cc since admission. He reports that orthopnea is improving. Ambulating in room off O2 without symptoms. He is wearing CPAP during the night which is his normal. On exam lungs are clear and edema resolved. He has known CKD and creatinine 2.12 today. . BNP 397 today, was 361 yesterday. Continue with IV Lasix drip another day. Continue strict I&O monitoring, close monitoring of electrolytes and kidney function. O2 supplement as needed to keep sat greater than 90%. Nighttime use of CPAP. We will continue to follow. . <JILL Draper - Last Filed: 04/04/22 13:04> Recent [facility] admission with Congestive heart failure, new finding of cardiomyopathy EF 30-35%, NSTEMI, AFib, status post cardioversion. Was discharged on 03/22 and presented to [facility] on 03/31 with increasing shortness of breath. He has been treated with HFrEF which is likely related to loss of AV syncrony with him having a findng of recurrent Afib. He is being diuresed with IV Lasix drip. Fluid balance currently 5800 cc since admission. He reports that orthopnea is improving. Ambulating in room off O2 without symptoms. He is wearing CPAP during the night which is his normal. On exam lungs are clear and edema resolved. He has known CKD and creatinine 2.12 today. . BNP 397 today, was 361 yesterday. Continue with IV Lasix drip another day. Continue strict I&O monitoring, close monitoring of electrolytes and kidney function. O2 supplement as needed to keep sat greater than 90%. Nighttime use of CPAP. We will continue to follow. . Patient seen and examined. Case discussed with Magda Montemayor. Patient feels better today. Continue IV diuresis for 1 more day. Strict intake and output chart needs to be pursued. Continue heart failure medications with hydralazine Isordil as well as metoprolol therapy. Will perform synchronized cardioversion later today. EKG shows more organized rhythm with atrial flutter. <Carlos Salcedo MD - Last Filed: 04/04/22 15:46> (2) Afib: Status: Acute <JILL Draper - Last Filed: 04/04/22 13:04> Assessment and Plan: History of atrial fibrillation with prior ablation. He had recurrent AFib during recent [facility] admission and did have a HERMANN cardioversion ( showed no LA appendage thrombus) on 03/22/22. He was started on Eliquis for anticoagulation. He was started on an amiodarone loading and will start Maintenance dose today. monitoring and evaluation advisor shows V paced rhythm, initially unclear if he was in AF however A [employer] Device check 04/02 confirmed that he is in atrial fibrillation. He was in SR for only about 12 hrs following his 03/22 cardioversion. Tele today more clearly shows atrial flutter with V paced rhythm. Cardioversion is planned for 4 p today. Pt aware of plan and is agreeable. Keep NPO. <JILL Draper - Last Filed: 04/04/22 13:04> History of atrial fibrillation with prior ablation. He had recurrent AFib during recent [facility] admission and did have a HERMANN cardioversion ( showed no LA appendage thrombus) on 03/22/22. He was started on Eliquis for anticoagulation. He was started on an amiodarone loading and will start Maintenance dose today. monitoring and evaluation advisor shows V paced rhythm, initially unclear if he was in AF however A [employer] Device check 04/02 confirmed that he is in atrial fibrillation. He was in SR for only about 12 hrs following his 03/22 cardioversion. Tele today more clearly shows atrial flutter with V paced rhythm. Cardioversion is planned for 4 p today. Pt aware of plan and is agreeable. Keep NPO. Will pursue synchronized cardioversion today. Risks, benefits, alternatives 2nd open to procedure were discussed understand agree. Patient has been on Eliquis since his last attempt at cardioversion at [facility] which was a HERMANN guided cardioversion with no intracardiac thrombi. Hopefully this will lead to improvement in his heart failure syndrome overall. <Carlos Salcedo MD - Last Filed: 04/04/22 15:46> (3) Ischemic cardiomyopathy: Status: Acute <JILL Draper - Last Filed: 04/04/22 13:04> Assessment and Plan: On Carvedilol for neurohormonal modulation. Not on tamara/ arb due to CKD. He is on Hydralazine and Isordil for preload/ afterload reduction. 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 He is currently not on rate slowing medication with the exception of amiodarone. He is not on aspirin as he is on Eliquis. He is on high-dose atorvastatin. No reports of angina. Troponins normal this admission. <JILL Draper - Last Filed: 04/04/22 13:04> (5) History of permanent cardiac pacemaker placement: Status: Acute <JILL Draper - Last Filed: 04/04/22 13:04> Assessment and Plan: [employer] pacemaker in place. Site benign. Appears to be functioning normally on telemetry monitoring. Interrogation done yesterday shows device is functioning normally. Pt is in persistent AF. <JILL Draper - Last Filed: 04/04/22 13:04> Time Spent With Patient Time: Total time spent is greater than 50% in coordination of care (as documented) at patient's floor/unit and/or counseling patient: 22 <JILL Draper - Last Filed: 04/04/22 13:04> Progress Note: Quality Stroke Does the patient have a stroke diagnosis?: No <JILL Draper - Last Filed: 04/04/22 13:04> Procedures Date of Service Date of Service: 04/04/22 <JILL Draper - Last Filed: 04/04/22 13:04>
--- NOTE | 2022-04-04 12:58 | P.PNIM_ITS ---
Subjective Subjective Date of Service: 04/04/22 Interval History: Seen and examined this morning Follow-up for CHF - continues on Lasix drip Breathing improving. Plan for cardioversion this afternoon. Denies chest pain abdominal pain Review of Systems Review of Systems: Yes all other systems are reviewed and are negative Constitutional Constitutional: Denies chills and Denies fever(s) Cardiovascular Cardiovascular: Denies chest pain and Denies palpitations Respiratory Respiratory: Denies cough Gastrointestinal Gastrointestinal: Denies abdominal pain Endocrine Endocrine: Denies palpitations Physical Exam Vital Signs: Vital Signs: Last Vital Signs Temp 97.5 F 04/04/22 10:59 Pulse 70 04/04/22 10:59 Resp 20 04/04/22 10:59 BP 120/80 04/04/22 10:59 Pulse Ox 96 04/04/22 10:59 O2 Del Method 04/04/22 10:59 O2 Flow Rate 2 04/04/22 10:59 Oxygen Flow Rate 4 03/31/22 14:22 BMI result Body Mass Index 39.6 Const: General: cooperative, alert and awake Nutritional Appearance: obese Orientation/consciousness: patient oriented x3 Cardio: Rate: regular rate Heart sounds: S1 normal heart sound present and S2 normal heart sound present GI: Inspection: No distended and Yes obesity Palpation (GI): Soft to palpation and nontender Neuro: General: patient oriented x3 and CN's II-XI intact bilaterally Extrem: General: Yes no pedal edema Objective Data Active Medications Acetaminophen (Acetaminophen 325 Mg Tablet) 650 mg PO Q6H PRN PRN Reason: Pain, Mild (Pain Scale 1-3) Amiodarone HCl (Amiodarone Hcl 200 Mg Tablet) 200 mg PO DAILY [facility] Last Admin: 04/04/22 08:04 Dose: 200 mg Documented By: AMELIA Apixaban (Apixaban 5 Mg Tablet) 5 mg PO BID [facility] Last Admin: 04/04/22 08:05 Dose: 5 mg Documented By: AMELIA Atorvastatin Calcium (Atorvastatin Calcium 80 Mg Tablet) 80 mg PO BEDTIME [facility] Last Admin: 04/03/22 20:27 Dose: 80 mg Documented By: PIERO Carvedilol (Carvedilol 25 Mg Tablet) 25 mg PO BID [facility]; Protocol Last Admin: 04/04/22 08:05 Dose: 25 mg Documented By: AMELIA Cyanocobalamin (Cyanocobalamin (Vitamin B-12) 1,000 Mcg Tablet) 1,000 mcg PO DAILY [facility] Last Admin: 04/04/22 08:05 Dose: 1,000 mcg Documented By: AMELIA Dextrose (Dextrose 50 % 25 Gm/50 Ml Syringe) 25 gm IVPUSH Q15M PRN; Protocol PRN Reason: per Hypoglycemia Standing Ord. Docusate Sodium (Docusate Sodium 100 Mg Capsule) 100 mg PO DAILY PRN PRN Reason: Constipation Glucose (Glucose Gel 15 Gm Gel..Gram.) 15 gm PO Q15M PRN; Protocol PRN Reason: per Hypoglycemia Standing Ord. Hydralazine HCl (Hydralazine Hcl 25 Mg Tablet) 25 mg PO TID [facility]; Protocol Last Admin: 04/04/22 08:05 Dose: 25 mg Documented By: AMELIA Furosemide 200 mg/ Sodium (Chloride) 100 mls @ 2.5 mls/hr IVCONT .Q24H [facility] Last Admin: 04/03/22 20:28 Dose: 5 mg/hr, 2.5 mls/hr Documented By: PIERO Insulin Glargine (Insulin Glargine,Hum.Rec.Anlog 100 Unit/Ml 10 Ml Vial) 50 unit SUBCUT BEDTIME [facility] Last Admin: 04/03/22 20:27 Dose: 50 unit Documented By: PIERO Insulin Human Lispro (Insulin Lispro 100 Unit/Ml 3 Ml Vial) 0 unit SUBCUT QIDACHS [facility]; Protocol Last Admin: 04/04/22 11:15 Dose: Not Given Documented By: AMELIA Non-Admin Reason: NPO Isosorbide Dinitrate (Isosorbide Dinitrate 5 Mg Tablet) 5 mg PO TID [facility]; Protocol Last Admin: 04/04/22 08:05 Dose: 5 mg Documented By: AMELIA Melatonin (Melatonin 3 Mg Tablet) 9 mg PO BEDTIME PRN PRN Reason: Insomnia Last Admin: 04/03/22 20:32 Dose: 9 mg Documented By: PIERO Pharmacy Consult (Consult Rx Perform Med Rec) 1 each MISCELLANE ONCE PRN PRN Reason: Consult order Sodium Chloride (0.9 % Sodium Chloride Flush 3 Ml Syringe) 3 ml IVFLUSH QSHIFT [facility] Last Admin: 04/04/22 08:07 Dose: Not Given Documented By: AMELIA Non-Admin Reason: IV Running Labs CBC & Chem 7: 04/01/22 07:39 04/04/22 08:18 Labs: Laboratory Results - last 24 hr 04/03/22 04/03/22 04/04/22 15:58 20:12 07:16 Anion Gap Estim Creat Clear Calc Estimated GFR POC Glucose 219 H 166 H 133 H Random Glucose Calcium Magnesium B-Natriuretic Peptide 04/04/22 04/04/22 04/04/22 08:18 09:00 10:58 Anion Gap 18 Estim Creat Clear Calc 42.8 Estimated GFR 30 POC Glucose 162 H Random Glucose 163 H Calcium 9.7 D Magnesium 2.0 B-Natriuretic Peptide 397 H Assessment and Plan (1) Afib: Status: Acute (2) Coronary artery disease: Status: Acute (3) Ischemic cardiomyopathy: Status: Acute (4) Acute CHF: Status: Acute Plan 77yo M with hx VA in 2018, AF s/p PPM and on apixaban and sotalol, hx CVA in 2015 with no residual and s/p CEA, and insulin-dependent DM2 presenting with exertional dyspnea, orthopnea, and edema consistent with CHF exacerbation; also exertional chest pain Acute on chronic respiratory failure with hypoxia Secondary to acute on chronic CHF -continue supplemental oxygen, wean as tolerated Acute on chronic heart failure with reduced ejection fraction, ischemic cardiomyopathy Continue Lasix drip 5 mg an hour Continue isosorbide, amiodarone, carvedilol On 2 L nasal cannula Net negative around 6 L -Follow daily weights, strict intake and output -cardiology following CKD 3 baseline Avoid nephrotoxins Chronic paroxysmal atrial fibrillation History of pacemaker placement, paced rhythm, recent CV at [facility] [place], device check - in afib Continue carvedilol started on amio at [facility] [place] Continue apixaban Plan for cardioversion today Status post NSTEMI Admission to [facility] on 03/14 Cardiac catheterization revealed left main mild disease, RCA occluded at origin with poor collaterals, lad with subtotal occlusion of distal LAD, left circumflex with collaterals and 60% mid left circ stenosis Apparently patient was not a candidate for stent placement according to the ronen ent's likely not a candidate for CABG either For now treating symptoms of severe coronary artery disease symptomatically Diabetes mellitus Sliding scale, ADA diet and PAULETTE CPAP at night VTE prophylaxis: apixaban dispo: eventual home with VNA Attending Dr. Bahena continued hospitalization for renal insufficency, cardioversion, CHF requiring IV lasix drip Quality Stroke Does the patient have a stroke diagnosis?: No VTE Prior VTE?: No VTE Risk Level:: Medical - moderate - high VTE Device Contraindication: N/A - Device Ordered VTE Drug Contraindication: N/A - Med Ordered
[2022-04-04] MEDS: 0.9 % Sodium Chloride Flush 3 ML SYRINGE IVFLUSH (15:08)
--- NOTE | 2022-04-04 15:53 | P.CONAN_ITS ---
HPI - Anesthesia Eval Consult details Narrative: 76 M for Cardioversion CAD , A fib , CKD, PPM being treated for CHF , recent CT in february , admitted to [facility] CVA in the past , left sided weakness more than right . Carotid artery disease . Obesity . PAULETTE uses CPAP . Case discussed with the Truck Spotter [facility] Active Problems Active Problems: All Active Problems (Updated 04/02/22 @ 12:49 by Magda Montemayor, JOVON-C) History of permanent cardiac pacemaker placement (Acute) Afib (Acute) Coronary artery disease (Acute) Ischemic cardiomyopathy (Acute) Dyspnea (Acute) Acute CHF (Acute) SUSI (acute kidney injury) (Acute) Past Medical History Medical History (Updated 04/02/22 @ 12:49 by Magda Montemayor, PLANT ACCOUNTANT-C) Coronary artery disease History of diverticulitis History of intestinal obstruction Hyperlipidemia Hypertension Morbid obesity Myocardial infarction Obstructive sleep apnea Stroke Type 2 diabetes mellitus Functional capacity: independent ambulation Family History Family history of problems with anesthesia: No Surgical History Surgical History (Updated 04/02/22 @ 12:49 by Magda Montemayor NP-C) History of carotid endarterectomy History of permanent cardiac pacemaker placement History of Problems with Anesthesia: Yes (Delayed emergence ) Social History Social History Household Members: Spouse Housing: House Do you presently have visiting nurse or other home services: No Patient Tobacco Use Status: Former Tobacco user Quit Date: QUIT 20 YEARS AGO PER PT Tobacco use type: Cigarette e-Cigarette/Vaping Use: Never Used Second Hand Smoke Exposure: No service: Yes Current occupational status: retired Meds Allergies Allergy/AdvReac Type Severity Reaction Status Date / Time No Known Allergies Allergy Verified 02/03/22 11:15 Active Medications: Current Medications Acetaminophen (Acetaminophen 325 Mg Tablet) 650 mg PO Q6H PRN PRN Reason: Pain, Mild (Pain Scale 1-3) Amiodarone HCl (Amiodarone Hcl 200 Mg Tablet) 200 mg PO DAILY [facility] Last Admin: 04/04/22 08:04 Dose: 200 mg Apixaban (Apixaban 5 Mg Tablet) 5 mg PO BID [facility] Last Admin: 04/04/22 08:05 Dose: 5 mg Atorvastatin Calcium (Atorvastatin Calcium 80 Mg Tablet) 80 mg PO BEDTIME [facility] Last Admin: 04/03/22 20:27 Dose: 80 mg Carvedilol (Carvedilol 25 Mg Tablet) 25 mg PO BID [facility]; Protocol Last Admin: 04/04/22 08:05 Dose: 25 mg Cyanocobalamin (Cyanocobalamin (Vitamin B-12) 1,000 Mcg Tablet) 1,000 mcg PO DAILY [facility] Last Admin: 04/04/22 08:05 Dose: 1,000 mcg Dextrose (Dextrose 50 % 25 Gm/50 Ml Syringe) 25 gm IVPUSH Q15M PRN; Protocol PRN Reason: per Hypoglycemia Standing Ord. Docusate Sodium (Docusate Sodium 100 Mg Capsule) 100 mg PO DAILY PRN PRN Reason: Constipation Glucose (Glucose Gel 15 Gm Gel..Gram.) 15 gm PO Q15M PRN; Protocol PRN Reason: per Hypoglycemia Standing Ord. Hydralazine HCl (Hydralazine Hcl 25 Mg Tablet) 25 mg PO TID [facility]; Protocol Last Admin: 04/04/22 15:07 Dose: Not Given Furosemide 200 mg/ Sodium (Chloride) 100 mls @ 2.5 mls/hr IVCONT .Q24H [facility] Last Admin: 04/03/22 20:28 Dose: 5 mg/hr, 2.5 mls/hr Insulin Glargine (Insulin Glargine,Hum.Rec.Anlog 100 Unit/Ml 10 Ml Vial) 50 unit SUBCUT BEDTIME [facility] Last Admin: 04/03/22 20:27 Dose: 50 unit Insulin Human Lispro (Insulin Lispro 100 Unit/Ml 3 Ml Vial) 0 unit SUBCUT QIDACHS [facility]; Protocol Last Admin: 04/04/22 11:15 Dose: Not Given Isosorbide Dinitrate (Isosorbide Dinitrate 5 Mg Tablet) 5 mg PO TID [facility]; Protocol Last Admin: 04/04/22 15:07 Dose: Not Given Melatonin (Melatonin 3 Mg Tablet) 9 mg PO BEDTIME PRN PRN Reason: Insomnia Last Admin: 04/03/22 20:32 Dose: 9 mg Pharmacy Consult (Consult Rx Perform Med Rec) 1 each MISCELLANE ONCE PRN PRN Reason: Consult order Sodium Chloride (0.9 % Sodium Chloride Flush 3 Ml Syringe) 3 ml IVFLUSH QSHIFT [facility] Last Admin: 04/04/22 15:08 Dose: 3 ml Home Medications Medication Instructions Recorded Confirmed Last Taken Type apixaban 5 mg tablet 5 mg PO BID 07/17/22 09/11/22 09/11/22 History atorvastatin 80 mg tablet 1 tab PO BEDTIME 02/03/22 03/31/22 03/30/22 History cyanocobalamin (vitamin B-12) 1,000 mcg PO DAILY 02/03/22 03/31/22 03/31/22 History 1,000 mcg tablet insulin aspart U-100 100 unit/mL 18 unit subcut TIDAC 02/03/22 03/31/22 03/31/22 History (3 mL) subcutaneous pen (Novolog Flexpen U-100 Insulin aspart) insulin glargine 100 unit/mL (3 50 unit subcut BEDTIME 02/03/22 03/31/22 03/30/22 History mL) subcutaneous pen (Lantus Solostar U-100 Insulin) melatonin 10 mg tablet 10 mg PO BEDTIME PRN Insomnia 02/03/22 03/31/22 03/30/22 History amiodarone 200 mg tablet 400 mg PO BID 03/31/22 03/31/22 03/31/22 History aspirin 81 mg tablet,delayed 81 mg PO DAILY 03/31/22 03/31/22 03/31/22 History release carvedilol 25 mg tablet 1 tab PO BID 03/31/22 03/31/22 03/31/22 History furosemide 40 mg tablet (Lasix) 80 mg PO DAILY 03/31/22 03/31/22 03/31/22 History nitroglycerin 0.4 mg sublingual 0.4 mg sublingual Q5M 03/31/22 03/31/22 Unknown History tablet Exam Exam Date and Time: April 04, 2022 1553 Height,Weight and Vital Signs: Height 6 ft 1 in Weight 136.1 kg Last Vital Signs Temp 97.5 F 04/04/22 10:59 Pulse 70 04/04/22 10:59 Resp 20 04/04/22 10:59 BP 120/80 04/04/22 10:59 Pulse Ox 96 04/04/22 10:59 O2 Del Method 04/04/22 10:59 O2 Flow Rate 2 04/04/22 10:59 Oxygen Flow Rate 4 03/31/22 14:22 Pertinent Lab Results Pertinent Lab Results: Laboratory Tests 03/31/22 03/31/22 03/31/22 14:30 14:30 14:30 WBC 11.8 H RBC 4.36 L Hgb 14.0 Hct 42.2 MCV 96.8 MCH 32.1 MCHC 33.2 RDW 13.6 Plt Count 267 MPV 10.8 Immature Gran % (Auto) 0.5 H Neut % (Auto) 68.8 Lymph % (Auto) 21.8 [place] % (Auto) 7.4 Eos % (Auto) 1.1 Baso % (Auto) 0.4 Lymph # (Auto) 2.6 [place] # (Auto) 0.9 Eos # (Auto) 0.1 Baso # (Auto) 0.1 Abs Immat Gran (auto) 0.06 H Absolute Neuts (auto) 8.1 Absolute Nucleated RBC 0.000 Nucleated RBC % (auto) 0.0 VBG pH VBG pCO2 VBG pO2 VBG HCO3 VBG O2 Saturation VBG Base Excess Sodium 139 Potassium 4.3 Chloride 100 Carbon Dioxide 27 Anion Gap 16 BUN 37 H Creatinine 2.09 H Estim Creat Clear Calc 45.0 Estimated GFR 31 POC Glucose Random Glucose 160 H Calcium 9.2 Magnesium 2.1 Total Bilirubin 1.4 H AST 13 ALT 17 Alkaline Phosphatase 132 H D Troponin I High Sens 26.3 B-Natriuretic Peptide 796 H Total Protein 6.9 Albumin 4.0 Urine Color Urine Appearance Urine pH Ur Specific White Urine Protein Urine Glucose (UA) Urine Ketones Urine Blood Urine Nitrite Ur Leukocyte Esterase COVID-19 ([facility]) COVID-19 Clin Com 03/31/22 03/31/22 03/31/22 14:38 16:07 16:07 WBC RBC Hgb Hct MCV MCH MCHC RDW Plt Count MPV Immature Gran % (Auto) Neut % (Auto) Lymph % (Auto) [place] % (Auto) Eos % (Auto) Baso % (Auto) Lymph # (Auto) [place] # (Auto) Eos # (Auto) Baso # (Auto) Abs Immat Gran (auto) Absolute Neuts (auto) Absolute Nucleated RBC Nucleated RBC % (auto) VBG pH 7.34 VBG pCO2 37 VBG pO2 46 VBG HCO3 20 L VBG O2 Saturation 66.0 VBG Base Excess -4.7 Sodium Potassium Chloride Carbon Dioxide Anion Gap BUN Creatinine Estim Creat Clear Calc Estimated GFR POC Glucose Random Glucose Calcium Magnesium Total Bilirubin AST ALT Alkaline Phosphatase Troponin I High Sens 28.1 B-Natriuretic Peptide Total Protein Albumin Urine Color Urine Appearance Urine pH Ur Specific White Urine Protein Urine Glucose (UA) Urine Ketones Urine Blood Urine Nitrite Ur Leukocyte Esterase COVID-19 ([facility]) Negative COVID-19 Clin Com See Note 03/31/22 03/31/22 04/01/22 20:01 20:03 07:39 WBC 8.2 RBC 4.28 L Hgb 13.5 L Hct 40.6 L MCV 94.9 MCH 31.5 MCHC 33.3 RDW 13.8 Plt Count 230 MPV 10.7 Immature Gran % (Auto) Neut % (Auto) Lymph % (Auto) [place] % (Auto) Eos % (Auto) Baso % (Auto) Lymph # (Auto) [place] # (Auto) Eos # (Auto) Baso # (Auto) Abs Immat Gran (auto) Absolute Neuts (auto) Absolute Nucleated RBC 0.000 Nucleated RBC % (auto) 0.0 VBG pH VBG pCO2 VBG pO2 VBG HCO3 VBG O2 Saturation VBG Base Excess Sodium Potassium Chloride Carbon Dioxide Anion Gap BUN Creatinine Estim Creat Clear Calc Estimated GFR POC Glucose 179 H Random Glucose Calcium Magnesium Total Bilirubin AST ALT Alkaline Phosphatase Troponin I High Sens B-Natriuretic Peptide Total Protein Albumin Urine Color Yellow Urine Appearance Clear Urine pH 6.0 Ur Specific White 1.010 Urine Protein Negative Urine Glucose (UA) Negative Urine Ketones Negative Urine Blood Negative Urine Nitrite Negative Ur Leukocyte Esterase Negative COVID-19 ([facility]) COVID-19 [employer] Com 04/01/22 04/01/22 04/01/22 07:39 08:04 11:02 WBC RBC Hgb Hct MCV MCH MCHC RDW Plt Count MPV Immature Gran % (Auto) Neut % (Auto) Lymph % (Auto) [place] % (Auto) Eos % (Auto) Baso % (Auto) Lymph # (Auto) [place] # (Auto) Eos # (Auto) Baso # (Auto) Abs Immat Gran (auto) Absolute Neuts (auto) Absolute Nucleated RBC Nucleated RBC % (auto) VBG pH VBG pCO2 VBG pO2 VBG HCO3 VBG O2 Saturation VBG Base Excess Sodium 141 Potassium 4.1 Chloride 101 Carbon Dioxide 30 H Anion Gap 14 BUN 33 H Creatinine 1.90 H Estim Creat Clear Calc 49.5 Estimated GFR 35 POC Glucose 110 287 H Random Glucose 102 D Calcium 9.1 Magnesium Total Bilirubin AST ALT Alkaline Phosphatase Troponin I High Sens B-Natriuretic Peptide Total Protein Albumin Urine Color Urine Appearance Urine pH Ur Specific White Urine Protein Urine Glucose (UA) Urine Ketones Urine Blood Urine Nitrite Ur Leukocyte Esterase COVID-19 ([facility]) COVID-19 [place] 04/01/22 04/01/22 04/02/22 16:45 20:44 07:03 WBC RBC Hgb Hct MCV MCH MCHC RDW Plt Count MPV Immature Gran % (Auto) Neut % (Auto) Lymph % (Auto) [place] % (Auto) Eos % (Auto) Baso % (Auto) Lymph # (Auto) [place] # (Auto) Eos # (Auto) Baso # (Auto) Abs Immat Gran (auto) Absolute Neuts (auto) Absolute Nucleated RBC Nucleated RBC % (auto) VBG pH VBG pCO2 VBG pO2 VBG HCO3 VBG O2 Saturation VBG Base Excess Sodium Potassium Chloride Carbon Dioxide Anion Gap BUN Creatinine Estim Creat Clear Calc Estimated GFR POC Glucose 218 H 238 H 157 H Random Glucose Calcium Magnesium Total Bilirubin AST ALT Alkaline Phosphatase Troponin I High Sens B-Natriuretic Peptide Total Protein Albumin Urine Color Urine Appearance Urine pH Ur Specific White Urine Protein Urine Glucose (UA) Urine Ketones Urine Blood Urine Nitrite Ur Leukocyte Esterase COVID-19 ([facility]) COVID-19 [place] 04/02/22 04/02/22 04/02/22 08:18 08:18 11:15 WBC RBC Hgb Hct MCV MCH MCHC RDW Plt Count MPV Immature Gran % (Auto) Neut % (Auto) Lymph % (Auto) [place] % (Auto) Eos % (Auto) Baso % (Auto) Lymph # (Auto) [place] # (Auto) Eos # (Auto) Baso # (Auto) Abs Immat Gran (auto) Absolute Neuts (auto) Absolute Nucleated RBC Nucleated RBC % (auto) VBG pH VBG pCO2 VBG pO2 VBG HCO3 VBG O2 Saturation VBG Base Excess Sodium 141 Potassium 4.6 Chloride 101 Carbon Dioxide 31 H Anion Gap 14 BUN 33 H Creatinine 2.07 H Estim Creat Clear Calc 45.4 Estimated GFR 32 POC Glucose 246 H Random Glucose 202 H D Calcium 9.5 Magnesium Total Bilirubin AST ALT Alkaline Phosphatase Troponin I High Sens B-Natriuretic Peptide 529 H Total Protein Albumin Urine Color Urine Appearance Urine pH Ur Specific White Urine Protein Urine Glucose (UA) Urine Ketones Urine Blood Urine Nitrite Ur Leukocyte Esterase COVID-19 ([facility]) COVID-19 [place] 04/02/22 04/02/22 04/03/22 16:34 20:47 06:27 WBC RBC Hgb Hct MCV MCH MCHC RDW Plt Count MPV Immature Gran % (Auto) Neut % (Auto) Lymph % (Auto) [place] % (Auto) Eos % (Auto) Baso % (Auto) Lymph # (Auto) [place] # (Auto) Eos # (Auto) Baso # (Auto) Abs Immat Gran (auto) Absolute Neuts (auto) Absolute Nucleated RBC Nucleated RBC % (auto) VBG pH VBG pCO2 VBG pO2 VBG HCO3 VBG O2 Saturation VBG Base Excess Sodium 139 Potassium 3.8 Chloride 99 Carbon Dioxide 29 Anion Gap 15 BUN 36 H Creatinine 2.04 H Estim Creat Clear Calc 45.9 Estimated GFR 32 POC Glucose 182 H 230 H Random Glucose 179 H Calcium 9.1 Magnesium Total Bilirubin AST ALT Alkaline Phosphatase Troponin I High Sens B-Natriuretic Peptide Total Protein Albumin Urine Color Urine Appearance Urine pH Ur Specific White Urine Protein Urine Glucose (UA) Urine Ketones Urine Blood Urine Nitrite Ur Leukocyte Esterase COVID-19 ([facility]) COVID-19 [place] 04/03/22 04/03/22 04/03/22 06:27 07:15 10:48 WBC RBC Hgb Hct MCV MCH MCHC RDW Plt Count MPV Immature Gran % (Auto) Neut % (Auto) Lymph % (Auto) [place] % (Auto) Eos % (Auto) Baso % (Auto) Lymph # (Auto) [place] # (Auto) Eos # (Auto) Baso # (Auto) Abs Immat Gran (auto) Absolute Neuts (auto) Absolute Nucleated RBC Nucleated RBC % (auto) VBG pH VBG pCO2 VBG pO2 VBG HCO3 VBG O2 Saturation VBG Base Excess Sodium Potassium Chloride Carbon Dioxide Anion Gap BUN Creatinine Estim Creat Clear Calc Estimated GFR POC Glucose 155 H 225 H Random Glucose Calcium Magnesium Total Bilirubin AST ALT Alkaline Phosphatase Troponin I High Sens B-Natriuretic Peptide 361 H Total Protein Albumin Urine Color Urine Appearance Urine pH Ur Specific White Urine Protein Urine Glucose (UA) Urine Ketones Urine Blood Urine Nitrite Ur Leukocyte Esterase COVID-19 ([facility]) COVID-19 [place] 04/03/22 04/03/22 04/04/22 15:58 20:12 07:16 WBC RBC Hgb Hct MCV MCH MCHC RDW Plt Count MPV Immature Gran % (Auto) Neut % (Auto) Lymph % (Auto) [place] % (Auto) Eos % (Auto) Baso % (Auto) Lymph # (Auto) [place] # (Auto) Eos # (Auto) Baso # (Auto) Abs Immat Gran (auto) Absolute Neuts (auto) Absolute Nucleated RBC Nucleated RBC % (auto) VBG pH VBG pCO2 VBG pO2 VBG HCO3 VBG O2 Saturation VBG Base Excess Sodium Potassium Chloride Carbon Dioxide Anion Gap BUN Creatinine Estim Creat Clear Calc Estimated GFR POC Glucose 219 H 166 H 133 H Random Glucose Calcium Magnesium Total Bilirubin AST ALT Alkaline Phosphatase Troponin I High Sens B-Natriuretic Peptide Total Protein Albumin Urine Color Urine Appearance Urine pH Ur Specific White Urine Protein Urine Glucose (UA) Urine Ketones Urine Blood Urine Nitrite Ur Leukocyte Esterase COVID-19 ([facility]) COVID-19 [place] 04/04/22 04/04/22 04/04/22 08:18 09:00 10:58 WBC RBC Hgb Hct MCV MCH MCHC RDW Plt Count MPV Immature Gran % (Auto) Neut % (Auto) Lymph % (Auto) [place] % (Auto) Eos % (Auto) Baso % (Auto) Lymph # (Auto) [place] # (Auto) Eos # (Auto) Baso # (Auto) Abs Immat Gran (auto) Absolute Neuts (auto) Absolute Nucleated RBC Nucleated RBC % (auto) VBG pH VBG pCO2 VBG pO2 VBG HCO3 VBG O2 Saturation VBG Base Excess Sodium 142 Potassium 4.4 Chloride 99 Carbon Dioxide 29 Anion Gap 18 BUN 39 H Creatinine 2.19 H Estim Creat Clear Calc 42.8 Estimated GFR 30 POC Glucose 162 H Random Glucose 163 H Calcium 9.7 D Magnesium 2.0 Total Bilirubin AST ALT Alkaline Phosphatase Troponin I High Sens B-Natriuretic Peptide 397 H Total Protein Albumin Urine Color Urine Appearance Urine pH Ur Specific White Urine Protein Urine Glucose (UA) Urine Ketones Urine Blood Urine Nitrite Ur Leukocyte Esterase COVID-19 ([facility]) COVID-19 [place] Airway Mallampati Class: IV TM Dist: >3cm Loose/Missing/Broken Teeth: Yes (Missing teeth , Poor dentition globally ) Heart: Irregular Lungs: distant breath sounds Assessment and Plan Assessment Anesthesia Assessment: Anesthesia Plan Discussed and Chart Reviewed Final Anesthetic Review Family History of Problems with Anesthesia: No History of Problems with Anesthesia: Yes (Delayed emergence ) NPO: Yes ASA Class: IV and Emergency Final Preanesthetic Review: Meds/Allgs Chart Reviewed, Consent Obtained/Reviewed and Anes Risks/Benef Reviewed Patient Risk: High Procedure Risk: Intermediate Anesthetic Plan Anesthetic Plan: MAC: Disposition: Inp. Admit - Standard Bed
--- NOTE | 2022-04-04 16:18 | ECG_ITS ---
Test Reason : status post cardial version Blood Pressure : / mmHG Vent. Rate : 060 BPM Atrial Rate : 060 BPM P-R Int : 320 ms QRS Dur : 168 ms QT Int : 518 ms P-R-T Axes : -40 040 -71 degrees QTc Int : 518 ms Junctional Rhythm Right bundle branch block Abnormal ECG When compared with ECG of 31-MAR-2022 14:09, Ventricular-paced rhythm is no longer Present Referred By: Carlos Salcedo Electronically Signed By:ANGELI PLASCENCIA
[2022-04-04 16:22] LABS: Glucose, Whole Blood 110 mg/dL (60-115)
--- NOTE | 2022-04-04 16:23 | P.PNCAR_ITS ---
Cardioversion Procedure Note Cardioversion Date of Procedure: Today Ordering Provider: Myself Performing Provider: Myself Indication for Procedure: Persistent atrial flutter with ventricular pacing in patient with decompensated heart failure Pre-Op Diagnosis: Same Post-Op Diagnosis: Sinus rhythm Performed with Transesophageal Echo: No History: See history and physical Consent: Verbal and Written consent was obtained from the patient before starting. The patient was made aware of the risk of synchronized cardioversion including benefits, alternatives and 2nd opinion Procedure: After consent obtained, cardioversion pads were attached in AP configuration and the patient was sedated by the anesthesia team. Once adequate sedation achieved, patient was delivered 200 joules of biphasic synchronized energy in anteroposterior configuration Complications: None Impression: Converted to sinus rhythm with redding AV pacing Recommendations: 1. Full pacemaker evaluation tomorrow 2. 12 lead EKG 3. Continue full oral anticoagulation without interruption 4. Continue amiodarone therapy at 200 mg daily
--- NOTE | 2022-04-04 18:33 | PC.NURSE ---
0700. Report received from walter CASPER. Pt awake, A+Ox4 and states he is hungry. Scheduled for cardioversion at 1600, checked with and stated that it is ok for pt to eat early breakfast. hyperion administrator preformed. Pt NPO at 0800. Call vernon in reach, safety precautions in place. 1030. Pt resting comfortably in bed, no c/o pain or discomfort. safety precautions in place, call vernon in reach. 1440. Report given to Radha CASPER. Lasix gtt on hold for procedure. IV flushed and patent. Pt transported to OR at 1500. 1745. Report received from Radha CASPER, states pt responded well to procedure. Pt back to floor at 1800, A+Ox4, lungs clear on 2L NC. VSS. No c/o pain. Lasix gtt restarted. Call vernon within reach, safety precautions in place.
[2022-04-04 19:37] LABS: Glucose, Whole Blood 109 mg/dL (60-115)
[2022-04-04 21:53] LABS: Glucose, Whole Blood 206 mg/dL (60-115)
[2022-04-04] MEDS: Melatonin 3 MG TABLET 9 MG PO (22:26)
[2022-04-04] MEDS: Atorvastatin Calcium 80 MG TABLET PO (22:26)
[2022-04-04] MEDS: Insulin Glargine,Hum.rec.anlog 100 UNIT/ML 10 ML VIAL 50 UNIT SUBCUT (22:27)
[2022-04-04] MEDS: Insulin Lispro 100 UNIT/ML 3 ML VIAL SUBCUT (22:27)
[2022-04-05] VITALS (7 sets, daily range): BP systolic 114–138; BP diastolic 61–69; PULSE 60–80; RESP 16–20; TEMP 36.1–36.7; O2SAT 92–99
--- NOTE | 2022-04-05 | ECG_ITS ---
Test Reason : post cardioversion done 04/04 Blood Pressure : / mmHG Vent. Rate : 060 BPM Atrial Rate : 060 BPM P-R Int : 360 ms QRS Dur : 154 ms QT Int : 512 ms P-R-T Axes : 011 034 204 degrees QTc Int : 512 ms Junctional Rhythm Right bundle branch block Abnormal ECG When compared with ECG of 04-APR-2022 16:27, No significant change was found Referred By: Magda Montemayor Electronically Signed By:ANGELI PLASCENCIA
[2022-04-05 06:52] LABS: Anion Gap 17 (12-20); Blood Urea Nitrogen 38 mg/dL (9-16); Calcium 9.6 mg/dL (8.4-10.2); Carbon Dioxide 29 mmol/L (22-29); Chloride 100 mmol/L (96-108); Estimated Glomerular Filt Rate 31; Glucose Random 133 mg/dL (60-115); Potassium 3.6 mmol/L (3.3-5.1); Sodium 142 mmol/L (135-145)
--- NOTE | 2022-04-05 06:52 | HO.POSTANES ---
Post Anesthesia Evaluation Post Anesthesia Evaluation Vital Signs: Vital Signs Temp Pulse Resp BP Pulse Ox O2 Del Method O2 Flow Rate 04/05/22 04:00 96.9 F 60 20 127/67 93 CPAP 04/05/22 02:00 20 04/04/22 23:53 97.6 F 60 20 124/49 L 92 CPAP 04/04/22 19:05 96.5 F L 60 18 162/92 H Nasal Cannula 2 FiO2 04/05/22 04:00 04/05/22 02:00 04/04/22 23:53 04/04/22 19:05 100 Anesthesia: General Mental Status: Awake Pain Control: Satisfactory Nausea/Vomiting: None Hydration: Adequate Anesthesia-Related Issues: No Anes. Related Issues
[2022-04-05 07:38] LABS: Glucose, Whole Blood 125 mg/dL (60-115)
[2022-04-05] MEDS: Amiodarone HCL 200 MG TABLET PO (08:30)
[2022-04-05] MEDS: Cyanocobalamin (Vitamin B-12) 1,000 MCG TABLET 1000 MCG PO (08:30)
[2022-04-05] MEDS: hydrALAZINE HCl 25 MG TABLET PO ×3 (08:30→21:18)
[2022-04-05] MEDS: carvediloL 25 MG TABLET PO ×2 (08:30→21:18)
[2022-04-05] MEDS: Apixaban 5 MG TABLET PO ×2 (08:31→21:18)
[2022-04-05] MEDS: Isosorbide Dinitrate 5 MG TABLET PO ×3 (08:31→21:18)
--- NOTE | 2022-04-05 09:58 | MHC.CM.PN ---
Male 76 S/P Cardioversion continues on a Lasix gtt. No dc planned for today. DP home resume VNA services. Patients with provide transportation home.
[2022-04-05 10:58] LABS: Glucose, Whole Blood 181 mg/dL (60-115)
[2022-04-05] MEDS: Insulin Lispro 100 UNIT/ML 3 ML VIAL SUBCUT ×3 (11:22→21:19)
--- NOTE | 2022-04-05 11:31 | P.PNCA_ITS ---
Subjective Subjective Date of Service: 04/05/22 <JILL Draper - Last Filed: 04/05/22 11:43> 04/05/22 <Carlos Salcedo MD - Last Filed: 04/05/22 13:32> Principal diagnosis: CHF, afib <JILL Draper - Last Filed: 04/05/22 11:43> Interval history: Seen at 0930. Today he is observed laying nearly flat in bed with 1 pillow and reports breathing improved. He is still wearing oxygen with nasal cannula. He tells me he walks in the room without the oxygen. He is not feeling short of breath. No chest pains, palpitations, dizziness, edema. His tele monitor is showing atrial paced rhythm. A device interrogation was done this a.m. confirming the ongoing suppression of AFib. Spoke with on the phone and given details about patient's condition and plan of care, at his request. <JILL Draper - Last Filed: 04/05/22 11:43> Review of Systems Review of Systems As above <JILL Draper - Last Filed: 04/05/22 11:43> Yes all other systems are reviewed and are negative <JILL Draper - Last Filed: 04/05/22 11:43> Physical Exam Vital Signs: Last Vital Signs Temp 97.0 F 04/05/22 07:32 Pulse 62 04/05/22 07:32 Resp 20 04/05/22 07:32 BP 123/69 04/05/22 07:32 Pulse Ox 99 04/05/22 07:32 O2 Del Method 04/05/22 07:32 O2 Flow Rate 2 04/05/22 07:32 FiO2 100 04/04/22 19:05 Oxygen Flow Rate 4 03/31/22 14:22 BMI result Body Mass Index 39.6 <JILL Draper Last Filed: 04/05/22 11:43> Const General: cooperative, healthy appearing, comfortable and no acute distress <JILL Draper - Last Filed: 04/05/22 11:43> Orientation/consciousness: patient oriented x3 <JILL Draper - Last Filed: 04/05/22 11:43> Neck Neck: Yes normal visual inspection and Yes no JVD <Magdamalina Montemayor NP - Last Filed: 04/05/22 11:43> Resp Effort & Inspection: normal respiratory effort <Magda Montemayor NP - Last Filed: 04/05/22 11:43> Auscultation: clear to auscultation bilaterally, no crackles, no rales, no rhonchi and no wheezes <[facility] [place] Last Filed: 04/05/22 11:43> Cardio Jugular venous distension: no JVD <Magda Albina [facility] - Last Filed: 04/05/22 11:43> Rate: regular rate <Magda Albina [facility] Last Filed: 04/05/22 11:43> Rhythm: regular rhythm <Magda [facility] [place] Last Filed: 04/05/22 11:43> Heart sounds: S1 normal heart sound present, S2 normal heart sound present, no gallops, no murmurs and no rubs <Magda [facility] [place] Last Filed: 04/05/22 11:43> Peripheral pulses: Peripheral pulses 2+ throughout <Magda Albina [facility] Last Filed: 04/05/22 11:43> Neuro General: patient oriented x3 <[facility] [place] Last Filed: 04/05/22 11:43> Extrem General: Yes normal to inspection, No no pedal edema and No calf tenderness <Magda [facility]or [facility] [place] Last Filed: 04/05/22 11:43> Psych Appearance: grossly normal <Magda [facility]ON [facility] [place] Last Filed: 04/05/22 11:43> Mental Status: mental status grossly normal <Magda JOVON Montemayor - Last Filed: 04/05/22 11:43> Speech and movement: Normal speech and movement present <Magda [facility]or [facility] [place] Last Filed: 04/05/22 11:43> Objective Labs and Meds Result diagrams: : 04/01/22 07:39 04/05/22 06:06 <Magda Montemayor NP - Last Filed: 04/05/22 11:43> Lab results: Laboratory Results - last 24 hr 04/04/22 04/04/22 04/04/22 15:47 19:32 21:49 Sodium Potassium Chloride Carbon Dioxide Anion Gap BUN Creatinine Estim Creat Clear Calc Estimated GFR POC Glucose 110 109 206 H Random Glucose Calcium 04/05/22 04/05/22 04/05/22 06:06 07:31 10:55 Sodium 142 Potassium 3.6 Chloride 100 Carbon Dioxide 29 Anion Gap 17 BUN 38 H Creatinine 2.13 H Estim Creat Clear Calc 44.0 Estimated GFR 31 POC Glucose 125 H 181 H Random Glucose 133 H Calcium 9.6 <JILL Draper - Last Filed: 04/05/22 11:43> Progress Note: A&P Assessment and plan (1) Acute CHF: Status: Acute <JILL Draper - Last Filed: 04/05/22 11:43> Assessment and Plan: Recent [facility] admission with Congestive heart failure, new finding of cardiomyopathy EF 30-35%, NSTEMI, AFib, status post cardioversion. Was discharged on 03/22 and presented to [facility] on 03/31 with increasing shortness of breath. He has been treated with HFrEF which is likely related to loss of AV syncrony with recurrent Afib. He was diuresed with IV Lasix drip. Fluid balance currently 6000 cc since admission. He reports that orthopnea is resolved. Ambulating in room off O2 without symptoms. He is wearing CPAP during the night which is his normal. On exam lungs are clear and edema resolved. He has known CKD and creatinine 1.96 today, down from 2.12 yesterday. Will stop Lasix drip. Will start on Lasix 80 mg p.o. daily. Spoke with patient and about taking additional doses if needed at home for weight gain over 3 lb in a day or 5 lb in a week, leg edema or shortness of breath. Increase ambulation today. Check O2 sat off oxygen at rest and with activity. If sat running less than 90% with walking than recommend respiratory evaluation for home O2. Continue strict I&O monitoring, close monitoring of electrolytes and kidney function. Ongoing Nighttime use of CPAP. Plan for discharge tomorrow. <JILL Draper - Last Filed: 04/05/22 11:43> Recent [facility] admission with Congestive heart failure, new finding of cardiomyopathy EF 30-35%, NSTEMI, AFib, status post cardioversion. Was discharged on 03/22 and presented to [facility] on 03/31 with increasing shortness of breath. He has been treated with HFrEF which is likely related to loss of AV syncrony with recurrent Afib. He was diuresed with IV Lasix drip. Fluid balance currently 6000 cc since admission. He reports that orthopnea is resolved. Ambulating in room off O2 without symptoms. He is wearing CPAP during the night which is his normal. On exam lungs are clear and edema resolved. He has known CKD and creatinine 1.96 today, down from 2.12 yesterday. Will stop Lasix drip. Will start on Lasix 80 mg p.o. daily. Spoke with patient and about taking additional doses if needed at home for weight gain over 3 lb in a day or 5 lb in a week, leg edema or shortness of breath. Increase ambulation today. Check O2 sat off oxygen at rest and with activity. If sat running less than 90% with walking than recommend respiratory evaluation for home O2. Continue strict I&O monitoring, close monitoring of electrolytes and kidney function. Ongoing Nighttime use of CPAP. Plan for discharge tomorrow. Patient seen and examined. Case discussed with Magda Montemayor. Patient feels better. However well he is sleeping is still using oxygen. Plan for performance of oxygen desaturation study. Also suggest overnight oximetry to see if he will require oxygen with the CPAP machine. Continue CPAP therapy. Continue current diuretics and switch to p.o. Lasix 80 mg daily his usual dose. CHF education should be provided with information for use of extra Lasix as needed. Will trend BMP and BNP tomorrow. Has converted back to sinus rhythm a nd maintaining rhythm. I think there will be overall gradual improvement in his heart failure syndrome over time. Continue vasodilators therapy with Isordil and hydralazine. Continue neurohormonal modulation with carvedilol <Carlos Salcedo MD - Last Filed: 04/05/22 13:32> (2) Afib: Status: Acute <JILL Draper - Last Filed: 04/05/22 11:43> Assessment and Plan: History of atrial fibrillation with prior ablation. He had recurrent AFib during recent [facility] admission and did have a HERMANN cardioversion ( showed no LA appendage thrombus) on 03/22/22. He was started on Eliquis for anticoagulation. He was started on an amiodarone loading and will start Maintenance dose yesterday. This admission he was found to have recurrent atrial fibrillation. A [employer] Device check 04/02 confirmed that he was in SR for only about 12 hrs following his /2 cardioversion. He underwent a cardioversion with Dr. Salcedo yesterday and converted to an atrial paced rhythm. Telemetry monitoring continues to show atrial paced, ventricular sensed rhythm. Device interrogation confirms absence of AFib. Patient reports feeling well today. Continue amiodarone and carvedilol, continue Eliquis. <JILL Draper - Last Filed: 04/05/22 11:43> History of atrial fibrillation with prior ablation. He had recurrent AFib during recent [facility] admission and did have a HERMANN cardioversion ( showed no LA appendage thrombus) on 03/22/22. He was started on Eliquis for anticoagulation. He was started on an amiodarone loading and will start Maintenance dose yesterday. This admission he was found to have recurrent atrial fibrillation. A [employer] Device check 04/02 confirmed that he was in SR for only about 12 hrs following his 03/22 cardioversion. He underwent a cardioversion with Dr. Salcedo yesterday and converted to an atrial paced rhythm. Telemetry monitoring continues to show atrial paced, ventricular sensed rhythm. Device interrogation confirms absence of AFib. Patient reports feeling well today. Continue amiodarone and carvedilol, continue Eliquis. Patient converted to sinus rhythm yesterday after synchronized cardioversion after adequate loading with amiodarone. Currently maintaining rhythm. Will continue amiodarone therapy for rhythm control. Continue full oral anticoagulation with Eliquis. The patient stable by tomorrow will plan to discharge and will follow-up as outpatient. <Carlos Salcedo MD - Last Filed: 04/05/22 13:32> (3) Ischemic cardiomyopathy: Status: Acute <JILL Draper - Last Filed: 04/05/22 11:43> Assessment and Plan: On Carvedilol for neurohormonal modulation. Not on tamara/ arb due to CKD. He is on Hydralazine and Isordil for preload/ afterload reduction. <JILL Draper - Last Filed: 04/05/22 11:43> (4) Coronary artery disease: Status: Acute <JILL Draper - Last Filed: 04/05/22 11:43> Assessment and Plan: Cardiac catheterization done on 03/20/2022 showing LAD distal 99% stenosis, left circumflex proximal ostial 60% stenosis, RCA proximal [employer] with collaterals, manage medically. He is currently not on rate slowing medication with the exception of amiodarone. He is not on aspirin as he is on Eliquis. He is on high-dose atorvastatin. No reports of angina. Troponins normal this admission. <JILL Draper - Last Filed: 04/05/22 11:43> (5) History of permanent cardiac pacemaker placement: Status: Acute <JILL Draper - Last Filed: 04/05/22 11:43> Assessment and Plan: [employer] pacemaker in place. Site benign. Appears to be functioning normally on telemetry monitoring. Interrogation done today shows device is functioning normally, battery life approximately 4 years. Not in AFib presently. <JILL Draper - Last Filed: 04/05/22 11:43> Time Spent With Patient Time: Total time spent is greater than 50% in coordination of care (as johny john) at patient's floor/unit and/or counseling patient: 22 <JILL Draper Last Filed: 04/05/22 11:43> Progress Note: Quality Stroke Does the patient have a stroke diagnosis?: No <JILL Draper Last Filed: 04/05/22 11:43> Procedures Date of Service Date of Service: 04/05/22 <JILL Draper Last Filed: 04/05/22 11:43>
--- NOTE | 2022-04-05 14:13 | HO.PM.IMPN ---
Subjective Subjective Date of Service: 04/05/22 Interval History: Seen and examined this morning Follow-up for CHF, AFib Status post cardioversion yesterday, still in sinus rhythm thus far No chest pain, shortness of breath, dyspnea on exertion Review of Systems Review of Systems: Yes all other systems are reviewed and are negative Constitutional Constitutional: Denies chills and Denies fever(s) ENT Ears, Nose, Mouth, and Throat: Denies dizziness Cardiovascular Cardiovascular: Denies chest pain, Denies palpitations and Denies dyspnea Respiratory Respiratory: Denies cough and Denies dyspnea Gastrointestinal Gastrointestinal: Denies abdominal pain, Denies nausea and Denies vomiting Neurologic Neurologic: Denies dizziness Endocrine Endocrine: Denies palpitations Physical Exam Vital Signs: Vital Signs: Last Vital Signs Temp 96.9 F 04/05/22 11:46 Pulse 60 04/05/22 11:46 Resp 20 04/05/22 11:46 BP 116/61 04/05/22 11:46 Pulse Ox 92 04/05/22 11:46 O2 Del Method 04/05/22 11:46 O2 Flow Rate 2 04/05/22 07:32 FiO2 100 04/04/22 19:05 Oxygen Flow Rate 4 03/31/22 14:22 BMI result Body Mass Index 39.6 Const: General: cooperative, alert and awake Nutritional Appearance: obese Orientation/consciousness: patient oriented x3 Resp: Effort & Inspection: normal respiratory effort and able to speak in complete sentences Auscultation: clear to auscultation bilaterally Cardio: Rate: regular rate Heart sounds: S1 normal heart sound present and S2 normal heart sound present GI: Inspection: No distended and Yes obesity Palpation (GI): Soft to palpation and nontender Neuro: General: patient oriented x3 and CN's II-XI intact bilaterally Extrem: General: Yes no pedal edema Objective Data Active Medications Acetaminophen (Acetaminophen 325 Mg Tablet) 650 mg PO Q6H PRN PRN Reason: Pain, Mild (Pain Scale 1-3) Amiodarone HCl (Amiodarone Hcl 200 Mg Tablet) 200 mg PO DAILY [facility] Last Admin: 04/05/22 08:30 Dose: 200 mg Documented By: AMELIA Apixaban (Apixaban 5 Mg Tablet) 5 mg PO BID [facility] Last Admin: 04/05/22 08:31 Dose: 5 mg Documented By: AMELIA Atorvastatin Calcium (Atorvastatin Calcium 80 Mg Tablet) 80 mg PO BEDTIME [facility] Last Admin: 04/04/22 22:26 Dose: 80 mg Documented By: PIERO Carvedilol (Carvedilol 25 Mg Tablet) 25 mg PO BID [facility]; Protocol Last Admin: 04/05/22 08:30 Dose: 25 mg Documented By: AMELIA Cyanocobalamin (Cyanocobalamin (Vitamin B-12) 1,000 Mcg Tablet) 1,000 mcg PO DAILY [facility] Last Admin: 04/05/22 08:30 Dose: 1,000 mcg Documented By: AMELIA Dextrose (Dextrose 50 % 25 Gm/50 Ml Syringe) 25 gm IVPUSH Q15M PRN; Protocol PRN Reason: per Hypoglycemia Standing Ord. Docusate Sodium (Docusate Sodium 100 Mg Capsule) 100 mg PO DAILY PRN PRN Reason: Constipation Furosemide (Furosemide 40 Mg Tablet) 80 mg PO DAILY [facility]; Protocol Glucose (Glucose Gel 15 Gm Gel..Gram.) 15 gm PO Q15M PRN; Protocol PRN Reason: per Hypoglycemia Standing Ord. Hydralazine HCl (Hydralazine Hcl 25 Mg Tablet) 25 mg PO TID [facility]; Protocol Last Admin: 04/05/22 08:30 Dose: 25 mg Documented By: AMELIA Insulin Glargine (Insulin Glargine,Hum.Rec.Anlog 100 Unit/Ml 10 Ml Vial) 50 unit SUBCUT BEDTIME [facility] Last Admin: 04/04/22 22:27 Dose: 50 unit Documented By: PIERO Insulin Human Lispro (Insulin Lispro 100 Unit/Ml 3 Ml Vial) 0 unit SUBCUT QIDACHS [facility]; Protocol Last Admin: 04/05/22 11:22 Dose: 2 unit Documented By: AMELIA Isosorbide Dinitrate (Isosorbide Dinitrate 5 Mg Tablet) 5 mg PO TID [facility]; Protocol Last Admin: 04/05/22 08:31 Dose: 5 mg Documented By: AMELIA Melatonin (Melatonin 3 Mg Tablet) 9 mg PO BEDTIME PRN PRN Reason: Insomnia Last Admin: 04/04/22 22:26 Dose: 9 mg Documented By: PIERO Pharmacy Consult (Consult Rx Perform Med Rec) 1 each MISCELLANE ONCE PRN PRN Reason: Consult order Sodium Chloride (0.9 % Sodium Chloride Flush 3 Ml Syringe) 3 ml IVFLUSH QSHIFT ERWIN Last Admin: 04/05/22 08:32 Dose: Not Given Documented By: AMELIA Non-Admin Reason: IV Running Labs CBC & Chem 7: 04/01/22 07:39 04/05/22 06:06 Labs: Laboratory Results - last 24 hr 04/04/22 04/04/22 04/04/22 15:47 19:32 21:49 Anion Gap Estim Creat Clear Calc Estimated GFR POC Glucose 110 109 206 H Random Glucose Calcium 04/05/22 04/05/22 04/05/22 06:06 07:31 10:55 Anion Gap 17 Estim Creat Clear Calc 44.0 Estimated GFR 31 POC Glucose 125 H 181 H Random Glucose 133 H Calcium 9.6 Assessment and Plan (1) Ischemic cardiomyopathy: Status: Acute (2) Afib: Status: Acute Plan 77yo M with hx PR in 2018, AF s/p PPM and on apixaban and sotalol, hx CVA in 2015 with no residual and s/p CEA, and insulin-dependent DM2 presenting with exertional dyspnea, orthopnea, and edema consistent with CHF exacerbation; also exertional chest pain Acute on chronic respiratory failure with hypoxia Secondary to acute on chronic CHF weaned to room air Acute on chronic heart failure with reduced ejection fraction, ischemic cardiomyopathy Transitioned from Lasix drip back to oral Lasix Continue isosorbide, amiodarone, carvedilol -Follow daily weights, strict intake and output -cardiology following CKD 3 baseline Avoid nephrotoxins Chronic paroxysmal atrial fibrillation History of pacemaker placement, paced rhythm, recent CV at [facility], device check - in afib s/p CV 04/04 - now in atrial paced rhythm, device interrogation confirms no AFib at this time Continue carvedilol, started on amio at [facility] Continue apixaban Status post NSTEMI Admission to [facility] on 03/14 Cardiac catheterization revealed left main mild disease, RCA occluded at origin with poor collaterals, lad with subtotal occlusion of distal LAD, left circumflex with collaterals and 60% mid left circ stenosis Apparently patient was not a candidate for stent placement according to the patient's likely not a candidate for CABG either For now treating symptoms of severe coronary artery disease symptomatically Diabetes mellitus Sliding scale, ADA diet and PAULETTE CPAP at night VTE prophylaxis: apixaban dispo: eventual home with VNA Attending Dr. Melgoza continued hospitalization for CHF, afib Quality Stroke Does the patient have a stroke diagnosis?: No VTE Prior VTE?: No VTE Risk Level:: Medical - moderate - high VTE Device Contraindication: N/A - Device Ordered VTE Drug Contraindication: N/A - Med Ordered
[2022-04-05 15:58] LABS: Glucose, Whole Blood 195 mg/dL (60-115)
[2022-04-05] MEDS: 0.9 % Sodium Chloride Flush 3 ML SYRINGE IVFLUSH (16:06)
--- NOTE | 2022-04-05 18:08 | PC.NURSE ---
Pt A+Ox4. Ambulates in the room independently. No complaints of pain. Compliant with care, eager to go home. Pt has been using 2L NC during stay, able to wean to room air successfully, 02 sats sustained in 90s. Home 02 study completed by RT, pt educated about reason with good understanding. Call vernon within reach. Safety precautions in place.
[2022-04-05 19:54] LABS: Glucose, Whole Blood 216 mg/dL (60-115)
[2022-04-05] MEDS: Atorvastatin Calcium 80 MG TABLET PO (21:18)
[2022-04-05] MEDS: Melatonin 3 MG TABLET 9 MG PO (21:19)
[2022-04-05] MEDS: Insulin Glargine,Hum.rec.anlog 100 UNIT/ML 10 ML VIAL 50 UNIT SUBCUT (21:19)
[2022-04-06 00:43] VITALS: PULSE 77; RESP 16; O2SAT 95
[2022-04-06 04:00] VITALS: BP 116/62; PULSE 64; RESP 16; TEMP 36.2; O2SAT 95
[2022-04-06 07:22] VITALS: BP 138/73; PULSE 60; RESP 12; TEMP 36; O2SAT 99
[2022-04-06 07:34] LABS: Glucose, Whole Blood 77 mg/dL (60-115)
[2022-04-06 07:48] LABS: Anion Gap 14 (12-20); Blood Urea Nitrogen 41 mg/dL (9-16); Calcium 9.9 mg/dL (8.4-10.2); Carbon Dioxide 33 mmol/L (22-29); Chloride 102 mmol/L (96-108); Creatinine Clr Calc Pharmacy 45.7; Estimated Glomerular Filt Rate 32; Glucose Random 64 mg/dL (60-115); Sodium 144 mmol/L (135-145)
[2022-04-06 07:51] VITALS: BMI 39.6
[2022-04-06 08:42] LABS: Potassium 4.5 mmol/L (3.3-5.1)
[2022-04-06] MEDS: Cyanocobalamin (Vitamin B-12) 1,000 MCG TABLET 1000 MCG PO (08:46)
[2022-04-06] MEDS: Amiodarone HCL 200 MG TABLET PO (08:46)
[2022-04-06] MEDS: Apixaban 5 MG TABLET PO (08:46)
[2022-04-06] MEDS: hydrALAZINE HCl 25 MG TABLET PO (08:46)
[2022-04-06] MEDS: carvediloL 25 MG TABLET PO (08:46)
[2022-04-06] MEDS: Furosemide 40 MG TABLET 80 MG PO (08:46)
[2022-04-06] MEDS: Isosorbide Dinitrate 5 MG TABLET PO (08:47)
[2022-04-06] MEDS: 0.9 % Sodium Chloride Flush 3 ML SYRINGE IVFLUSH (08:50)
--- NOTE | 2022-04-06 10:45 | P.PNCA_ITS ---
Subjective Subjective Date of Service: 04/06/22 Principal diagnosis: CHF, afib Interval history: Christopher is doing very well. His oxygen saturation room air is 99% overnight oximetry did not show any significant hypoxemia. He is feeling better. Remaining in atrially paced rhythm. Denies any worsening shortness of breath. Review of Systems Review of Systems Yes all other systems are reviewed and are negative Physical Exam Vital Signs: Last Vital Signs Temp 96.8 F 04/06/22 07:22 Pulse 60 04/06/22 07:22 Resp 12 04/06/22 07:22 BP 138/73 04/06/22 07:22 Pulse Ox 99 04/06/22 07:22 O2 Del Method 04/06/22 07:22 O2 Flow Rate 2 04/05/22 07:32 FiO2 100 04/04/22 19:05 Oxygen Flow Rate 4 03/31/22 14:22 BMI result Body Mass Index 39.6 Const General: cooperative, healthy appearing, comfortable and no acute distress Orientation/consciousness: patient oriented x3 Neck Neck: Yes normal visual inspection and Yes no JVD Resp Effort & Inspection: normal respiratory effort Auscultation: clear to auscultation bilaterally, no crackles, no rales, no rhonchi and no wheezes Cardio Jugular venous distension: no JVD Rate: regular rate Rhythm: regular rhythm Heart sounds: S1 normal heart sound present, S2 normal heart sound present, no gallops, no murmurs and no rubs Peripheral pulses: Peripheral pulses 2+ throughout Neuro General: patient oriented x3 Extrem General: Yes normal to inspection, No no pedal edema and No calf tenderness Psych Appearance: grossly normal Mental Status: mental status grossly normal Speech and movement: Normal speech and movement present Objective Labs and Meds Result diagrams: 04/01/22 07:39 04/06/22 06:26 Lab results: Laboratory Results - last 24 hr 04/05/22 04/05/22 04/05/22 10:55 15:54 19:47 Sodium Potassium Chloride Carbon Dioxide Anion Gap BUN Creatinine Estim Creat Clear Calc Estimated GFR POC Glucose 181 H 195 H 216 H Random Glucose Calcium 04/06/22 04/06/22 06:26 07:25 Sodium 144 Potassium 4.5 D Chloride 102 Carbon Dioxide 33 H Anion Gap 14 BUN 41 H Creatinine 2.05 H Estim Creat Clear Calc 45.7 Estimated GFR 32 POC Glucose 77 Random Glucose 64 D Calcium 9.9 Progress Note: A&P Assessment and plan (1) Acute CHF: Status: Acute Assessment and Plan: Acute systolic heart failure most likely related to recurrent atrial fibrillation. Has been diuresed well and is doing much better since diuresis. Agree with current medical therapy with hydralazine and Isordil as vasodilators as well as carvedilol for neurohormonal modulation. Discharged on Lasix 80 mg daily. Recommend to daily weight monitor and avoid salt loading. Additional diuretics as discussed. Continue CPAP therapy. Continue amiodarone for rhythm control, see below. Will set up for follow-up in 7-10 days in the office. Advised to call me with worsening symptoms. Patient can be discharged home today. (2) Afib: Status: Acute Assessment and Plan: Atrial fibrillation, paroxysmal. Currently suppressed after cardioversion amiodarone therapy after adequate loading. Continue amiodarone to maintain rhyt hm which has helped his heart failure syndrome. Anticipate improvement in his renal function as well as heart failure hospitalizations with maintenance of rhythm. Continue the same. Continue full oral anticoagulation with Eliquis. Will follow up in the clinic in 7-10 days. (3) Ischemic cardiomyopathy: Status: Acute Assessment and Plan: Severe ischemic cardiomyopathy in the setting of diffuse coronary artery disease not revascularize able. LV ejection fraction is significantly depressed. Will follow-up ejection fraction in few weeks time and if he has persistent severe LV systolic dysfunction may require upgrade of his device therapy to defibrillator and if need be Bi V ICD. Heart failure management was discussed in details. Continue current carvedilol therapy as well as vasodilators therapy. If his renal function improves may consider addition of renin angina stents in antagonist as outpatient. Will follow up in the clinic in 7-10 days. Thank you for allowing me to partake in his care Time Spent With Patient Time: Total time spent is greater than 50% in coordination of care (as documented) at patient's floor/unit and/or counseling patient: Progress Note: Quality Stroke Does the patient have a stroke diagnosis?: No Procedures Date of Service Date of Service: 04/06/22
[2022-04-06 11:42] LABS: Glucose, Whole Blood 124 mg/dL (60-115)
--- NOTE | 2022-04-06 12:45 | P.DS_ITS ---
DS: Providers Provider Date of Service: 04/06/22 Date of admission: 03/31/22 16:17 Primary care physician: FIORELLA Cabrales Consults: 03/31/22 16:16 Consult to Cardiology Routine Consulting Provider: Samuel Meeks Reason for consultation: chf; recent NSTEMI at [facility] Has provider been notified: No Attending physician on discharge: Heriberto Son Discharging clinician: Nanda Fowler DS: Diagnosis Discharge Diagnosis (1) Acute CHF: Status: Acute (2) Afib: Status: Acute (3) Ischemic cardiomyopathy: Status: Acute DS: Summary Hospital Course Hospital Course: HP as per admitting provider This is a 76 year old male with history of chronic afib s/p ablation, PPM and recent DCCV, HFrEF, PAULETTE on CPAP, IDDM, HTN and recent admission to [facility] for NSTEMI and CHF who presents to the ED with shortness of breath.? Patient was admitted to [facility] on March 14 with dyspnea and hypoxic respiratory failure found to have acute CHF/NSTEMI in the setting of hypertensive emergency and flash pulmonary edema.? Was diuresed and evaluated by Cardiology.? He had an echocardiogram showed reduced left ventricular ejection fraction and several wall motion abnormalities concerning for ischemia.? He underwent cardiac catheterization on March 20 which de monstrated multivessel disease however cardiology recommended for medical management as he had no target lesion for PCI.? His pacemaker was interrogated he was also noted to have high burden of tachyarrhythmia which was concerning to contribute to his cardiomyopathy.? He underwent cardioversion on March 22 and was started on amiodarone.? He was discharge from [facility] on March 22.? Initially it appears he was feeling okay but he has beak some increasingly short of breath over the past 3-4 days.? He endorses orthopnea, paroxysmal nocturnal dyspnea as well as dyspnea on exertion.? He has intermittent dry cough.? He denies any chest pain, palpitations, fever, chills.? He has been unable to sleep lying flat.? En route to the hospital his oxygen saturation was around 90% per EMS.? Workup in the emergency department was consistent with acute CHF.? Chest x-ray shows evidence of vascular congestion.? BNP was elevated around 800.? He received dose of IV Lasix as well as nitropaste.? Lab work was significant for SUSI with a creatinine of 2.09.? Initial highly sensitive troponin was 26.3, repeat pending at this time.? The decision was made to admit him for further management of acute CHF . Acute on chronic respiratory failure with hypoxia secondary to acute on chronic heart failure with reduced ejection fraction and ischemic cardiomyopathy. He was initially treated with IV Lasix and switch to Lasix drip. He did well and was diuresed with the negative balance of almost 6 L. He was continued on isosorbide amiodarone and carvedilol. Evaluated by Cardiology with recommendati on to discharge on current regimen. One point had been on oxygen but has since been weaned off. His CKD stage 3 has been at baseline. No issues with his chronic paroxysmal atrial fibrillation and has continued on carvedilol and apixaban. He was cardioverted on 04/04 and since has been atrial paced. Continue amiodarone to maintain current rhythm. Diabetes mellitus to was treated with sliding scale diabetic diet. Time Spent with Patient Time attestation: Total time spent providing and/or coordinating discharge services: Discharge coordination time: Greater than 30 minutes Quality: Safe Use of Opioids Does Pt have an Active Cancer Diagnosis on the Problem List?: No Quality: Stroke Does the patient have a stroke diagnosis?: No Physical Exam Vital Signs: Vital Signs: Last Vital Signs Temp 96.8 F 04/06/22 07:22 Pulse 60 04/06/22 07:22 Resp 12 04/06/22 07:22 BP 138/73 04/06/22 07:22 Pulse Ox 99 04/06/22 07:22 O2 Del Method 04/06/22 07:22 O2 Flow Rate 2 04/05/22 07:32 FiO2 100 04/04/22 19:05 Oxygen Flow Rate 4 03/31/22 14:22 BMI result Body Mass Index 39.6 Appearing in no acute distress head is normocephalic atraumatic eyes pupils are PERRLA sclera is anicteric mouth throat mucous membranes are intact and moist neck is supple no lymphadenopathy, no JVD noted lung sounds are clear to auscultation heart regular rate rhythm, clear S1, S2 positive bowel sounds, abdomen is soft, nontender, obese neuro patient is alert x3, no focal deficits DS: Data Data Completed and Pending Labs on day of discharge: Laboratory Results - last 24 hr 04/05/22 04/05/2222 15:54 19:47 06:26 Sodium 144 Potassium 4.5 D Chloride 102 Carbon Dioxide 33 H Anion Gap 14 BUN 41 H Creatinine 2.05 H Estim Creat Clear Calc 45.7 Estimated GFR 32 POC Glucose 195 H 216 H Random Glucose 64 D Calcium 9.9 04/06/22 04/06/22 07:25 11:33 Sodium Potassium Chloride Carbon Dioxide Anion Gap BUN Creatinine Estim Creat Clear Calc Estimated GFR POC Glucose 77 124 H Random Glucose Calcium Discharge Plan Discharge Anticipated Discharge Date/Time: 04/06/22 13:05 Patient Disposition: Home, Self-Care Discharge Diagnosis: Acute on chronic respiratory failure with hypoxia Acute on chronic heart failure with reduced ejection fraction Ischemic cardiomyopathy Chronic paroxysmal atrial fibrillation status post cardioversion Referrals: Samuel Meeks MD [Physician] - 1 Week Isaac Montoya PA [Primary Care Provider] - 1 Week Discharge Medications: New amiodarone 200 mg Tablet 200 mg PO DAILY Qty: 30 0RF hydralazine 25 mg Tablet 25 mg PO TID Qty: 90 0RF Protocol: Hold for SBP< HOLD for SBP < : 90 isosorbide dinitrate 5 mg Tablet 5 mg PO TID Qty: 90 0RF Protocol: Hold for SBP< HOLD for SBP < : 90 Continued atorvastatin 80 mg tablet 1 tab PO BEDTIME insulin aspart U-100 [Novolog Flexpen U-100 Insulin] 100 unit/mL (3 mL) Insulin Pen 18 unit SUBCUT TIDAC insulin glargine [Lantus Solostar U-100 Insulin] 100 unit/mL (3 mL) Insulin Pen 50 unit SUBCUT BEDTIME melatonin 10 mg Tablet 10 mg PO BEDTIME PRN (Reason: Insomnia) apixaban 5 mg Tablet 5 mg PO BID cyanocobalamin (vitamin B-12) 1,000 mcg Tablet 1,000 mcg PO DAILY carvedilol 25 mg tablet 1 tab PO BID nitroglycerin 0.4 mg tablet, sublingual 0.4 mg sublingual Q5M furosemide [Lasix] 40 mg tablet 80 mg PO DAILY aspirin 81 mg Tablet,Delayed Release (Dr/Ec) 81 mg PO DAILY Discontinued amiodarone 200 mg tablet 400 mg PO BID Rx Instructions: take until 04/04 2 bid then 1 daily thereafter Discharge Orders: Discharge Order (Routine); Ordered 09/17/22 Ordered By: Nanda Fowler Diet: Advance to usual diet Activity on Discharge: As tolerated Stand Alone Forms: Patient Portal Discharge page Care Plan Goals: Complete resolution of symptoms Health Concerns: Acute on chronic respiratory failure with hypoxia Acute on chronic heart failure with reduced ejection fraction Ischemic cardiomyopathy Chronic paroxysmal atrial fibrillation status post cardioversion Plan of Treatment: Follow-up with cardiology Follow-up with primary care provider as needed Take all medications as prescribed Assessment: See discharge summary
--- NOTE | 2022-04-06 14:01 | MHC.CM.PN ---
PT WILL DC HOME TODAY WITH NO SERVICES FAMILY TO TRANSPORT
--- NOTE | 2022-04-06 14:04 | PC.NURSE ---
Pt remains A+Ox4, sustaining oxygenation on room air, cleared for DC today. Discharge instructions given, pt demonstrates understanding and no further questions. Brought down to main entrance by AUTO PORTER, picking him up.
== END 2022-04-06 14:06 | disposition home or self-care (01) | DRG 280 ==
LOC: HO.ED 14:45 → HO.EDOVER 16:26 → HO.IMC 21:25
PROVIDERS: Internal Medicine Cardiovascular Disease; Nurse Practitioner Family; Physician Assistant Medical; Admitting Provider Physician Assistant Medical; Emergency Provider Emergency Medicine; PCP Physician Assistant; Visit Provider Nurse Practitioner Acute Care
PROC: 5A2204Z Restoration of Cardiac Rhythm, Single (ICD-10-PCS; principal; 2022-04-04 16:00)
DX: I13.0 Hypertensive heart and chronic kidney disease with heart failure and stage 1 through stage 4 chronic kidney disease, or unspecified chronic kidney disease (principal); I50.23 Acute on chronic systolic (congestive) heart failure; I21.4 Non-ST elevation (NSTEMI) myocardial infarction; J96.21 Acute and chronic respiratory failure with hypoxia; N17.9 Acute kidney failure, unspecified; E11.22 Type 2 diabetes mellitus with diabetic chronic kidney disease; I25.5 Ischemic cardiomyopathy; N18.30 Chronic kidney disease, stage 3 unspecified; I48.0 Paroxysmal atrial fibrillation; I25.10 Atherosclerotic heart disease of native coronary artery without angina pectoris; E78.5 Hyperlipidemia, unspecified; G47.33 Obstructive sleep apnea (adult) (pediatric); Z66 Do not resuscitate; E11.65 Type 2 diabetes mellitus with hyperglycemia; E66.01 Morbid (severe) obesity due to excess calories; Z68.39 Body mass index [BMI] 39.0-39.9, adult; Z20.822 Contact with and (suspected) exposure to COVID-19; Z86.73 Personal history of transient ischemic attack (TIA), and cerebral infarction without residual deficits; I25.2 Old myocardial infarction; Z95.0 Presence of cardiac pacemaker; Z87.891 Personal history of nicotine dependence; Z79.4 Long term (current) use of insulin; Z79.01 Long term (current) use of anticoagulants; Z79.82 Long term (current) use of aspirin; Z79.899 Other long term (current) drug therapy
CPT/HCPCS: 36415; 71045; 80048; 80053; 81003; 82803; 82947; 83735; 83880; 84484; 85025; 85027; 87635; 92960; 93005; 94660; 96374; 99284; 99285; J0171; J0461; J1940; J2370

== ENCOUNTER → 2022-04-10 13:06 | Outpatient (BNVA) | payer OTHER, MEDICARE, SELFPAY | PROVIDERS: PCP Physician Assistant; Visit Provider Internal Medicine Cardiovascular Disease | DX: I48.91 Unspecified atrial fibrillation (principal); I25.10 Atherosclerotic heart disease of native coronary artery without angina pectoris; I25.5 Ischemic cardiomyopathy; I25.2 Old myocardial infarction; Z98.61 Coronary angioplasty status | CPT/HCPCS: 99212 ==

== ENCOUNTER → 2022-04-24 09:03 | Outpatient (REF) | payer OTHER, MEDICARE, SELFPAY ==
--- NOTE | 2022-04-24 09:06 | CA_ITS ---
Transthoracic Echocardiogram Patient (Last, First, Middle): Benedict Wang O Gender: Male Date of : 1945 Age: 76 Procedure Date: 04/24/2022 Procedure Type: Transthoracic Echocardiogram Location: OP Height: 185.42 cm Weight: 135.63 kg BSA: 2.55 m2 Heart Rate: 60 bpm BP: 110 / 70 mmHg Nut Roaster Helper: MADELEINE Echavarria MD: Samuel Meeks MD Retail Department Manager: Samuel Meeks MD Symptoms: I25.5 - Ischemic cardiomyopathy Study Quality: Poor/Limited w Contrast ECG Rhythm: Sinus Conclusions: - Normal left ventricular cavity size. There is mildly increased left ventricular wall thickness. The left ventricular systolic function is mildly decreased. The visually estimated ejection fraction is between 40-45%. - The apex, apical anterior, apical lateral, and mid anterolateral segments are hypokinetic. - The basal inferior segment is akinetic. Findings Procedure Information Contrast agent, definity, is being given per protocol without apparent complications. Left Ventricle Normal left ventricular cavity size. There is mildly increased left ventricular wall thickness. The left ventricular systolic function is mildly decreased. The visually estimated ejection fraction is between 40-45%. There is evidence of regional wall motion abnormalities. Abnormal diastolic function is noted. Spectral Doppler is indicative of a pseudonormal filling pattern. E/E prime ratio is >15, consistent with elevated filling pressures. LV is dilated. Wall Motion Rest Echo Findings The apex, apical anterior, apical lateral, and mid anterolateral segments are hypokinetic. The basal inferior segment is akinetic. Right Ventricle Normal right ventricular cavity size and systolic function. Atria The left atrium is mildly dilated. Venous The inferior vena cava is normal in size and collapses greater than 50% with inspiration. Pericardium/Pleural There is no evidence of pericardial effusion. Prior Study Comparison Changes noted compared to prior study dated: 02/04/2022. EF 40-45%, The apex, apical anterior, mid anterolateral and apical lateral segments are hypokinetic. Measurements 2D Linear Measurements IVSd: 1.16 0.6-0.9/0.6-1.0 cm LVIDd: 6.23 3.9-5.3/4.2-5.9 cm LVIDd Index: 2.44 2.4-3.2/2.2-3.1 cm/m2 LVIDs: 5.37 2.0-3.6 cm LVPWd: 1.40 0.7-1.1 cm LV Mass: 454.84 67-162/88-224 g LV Mass Index: 178.37 43-95/49-115 g/m2 2D Systolic Function EF 4C: 53.40 >55% EF 2C: 47.70 >55% EF BiP: 50.60 >55% Mitral Valve MV Pk E: 0.88 MV PK A: 0.58 MV Decel Time: 214.00 E/A: 1.50 E'Lateral: 5.03 E'Medial: 4.28 E/E' Med: 20.60 E/E' Lat: 17.50 PHT: 63.00 MVA PHT: 3.49 Decel [place]: 4.11 Diastolic Function MV Pk E: 0.88 MV Pk A: 0.58 E/A: 1.50 E'Medial: 4.28 E/E' Med: 20.60 E' Laterial: 5.03 E/E' Lat: 17.50 Tricuspid Valve RA Press: 3.00 Updated in Other Vendor System with Status of Final Samuel Meeks MD electronically signed on 04/24/2022 6:24:52 PM with status of Final
== END ==
LOC: HO.CARD 09:03
PROVIDERS: Visit Provider Internal Medicine Cardiovascular Disease
DX: I25.5 Ischemic cardiomyopathy (principal)
CPT/HCPCS: 93308; Q9957

== ENCOUNTER 2022-07-09 12:57 | Outpatient (RCR) | payer OTHER, SELFPAY ==
[2022-07-09 10:42] VITALS: BP 132/74; BP 136/68
--- NOTE | 2022-07-09 14:50 | MHC.CR.ITI ---
[address] [phone] F: [phone] Please see additional notes from [facility] Cardiac Rehab Initial Assessment/ITP Cardiac Rehab Initial Assessment/ITP Start: 06/27/22 10:32 Freq: Status: Active Protocol: Activity Type Activity Date Activity User E-sign Co-sign Detail Recorded Client Recorded Date Recorded By Document 07/09/22 10:42 MARLI [id number] 07/09/22 10:58 MARLI 07/09/22 10:42 Cardiac Rehab ITP Initial [Excercise] -Cemetery Warden Required No -Preferred Language Danish -Diagnosis NSTEMI I21.4 -Other Diagnosis CAD, HTN, HLD, DMII, PAULETTE, Obesity, CVA -Comments Hx A Fib w/RVR, diverticulitis , Carotid endarterectomy, intestinal blockage, left sided weakness since stroke, [Functional Assessment] -6 Min Walk (distance in ft) 1,175 -Stress Test (Mode) walk -METS Achieved 2.5 -Resting HR 84 -Resting BP 132/74 -Resting SpO2 95 -Exercise HR 102 -Exercise BP 136/68 -Exercise SpO2 96 -RPE 13 -Dyspnea No -ECG Summary paced -Comments c/o right hip pain at 6 minute mercedes [Pre Rehab] -Pre Rehab Home Exercise No -Comments states walks dog for 15 minutes 1 or 2 x weekly -Risk Stratification: Intermediate Functional Risk Participants capacity < 5-6 METs,Mild to moderate depressed LV function (EF 31 -49%) -Fall Risk No -Assistive Devices Walker,None -Comments has not had any recent falls, gait easy and steady/ states can be SOB after short period of time. [Exercise Plan] [Intervention] -Exercise Prescription NuStep, Recumbent Bike, Recumbent Elliptical, Rower,Treadmill ,UBE,Upright Bike,Weights -Duration Intensity 36 Sessions -Frequency 2-3x/week -Angina with Exercise Yes [Exercise Education] -Exercise Education Exercise orientation, Exercise safety ,Home exercise, RPE,Self pulse checking,Signs and symptoms, Warmup/cooldown -Date Completed 07/09/22 -Initials JA -Education Summary states checks bp and hr every evening before bed [Exercise Goals] -Exercise Most Days of the Week Yes -Exercise 30-45 mins/day Yes -Target HR Range +20 - +30 beats above resting -Target RPE range 11-13 -Increase METS next 30 days 0.5-1.0 METS Every two weeks -METs goal by Discharge 4 METS [Nutrition] [Hyperlipidemia] -Hyperlipidemia Yes -Are lab results available No [Diabetes] -Diabetes Yes -Diabetes Type 2 -Are lab results available No -Monitors Glucose Yes -Frequency qam... poc fbs 147 [Weight Management] -Height 6 ft 1 in -Weight 136 kg -Comments GIVEN DASH DIET AND READING NUTRITIONAL LABELS PAMPHLETS [Drug/Alchohol Use] -Drug/Alcohol Use No [Nutritional Screen (Rate Your Plate)] -Score 54 -Interpretation of Score making some good chaices but room for improvement -Comments just completed the [employer] program/ lost 6 lbs [Nutrition Plan] [Intervention] -Referral(s) Nutrition Brochures [Nutrition Education] -Nutrition Education Diabetes and excercise, Hydration, Nutrition, Reading food labels,Signs and symptoms of Hypo/Hyper- glycemia -Date Completed 07/09/22 -Initials JA [Nutrition Goals] -Goals BMI < 25, Fasting BG 80- 120 mg/dL,HDL > 40,LDL < 70, Total CHOL < 200 -Weight goal 220 [Psycho/Social] -Stage of Change Maintenance -Learning Barriers None -Occupation 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 -PHQ9 Score 10 -Interpretation of Score moderate risk for depression -Plan of Action/Follow-up faxed PHQ9 to PCP -Patient Self-Reports Depression No -Family Support Lives with spouse/others [Psycho/Social Plan] [Intervention] -Referral(s) No consult needed [Psycho/Social Education] -Psycho/Social Education Advanced directives, Coping techniques, Depression and CAD,Positive support system, Relaxation Techniques, Reviewed PHQ9 Score w/pt, Sexuality and CAD,Signs and symptoms of CAD ,Stress management -Date Completed 07/09/22 -Initials JA -Education Summary denies questions/ concerns [Psycho/Social Goals] -Goals Improve depression screen score -Comments states has minimal stress in his life [Other Core Comp] [Risk Factors] -Risk Factors Diabetes, Dyslipidemia, Family History of CAD, Hypertension, Obesity, Physical Inactivity [Hypertension] -Hypertention Yes -Resting BP: 132/74 [Tobacco Use] -Patient Tobacco Use Status Former Tobacco user -Tobacco use type Cigarette -Smoking Quit Date QUIT 20 YEARS AGO PER PT [Heart Failure] -EF% 40-45 -NYHF Class III -Dyspnea at Rest No -Dyspnea with Exercise Yes [Other Core Comp Plan] [Intervention] -Referral(s) Self Monitoring BP [Other Core Comp Education] -Other Core Comp Education HF Disease progression, Medication compliance,Risk factor modifications, RPD Scale/SOB management, Understanding hypertension -Date Completed 07/09/22 -Initials JA -Education Summary denies questions/ concerns [Other Core Comp Goals] -Goals Improve dyspnea ,Manage risk factors,Manage signs and symptoms of CHF ,Medication compliance, Resting BP < 130/80 [Medication Plan] [Intervention] -Medications AMIODORONE 200 MG DAILY APIXABAN 5 MG BID ASA 81 MG DAILY ATORVASTATIN 80 MG HS CARVEDOLOL 25 MG BID CYANOCOBALAMIN 1000 MCG DAILY FUROSEMIDE 80 MG DAILY HYDRALAZINE 25 MG TID INSULIN ASPART U-100 18 UNITS TID AC INSULIN GLARGINE 54 UNITS HS ISOSORBIDE DINITRATE 5 MG TID MELATONIN 10 MG HS NTG 0.4MG SL Q5 MIN PRN CHEST PAIN/ PER PROTOCOL -Compliance Patient reports compliance w/ prescribed meds [Medication Education] -Education Importance of medication compliance, Medication purpose, Medication schedule, Medication side effects -Date Completed 07/09/22 -Initials JA [Medication Goals] -Goals Adherence to medication compliance [Treatment Times] -Rehab Services with ECG Monitor -Time 1300 -End Time 1445 -Visit Duration 105
[2022-08-14 12:25] VITALS: BP 132/74
--- NOTE | 2022-08-14 12:37 | MHC.CR.ITR ---
[address] [phone] F: [phone] Please see additional notes from [facility] Reassessment/ITP Cardiac Rehab Reassessment/ITP Start: 06/27/22 10:32 Freq: Status: Active Protocol: Activity Type Activity Date Activity User E-sign Co-sign Detail Recorded Client Recorded Date Recorded By Document 08/14/22 12:25 MARLI Desktop 08/14/22 12:37 MARLI 08/14/22 12:25 Cardiac Rehab Reassessment/ITP [Exercise] -Bad Cloth Checker Required No -Preferred Language Kiswahili -Progress Note Type 30-Day Note -Total Sessions Attended 1 -Comments Hx A Fib w/RVR, diverticulitis , Carotid endarterectomy, intestinal blockage, left sided weakness since stroke, Has not returned to [facility] since his intake on 07/09 [Functional Assessment] -ECG Summary paced rhythm -Home-Based Rehab Pt approved for home-based exercise -Fall Risk No [Exercise Plan] [Intervention] -Exercise Prescription NuStep, Recumbent Bike, Recumbent Elliptical, Rower,Treadmill ,UBE,Upright Bike,Weights -Duration Intensity 36 Sessions -Exercise Minutes/Day 30 -Exercise Days/Week 7 -Angina with Exercise Yes -Peak METs 3 [Home Exercise] -Mode walking -Frequency bid 7 days week -Intensity moderate -Comments states walks dog x 2 daily ( for 15-20 minutes each time) [Exercise Education] -Exercise Education Exercise orientation, Exercise safety ,Home exercise, RPE,Self pulse checking,Signs and symptoms, Warmup/cooldown -Date Completed 07/09/22 -Initials JA -Education Summary states checks bp and hr every evening before bed [Exercise Goals] -Exercise Most Days of the Week Yes -Exercise 30-45 mins/day Yes -Target HR Range +20 - +30 beats above resting -Target RPE range 11-13 -Increase METS next 30 days 0.5-1.0 METS Every two weeks -METs goal by Discharge 4 METS [Nutrition] [Hyperlipidemia] -Are lab results available Yes -Hyperlipidemia Yes -Comments 07/30/22 Chol- 122 Tri- 120 LDL- 68 HDL- 29 [Diabetes] -Diabetes Yes -Diabetes Type 2 -Comments random BG 279 [Weight Management] -Weight 136 kg -Comments GIVEN DASH DIET AND READING NUTRITIONAL LABELS PAMPHLETS [Drug/Alchohol Use] -Drug/Alcohol Use No [Nutrition Plan] [Intervention] -Attended Nutrition Brochures [Nutrition Education] -Nutrition Education Diabetes and excercise, Hydration, Nutrition, Reading food labels,Signs and symptoms of Hypo/Hyper- glycemia -Date Completed 07/09/22 -Initials JA [Nutrition Goals] -Goals BMI < 25, Fasting BG 80- 120 mg/dL,HDL > 40,LDL < 70, Total CHOL < 200 -Weight goal 220 [Psycho/Social] -Stage of Change Maintenance -Occupation Retired -PHQ9 Score 10 -Interpretation of Score moderate risk for depression -Plan of Action/Follow-up faxed PHQ9 to PCP -Patient Self-Reports Depression No [Psycho/Social Plan] [Intervention] -Attended No consult needed [Psycho/Social Education] -Psycho/Social Education Advanced directives, Coping techniques, Depression and CAD,Positive support system, Relaxation Techniques, Reviewed PHQ9 Score w/pt, Sexuality and CAD,Signs and symptoms of CAD ,Stress management -Date Completed 07/09/22 -Initials JA -Education Summary denies questions/ concerns [Psycho/Social Goals] -Goals Improve depression screen score -Comments states has minimal stress in his life [Other Core Comp] [Hypertension] -Hypertention Yes -Resting BP: 132/74 [Heart Failure] -Dyspnea at Rest No -Dyspnea with Exercise Yes [Other Core Comp Plan] [Intervention] -Attended Self Monitoring BP [Other Core Comp Education] -Other Core Comp Education HF Disease progression, Medication compliance,Risk factor modifications, RPD Scale/SOB management, Understanding hypertension -Date Completed 07/09/22 -Initials JA -Education Summary denies questions/ concerns [Other Core Comp Goals] -Goals Improve dyspnea ,Manage risk factors,Manage signs and symptoms of CHF ,Medication compliance, Resting BP < 130/80 [Medication Plan] [Intervention] -Medications AMIODORONE 200 MG DAILY APIXABAN 5 MG BID ASA 81 MG DAILY ATORVASTATIN 80 MG HS CARVEDOLOL 25 MG BID CYANOCOBALAMIN 1000 MCG DAILY FUROSEMIDE 80 MG DAILY HYDRALAZINE 25 MG TID INSULIN ASPART U-100 18 UNITS TID AC INSULIN GLARGINE 54 UNITS HS ISOSORBIDE DINITRATE 5 MG TID MELATONIN 10 MG HS NTG 0.4MG SL Q5 MIN PRN CHEST PAIN/ PER PROTOCOL -Compliance Patient reports compliance w/ prescribed meds [Medication Education] -Education Importance of medication compliance, Medication purpose, Medication schedule, Medication side effects -Date Completed 07/09/22 -Initials JA [Medication Goals] -Goals Adherence to medication compliance
[2022-09-03 11:26] VITALS: BP 132/74
--- NOTE | 2022-09-03 11:26 | MHC.CR.ITR ---
[address] [phone] F: [phone] Please see additional notes from [facility] Card[facility] Rehab Reassessment/ITP Cardiac Rehab Reassessment/ITP Start: 06/27/22 10:32 Freq: Status: Active Protocol: Activity Type Activity Date Activity User E-sign Co-sign Detail Recorded Client Recorded Date Recorded By Document 09/03/22 11:26 MARLI [id number] 09/03/22 11:26 MARLI 09/03/22 11:26 Cardiac Rehab Reassessment/ITP [Exercise] -Magento Web Developer Required No -Preferred Language Azeri -Progress Note Type 60-Day Note -Total Sessions Attended 1 -Comments Hx A Fib w/RVR, diverticulitis , Carotid endarterectomy, intestinal blockage, left sided weakness since stroke, Has not returned to [facility] since his intake on 07/09 [Functional Assessment] -ECG Summary paced rhythm -Home-Based Rehab Pt approved for home-based exercise -Fall Risk No [Exercise Plan] [Intervention] -Exercise Prescription NuStep, Recumbent Bike, Recumbent Elliptical, Rower,Treadmill ,UBE,Upright Bike,Weights -Duration Intensity 36 Sessions -Exercise Minutes/Day 30 -Exercise Days/Week 7 -Angina with Exercise Yes -Peak METs 3 [Home Exercise] -Mode walking -Frequency bid 7 days week -Intensity moderate -Comments states walks dog x 2 daily ( for 15-20 minutes each time) [Exercise Education] -Exercise Education Exercise orientation, Exercise safety ,Home exercise, RPE,Self pulse checking,Signs and symptoms, Warmup/cooldown -Date Completed 07/09/22 -Initials JA -Education Summary states checks bp and hr every evening before bed [Exercise Goals] -Exercise Most Days of the Week Yes -Exercise 30-45 mins/day Yes -Target HR Range +20 - +30 beats above resting -Target RPE range 11-13 -Increase METS next 30 days 0.5-1.0 METS Every two weeks -METs goal by Discharge 4 METS [Nutrition] [Hyperlipidemia] -Are lab results available Yes -Hyperlipidemia Yes -Comments 07/30/22 Chol- 122 Tri- 120 LDL- 68 HDL- 29 [Diabetes] -Diabetes Yes -Diabetes Type 2 -Comments random BG 279 [Weight Management] -Weight 136 kg -Comments GIVEN DASH DIET AND READING NUTRITIONAL LABELS PAMPHLETS [Drug/Alchohol Use] -Drug/Alcohol Use No [Nutrition Plan] [Intervention] -Attended Nutrition Brochures [Nutrition Education] -Nutrition Education Diabetes and excercise, Hydration, Nutrition, Reading food labels,Signs and symptoms of Hypo/Hyper- glycemia -Date Completed 07/09/22 -Initials JA [Nutrition Goals] -Goals BMI < 25, Fasting BG 80- 120 mg/dL,HDL > 40,LDL < 70, Total CHOL < 200 -Weight goal 220 [Psycho/Social] -Stage of Change Maintenance -Occupation Retired -PHQ9 Score 10 -Interpretation of Score moderate risk for depression -Plan of Action/Follow-up faxed PHQ9 to PCP -Patient Self-Reports Depression No [Psycho/Social Plan] [Intervention] -Attended No consult needed [Psycho/Social Education] -Psycho/Social Education Advanced directives, Coping techniques, Depression and CAD,Positive support system, Relaxation Techniques, Reviewed PHQ9 Score w/pt, Sexuality and CAD,Signs and symptoms of CAD ,Stress management -Date Completed 07/09/22 -Initials JA -Education Summary denies questions/ concerns [Psycho/Social Goals] -Goals Improve depression screen score -Comments states has minimal stress in his life [Other Core Comp] [Hypertension] -Hypertention Yes -Resting BP: 132/74 [Heart Failure] -Dyspnea at Rest No -Dyspnea with Exercise Yes [Other Core Comp Plan] [Intervention] -Attended Self Monitoring BP [Other Core Comp Education] -Other Core Comp Education HF Disease progression, Medication compliance,Risk factor modifications, RPD Scale/SOB management, Understanding hypertension -Date Completed 07/09/22 -Initials JA -Education Summary denies questions/ concerns [Other Core Comp Goals] -Goals Improve dyspnea ,Manage risk factors,Manage signs and symptoms of CHF ,Medication compliance, Resting BP < 130/80 [Medication Plan] [Intervention] -Medications AMIODORONE 200 MG DAILY APIXABAN 5 MG BID ASA 81 MG DAILY ATORVASTATIN 80 MG HS CARVEDOLOL 25 MG BID CYANOCOBALAMIN 1000 MCG DAILY FUROSEMIDE 80 MG DAILY HYDRALAZINE 25 MG TID INSULIN ASPART U-100 18 UNITS TID AC INSULIN GLARGINE 54 UNITS HS ISOSORBIDE DINITRATE 5 MG TID MELATONIN 10 MG HS NTG 0.4MG SL Q5 MIN PRN CHEST PAIN/ PER PROTOCOL -Compliance Patient reports compliance w/ prescribed meds [Medication Education] -Education Importance of medication compliance, Medication purpose, Medication schedule, Medication side effects -Date Completed 07/09/22 -Initials JA [Medication Goals] -Goals Adherence to medication compliance
[2022-09-17 09:15] VITALS: BP 132/74
--- NOTE | 2022-09-17 09:16 | MHC.CR.ITD ---
[address] [phone] F: [phone] Please see additional notes from [facility] Card[facility] Rehab Discharge/ITP Cardiac Rehab Discharge/ITP Start: 06/27/22 10:32 Freq: Status: Active Protocol: Activity Type Activity Date Activity User E-sign Co-sign Detail Recorded Client Recorded Date Recorded By Document 09/17/22 09:15 MARLI Desktop 09/17/22 09:16 MARLI 09/17/22 09:15 Cardiac Rehab Discharge/ITP [Exercise] -Clinical Data Analyst Required No -Preferred Language Telugu -Total Sessions Attended 1 -Comments This is Benedict 's discharge note. He has not returned to [facility] since his intake on 07/09 Hx A Fib w/RVR, diverticulitis , Carotid endarterectomy, intestinal blockage, left sided weakness since stroke, [Functional Assessment] -ECG Summary paced rhythm -Fall Risk No [Exercise Plan] [Intervention] -Exercise Prescription NuStep, Recumbent Bike, Recumbent Elliptical, Rower,Treadmill ,UBE,Upright Bike,Weights -Duration Intensity 36 Sessions -Exercise Minutes/Day 30 -Exercise Days/Week 7 -Angina with Exercise Yes -Peak METs 3 [Home Exercise] -Mode walking -Frequency bid 7 days week -Intensity moderate -Comments states walks dog x 2 daily ( for 15-20 minutes each time) [Exercise Education] -Exercise Education Exercise orientation, Exercise safety ,Home exercise, RPE,Self pulse checking,Signs and symptoms, Warmup/cooldown -Date Completed 07/09/22 -Initials JA -Education Summary states checks bp and hr every evening before bed [Exercise Goals] -Exercise Most Days of the Week Yes -Exercise 30-45 mins/day Yes -Target HR Range +20 - +30 beats above resting -Target RPE range 11-13 -Increase METS next 30 days 0.5-1.0 METS Every two weeks -METs goal by Discharge 4 METS [Nutrition] [Hyperlipidemia] -Are lab results available Yes -Hyperlipidemia Yes -Comments 07/30/22 Chol- 122 Tri- 120 LDL- 68 HDL- 29 [Diabetes] -Diabetes Yes -Diabetes Type 2 -Comments random BG 279 [Weight Management] -Weight 136 kg -Comments GIVEN DASH DIET AND READING NUTRITIONAL LABELS PAMPHLETS [Drug/Alchohol Use] -Drug/Alcohol Use No [Nutrition Plan] [Intervention] -Attended Nutrition Brochures [Nutrition Education] -Nutrition Education Diabetes and excercise, Hydration, Nutrition, Reading food labels,Signs and symptoms of Hypo/Hyper- glycemia -Date Completed 07/09/22 -Initials JA [Nutrition Goals] -Goals BMI < 25, Fasting BG 80- 120 mg/dL,HDL > 40,LDL < 70, Total CHOL < 200 -Weight goal 220 [Psycho/Social] -Stage of Change Maintenance -Occupation Retired -PHQ9 Score 10 -Interpretation of Score moderate risk for depression -Plan of Action/Follow-up faxed PHQ9 to PCP -Patient Self-Reports Depression No [Psycho/Social Plan] [Intervention] -Attended No consult needed [Psycho/Social Education] -Psycho/Social Education Advanced directives, Coping techniques, Depression and CAD,Positive support system, Relaxation Techniques, Reviewed PHQ9 Score w/pt, Sexuality and CAD,Signs and symptoms of CAD ,Stress management -Date Completed 07/09/22 -Initials JA -Education Summary denies questions/ concerns [Psycho/Social Goals] -Goals Improve depression screen score -Comments states has minimal stress in his life [Other Core Comp] [Hypertension] -Hypertention Yes -Resting BP: 132/74 [Heart Failure] -Dyspnea at Rest No -Dyspnea with Exercise Yes [Other Core Comp Plan] [Intervention] -Attended Self Monitoring BP [Other Core Comp Education] -Other Core Comp Education HF Disease progression, Medication compliance,Risk factor modifications, RPD Scale/SOB management, Understanding hypertension -Date Completed 07/09/22 -Initials JA -Education Summary denies questions/ concerns [Other Core Comp Goals] -Goals Improve dyspnea ,Manage risk factors,Manage signs and symptoms of CHF ,Medication compliance, Resting BP < 130/80 [Medication Plan] [Intervention] -Medications AMIODORONE 200 MG DAILY APIXABAN 5 MG BID ASA 81 MG DAILY ATORVASTATIN 80 MG HS CARVEDOLOL 25 MG BID CYANOCOBALAMIN 1000 MCG DAILY FUROSEMIDE 80 MG DAILY HYDRALAZINE 25 MG TID INSULIN ASPART U-100 18 UNITS TID AC INSULIN GLARGINE 54 UNITS HS ISOSORBIDE DINITRATE 5 MG TID MELATONIN 10 MG HS NTG 0.4MG SL Q5 MIN PRN CHEST PAIN/ PER PROTOCOL -Compliance Patient reports compliance w/ prescribed meds [Medication Education] -Education Importance of medication compliance, Medication purpose, Medication schedule, Medication side effects -Date Completed 07/09/22 -Initials JA [Medication Goals] -Goals Adherence to medication compliance
== END 2022-09-27 13:33 | disposition home or self-care (01) ==
LOC: HO.CR 12:57
PROVIDERS: Visit Provider Internal Medicine Cardiovascular Disease
DX: I25.5 Ischemic cardiomyopathy (principal); Z98.61 Coronary angioplasty status
CPT/HCPCS: 93798

== ENCOUNTER 2022-07-30 11:43 | Outpatient (REF) | payer MEDICARE, SELFPAY ==
[2022-07-30 14:28] LABS: Hemoglobin 13.8 g/dl (14.0-18.0); Mean Corpuscular HGB Conc 32.1 g/dl (31.0-36.0); Mean Corpuscular Hemoglobin 31.2 pg (27.0-33.0); Mean Corpuscular Volume 97.1 fL (80.0-98.0); Mean Platelet Volume 10.3 fL (9.4-12.4); Platelet Count 314 X10*3/uL (160-400); Red Blood Count 4.43 X10*6/uL (4.60-5.80); Red Cell Distribution Width 13.8 % (11.0-16.0); White Blood Count 10.8 X10*3/uL (4.8-10.8)
[2022-07-30 14:51] LABS: Appearance Urine Cloudy; Glucose Urine UA 500 mg/dL (Negative); Leukocyte Esterase Urine Negative (Negative); Nitrite Urine Negative (Negative); PH 5.5 (5.0-9.0); Specific Gravity - Urine 1.015 (1.005-1.025); UMIC TRIGGER UACC YES; Urine Blood Large (3+) (Negative); Urine Ketones Negative (Negative); Urine Protein Trace mg/dL (Neg-Trace)
[2022-07-30 14:52] LABS: Color Urine Red
[2022-07-30 14:55] LABS: Bacteria Urine None Seen (None Seen); Hyaline Casts Urine 0-2 /LPF (0-2); RBC Urine >20 /HPF (0-2); Squamous Epithelial Cell Urine 0-2 /HPF (0-2); WBC Urine 0-5 /HPF (0-5)
[2022-07-30 15:02] LABS: Alanine Aminotransferase 10 U/L (0-40); Albumin Level 4.1 g/dL (3.5-5.0); Alkaline Phosphatase 153 U/L (39-117); Anion Gap 14 (12-20); Aspartate Amino Transferase 13 U/L (5-37); Bilirubin Direct 0.4 mg/dL (0.0-0.5); Bilirubin Total 1.1 mg/dL (0.0-1.0); Blood Urea Nitrogen 38 mg/dL (9-16); Calcium 9.6 mg/dL (8.4-10.2); Carbon Dioxide 28 mmol/L (22-29); Chloride 100 mmol/L (96-108); Cholesterol 122 mg/dL; Estimated Glomerular Filt Rate 37; Glucose Random 279 mg/dL (60-115); HDL Cholesterol 29 mg/dL; LDL Cholesterol Calculated 69 mg/dl; Potassium 4.5 mmol/L (3.3-5.1); Sodium 137 mmol/L (135-145); Total Protein 7.2 g/dL (6.5-8.0); Triglycerides 120 mg/dL
== END 2022-07-30 11:44 | disposition home or self-care (01) ==
LOC: HO.HMGCLDS 11:43
PROVIDERS: PCP Physician Assistant; Visit Provider Internal Medicine
DX: R31.9 Hematuria, unspecified (principal)
CPT/HCPCS: 36415; 80048; 80061; 80076; 81001; 84443; 85027

== ENCOUNTER 2022-07-30 11:48 | Outpatient (REF) | payer MEDICARE, SELFPAY | END 2022-07-30 11:49 | disposition home or self-care (01) | LOC: HO.LAB 11:48 | PROVIDERS: Visit Provider Internal Medicine | DX: Z13.89 Encounter for screening for other disorder (principal) ==

== ENCOUNTER 2022-08-09 08:49 | Outpatient (REF) | payer MEDICARE, SELFPAY ==
[2022-08-09 17:38] LABS: Urine Cytology See Pathology rpt
== END 2022-08-09 08:50 | disposition home or self-care (01) ==
LOC: HO.LAB 08:49
PROVIDERS: PCP Physician Assistant; Visit Provider Nurse Practitioner Family
DX: R31.9 Hematuria, unspecified (principal); E11.9 Type 2 diabetes mellitus without complications; Z79.4 Long term (current) use of insulin
CPT/HCPCS: 88112; 99202

== ENCOUNTER 2022-08-16 08:25 | Outpatient (REF) | payer MEDICARE, SELFPAY ==
--- NOTE | ~2022-08-16 | CT_ITS ---
EXAMINATION: CT ABDOMEN AND PELVIS WITHOUT CONTRAST CLINICAL INFORMATION: Hematuria. COMPARISON: None. TECHNIQUE: Multidetector volumetric imaging was performed from the superior aspect of the liver through the pubic symphysis. Sagittal and coronal reformatted images were obtained on the technologist's workstation. This CT examination was performed using dose optimization techniques as appropriate, variously including the following: *Automated exposure control *Adjustment of mA and/or kV according to patient size (this includes techniques or standardized protocols for targeted exams where dose is matched to indication/reason for exam; i.e. extremities or head) *Use of iterative reconstruction technique DLP: 958 mGy-cm. FINDINGS: LUNG BASES: There is bibasilar dependent atelectasis and/or scarring. There is a 4 mm nodule right lower lobe axial image 14/5. Heart size is normal. There are pacer electrodes in right atrium and right ventricle. No pericardial effusion seen. LIVER, GALLBLADDER, AND BILIARY TREE: The liver is normal in size, shape, and attenuation. No focal hepatic lesion or biliary ductal dilatation is present. The gallbladder has been surgically removed. PANCREAS: Unremarkable. SPLEEN: Unremarkable. ADRENAL GLANDS: Unremarkable. KIDNEYS AND URETERS: The left kidney measures 11.6 cm in length. The right kidney is small and measures 6.7 cm in length. There is a nonobstructive 1.1 cm radiopaque calculi lower pole right kidney. BLADDER: Unremarkable. GASTROINTESTINAL TRACT: There is scattered stool and gas in the colon without distention. The small bowel loops are normal caliber. Appendix is normal caliber. There is no free air or inflammatory process. ABDOMINAL WALL: No significant hernia is appreciated. There is moderate atrophy of right mid and lower rectus muscle. LYMPH NODES: No abnormal-sized retroperitoneal lymph nodes seen. VASCULAR: There is mild atherosclerotic changes of abdominal aorta without aneurysmal dilatation. PELVIC VISCERA: There is no free air or free fluid. OSSEOUS STRUCTURES: No aggressive lytic or sclerotic process seen. There is mild ventral spondylosis throughout lower dorsal and mid lumbar spine. CT/CT abdomen pelvis wo IV con IMPRESSION: 1. Nonobstructive 1.1 cm radiopaque calculi lower pole right kidney. No hydronephrosis seen. 2. Moderate atrophy of right mid and lower rectus muscle. 3. Mild constipation. Normal appendix. 4. Right lower lobe 4 mm nodule. Fleischner guidelines were followed.
== END 2022-08-16 08:26 | disposition home or self-care (01) ==
LOC: HO.CT 08:25
PROVIDERS: Visit Provider Nurse Practitioner Family
DX: R31.9 Hematuria, unspecified (principal)
CPT/HCPCS: 74176

== ENCOUNTER → 2022-08-29 13:57 | Outpatient (BNVA) | payer MEDICARE, SELFPAY | PROVIDERS: PCP Physician Assistant; Referring Provider Physician Assistant; Visit Provider Nurse Practitioner Family | DX: Z45.018 Encounter for adjustment and management of other part of cardiac pacemaker (principal); I50.9 Heart failure, unspecified; I25.10 Atherosclerotic heart disease of native coronary artery without angina pectoris; I25.5 Ischemic cardiomyopathy; I48.91 Unspecified atrial fibrillation | CPT/HCPCS: 93005; 93280; 99212 ==

== ENCOUNTER 2022-08-30 08:41 | Outpatient (REF) | payer MEDICARE, SELFPAY ==
[2022-09-02 07:33] LABS: Urine Cytology See Pathology rpt
== END 2022-08-30 08:42 | disposition home or self-care (01) ==
LOC: HO.LAB 08:41
PROVIDERS: PCP Physician Assistant; Visit Provider Urology
DX: N20.0 Calculus of kidney (principal); R31.9 Hematuria, unspecified
CPT/HCPCS: 52000; 87086; 88112; 99212

== ENCOUNTER 2022-10-02 08:29 | Day surgery (SDC) | payer OTHER, SELFPAY ==
[2022-07-09 10:42] VITALS: BP 132/74
[2022-09-26 15:40] VITALS: BMI 39.4
--- NOTE | 2022-10-01 13:10 | HO.ANESPROP2 ---
Documented by User: Preethi Whitney NP 10/01/22 13:12 HPI - Anesthesia Eval Consult details Narrative: 77yo M for Cardioversion s/p cardioversion 03/2022 with TIVA PMFSH Active Problems Active Problems: All Active Problems (Updated 09/18/22 @ 10:14 by Samuel Meeks MD) Hematuria (Acute) Nephrolithiasis (Acute) Afib (Acute) Past Medical History Medical History (Updated 09/18/22 @ 10:14 by Samuel Meeks MD) Afib Coronary artery disease History of diverticulitis History of intestinal obstruction Hyperlipidemia Hypertension Ischemic cardiomyopathy Morbid obesity Myocardial infarction Obstructive sleep apnea Stroke Type 2 diabetes mellitus Family History Family history of problems with anesthesia: No Surgical History Surgical History (Updated 09/26/22 @ 15:37 by Tiffanie Hawkins RN) History of cardiac cath History of cardioversion History of carotid endarterectomy History of permanent cardiac pacemaker placement History of Problems with Anesthesia: Yes Social History Social History Household Members: Spouse Housing: House Do you presently have visiting nurse or other home services: No Patient Tobacco Use Status: Former Tobacco user Quit Date: QUIT 20 YEARS AGO PER PT Tobacco use type: Cigarette e-Cigarette/Vaping Use: Never Used Second Hand Smoke Exposure: No Use of substances other than those prescribed or required for medical reasons: No Are you DNR?: No Advance Directives: No Advance Directives Information Provided: Yes Advance Directives on File: No service: Yes Current occupational status: retired Meds Allergies Allergy/AdvReac Type Severity Reaction Status Date / Time No Known Allergies Allergy Verified 08/29/22 14:06 Home Medications Medication Instructions Recorded Confirmed Last Taken Type apixaban 5 mg tablet 5 mg PO BID 02/03/22 10/02/22 10/02/22 History cyanocobalamin (vitamin B-12) 1,000 mcg PO DAILY 02/03/22 10/02/22 03/31/22 History 1,000 mcg tablet insulin aspart U-100 100 unit/mL 18 unit subcut TIDAC 02/03/22 10/02/22 03/31/22 History (3 mL) subcutaneous pen (Novolog FlexPen U-100 Insulin aspart) insulin glargine 100 unit/mL (3 50 unit subcut BEDTIME 02/03/22 10/02/22 03/30/22 History mL) subcutaneous pen (Lantus Solostar U-100 Insulin) melatonin 10 mg tablet 10 mg PO BEDTIME PRN Insomnia 02/03/22 10/02/22 03/30/22 History aspirin 81 mg tablet,delayed 81 mg PO DAILY 03/31/22 10/02/22 03/31/22 History release furosemide 40 mg tablet (Lasix) 80 mg PO DAILY 03/31/22 10/02/22 03/31/22 History atorvastatin 80 mg tablet 80 mg PO BEDTIME 04/10/22 10/02/22 Unknown History carvedilol 25 mg tablet 25 mg PO BID 04/10/22 10/02/22 10/02/22 History Exam Exam Date and Time: October 01, 2022 1310 Height,Weight and Vital Signs: Height 6 ft 1 in Weight 135.624 kg Pertinent Lab Results Pertinent Lab Results: Laboratory Tests 07/30/22 07/30/22 11:48 11:48 WBC 10.8 Hgb 13.8 L Hct 43.0 Plt Count 314 D Sodium 137 Potassium 4.5 Chloride 100 Carbon Dioxide 28 BUN 38 H Creatinine 1.81 H Narrative Narrative: EKG 08/2022 atrial tach versus atrial flutter with V paced rhythm, left axis deviation, rate 70, QTC falsely prolonged done EKG do to wide QRS ECHO 04/2022 Conclusions: - Normal left ventricular cavity size.? There is mildly increased left ventricular wall thickness.? The left ventricular systolic? function is mildly decreased.? The visually estimated ejection ? fraction is between 40-45%.? - The apex, apical anterior, apical lateral, and mid ? anterolateral segments are hypokinetic.? - The basal inferior segment is akinetic.? ? ? Assessment and Plan Assessment Anesthesia Assessment: Chart Reviewed Final Anesthetic Review Family History of Problems with Anesthesia: No History of Problems with Anesthesia: Yes Documented by User: Regina Salas MD 10/02/22 09:25 [facility] Past Medical History Medical History (Updated 09/18/22 @ 10:14 by Samuel Meeks MD) Afib Coronary artery disease History of diverticulitis History of intestinal obstruction Hyperlipidemia Hypertension Ischemic cardiomyopathy Morbid obesity Myocardial infarction Obstructive sleep apnea Stroke Type 2 diabetes mellitus Surgical History Surgical History (Updated 09/26/22 @ 15:37 by Tiffanie Hawkins RN) History of cardiac cath History of cardioversion History of carotid endarterectomy History of permanent cardiac pacemaker placement Social History Social History Household Members: Spouse Housing: House Do you presently have visiting nurse or other home services: No Patient Tobacco Use Status: Former Tobacco user Quit Date: QUIT 20 YEARS AGO PER PT Tobacco use type: Cigarette e-Cigarette/Vaping Use: Never Used Second Hand Smoke Exposure: No Use of substances other than those prescribed or required for medical reasons: No Are you DNR?: No Advance Directives: No Advance Directives Information Provided: Yes Advance Directives on File: No service: Yes Current occupational status: retired Meds Allergies Allergy/AdvReac Type Severity Reaction Status Date / Time No Known Allergies Allergy Verified 08/29/22 14:06 Home Medications Medication Instructions Recorded Confirmed Last Taken Type apixaban 5 mg tablet 5 mg PO BID 02/03/22 10/02/22 10/02/22 History cyanocobalamin (vitamin B-12) 1,000 mcg PO DAILY 02/03/22 10/02/22 03/31/22 History 1,000 mcg tablet insulin aspart U-100 100 unit/mL 18 unit subcut TIDAC 02/03/22 10/02/22 03/31/22 History (3 mL) subcutaneous pen (Novolog FlexPen U-100 Insulin aspart) insulin glargine 100 unit/mL (3 50 unit subcut BEDTIME 02/03/22 10/02/22 03/30/22 History mL) subcutaneous pen (Lantus Solostar U-100 Insulin) melatonin 10 mg tablet 10 mg PO BEDTIME PRN Insomnia 02/03/22 10/02/22 03/30/22 History aspirin 81 mg tablet,delayed 81 mg PO DAILY 03/31/22 10/02/22 03/31/22 History release furosemide 40 mg tablet (Lasix) 80 mg PO DAILY 03/31/22 10/02/22 03/31/22 History atorvastatin 80 mg tablet 80 mg PO BEDTIME 04/10/22 10/02/22 Unknown History carvedilol 25 mg tablet 25 mg PO BID 04/10/22 10/02/22 10/02/22 History Exam Airway Mallampati Class: III (Thick neck) TM Dist: >3cm Neck ROM: Full Heart: rrr Lungs: cta Assessment and Plan Assessment Anesthesia Assessment: Anesthesia Plan Discussed Final Anesthetic Review NPO: Yes ASA Class: III Final Preanesthetic Review: No Changes in Pt Med Stat, Meds/Allgs Chart Reviewed and Consent Obtained/Reviewed Patient Risk: Intermediate Procedure Risk: Intermediate Anesthetic Plan Anesthetic Plan: MAC: Disposition: Standard PACU
[2022-10-02] VITALS (8 sets, daily range): BP systolic 101–134; BP diastolic 62–79; PULSE 60–70; RESP 16–18; TEMP 36.2–36.8; O2SAT 93–98
--- NOTE | 2022-10-02 | ECG_ITS ---
Test Reason : s/p cardioversion Blood Pressure : / mmHG Vent. Rate : 060 BPM Atrial Rate : 060 BPM P-R Int : 334 ms QRS Dur : 142 ms QT Int : 476 ms P-R-T Axes : -31 071 -59 degrees QTc Int : 476 ms AV dual-paced rhythm with prolonged AV conduction Abnormal ECG When compared with ECG of 02-OCT-2022 10:16, Vent. rate has decreased BY 10 BPM Referred By: Samuel Meeks Electronically Signed By:Samuel Meeks
[2022-10-02 09:11] LABS: Glucose, Whole Blood 255 mg/dL (60-115)
--- NOTE | 2022-10-02 09:57 | ECG_ITS ---
Test Reason : rhythm check Blood Pressure : / mmHG Vent. Rate : 070 BPM Atrial Rate : 069 BPM P-R Int : 000 ms QRS Dur : 190 ms QT Int : 490 ms P-R-T Axes : 000 -61 098 degrees QTc Int : 529 ms Ventricular-paced rhythm with bacground atrial tach vs flutter Abnormal ECG When compared with ECG of 05-APR-2022 09:36, v paced rhythm present now Referred By: Samuel Meeks Electronically Signed By:Samuel Meeks
--- NOTE | 2022-10-02 10:38 | MHC.SHP ---
Pre-Procedural Eval Section A Date of Service: 10/02/22 The patient is an INPATIENT: No Section B Chief Complaint: Atrial flutter Details of Present Illness: Here for cardioversion Allergies: Allergies Allergy/AdvReac Type Severity Reaction Status Date / Time No Known Allergies Allergy Verified 08/29/22 14:06 Plan Diagnosis/Plan: Unchanged I have reviewed the history and physical and performed a pertinent physical examination on my patient. No changes have occurred unless specified. Time Spent With Patient Time: Total time managing care of this patient today ____ minutes.
--- NOTE | 2022-10-02 10:48 | HO.CARDIVERS ---
Cardioversion Procedure Note Cardioversion Date of Procedure: 10/02/22 Ordering Provider: Samuel Meeks Performing Provider: Samuel Meeks Indication for Procedure: Atrial flutter. PATEL Consent: Verbal and Written consent was obtained from the patient before starting. The patient was made aware of the risk of stroke, skin irritation and failure. Procedure: After consent obtained, defib pads were attached and the patient was sedated by the anesthesia team. Once adequate sedation achieved, single synchronized shock of 200 J was given. The patient converted to atrial paced rhythm after the shock which was confirmed by EKG. No Atrial flutter noted. Complications: No acute complications. Impression: Success cardioversion Recommendations: Same medications. Eliquis should not be stopped for next 6 weeks.
== END 2022-10-02 11:18 | disposition home or self-care (01) ==
PROVIDERS: PCP Physician Assistant; Visit Provider Internal Medicine Cardiovascular Disease
PROC: 5A2204Z Restoration of Cardiac Rhythm, Single (ICD-10-PCS; principal; 2022-10-02 10:00)
DX: I48.92 Unspecified atrial flutter (principal); Z79.01 Long term (current) use of anticoagulants; Z95.0 Presence of cardiac pacemaker; I10 Essential (primary) hypertension; E78.5 Hyperlipidemia, unspecified; E11.9 Type 2 diabetes mellitus without complications; Z79.4 Long term (current) use of insulin; Z87.891 Personal history of nicotine dependence
CPT/HCPCS: 82947; 92960; 93005

== ENCOUNTER → 2022-10-14 19:30 | Outpatient (REF) | payer OTHER, SELFPAY ==
[2022-09-17 09:15] VITALS: BP 132/74
== END ==
LOC: HO.SL 19:30
PROVIDERS: PCP Physician Assistant; Visit Provider Physician Assistant
DX: G47.30 Sleep apnea, unspecified (principal)
CPT/HCPCS: 95811

== ENCOUNTER → 2022-10-16 09:06 | Outpatient (REF) | payer OTHER, SELFPAY ==
[2022-09-17 09:15] VITALS: BP 132/74
--- NOTE | 2022-10-16 09:08 | HM_ITS ---
Conclusion: 1. Patient was monitored for total period of 2 days and 23 hours 2. 45% of the time there was baseline artifact 3. Baseline atrial rhythm appears to be atrial fibrillation 4. Ventricular pacing noted 5. Maximal heart rate was 81 beats per minute with average heart of 61 beats per minute 6. Occasional PVCs noted 7. No patient reported events MTDD
== END ==
LOC: HO.CARD 09:06
PROVIDERS: Visit Provider Internal Medicine Cardiovascular Disease
DX: I48.91 Unspecified atrial fibrillation (principal)
CPT/HCPCS: 93242

== ENCOUNTER → 2022-10-23 13:29 | Outpatient (BNVA) | payer OTHER, SELFPAY | PROVIDERS: PCP Physician Assistant; Visit Provider Internal Medicine Cardiovascular Disease | DX: I48.91 Unspecified atrial fibrillation (principal); I25.5 Ischemic cardiomyopathy; I25.10 Atherosclerotic heart disease of native coronary artery without angina pectoris; R06.09 Other forms of dyspnea | CPT/HCPCS: 93005; 99212 ==

== ENCOUNTER 2022-12-12 19:25 | Inpatient (IN) | payer OTHER, MEDICARE, SELFPAY ==
[2022-07-09 10:42] VITALS: BP 132/74; BP 136/68
--- NOTE | ~2022-12-12 | US_ITS ---
EXAMINATION: US EXTRACRANIAL CAROTID DUPLEX, BILATERAL CLINICAL INFORMATION: CVA. COMPARISON: None available. TECHNIQUE: Real-time ultrasound and Doppler techniques (integrating B-mode 2-D vascular images, Doppler spectral analysis and color-flow Doppler imaging) were utilized to interrogate the extracranial carotid arteries, the vertebral arteries and proximal subclavian arteries bilaterally. The degree of stenosis is determined by criteria similar to NASCET. FINDINGS: Right Side: 1. There is severe atherosclerotic plaque seen in the bifurcation/proximal ICA region. 2. The common carotid artery PSV proximally is 67 cm/s and distally 42 cm/s. 3. The proximal internal carotid artery is occluded. 4. The proximal external carotid artery PSV is 424 cm/s. 5. The vertebral artery shows antegrade flow. 6. The subclavian artery waveforms are normal. Left Side: 1. There is moderate atherosclerotic plaque seen in the bifurcation/proximal ICA region. 2. The common carotid artery PSV proximally is 113 cm/s and distally 94 cm/s. 3. The proximal internal carotid artery velocities are 110 cm/s systolic and 21 cm/s diastolic. 4. The proximal external carotid artery PSV is 102 cm/s. 5. The vertebral artery shows antegrade flow. 6. The subclavian artery waveforms are normal. There is an irregular cardiac rhythm. US/US carotid duplex BI IMPRESSION: 1. 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 2. LEFT: Minimal, non-hemodynamically significant stenosis of the proximal left internal carotid artery corresponding to a 0-49% stenosis by velocity criteria. 3. Incidental note of an irregular cardiac rhythm.
--- NOTE | ~2022-12-12 | XR_ITS ---
EXAMINATION: XR CHEST CLINICAL INFORMATION: Dyspnea COMPARISON: Chest radiograph yesterday, 12/12/2022 TECHNIQUE: Frontal view of the chest was obtained. FINDINGS: Again noted is cardiomegaly and a left chest wall bipolar pacemaker. One lead is in the right atria the other in the right ventricle. A believe that on yesterday's exam there was some upper zone redistribution which could've reflected elevated left ventricular end-diastolic pressure is. This has resolved. No infiltrates, pleural effusions or lung masses are seen. The left costophrenic angle is not included on these radiographs. XR/XR chest 1V IMPRESSION: Cardiomegaly. No acute intrathoracic disease. Resolution of pulmonary vascular congestion.
--- NOTE | ~2022-12-12 | CT_ITS ---
EXAMINATION: CT brain without contrast. CLINICAL INDICATION: Left facial droop. Rule out stroke. TECHNIQUE: 5 mm thin axial and reformatted 3 mm thin sagittal and coronal images of brain were obtained without contrast. DLP [id number]. This CT examination was performed using dose optimization technique as appropriate, variously including the following: Automated exposure control Adjustment of MA and/or KV according to patient size(this includes techniques or standardized protocols for targeted exams where dose is matched to indication/reason for exam; extremities or head. Use of iterative reconstruction techniques. Chest 2 views. FINDINGS: Brain: There is no acute intra-axial, extra-axial bleed, masses or midline shift. There is a lacunar infarction right anterior external capsule. No acute infarction in evolution. There is no edema. The lateral ventricles are asymmetrical with extra-axial dilatation of right frontal horn lateral ventricle. The cortical sulci are symmetrical and normal. The [place] to white matter differentiation is maintained normal. Bone windows reveal no calvarial abnormality. There is no scalp soft tissue abnormality. There is diffuse mucoperiosteal thickening bilateral maxillary, ethmoid, sphenoid and frontal sinuses. The mastoid air cells are well-aerated. CHEST: There is mild cardiomegaly with normal pulmonary vascularity. There are pacer electrodes in right atrium and right ventricle. The lungs are expanded and clear. No gross bony abnormality seen. CT/CT head/brain wo IV con IMPRESSION: No acute intracranial process seen. Right anterior external capsule old infarction with ex-vacuole dilatation of right frontal horn lateral ventricle. Mild cardiomegaly without congestion.
[2022-12-12 19:36] VITALS: BP 113/85; BP 143/96; PULSE 66; PULSE 74; RESP 18; O2SAT 94; O2SAT 96; BMI 41.2
--- NOTE | 2022-12-12 19:55 | ECG_ITS ---
Test Reason : ?STROKE Blood Pressure : / mmHG Vent. Rate : 069 BPM Atrial Rate : 357 BPM P-R Int : 254 ms QRS Dur : 150 ms QT Int : 436 ms P-R-T Axes : 000 063 021 degrees QTc Int : 467 ms Atrial-paced rhythm with prolonged AV conduction with premature ventricular or aberrantly conducted complexes Right bundle branch block Abnormal ECG When compared with ECG of 02-OCT-2022 10:44, No significant changes seen Referred By: Mitchell Velez Electronically Signed By:JIMMY THAPA
--- NOTE | 2022-12-12 19:56 | PC.NURSE ---
pt comes in to ED via EMS after and nurse convinced him to call after noticing some left sided facial droop at 3pm. Neuro exam shows some left facial unevenness and droop. pt not slurring any words and strength is equal in upper and lower extremities. MD made aware of pt in ED. EKG done, nursing swallow pass. Pt hx of afib on elequis
[2022-12-12 20:12] LABS: Glucose, Whole Blood 138 mg/dL (60-115)
--- NOTE | 2022-12-12 20:38 | PC.NURSE ---
pt family at bedside, pt reports that pt has been dragging his left foot when he walks since earlier today.
[2022-12-12 20:39] LABS: MANUAL DIFF FLAG NO
[2022-12-12 20:43] LABS: Basophils Percent Auto 0.2 % (0-2); Hematocrit 43.6 % (42.0-52.0); Hemoglobin 14.7 g/dl (14.0-18.0); Imm Gran Abs Auto 0.06 X10*3/uL (0.00-0.03); Imm Gran Pct Auto 0.4 % (0.0-0.4); Lymphocytes Absolute Auto 1.9 X10*3/uL (1.2-4.9); Lymphocytes Percent Auto 11.9 % (20-40); Mean Corpuscular HGB Conc 33.7 g/dl (31.0-36.0); Mean Corpuscular Hemoglobin 31.7 pg (27.0-33.0); Mean Platelet Volume 9.9 fL (9.4-12.4); Monocytes Absolute Auto 1.3 X10*3/uL (0.1-1.2); Monocytes Percent Auto 8.2 % (2-11); Neutrophils Absolute Auto 12.7 x10*3/uL (2.0-8.3); Neutrophils Percent Auto 79.3 % (45-73); Platelet Count 205 X10*3/uL (160-400); Red Blood Count 4.64 X10*6/uL (4.60-5.80); Red Cell Distribution Width 14.5 % (11.0-16.0)
[2022-12-12 20:58] LABS: Alanine Aminotransferase 14 U/L (0-40); Albumin Level 4.1 g/dL (3.5-5.0); Alkaline Phosphatase 157 U/L (39-117); Anion Gap 15 (12-20); Aspartate Amino Transferase 14 U/L (5-37); Bilirubin Total 1.4 mg/dL (0.0-1.0); Blood Urea Nitrogen 27 mg/dL (9-16); Calcium 9.3 mg/dL (8.4-10.2); Carbon Dioxide 27 mmol/L (22-29); Chloride 102 mmol/L (96-108); Creatinine Clr Calc Pharmacy 53.9; Estimated Glomerular Filt Rate 38; Glucose Random 108 mg/dL (60-115); Potassium 3.7 mmol/L (3.3-5.1); Sodium 140 mmol/L (135-145); Total Protein 7.2 g/dL (6.5-8.0)
[2022-12-12 20:59] LABS: INTERNATIONAL NORM RATIO 1.4 (0.9-1.1); Prothrombin Time 16.2 SEC (10.0-13.1)
[2022-12-12 21:02] LABS: Partial Thromboplastin Time 33.9 SEC (26.0-36.4)
[2022-12-12 21:04] LABS: Troponin-I High Sensitivity 34.8 ng/L (<3.5-35.0)
--- NOTE | 2022-12-12 21:20 | ED_ITS ---
HPI - Neuro Symptoms/Deficit General Chief Complaint: Stroke Stated Complaint: general weakness Time Seen by Provider: 12/12/22 19:43 Source: patient Mode of arrival: EMS Limitations: no limitations History of Present Illness HPI Narrative: 77-year-old male history of diabetes mellitus, hypertension, hyperlipidemia, atrial fibrillation on Eliquis, congestive heart failure, obstructive sleep apnea, stroke 7 years prior with left-sided numbness which resolved and persistent left leg/foot weakness who presents emergency department for evaluation of left-sided abdominal pain and left facial droop. The patient st ates that he got a new CPAP mask and in order to get comfortable he had to lie in his left side last night. He states that around 3 or 04:00 o'clock in the morning he then developed left flank pain. He describes as a constant, irritating pain that lasted several hours but then resolved. He called his insurance [employer] visiting nurse who went to his house to evaluate him at around 15:00 hours today. The nurse was concerned that the patient had a left facial droop. The nurse was concerned that he may have had a stroke and wanted the patient to go to the emergency department for evaluation but the patient initially refused. He states that his family finally convinced him to come to the emergency department and he was then brought to emergency department by ambulance. He denied headache, nausea, vomiting, numbness, weakness. He states that he has had occasional chills over the last 24 hours . He also states he has a chronic cough. I did obtain more information for the patient's . She states that he has always had a slight left facial droop and left leg weakness however the symptoms became worse today. She states that he was having difficulty walking secondary to his left leg being weaker than usual. Related Data Home Medications Medication Instructions Recorded Confirmed apixaban 5 mg tablet 5 mg PO BID 02/03/22 10/23/22 cyanocobalamin (vitamin B-12) 1,000 mcg PO DAILY 02/03/22 10/23/22 1,000 mcg tablet insulin aspart U-100 100 unit/mL 18 unit subcut TIDAC 02/03/22 10/23/22 (3 mL) subcutaneous pen (Novolog FlexPen U-100 Insulin aspart) insulin glargine 100 unit/mL (3 50 unit subcut BEDTIME 02/03/22 10/23/22 mL) subcutaneous pen (Lantus Solostar U-100 Insulin) melatonin 10 mg tablet 10 mg PO BEDTIME PRN Insomnia 02/03/22 10/23/22 aspirin 81 mg tablet,delayed 81 mg PO DAILY 03/31/22 10/23/22 release furosemide 40 mg tablet (Lasix) 80 mg PO DAILY 03/31/22 10/23/22 atorvastatin 80 mg tablet 80 mg PO BEDTIME 04/10/22 10/23/22 carvedilol 25 mg tablet 25 mg PO BID 04/10/22 10/23/22 Previous Rx's Medication Instructions Recorded amiodarone 200 mg tablet 200 mg PO DAILY #30 tabs 04/06/22 hydralazine 25 mg tablet 25 mg PO TID #90 tabs 04/06/22 isosorbide dinitrate 5 mg tablet 5 mg PO TID #90 tabs 04/06/22 sulfamethoxazole 800 1 tab PO BID UTI 5 days #10 tabs 09/03/22 mg-trimethoprim 160 mg tablet (Bactrim DS) Allergies Allergy/AdvReac Type Severity Reaction Status Date / Time No Known Allergies Allergy Verified 10/23/22 14:09 Review of Systems Review of Systems: Yes all other systems are reviewed and are negative [facility] Past Medical History Medical History (Updated 12/12/22 @ 21:59 by Mitchell Velez MD) Afib Coronary artery disease History of diverticulitis History of intestinal obstruction Hyperlipidemia Hypertension Ischemic cardiomyopathy Morbid obesity Myocardial infarction Obstructive sleep apnea Stroke Type 2 diabetes mellitus Surgical History History of cardiac cath History of cardioversion History of carotid endarterectomy History of permanent cardiac pacemaker placement Social History Social History Household Members: Spouse Housing: House Do you presently have visiting nurse or other home services: No Alcohol intake: never Patient Tobacco Use Status: Former Tobacco user Quit Date: QUIT 20 YEARS AGO PER PT Tobacco use type: Cigarette Smoked in Last 30 Days: No e-Cigarette/Vaping Use: Never Used Second Hand Smoke Exposure: No Use of substances other than those prescribed or required for medical reasons: No Advance Directives: Yes Advance Directives on File: Yes Advance Directives Date on File: 04/04/22 service: Yes Current occupational status: retired Physical Exam Vital Signs: Vital Signs: Last Vital Signs Pulse 66 12/12/22 19:36 Resp 18 12/12/22 19:36 BP 113/85 12/12/22 19:36 Pulse Ox 94 12/12/22 19:36 O2 Del Method Room Air 12/12/22 19:36 BMI result Body Mass Index 41.2 Const: Other: Awake, alert, male patient, pleasant, cooperative, answers all questions appropriately, normal speech pattern, he does have a left facial droop HEENT: Head: Yes normal to inspection, Yes normocephalic and Yes atraumatic Ears: external ears normal General nose exam: Normal external nose present Face and sinus: Yes other (Left facial droop) Mouth: Normal oral and palatal mucosa present Throat: Yes posterior oropharynx normal Eyes: General: appearance normal, both eyes and all related structures Pupils: Equal, round and reactive pupils present Neck: Neck: Yes normal visual inspection, Yes no lymphadenopathy, Yes trachea midline and Yes supple Chest: Chest palpation & inspection: normal inspection of the chest and normal palpation of entire chest wall Resp: Effort & Inspection: normal respiratory effort and able to speak in complete sentences Auscultation: clear to auscultation bilaterally Cardio: Rate: regular rate Rhythm: regular rhythm Heart sounds: S1 normal heart sound present, S2 normal heart sound present and no murmurs GI: Inspection: Yes normal to inspection Palpation (GI): Soft to palpation, nontender and no guarding Auscultation: normal bowel sounds : General: Yes no CVA tenderness Back/Spine/Pelvis: Back: no CVA tenderness Skin: General skin exam: no rashes or lesions noted Neuro: Other: Cranial nerves 2-12 revealed a left facial droop, patient had normal speech pattern with no difficulty with word finding or identifying objects, strength was symmetric bilaterally with no weakness-patient's gait was not tested Cranial nerves: Yes Equal, round and reactive pupils present Extrem: General: Yes normal to inspection Psych: Appearance: grossly normal Speech and movement: Normal speech and movement present Affect: normal affect Attitude: cooperative Thought process: Normal thought process present Thought content: Normal thought content present Medical Decision Making Medical Decision Making MDM Narrative: 77-year-old male history of diabetes mellitus, hypertension, hyperlipidemia, atrial fibrillation on Eliquis, congestive heart failure, ischemic cardiomyopathy, obstructive sleep apnea, stroke 7 years prior with left-sided numbness which resolved and persistent left leg/foot weakness who presents emergency department for evaluation of left-sided abdominal pain and left facial droop. Physical examination did reveal left facial droop otherwise was unremarkable. The patient's NIH stroke scale was 1. The patient's exact last well-known time is unknown since the facial droop was noted by the visiting nurse at 15:00 hours. Also, patient is on Eliquis. Given these 2 factors, the patient is not a thrombolytics candidate. Laboratory evaluation, EKG, CT scan of the head without contrast was ordered. 2146: My interpretation patient's laboratory evaluation is as follows: WBC elevated 16,000. INR elevated 1.4. BUN creatinine elevated 27 and 1.75-consistent with his baseline. Urinalysis pending collection CT scan of the brain without IV contrast revealed no acute bleed, no acute stroke. Old right anterior external capsular infarct. Chest x-ray revealed no acute disease, mild cardiomegaly without CHF I did discuss the patient's presentation with the covering hospitalist, Dr. Kramer the patient will be admitted to the hospital service for further evaluation and treatment of his stroke. Differential Diagnosis Differential Diagnoses: The differential diagnosis associated with the presenta tion includes Differential diagnosis includes was not limited to stroke, hemorrhagic stroke, cerebral bleed, Forman palsy Admission/Observation Consideration of admission/observation: Escalation of care including admission/observation considered Consult Healthcare Provider Management of the patient was discussed with: Hospitalist Lab Data MDM Lab Attestation statement: I reviewed the patient's lab results. 12/12/22 20:33 12/12/22 20:33 Labs: Lab Results 12/12/22 12/12/22 12/12/22 Range/Units 20:01 20:33 20:33 WBC 16.0 H (4.8-10.8) X10*3/uL RBC 4.64 (4.60-5.80) X10*6/uL Hgb 14.7 (14.0-18.0) g/dl Hct 43.6 (42.0-52.0) % MCV 94.0 (80.0-98.0) fL MCH 31.7 (27.0-33.0) pg MCHC 33.7 (31.0-36.0) g/dl RDW 14.5 (11.0-16.0) % Plt Count 205 D (160-400) X10*3/uL MPV 9.9 (9.4-12.4) fL Immature Gran % (Auto) 0.4 (0.0-0.4) % Neut % (Auto) 79.3 H (45-73) % Lymph % (Auto) 11.9 L (20-40) % Antelope % (Auto) 8.2 (2-11) % Eos % (Auto) 0.0 (0-4) % Baso % (Auto) 0.2 (0-2) % Lymph # (Auto) 1.9 (1.2-4.9) X10*3/uL Antelope # (Auto) 1.3 H (0.1-1.2) X10*3/uL Eos # (Auto) 0.0 (0.0-0.4) X10*3/uL Baso # (Auto) 0.0 (0.0-0.2) X10*3/uL Abs Immat Gran (auto) 0.06 H (0.00-0.03) X10*3/uL Absolute Neuts (auto) 12.7 H (2.0-8.3) x10*3/uL Absolute Nucleated RBC 0.000 (0.0-0.012) X10*3/uL Nucleated RBC % (auto) 0.0 (0.0-0.2) /100WBC PT 16.2 H (10.0-13.1) SEC INR 1.4 H (0.9-1.1) APTT 33.9 (26.0-36.4) SEC Sodium (135-145) mmol/L Potassium (3.3-5.1) mmol/L Chloride (96-108) mmol/L Carbon Dioxide (22-29) mmol/L Anion Gap (12-20) BUN (9-16) mg/dL Creatinine (0.5-1.4) mg/dL Estim Creat Clear Calc Estimated GFR POC Glucose 138 H (60-115) mg/dL Random Glucose (60-115) mg/dL Calcium (8.4-10.2) mg/dL Total Bilirubin (0.0-1.0) mg/dL AST (5-37) U/L ALT (0-40) U/L Alkaline Phosphatase (39-117) U/L Troponin I High Sens (<3.5-35.0) ng/L Total Protein (6.5-8.0) g/dL Albumin (3.5-5.0) g/dL 12/12/22 12/12/22 Range/Units 20:33 20:33 WBC (4.8-10.8) X10*3/uL RBC (4.60-5.80) X10*6/uL Hgb (14.0-18.0) g/dl Hct (42.0-52.0) % MCV (80.0-98.0) fL MCH (27.0-33.0) pg MCHC (31.0-36.0) g/dl RDW (11.0-16.0) % Plt Count (160-400) X10*3/uL MPV (9.4-12.4) fL Immature Gran % (Auto) (0.0-0.4) % Neut % (Auto) (45-73) % Lymph % (Auto) (20-40) % Antelope % (Auto) (2-11) % Eos % (Auto) (0-4) % Baso % (Auto) (0-2) % Lymph # (Auto) (1.2-4.9) X10*3/uL Antelope # (Auto) (0.1-1.2) X10*3/uL Eos # (Auto) (0.0-0.4) X10*3/uL Baso # (Auto) (0.0-0.2) X10*3/uL Abs Immat Gran (auto) (0.00-0.03) X10*3/uL Absolute Neuts (auto) (2.0-8.3) x10*3/uL Absolute Nucleated RBC (0.0-0.012) X10*3/uL Nucleated RBC % (auto) (0.0-0.2) /100WBC PT (10.0-13.1) SEC INR (0.9-1.1) APTT (26.0-36.4) SEC Sodium 140 (135-145) mmol/L Potassium 3.7 (3.3-5.1) mmol/L Chloride 102 (96-108) mmol/L Carbon Dioxide 27 (22-29) mmol/L Anion Gap 15 (12-20) BUN 27 H (9-16) mg/dL Creatinine 1.75 H (0.5-1.4) mg/dL Estim Creat Clear Calc 53.9 Estimated GFR 38 POC Glucose (60-115) mg/dL Random Glucose 108 (60-115) mg/dL Calcium 9.3 (8.4-10.2) mg/dL Total Bilirubin 1.4 H (0.0-1.0) mg/dL AST 14 (5-37) U/L ALT 14 (0-40) U/L Alkaline Phosphatase 157 H (39-117) U/L Troponin I High Sens 34.8 (<3.5-35.0) ng/L Total Protein 7.2 (6.5-8.0) g/dL Albumin 4.1 (3.5-5.0) g/dL Independent Interpretation I performed an independent interpretation of an: EKG Interpretation: My independent interpretation patient's 12 EKG is as follows: Atrial paced rhythm with a rate of 69, Radiology Impression Discussion of test interpretation with radiology: I have reviewed the radiologist's reading. Radiologist Impression: CT head/brain wo IV con IMPRESSION: No acute intracranial process seen. Right anterior external capsule old infarction with ex-vacuole dilatation of right frontal horn lateral ventricle. Mild cardiomegaly without congestion. Dictated By:Eyal Bennett MD Independent Historian Clinical information obtained from an independent historian. History obtained from or confirmed by: Spouse External Record Review External record reviewed: Office record (Cardiology note, 10/23/2021) NIH Stroke Scale Internal: Initial- Upon Arrival Level of Consciousness: Alert Level of Consciousness Questions: Answers both questions correctly Level of Consciousness Commands: Performs both tasks correctly Best Gaze: Normal Visual: No visual loss Facial Palsy: Minor paralyis Motor Arm (Right): No drift Motor Arm (Left): No drift Motor Leg (Right): No drift Motor Leg (Left): No drift Limb Ataxia: Absent Sensory: Normal Best Language: No aphasia Dysarthia: Normal Extinction and Inattention: No abnormality Score: 1 Discharge Plan Discharge Patient Disposition: Admitted As Inpatient Prescriptions: No Action sulfamethoxazole-trimethoprim [Bactrim DS] 800-160 mg tablet 1 tab PO BID 5 Days Qty: 10 0RF insulin aspart U-100 [Novolog FlexPen U-100 Insulin] 100 unit/mL (3 mL) Insulin Pen 18 unit SUBCUT TIDAC insulin glargine [Lantus Solostar U-100 Insulin] 100 unit/mL (3 mL) Insulin Pen 50 unit SUBCUT BEDTIME melatonin 10 mg Tablet 10 mg PO BEDTIME PRN (Reason: Insomnia) apixaban 5 mg Tablet 5 mg PO BID cyanocobalamin (vitamin B-12) 1,000 mcg Tablet 1,000 mcg PO DAILY atorvastatin 80 mg tablet 80 mg PO BEDTIME furosemide [Lasix] 40 mg tablet 80 mg PO DAILY aspirin 81 mg Tablet,Delayed Release (Dr/Ec) 81 mg PO DAILY amiodarone 200 mg Tablet 200 mg PO DAILY Qty: 30 0RF hydralazine 25 mg Tablet 25 mg PO TID Qty: 90 0RF Protocol: Hold for SBP< HOLD for SBP < : 90 isosorbide dinitrate 5 mg Tablet 5 mg PO TID Qty: 90 0RF Protocol: Hold for SBP< HOLD for SBP < : 90 carvedilol 25 mg tablet 25 mg PO BID
[2022-12-12 21:48] VITALS: BP 138/58; PULSE 51; RESP 20; TEMP 37.7; O2SAT 93
--- NOTE | 2022-12-12 22:02 | PM.IMHP ---
History of Present Illness Date of Service: 12/12/22 Chief Complaint: Facial droop This is a 77-year-old male with pertinent history of chronic atrial fibrillation on Eliquis status post pacemaker placement, congestive heart failure with reduced ejection fraction, PAULETTE on CPAP, insulin-dependent diabetes mellitus, essential hypertension, chronic kidney disease stage 3, history of CVA 7 years ago who presents to the emergency department for evaluation of left-sided facial droop. Patient got a new CPAP mask and states he in order to be comfortable he laid on his left side. [employer] visiting nurse noted left-sided facial droop at around 15:00. Patient states that 7 years ago he had a similar left-sided facial droop with left sided weakness which had completely resolved. Patient states the left-sided facial droop noted today is new and he was sent to the ER for further evaluation. Patient denies fever, chills, chest discomfort, palpitations, shortness of breath, changes in urinary or bowel habits. The reported that patient also had left lower extremity weakness today and difficulty ambulating because of the same In the emergency department, CT head without any acute abnormalities Review of Systems Constitutional: Constitutional: Reports no additional constitutional complaints Cardiovascular: Cardiovascular: Reports no additional cardiovascular complaints Respiratory: Respiratory: Reports no additional respiratory complaints Gastrointestinal: Gastrointestinal: Reports no additional gastrointestinal complaints Genitourinary: Genitourinary: Reports no additional male genitourinary complaints Neurologic: Comments: Facial droop [facility] Medical History Afib Coronary artery disease History of diverticulitis History of intestinal obstruction Hyperlipidemia Hypertension Ischemic cardiomyopathy Morbid obesity Myocardial infarction Obstructive sleep apnea Stroke Type 2 diabetes mellitus Surgical History History of cardiac cath History of cardioversion History of carotid endarterectomy History of permanent cardiac pacemaker placement Social History Household Members: Spouse Housing: House Do you presently have visiting nurse or other home services: No Alcohol intake: never Patient Tobacco Use Status: Former Tobacco user Quit Date: QUIT 20 YEARS AGO PER PT Tobacco use type: Cigarette Smoked in Last 30 Days: No e-Cigarette/Vaping Use: Never Used Second Hand Smoke Exposure: No Use of substances other than those prescribed or required for medical reasons: No Advance Directives: Yes Advance Directives on File: Yes Advance Directives Date on File: 04/04/22 service: Yes Current occupational status: retired Meds Allergies Allergy/AdvReac Type Severity Reaction Status Date / Time No Known Allergies Allergy Verified 10/23/22 14:09 Home Medications Medication Instructions Recorded Confirmed Last Taken Type apixaban 5 mg tablet 5 mg PO BID 02/03/22 10/23/22 10/02/22 History cyanocobalamin (vitamin B-12) 1,000 mcg PO DAILY 02/03/22 10/23/22 10/01/22 History 1,000 mcg tablet insulin aspart U-100 100 unit/mL 18 unit subcut TIDAC 02/03/22 10/23/22 10/01/22 History (3 mL) subcutaneous pen (Novolog FlexPen U-100 Insulin aspart) insulin glargine 100 unit/mL (3 50 unit subcut BEDTIME 02/03/22 10/23/22 10/01/22 History mL) subcutaneous pen (Lantus Solostar U-100 Insulin) melatonin 10 mg tablet 10 mg PO BEDTIME PRN Insomnia 02/03/22 10/23/22 03/30/22 History aspirin 81 mg tablet,delayed 81 mg PO DAILY 03/31/22 10/23/22 10/01/22 History release furosemide 40 mg tablet (Lasix) 80 mg PO DAILY 03/31/22 10/23/22 10/01/22 History atorvastatin 80 mg tablet 80 mg PO BEDTIME 04/10/22 10/23/22 10/01/22 History carvedilol 25 mg tablet 25 mg PO BID 04/10/22 10/23/22 10/02/22 History Physical Exam Vital Signs and Narrative: Vital Signs: Last Vital Signs Temp 99.9 F 12/12/22 21:48 Pulse 51 12/12/22 21:48 Resp 20 12/12/22 21:48 BP 138/58 L 12/12/22 21:48 Pulse Ox 93 12/12/22 21:48 O2 Del Method Room Air 12/12/22 21:48 BMI result Body Mass Index 41.2 Middle-aged male lying in bed in no distress Neck supple, no JVD Regular rate and rhythm, S1-S2 heard Regular breath sounds bilaterally, no wheezing or crackles appreciated Abdomen soft nontender, no guarding, no rigidity Patient is awake, alert and oriented to self, place, time and person ; left facial droop noted, strength equal in bilateral upper and lower extremities, tongue and uvula midline, no pronator drift Psych: Normal mood No pedal edema Results Labs 12/12/22 20:33 12/12/22 20:33 Labs: Laboratory Results - last 24 hr 12/12/22 12/12/22 12/12/22 20:01 20:33 20:33 MCV 94.0 MCH 31.7 MCHC 33.7 RDW 14.5 Plt Count 205 D MPV 9.9 Immature Gran % (Auto) 0.4 Neut % (Auto) 79.3 H Lymph % (Auto) 11.9 L [place] % (Auto) 8.2 Eos % (Auto) 0.0 Baso % (Auto) 0.2 Lymph # (Auto) 1.9 [place] # (Auto) 1.3 H Eos # (Auto) 0.0 Baso # (Auto) 0.0 Abs Immat Gran (auto) 0.06 H Absolute Neuts (auto) 12.7 H Absolute Nucleated RBC 0.000 Nucleated RBC % (auto) 0.0 PT 16.2 H INR 1.4 H APTT 33.9 Anion Gap Estim Creat Clear Calc Estimated GFR POC Glucose 138 H Random Glucose Calcium Total Bilirubin AST ALT Alkaline Phosphatase Troponin I High Sens Total Protein Albumin 12/12/22 12/12/22 20:33 20:33 MCV MCH MCHC RDW Plt Count MPV Immature Gran % (Auto) Neut % (Auto) Lymph % (Auto) [place] % (Auto) Eos % (Auto) Baso % (Auto) Lymph # (Auto) [place] # (Auto) Eos # (Auto) Baso # (Auto) Abs Immat Gran (auto) Absolute Neuts (auto) Absolute Nucleated RBC Nucleated RBC % (auto) PT INR APTT Anion Gap 15 Estim Creat Clear Calc 53.9 Estimated GFR 38 POC Glucose Random Glucose 108 Calcium 9.3 Total Bilirubin 1.4 H AST 14 ALT 14 Alkaline Phosphatase 157 H Troponin I High Sens 34.8 Total Protein 7.2 Albumin 4.1 Imaging Radiologist's Impressions: Impressions Chest X-Ray 12/12/22 20:17 IMPRESSION: No acute intracranial process seen. Right anterior external capsule old infarction with ex-vacuole dilatation of right frontal horn lateral ventricle. Mild cardiomegaly without congestion. Head CT 12/12/22 20:17 IMPRESSION: No acute intracranial process seen. Right anterior external capsule old infarction with ex-vacuole dilatation of right frontal horn lateral ventricle. Mild cardiomegaly without congestion. Assessment and Plan (1) Facial droop: Status: Acute (2) Stroke: Status: Acute Plan This is a 77-year-old male with pertinent history of chronic atrial fibrillation on Eliquis status post pacemaker placement, congestive heart failure with reduced ejection fraction, PAULETTE on CPAP, insulin-dependent diabetes mellitus, essential hypertension, chronic kidney disease stage 3, history of CVA 7 years ago who presents to the emergency department for evaluation of left-sided facial droop. #. Left-sided facial droop with ?left lower extremity weakness, concerning for acute CVA. Will admit patient with court monitor. Cannot obtain MRI as patient has a pacemaker. Will consult Neurology. Obtaining echo, carotid ultrasound, A1c and lipid panel to optimize risk factors. Consulting PT/OT to evaluate and treat. Patient on antiplatelet agent and high intensity statin #. Permanent atrial fibrillation: On beta-rocío, amiodarone and Eliquis #. Congestive heart failure with preserved ejection fraction: Compensated during admission. On beta-rocío, Lasix and nitrate #. Insulin-dependent diabetes mellitus. Reduce home basal insulin and initiating Accu-Cheks with sliding scale insulin #. PAULETTE: Continue CPAP at night #. Chronic kidney disease stage 3. Creatinine at baseline. Monitor urine output and creatinine, avoid nephrotoxins #. Leukocytosis: ?reactive. UA pending Med rec pending DVT prophylaxis: On Eliquis Cardiac diet after nursing speech evaluation DNR/DNI Admit as inpatient for evaluation and management of possible acute stroke. Neurology consult pending Time Spent With Patient Time: Total time managing care of this patient today ____ minutes. Quality Stroke Does the patient have a stroke diagnosis?: Yes Reason for No Anti-thrombotic by Day Two: N/A - Med Ordered VTE Prior VTE?: No VTE Risk Level:: Medical - moderate - high VTE Device Contraindication: Treatment Not Indicated VTE Drug Contraindication: N/A - Med Ordered
[2022-12-12] MEDS: Insulin Glargine,Hum.rec.anlog 100 UNIT/ML 10 ML VIAL 40 UNIT SUBCUT (22:48)
[2022-12-12 22:53] LABS: Glucose, Whole Blood 95 mg/dL (60-115)
--- NOTE | 2022-12-12 22:54 | PC.NURSE ---
diet and hydration provided for pt per request.
[2022-12-12 23:11] VITALS: BP 155/56; PULSE 60; RESP 21; TEMP 36.8; O2SAT 94
--- NOTE | 2022-12-12 23:38 | PC.NURSE ---
Report to Daniel CASPER on [facility] for continued care.
[2022-12-13] VITALS (13 sets, daily range): BP systolic 117–177; BP diastolic 56–88; PULSE 58–79; RESP 15–48; TEMP 36–39.3; O2SAT 82–98; BMI 39.9
--- NOTE | 2022-12-13 | ECG_ITS ---
Test Reason : troponines elevated Blood Pressure : / mmHG Vent. Rate : 060 BPM Atrial Rate : 060 BPM P-R Int : 244 ms QRS Dur : 158 ms QT Int : 476 ms P-R-T Axes : 000 080 046 degrees QTc Int : 476 ms Atrial-paced rhythm with prolonged AV conduction Right bundle branch block Abnormal ECG When compared with ECG of 12-DEC-2022 19:53, No significant change was found Referred By: Wilmar rKamer Electronically Signed By:JIMMY THAPA
[2022-12-13 00:22] LABS: Cholesterol 140 mg/dL; HDL Cholesterol 34 mg/dL; LDL Cholesterol Calculated 88 mg/dl; Triglycerides 93 mg/dL
[2022-12-13] MEDS: Acetaminophen 325 MG TABLET 650 MG PO (00:40)
[2022-12-13 02:29] LABS: Reflex LDLD? No
[2022-12-13] MEDS: Acetaminophen 1,000 MG/100 ML PIGGYBACK 400 MG IV (02:30)
[2022-12-13 06:40] LABS: MANUAL DIFF FLAG NO
[2022-12-13 06:42] LABS: Basophils Absolute Auto 0.1 X10*3/uL (0.0-0.2); Basophils Percent Auto 0.5 % (0-2); Hematocrit 42.7 % (42.0-52.0); Hemoglobin 14.3 g/dl (14.0-18.0); Imm Gran Abs Auto 0.07 X10*3/uL (0.00-0.03); Imm Gran Pct Auto 0.5 % (0.0-0.4); Lymphocytes Absolute Auto 1.8 X10*3/uL (1.2-4.9); Lymphocytes Percent Auto 13.5 % (20-40); Mean Corpuscular HGB Conc 33.5 g/dl (31.0-36.0); Mean Corpuscular Hemoglobin 31.8 pg (27.0-33.0); Mean Corpuscular Volume 94.9 fL (80.0-98.0); Mean Platelet Volume 10.3 fL (9.4-12.4); Monocytes Absolute Auto 0.8 X10*3/uL (0.1-1.2); Monocytes Percent Auto 6.3 % (2-11); Neutrophils Absolute Auto 10.3 x10*3/uL (2.0-8.3); Neutrophils Percent Auto 79.2 % (45-73); Platelet Count 161 X10*3/uL (160-400); Red Cell Distribution Width 14.7 % (11.0-16.0)
--- NOTE | 2022-12-13 07:00 | CA_ITS ---
Transthoracic Echocardiogram Patient (Last, First, Middle): Benedict Wang O Gender: Male Date of : 1945 Age: 77 Procedure Date: 12/13/2022 Procedure Type: Transthoracic Echocardiogram Location: [facility] [place] Height: 185.42 cm Weight: 136.53 kg BSA: 2.56 m2 Heart Rate: bpm BP: 135 / 56 mmHg Health Care Sanitary Technician: Referring MD: Yasmeen Kramer MD Symptoms: FACIAL DROOPING, POSSIBE CVA Study Quality: Fair ECG Rhythm: Sinus Conclusions: - The left ventricular systolic function is low normal. The visually estimated ejection fraction is between 50-55%. - The basal inferior segment is akinetic. - Wall motion assessment suboptimal (IV not working for contrast). - The left atrium is severely dilated. - No obvious valvular pathology seen on this study. Findings Left Ventricle Normal left ventricular cavity size. There is moderately increased left ventricular wall thickness. The left ventricular systolic function is low normal. The visually estimated ejection fraction is between 50-55%. There is evidence of regional wall motion abnormalities. E/E prime ratio is >15, consistent with elevated filling pressures. Evidence suggests grade I (mild) diastolic dysfunction. Wall motion assessment suboptimal. Wall Motion Rest Echo Findings The basal inferior segment is akinetic. Right Ventricle Moderately increased right ventricular cavity size. There is normal right ventricular systolic function. There is a pacemaker wire seen in the right ventricle. Atria The left atrium is severely dilated. The right atrium is normal in size. Aortic Valve There is a normal trileaflet aortic valve. There is no aortic valve stenosis. There is no aortic valve regurgitation. Mitral Valve The mitral valve appears normal. There is trace mitral valve regurgitation. There is no mitral valve stenosis. Pulmonic Valve The pulmonic valve is likely normal. Tricuspid Valve There is trace tricuspid valve regurgitation. There is no evidence of pulmonary hypertension. Great Vessels The asc aorta is normal in size. Venous The inferior vena cava is normal in size and collapses greater than 50% with inspiration. Pericardium/Pleural There is no evidence of pericardial effusion. Prior Study Comparison Changes noted compared to prior study dated: 12/13/2022. LVEF possibly higher. Recommendations, Care & Conclusions No obvious valvular pathology seen on this study. Measurements 2D Linear Measurements IVSd: 1.31 0.6-0.9/0.6-1.0 cm LVIDd: 6.44 3.9-5.3/4.2-5.9 cm LVIDd Index: 2.52 2.4-3.2/2.2-3.1 cm/m2 LVIDs: 4.88 2.0-3.6 cm LVPWd: 1.36 0.7-1.1 cm Ao Root: 3.50 2.1-3.5 cm LA Diam: 5.20 2.7-3.8/3.0-4.0 cm LAIDs Index: 2.03 1.5-2.3 cm/m2 LV Mass: 508.53 67-162/88-224 g LV Mass Index: 198.64 43-95/49-115 g/m2 LVOT Diam: 2.30 3.0+(-)1.3 cm 2D Systolic Function EF 4C: 41.50 >55% EF 2C: 43.50 >55% EF BiP: 42.80 >55% Mitral Valve MV Pk E: 0.70 MV PK A: 0.50 MV Decel Time: 274.00 E/A: 1.40 E'Lateral: 4.13 E'Medial: 4.35 E/E' Med: 16.20 E/E' Lat: 17.00 PHT: 80.00 MVA PHT: 2.75 Decel [place]: 2.56 Aortic Valve AoV Pk Michael: 1.86 AoV Mn Michael: 1.09 AoV VTI: 0.37 AoV Pk Grad: 14.00 Aov Mn Grad: 6.00 ENEIDA Cont.VTI: 2.25 LVOT LVOT Pk Michael: 1.14 LVOT Mn Michael: 0.65 LVOT VTI: 0.20 LVOT Pk Grad: 5.00 LVOT Mn Grad: 2.00 LVOT Diam: 2.30 LVOT Area: 4.15 Diastolic Function MV Pk E: 0.70 MV Pk A: 0.50 E/A: 1.40 E'Medial: 4.35 E/E' Med: 16.20 E' Laterial: 4.13 E/E' Lat: 17.00 Tricuspid Valve TR Pk Michael: 2.71 TR Pk Grad: 29.00 Great Vessels Aorta Ao Root-2D: 3.50 2.0-3.7 cm Ao Asc: 3.30 2.1-3.4 cm Pulmonary Valve PV Pk Michael: 1.11 Peak PV Grad: 5.00 Updated in Other Vendor System with Status of Final Marcelino Howell MD electronically signed on 12/13/2022 12:31:16 PM with status of Final
[2022-12-13 07:18] LABS: Estimated Average Glucose 232 mg/dL; Hemoglobin A1c % 9.7 %
[2022-12-13 07:20] LABS: Anion Gap 14 (12-20); Blood Urea Nitrogen 28 mg/dL (9-16); Carbon Dioxide 27 mmol/L (22-29); Chloride 101 mmol/L (96-108); Cholesterol 131 mg/dL; Estimated Glomerular Filt Rate 36; Glucose Random 184 mg/dL (60-115); HDL Cholesterol 32 mg/dL; LDL Cholesterol Calculated 81 mg/dl; Potassium 3.3 mmol/L (3.3-5.1); Sodium 139 mmol/L (135-145); Triglycerides 94 mg/dL
[2022-12-13 07:22] LABS: Glucose, Whole Blood 158 mg/dL (60-115)
[2022-12-13] MEDS: Insulin Lispro 100 UNIT/ML 3 ML VIAL SUBCUT ×4 (08:22→21:54)
--- NOTE | 2022-12-13 09:45 | P.PNIM_ITS ---
Subjective Subjective Date of Service: 12/13/22 Interval History: no copmlaints, had fever overnight but fairly asymptomatic Physical Exam Vital Signs: Vital Signs: Last Vital Signs Temp 97.9 F 12/13/22 07:54 Pulse 59 12/13/22 07:54 Resp 20 12/13/22 07:54 BP 177/76 H 12/13/22 07:54 Pulse Ox 93 12/13/22 07:54 O2 Del Method Room Air 12/13/22 07:54 BMI result Body Mass Index 39.9 slight left facial droop left lower extremity chronic 4+/5 Objective Data Active Medications Acetaminophen (Acetaminophen 325 Mg Tablet) 650 mg PO Q6H PRN PRN Reason: Pain, Mild (Pain Scale 1-3) Last Admin: 12/13/22 00:40 Dose: 650 mg Documented By: JACKIE Glucose (Glucose Gel 15 Gm Gel..Gram.) 15 gm PO Q15M PRN; Protocol PRN Reason: per Hypoglycemia Standing Ord. Dextrose (D10) 250 mls @ 750 mls/hr IV Q15M PRN; Protocol PRN Reason: per Hypoglycemia Standing Ord. Insulin Glargine (Insulin Glargine,Hum.Rec.Anlog 100 Unit/Ml 10 Ml Vial) 40 unit SUBCUT BEDTIME COUNTS INCLUDE 234 BEDS AT THE [facility] Last Admin: 12/12/22 22:48 Dose: 40 unit Documented By: MARGAUX Insulin Human Lispro (Insulin Lispro 100 Unit/Ml 3 Ml Vial) 0 unit SUBCUT QIDACHS COUNTS INCLUDE 234 BEDS AT THE [facility]; Protocol Last Admin: 12/13/22 08:22 Dose: 2 unit Documented By: ROCIO Melatonin (Melatonin 3 Mg Tablet) 6 mg PO BEDTIME PRN PRN Reason: Insomnia Ondansetron HCl (Ondansetron Hcl 4 Mg/2 Ml Vial) 4 mg IVPUSH Q8H PRN PRN Reason: Nausea and Vomiting Pharmacy Consult (Consult Rx Perform Med Rec) 1 each MISCELLANE ONCE PRN PRN Reason: Consult order Labs 12/13/22 06:01 12/13/22 06:01 Labs: Laboratory Results - last 24 hr 12/12/22 12/12/22 12/12/22 20:01 20:33 20:33 MCV 94.0 MCH 31.7 MCHC 33.7 RDW 14.5 Plt Count 205 D MPV 9.9 Immature Gran % (Auto) 0.4 Neut % (Auto) 79.3 H Lymph % (Auto) 11.9 L [place] % (Auto) 8.2 Eos % (Auto) 0.0 Baso % (Auto) 0.2 Lymph # (Auto) 1.9 [place] # (Auto) 1.3 H Eos # (Auto) 0.0 Baso # (Auto) 0.0 Abs Immat Gran (auto) 0.06 H Absolute Neuts (auto) 12.7 H Absolute Nucleated RBC 0.000 Nucleated RBC % (auto) 0.0 PT 16.2 H INR 1.4 H APTT 33.9 Anion Gap Estim Creat Clear Calc Estimated GFR POC Glucose 138 H Random Glucose Estimat Average Glucose Hemoglobin A1c % Calcium Total Bilirubin AST ALT Alkaline Phosphatase Troponin I High Sens Total Protein Albumin Triglycerides Cholesterol LDL Cholesterol, Calc HDL Cholesterol 12/12/22 12/12/22 12/12/22 20:33 20:33 22:48 MCV MCH MCHC RDW Plt Count MPV Immature Gran % (Auto) Neut % (Auto) Lymph % (Auto) [place] % (Auto) Eos % (Auto) Baso % (Auto) Lymph # (Auto) [place] # (Auto) Eos # (Auto) Baso # (Auto) Abs Immat Gran (auto) Absolute Neuts (auto) Absolute Nucleated RBC Nucleated RBC % (auto) PT INR APTT Anion Gap 15 Estim Creat Clear Calc 53.9 Estimated GFR 38 POC Glucose 95 Random Glucose 108 Estimat Average Glucose Hemoglobin A1c % Calcium 9.3 Total Bilirubin 1.4 H AST 14 ALT 14 Alkaline Phosphatase 157 H Troponin I High Sens 34.8 Total Protein 7.2 Albumin 4.1 Triglycerides Cholesterol LDL Cholesterol, Calc HDL Cholesterol 12/12/22 12/12/22 12/13/22 23:42 23:42 06:01 MCV 94.9 MCH 31.8 MCHC 33.5 RDW 14.7 Plt Count 161 MPV 10.3 Immature Gran % (Auto) 0.5 H Neut % (Auto) 79.2 H Lymph % (Auto) 13.5 L [place] % (Auto) 6.3 Eos % (Auto) 0.0 Baso % (Auto) 0.5 Lymph # (Auto) 1.8 [place] # (Auto) 0.8 Eos # (Auto) 0.0 Baso # (Auto) 0.1 Abs Immat Gran (auto) 0.07 H Absolute Neuts (auto) 10.3 H Absolute Nucleated RBC 0.000 Nucleated RBC % (auto) 0.0 PT INR APTT Anion Gap Estim Creat Clear Calc Estimated GFR POC Glucose Random Glucose Estimat Average Glucose 232 Hemoglobin A1c % 9.7 Calcium Total Bilirubin AST ALT Alkaline Phosphatase Troponin I High Sens Total Protein Albumin Triglycerides 93 Cholesterol 140 LDL Cholesterol, Calc 88 HDL Cholesterol 34 12/13/22 12/13/22 12/13/22 06:01 06:01 07:17 MCV MCH MCHC RDW Plt Count MPV Immature Gran % (Auto) Neut % (Auto) Lymph % (Auto) [place] % (Auto) Eos % (Auto) Baso % (Auto) Lymph # (Auto) [place] # (Auto) Eos # (Auto) Baso # (Auto) Abs Immat Gran (auto) Absolute Neuts (auto) Absolute Nucleated RBC Nucleated RBC % (auto) PT INR APTT Anion Gap 14 Estim Creat Clear Calc 51.0 Estimated GFR 36 POC Glucose 158 H Random Glucose 184 H Estimat Average Glucose Hemoglobin A1c % Calcium 9.0 Total Bilirubin AST ALT Alkaline Phosphatase Troponin I High Sens Total Protein Albumin Triglycerides 94 Cancelled Cholesterol 131 Cancelled LDL Cholesterol, Calc 81 Cancelled HDL Cholesterol 32 Cancelled Assessment and Plan (1) Facial droop: Status: Acute Plan 77M PMH chronic atrial fibrillation on Eliquis status post pacemaker placement, congestive heart failure with reduced ejection fraction, PAULETTE on CPAP, insulin- dependent diabetes mellitus, essential hypertension, chronic kidney disease stage 3, history of CVA 7 years ago with mild residueal LLE weakness presented to the emergency department for evaluation of left-sided facial droop. Left-sided facial droop rule out cva neuro eval asa, statin, eliquis isolated fever no obvious source of infection will monitor off abx for now, follow up UA Permanent atrial fibrillation:? On beta-rocío, amiodarone and Eliquis chronic systolic chf On beta-rocío, Lasix and nitrate diabetes mellitus insulin morbid obesity weight loss reocmmended PAULETTE cpap ckd iii stable DVT prophylaxis:? On Eliquis DNR/DNI reason for continued hospitalization: monitoring for fevers, stroke work up Time Spent With Patient Time: Total time managing care of this patient today ____ minutes. Quality Stroke Does the patient have a stroke diagnosis?: Yes Reason for No Anti-thrombotic by Day Two: N/A - Med Ordered VTE Prior VTE?: No VTE Risk Level:: Medical - moderate - high VTE Device Contraindication: Treatment Not Indicated VTE Drug Contraindication: N/A - Med Ordered
--- NOTE | 2022-12-13 11:23 | P.CNNE_ITS ---
History of Present Illness Data of Consult Service Date: 12/13/22 Primary Care Provider: FIORELLA Cabrales Reason for consult: Facial asymmetry 77 years old man with past medical history of coronary artery disease diabetes and hyperlipidemia came to hospital when somebody noticed that his face was not right and he might be having stroke. He was not aware of any problem. He denied any speech or language difficulty or any focal weakness or numbness. There was no pain or headache. Review of Systems Review of Systems: No recent cold or flu-like illness or ear or eye symptom [facility] Past Medical History Medical History Afib Coronary artery disease History of diverticulitis History of intestinal obstruction Hyperlipidemia Hypertension Ischemic cardiomyopathy Morbid obesity Myocardial infarction Obstructive sleep apnea Stroke Type 2 diabetes mellitus Surgical History Surgical History History of cardiac cath History of cardioversion History of carotid endarterectomy History of permanent cardiac pacemaker placement Social History Social History Household Members: Spouse [facility]: [facility] Do you presently have visiting nurse or other home services: Yes Alcohol intake: never Patient Tobacco Use Status: Former Tobacco user Quit Date: 25 years ago Tobacco use type: Cigarette e-Cigarette/Vaping Use: Never Used Second Hand Smoke Exposure: No Advance Directives Date on File: 04/04/22 service: Yes Current occupational status: retired Meds Allergies Allergy/AdvReac Type Severity Reaction Status Date / Time No Known Allergies Allergy Verified 10/23/22 14:09 Active Medications: Current Medications Acetaminophen (Acetaminophen 325 Mg Tablet) 650 mg PO Q6H PRN PRN Reason: Pain, Mild (Pain Scale 1-3) Last Admin: 12/13/22 00:40 Dose: 650 mg Glucose (Glucose Gel 15 Gm Gel..Gram.) 15 gm PO Q15M PRN; Protocol PRN Reason: per Hypoglycemia Standing Ord. Dextrose (D10) 250 mls @ 750 mls/hr IV Q15M PRN; Protocol PRN Reason: per Hypoglycemia Standing Ord. Insulin Glargine (Insulin Glargine,Hum.Rec.Anlog 100 Unit/Ml 10 Ml Vial) 40 un it SUBCUT BEDTIME ERWIN Last Admin: 12/12/22 22:48 Dose: 40 unit Insulin Human Lispro (Insulin Lispro 100 Unit/Ml 3 Ml Vial) 0 unit SUBCUT QIDACHS [facility]; Protocol Last Admin: 12/13/22 08:22 Dose: 2 unit Melatonin (Melatonin 3 Mg Tablet) 6 mg PO BEDTIME PRN PRN Reason: Insomnia Ondansetron HCl (Ondansetron Hcl 4 Mg/2 Ml Vial) 4 mg IVPUSH Q8H PRN PRN Reason: Nausea and Vomiting Pharmacy Consult (Consult Rx Perform Med Rec) 1 each MISCELLANE ONCE PRN PRN Reason: Consult order Home Medications Medication Instructions Recorded Confirmed Last Taken Type apixaban 5 mg tablet 5 mg PO BID 02/03/22 10/23/22 12/12/22 09:00 History cyanocobalamin (vitamin B-12) 1,000 mcg PO DAILY 02/03/22 10/23/22 12/12/22 09:00 History 1,000 mcg tablet insulin aspart U-100 100 unit/mL 18 unit subcut TIDAC 02/03/22 10/23/22 12/12/22 09:00 History (3 mL) subcutaneous pen (Novolog FlexPen U-100 Insulin aspart) insulin glargine 100 unit/mL (3 50 unit subcut BEDTIME 02/03/22 10/23/2211/19 History mL) subcutaneous pen (Lantus Solostar U-100 Insulin) melatonin 10 mg tablet 10 mg PO BEDTIME PRN Insomnia 02/03/22 10/23/22 12/11/22 History aspirin 81 mg tablet,delayed 81 mg PO DAILY 03/31/22 10/23/22 12/12/22 09:00 History release furosemide 40 mg tablet (Lasix) 80 mg PO DAILY 03/31/22 10/23/22 12/12/22 09:00 History atorvastatin 80 mg tablet 80 mg PO BEDTIME 04/10/22 10/23/22 12/12/22 09:00 History carvedilol 25 mg tablet 25 mg PO BID 04/10/22 10/23/22 12/12/22 09:00 History nitroglycerin 0.4 mg sublingual 0.4 mg sublingual Q3M PRN Chest 12/13/22 Unknown History tablet Pain Physical Exam Vital Signs: Vital Signs: Last Vital Signs Temp 99.5 F 12/13/22 11:13 Pulse 58 12/13/22 11:13 Resp 20 12/13/22 11:13 BP 130/60 12/13/22 11:13 Pulse Ox 94 12/13/22 11:13 O2 Del Method Room Air 12/13/22 11:13 BMI result Body Mass Index 39.9 Neuro: Other: He is alert and awake with normal spontaneity of speech fluency comprehension and affect. There is mild left-sided central type facial flatness. Tongue is midline. Visual montero are full. There is no pronator drift. Deep tendon reflexes are absent with flexor plantars. Results Labs 12/13/22 06:01 12/13/22 06:01 Labs: Short CBC 12/12/22 12/13/22 Range/Units 20:33 06:01 WBC 16.0 H 13.0 H (4.8-10.8) X10*3/uL Hgb 14.7 14.3 (14.0-18.0) g/dl Hct 43.6 42.7 (42.0-52.0) % Plt Count 205 D 161 (160-400) X10*3/uL BMP 12/12/22 12/13/22 20:33 06:01 Sodium 140 139 Potassium 3.7 3.3 Chloride 102 101 Carbon Dioxide 27 27 BUN 27 H 28 H Creatinine 1.75 H 1.82 H Calcium 9.3 9.0 Liver Function 12/12/22 Range/Units 20:33 Total Bilirubin 1.4 H (0.0-1.0) mg/dL AST 14 (5-37) U/L ALT 14 (0-40) U/L Alkaline Phosphatase 157 H (39-117) U/L Albumin 4.1 (3.5-5.0) g/dL Noncontrast head CT revealed mild cerebral atrophy, mild chronic microvascular ischemic changes and a chronic right basal ganglia area ischemic infarction. Assessment and Plan (1) Facial droop: Status: Acute 77 years old man with diabetes hypertension and hyperlipidemia came to hospital with new onset of facial asymmetry. His exam reveals mild left-sided central t ype facial weakness. He has a chronic right basal ganglia area infarct but no obvious acute infarction on head CT. He might have a small lesion not visible on head CT. If possible noncontrast MRI brain is recommended. Also recommended is CTA of brain and neck. Continue anti-platelet agent and control of vascular risk factors. (2) Stroke: Status: Acute Time Spent With Patient Time: Total time managing care of this patient today ____ minutes. Procedures Date of Service Date of Service: 12/13/22
[2022-12-13 11:24] LABS: Glucose, Whole Blood 386 mg/dL (60-115)
--- NOTE | 2022-12-13 11:33 | PHA.MEDREC ---
Pharmacy Consult ? Medication Reconciliation Pharmacy has completed the medication reconciliation.
[2022-12-13] MEDS: Amiodarone HCL 200 MG TABLET PO (11:45)
[2022-12-13 12:32] LABS: Appearance Urine Clear; Color Urine Yellow; Glucose Urine UA >=1000 mg/dL (Negative); Leukocyte Esterase Urine Negative (Negative); Nitrite Urine Negative (Negative); PH 5.5 (5.0-9.0); Specific Gravity - Urine >= 1.030 (1.005-1.025); UMIC TRIGGER UACC YES; Urine Blood Negative (Negative); Urine Ketones Negative (Negative); Urine Protein 100 (2+) mg/dL (Neg-Trace)
[2022-12-13 12:35] LABS: Bacteria Urine None Seen (None Seen); Hyaline Casts Urine 0-2 /LPF (0-2); RBC Urine 0-2 /HPF (0-2); Squamous Epithelial Cell Urine 0-2 /HPF (0-2); WBC Urine 0-5 /HPF (0-5)
--- NOTE | 2022-12-13 12:40 | MHC.CM.PN ---
CM met with Patient at bedside and addressed IMM with him, providing him with the original and placing a copy on the chart. Patient lives in a condo with his and he required no services nor DME PROP ATTENDANT. Home self care is the goal and CM has initiated and will follow for dc planning. Patient has received Pfizer/Covid vax x1 and his PCP is Dr. Isaac Montoya.
--- NOTE | 2022-12-13 14:01 | MHC.STROKE ---
i met with the patient to provide stroke education and review all of his individual risk factors for stroke. We reviewed the stroke educaiton booklet, I answered his questions, he is compliant with this medications, utilizes 911 and knows when to call and he will follow up with his pcp.
[2022-12-13] MEDS: hydrALAZINE HCl 25 MG TABLET PO (14:20)
[2022-12-13] MEDS: Isosorbide Dinitrate 5 MG TABLET PO (14:21)
[2022-12-13 16:03] LABS: Glucose, Whole Blood 323 mg/dL (60-115)
[2022-12-13 20:38] LABS: Glucose, Whole Blood 319 mg/dL (60-115)
[2022-12-13] MEDS: Morphine Sulfate 2 MG/ML CARTRIDGE IVPUSH (21:24)
[2022-12-13 21:34] LABS: ABG Base Excess -1.1 mmol/L; ABG HCO3 21 mmol/L (22-26); ABG pCO2 29 mmHg (32-45); ABG pH 7.46 (7.35-7.45); ABG pO2 70 mmHg (83-108)
[2022-12-13] MEDS: Insulin Glargine,Hum.rec.anlog 100 UNIT/ML 10 ML VIAL 40 UNIT SUBCUT (21:54)
[2022-12-13] MEDS: Apixaban 5 MG TABLET PO (21:55)
--- NOTE | 2022-12-13 21:55 | PM.EVENT ---
Event Note Date of Service: 12/13/22 Event Note: Was contacted by the nurse as patient was with tachypnea and hypoxemia. Patient put on his nighttime CPAP with 4 L supplemental oxygen. BP and heart rate okay. Tachypnea noted. His oral temp was 101.3 degrees. Ordering chest x-ray, ABG, lactic acid, blood cultures. Does meet sepsis criteria, will order 1 dose of empiric antibiotic and fluids. Troponin pending. No cough or chest discomfort Time Spent With Patient Time: Total time managing care of this patient today ____ minutes.
[2022-12-13 22:33] LABS: Lactic Acid 2.2 mmol/L (0.5-2.0)
[2022-12-13] MEDS: cefTRIAXone sodium 1 GM in 0.9 % Sodium Chloride 50 ML IV (22:40)
[2022-12-13 22:49] LABS: B Type Natriuretic Peptide 1645 pg/mL (<100)
[2022-12-13 23:08] LABS: Troponin-I High Sensitivity 116.5 ng/L (<3.5-35.0)
--- NOTE | 2022-12-13 23:09 | PM.EVENT ---
Event Note Date of Service: 12/13/22 Event Note: Noted elevated troponin. Patient already on anticoagulation, antiplatelet agent and beta-rocío. Echocardiogram obtained. Consulting cardiology. Will obtain EKG Time Spent With Patient Time: Total time managing care of this patient today ____ minutes.
[2022-12-13 23:28] LABS: ABG Refer to POC result
[2022-12-13 23:41] LABS: Reflex Lactate? Lactic Acid Added
[2022-12-14] VITALS (10 sets, daily range): BP systolic 99–141; BP diastolic 53–68; PULSE 55–88; RESP 14–20; TEMP 36.3–37.6; O2SAT 92–99
[2022-12-14 00:18] LABS: ~Lactic Acid-LAB USE ONLY 1.4 mmol/L (0.5-2.0)
--- NOTE | 2022-12-14 05:12 | PC.NURSE ---
Assumed care at 15:00. Patient alert, oriented x4. Patient with history of left sided weakness, had presented with left sided facial droop. Neuro findings included these, but also that he has trouble mainaining his posture in a seated position or standing position, and that he leans repeatedly to his left. Patient is able to stay upright when positioned in a seated postion with assistance. Patient also reports his urinary incontinence is new. MD notifeid. Patient without other neurological findings. Patient with elevated POCs in the 300's in setting of not having his lantus at his home dose of 54 Units nightly, MD notified, no change at this time. Through afternoon into evening, He had been struggling to void over and over again and incontinent, seemed like he may have become SOB secondary to exertion with trying to void over and over again. Patient at 21:00 had increased WOB, felt short of breath. His RR was 48 to 60, his O2 sat was 82% on room air and with RT at bedside was started on oxygen and oxygen was uptitrated to 5 LPM with CPAP of autocpap 8-20 CM H2O. Patietn denies home use of oxygen or breathing treatments. His oral Temp wass 101.3. He seemed to be meeting sepsis criteria. His pulse was 79. manual blood pressure 158/60. 84% on 2L, titrated up to 92% on 5 LPM. Many medications held per MD included atorvastatin 80, Carvedilol 25mg, hydralazine 25, Isosorbide dinitrite 5 mg. Was adminitered eliquis, 8U lispro at HS, and 40 U lantus, per MD. Patient also given morphine per MD order for increased work of breathing, though denied any pain or chest pain, and this was with good effect, with decreased WOB and tachypnea resolving over night time. New IV to left AC, given 100 ccs IV normal saline bolus per MD, order clarified. Patient also had CXR showing improvment in vascular congestion, as well as critical lactate of 2.2 and critical troponins of 116, MD aware. Darling placed per sepsis guidelines as well as to aleviate apparent increased WOB with exertion related to urination.
[2022-12-14 07:08] LABS: Hematocrit 38.9 % (42.0-52.0); Hemoglobin 12.9 g/dl (14.0-18.0); Mean Corpuscular HGB Conc 33.2 g/dl (31.0-36.0); Mean Corpuscular Hemoglobin 31.5 pg (27.0-33.0); Mean Corpuscular Volume 94.9 fL (80.0-98.0); Mean Platelet Volume 10.6 fL (9.4-12.4); Platelet Count 142 X10*3/uL (160-400); Red Cell Distribution Width 14.8 % (11.0-16.0); White Blood Count 13.1 X10*3/uL (4.8-10.8)
[2022-12-14 07:53] LABS: Blood Urea Nitrogen 32 mg/dL (9-16); Calcium 8.8 mg/dL (8.4-10.2); Carbon Dioxide 26 mmol/L (22-29); Chloride 100 mmol/L (96-108); Creatinine Clr Calc Pharmacy 46.1; Estimated Glomerular Filt Rate 33; Glucose Fasting 198 mg/dL (60-99); Potassium 3.5 mmol/L (3.3-5.1); Sodium 136 mmol/L (135-145)
[2022-12-14 07:59] LABS: Troponin-I High Sensitivity 164.2 ng/L (<3.5-35.0)
[2022-12-14 08:05] LABS: Glucose, Whole Blood 237 mg/dL (60-115)
[2022-12-14] MEDS: carvediloL 25 MG TABLET PO ×2 (08:25→21:40)
[2022-12-14] MEDS: lisinopriL 2.5 MG TABLET PO (08:25)
[2022-12-14] MEDS: Amiodarone HCL 200 MG TABLET PO (08:25)
[2022-12-14] MEDS: Aspirin Enteric Coated 81 MG TABLET.DR PO (08:25)
[2022-12-14] MEDS: Isosorbide Dinitrate 5 MG TABLET PO ×2 (08:25→21:40)
[2022-12-14] MEDS: Furosemide 40 MG TABLET 80 MG PO (08:25)
[2022-12-14] MEDS: Cyanocobalamin (Vitamin B-12) 1,000 MCG TABLET 1000 MCG PO (08:25)
[2022-12-14] MEDS: Apixaban 5 MG TABLET PO ×2 (08:25→21:41)
[2022-12-14] MEDS: hydrALAZINE HCl 25 MG TABLET PO ×2 (08:25→21:41)
[2022-12-14] MEDS: Insulin Lispro 100 UNIT/ML 3 ML VIAL SUBCUT ×4 (08:26→21:41)
[2022-12-14 08:28] LABS: Anion Gap 14 (12-20)
--- NOTE | 2022-12-14 10:39 | HO.PM.IMPN ---
Subjective Subjective Date of Service: 12/14/22 Interval History: had fever again but does not feel sick Physical Exam Vital Signs: Vital Signs: Last Vital Signs Temp 98.4 F 12/14/22 07:28 Pulse 66 12/14/22 07:28 Resp 20 12/14/22 07:28 BP 119/64 12/14/22 07:28 Pulse Ox 96 12/14/22 07:28 O2 Del Method Nasal Cannula 12/14/22 07:28 O2 Flow Rate 6 12/14/22 07:28 BMI result Body Mass Index 39.9 Neuro: Other: He is alert and awake with normal spontaneity of speech fluency comprehension and affect. There is mild left-sided central type facial flatness. Tongue is midline. Visual montero are full. There is no pronator drift. Deep tendon reflexes are absent with flexor plantars. Objective Data Active Medications Acetaminophen (Acetaminophen 325 Mg Tablet) 650 mg PO Q6H PRN PRN Reason: Pain, Mild (Pain Scale 1-3) Last Admin: 12/13/22 00:40 Dose: 650 mg Documented By: JACKIE Amiodarone HCl (Amiodarone Hcl 200 Mg Tablet) 200 mg PO DAILY [facility] Last Admin: 12/14/22 08:25 Dose: 200 mg Documented By: CHARLOTTE Apixaban (Apixaban 5 Mg Tablet) 5 mg PO BID [facility] Last Admin: 12/14/22 08:25 Dose: 5 mg Documented By: CHARLOTTE Aspirin (Aspirin Enteric Coated 81 Mg Tablet.) 81 mg PO DAILY [facility] Last Admin: 12/14/22 08:25 Dose: 81 mg Documented By: CHARLOTTE Atorvastatin Calcium (Atorvastatin Calcium 80 Mg Tablet) 80 mg PO BEDTIME [facility] Last Admin: 12/13/22 22:03 Dose: Not Given Documented By: ANNIE Non-Admin Reason: Physician Held Med Carvedilol (Carvedilol 25 Mg Tablet) 25 mg PO BID [facility]; Protocol Last Admin: 12/14/22 08:25 Dose: 25 mg Documented By: CHARLOTTE Cyanocobalamin (Cyanocobalamin (Vitamin B-12) 1,000 Mcg Tablet) 1,000 mcg PO DAILY [facility] Last Admin: 12/14/22 08:25 Dose: 1,000 mcg Documented By: CHARLOTTE Furosemide (Furosemide 40 Mg Tablet) 80 mg PO DAILY [facility]; Protocol Last Admin: 12/14/22 08:25 Dose: 80 mg Documented By: CHARLOTTE Glucose (Glucose Gel 15 Gm Gel..Gram.) 15 gm PO Q15M PRN; Protocol PRN Reason: per Hypoglycemia Standing Ord. Hydralazine HCl (Hydralazine Hcl 25 Mg Tablet) 25 mg PO TID [facility]; Protocol Last Admin: 12/14/22 08:25 Dose: 25 mg Documented By: CHARLOTTE Dextrose (D10) 250 mls @ 750 mls/hr IV Q15M PRN; Protocol PRN Reason: per Hypoglycemia Standing Ord. Insulin Glargine (Insulin Glargine,Hum.Rec.Anlog 100 Unit/Ml 10 Ml Vial) 40 unit SUBCUT BEDTIME [facility] Last Admin: 12/13/22 21:54 Dose: 40 unit Documented By: ANNIE Insulin Human Lispro (Insulin Lispro 100 Unit/Ml 3 Ml Vial) 0 unit SUBCUT QIDACHS [facility]; Protocol Last Admin: 12/14/22 08:26 Dose: 4 unit Documented By: CHARLOTTE Isosorbide Dinitrate (Isosorbide Dinitrate 5 Mg Tablet) 5 mg PO TID [facility]; Protocol Last Admin: 12/14/22 08:25 Dose: 5 mg Documented By: CHARLOTTE Lisinopril (Lisinopril 2.5 Mg Tablet) 2.5 mg PO DAILY [facility]; Protocol Last Admin: 12/14/22 08:25 Dose: 2.5 mg Documented By: CHARLOTTE Melatonin (Melatonin 3 Mg Tablet) 6 mg PO BEDTIME PRN PRN Reason: Insomnia Ondansetron HCl (Ondansetron Hcl 4 Mg/2 Ml Vial) 4 mg IVPUSH Q8H PRN PRN Reason: Nausea and Vomiting Pharmacy Consult (Consult Rx Perform Med Rec) 1 each MISCELLANE ONCE PRN PRN Reason: Consult order Labs 12/14/22 06:19 12/14/22 06:19 Labs: Laboratory Results - last 24 hr 12/13/22 12/13/22 12/13/22 11:12 11:44 15:56 MCV MCH MCHC RDW Plt Count MPV Absolute Nucleated RBC Nucleated RBC % (auto) O2 Saturation ABG pH at Pt Temp ABG pCO2 at Pt Temp ABG pO2 at Pt Temp ABG HCO3 ABG Base Excess (Actual) Anion Gap Estim Creat Clear Calc Estimated GFR POC Glucose 386 H* 323 H Fasting Glucose Lactic Acid Lactic Acid F/U @ 2Hr Calcium Troponin I High Sens B-Natriuretic Peptide Urine Color Yellow Urine Appearance Clear Urine pH 5.5 Ur Specific [place] >= 1.030 H Urine Protein 100 (2+) H Urine Glucose (UA) >=1000 H Urine Ketones Negative Urine Blood Negative Urine Nitrite Negative Ur Leukocyte Esterase Negative Urine RBC 0-2 Urine WBC 0-5 Ur Squamous Epith Cells 0-2 Urine Bacteria None Seen Hyaline Casts 0-2 12/13/22 12/13/22 12/13/22 20:33 21:24 21:36 MCV MCH MCHC RDW Plt Count MPV Absolute Nucleated RBC Nucleated RBC % (auto) O2 Saturation 94.0 ABG pH at Pt Temp 7.46 H ABG pCO2 at Pt Temp 29 L ABG pO2 at Pt Temp 70 L ABG HCO3 21 L ABG Base Excess (Actual) -1.1 Anion Gap Estim Creat Clear Calc Estimated GFR POC Glucose 319 H Fasting Glucose Lactic Acid 2.2 H* Lactic Acid F/U @ 2Hr Calcium Troponin I High Sens B-Natriuretic Peptide Urine Color Urine Appearance Urine pH Ur Specific [place] Urine Protein Urine Glucose (UA) Urine Ketones Urine Blood Urine Nitrite Ur Leukocyte Esterase Urine RBC Urine WBC Ur Squamous Epith Cells Urine Bacteria Hyaline Casts 12/13/22 12/13/22 12/14/22 22:17 22:17 00:03 MCV MCH MCHC RDW Plt Count MPV Absolute Nucleated RBC Nucleated RBC % (auto) O2 Saturation ABG pH at Pt Temp ABG pCO2 at Pt Temp ABG pO2 at Pt Temp ABG HCO3 ABG Base Excess (Actual) Anion Gap Estim Creat Clear Calc Estimated GFR POC Glucose Fasting Glucose Lactic Acid Lactic Acid F/U @ 2Hr 1.4 Calcium Troponin I High Sens 116.5 H* D B-Natriuretic Peptide 1645 H Urine Color Urine Appearance Urine pH Ur Specific [place] Urine Protein Urine Glucose (UA) Urine Ketones Urine Blood Urine Nitrite Ur Leukocyte Esterase Urine RBC Urine WBC Ur Squamous Epith Cells Urine Bacteria Hyaline Casts 12/14/22 12/14/22 12/14/22 06:19 06:19 06:19 MCV 94.9 MCH 31.5 MCHC 33.2 RDW 14.8 Plt Count 142 L MPV 10.6 Absolute Nucleated RBC 0.000 Nucleated RBC % (auto) 0.0 O2 Saturation ABG pH at Pt Temp ABG pCO2 at Pt Temp ABG pO2 at Pt Temp ABG HCO3 ABG Base Excess (Actual) Anion Gap 14 Estim Creat Clear Calc 46.1 Estimated GFR 33 POC Glucose Fasting Glucose 198 H Lactic Acid Lactic Acid F/U @ 2Hr Calcium 8.8 Troponin I High Sens 164.2 H* B-Natriuretic Peptide Urine Color Urine Appearance Urine pH Ur Specific [place] Urine Protein Urine Glucose (UA) Urine Ketones Urine Blood Urine Nitrite Ur Leukocyte Esterase Urine RBC Urine WBC Ur Squamous Epith Cells Urine Bacteria Hyaline Casts 12/14/22 07:32 MCV MCH MCHC RDW Plt Count MPV Absolute Nucleated RBC Nucleated RBC % (auto) O2 Saturation ABG pH at Pt Temp ABG pCO2 at Pt Temp ABG pO2 at Pt Temp ABG HCO3 ABG Base Excess (Actual) Anion Gap Estim Creat Clear Calc Estimated GFR POC Glucose 237 H Fasting Glucose Lactic Acid Lactic Acid F/U @ 2Hr Calcium Troponin I High Sens B-Natriuretic Peptide Urine Color Urine Appearance Urine pH Ur Specific [place] Urine Protein Urine Glucose (UA) Urine Ketones Urine Blood Urine Nitrite Ur Leukocyte Esterase Urine RBC Urine WBC Ur Squamous Epith Cells Urine Bacteria Hyaline Casts Assessment and Plan (1) Facial droop: Status: Acute Plan 77M PMH chronic atrial fibrillation on Eliquis status post pacemaker placement, cad, congestive heart failure with reduced ejection fraction, PAULETTE on CPAP, insulin-dependent diabetes mellitus, essential hypertension, chronic kidney disease stage 3, history of CVA 7 years ago with mild residueal LLE weakness presented to the emergency department for evaluation of left-sided facial droop. Left-sided facial droop possible cva neuro appreciated cd with lien occlusion - vascular eval asa, statin, eliquis fevers no obvious source of infection will monitor off abx for now, ID eval, follow up cultures elevated trop has known CAD, likely cardiac strain, not acs, follow up cardio Permanent atrial fibrillation:? On beta-rocío, amiodarone and Eliquis chronic chf with recovered EF On beta-rocío, Lasix and nitrate diabetes mellitus insulin morbid obesity weight loss recommended PAULETTE cpap ckd iii stable DVT prophylaxis:? On Eliquis DNR/DNI reason for continued hospitalization: monitoring for fevers Time Spent With Patient Time: Total time managing care of this patient today ____ minutes. Quality Stroke Does the patient have a stroke diagnosis?: Yes Reason for No Anti-thrombotic by Day Two: N/A - Med Ordered VTE Prior VTE?: No VTE Risk Level:: Medical - moderate - high VTE Device Contraindication: Treatment Not Indicated VTE Drug Contraindication: N/A - Med Ordered
--- NOTE | 2022-12-14 11:31 | P.CONCA_ITS ---
History of Present Illness History of Present Illness Date of Service: 12/14/22 Chief complaint: facial droop Narrative: This is a cardiology consultation regarding elevated troponins. Patient is seen by Dr. Meeks in clinic. He has a history of cardiomyopathy with ejection fraction 30-35% range. He also has coronary disease but it was felt that it will just be treated medically. Also history of atrial fibrillation and has had cardioversion in the past. Multiple medical comorbidities including diabetes, hypertension, chronic kidney disease, stroke. He presented to the hospital with left-sided facial droop. In this context, troponins were checked and they were found to be elevated and hence we were consulted. Patient herself has absolutely no cardiac symptoms. Denies any chest pain or shortness of breath or in fact anything cardiac sounding. Review of Systems Review of Systems: Yes all other systems are reviewed and are negative Constitutional: Constitutional: Reports as per HPI and Reports no additional constitutional complaints Eyes: Eyes: Reports as per HPI and Denies no additional eye complaints ENT: Denies system reviewed and no additional complaints, except as documented and Reports as per HPI Cardiovascular: Cardiovascular: Reports as per HPI, Reports no additional cardiovascular complaints, Denies acrocyanosis, Denies cool extremities, Denies chest pain, Denies leg edema, Denies lightheadedness, Denies palpitations and Denies dyspnea Respiratory: Respiratory: Reports as per HPI, Denies no additional respiratory complaints and Denies dyspnea Gastrointestinal: Gastrointestinal: Reports as per HPI and Denies no additional gastrointestinal complaints Genitourinary: Genitourinary: Reports no additional male genitourinary complaints and Reports as per HPI Musculoskeletal: Musculoskeletal: Reports no additional musculoskeletal complaints and Reports as per HPI Integumentary/Breasts: Skin/Breast: Reports system reviewed and no additional complaints, except as docu Neurologic: Reports system reviewed and no additional complaints, except as documented and Reports as per HPI Psychiatric: Psychiatric: Reports no additional psychiatric complaints and Reports as per HPI Endocrine: Endocrine: Reports no additional endocrine complaints, Reports as per HPI and Denies palpitations Hematologic/Lymphatic: Hematologic/Lymphatic: Reports no additional hematologic/lymphatic complaints and Reports as per HPI Allergic/Immunologic: Allergic/Immunologic: Reports no additional allergic/immunologic complaints and Reports as per HPI [facility] Past Medical History Medical History Afib Coronary artery disease History of diverticulitis History of intestinal obstruction Hyperlipidemia Hypertension Ischemic cardiomyopathy Morbid obesity Myocardial infarction Obstructive sleep apnea Stroke Type 2 diabetes mellitus Family History Pertinent family history: No significant family history pertinent to this admission. Surgical History Surgical History History of cardiac cath History of cardioversion History of carotid endarterectomy History of permanent cardiac pacemaker placement Social History Social History Household Members: [facility] Do you presently have visiting nurse or other home services: Yes Alcohol intake: never Patient Tobacco Use Status: Former Tobacco user Quit Date: 25 years ago Tobacco use type: Cigarette e-Cigarette/Vaping Use: Never Used Second Hand Smoke Exposure: No Advance Directives Date on File: 04/04/22 service: Yes Current occupational status: retired [employer] Allergies Allergy/AdvReac Type Severity Reaction Status Date / Time No Known Allergies Allergy Verified 10/23/22 14:09 Active Medications: Current Medications Acetaminophen (Acetaminophen 325 Mg Tablet) 650 mg PO Q6H PRN PRN Reason: Pain, Mild (Pain Scale 1-3) Last Admin: 12/13/22 00:40 Dose: 650 mg Amiodarone HCl (Amiodarone Hcl 200 Mg Tablet) 200 mg PO DAILY REPLACED BY [facility] Last Admin: 12/14/22 08:25 Dose: 200 mg Apixaban (Apixaban 5 Mg Tablet) 5 mg PO BID REPLACED BY [facility] Last Admin: 12/14/22 08:25 Dose: 5 mg Aspirin (Aspirin Enteric Coated 81 Mg Tablet.Dr) 81 mg PO DAILY REPLACED BY [facility] Last Admin: 12/14/22 08:25 Dose: 81 mg Atorvastatin Calcium (Atorvastatin Calcium 80 Mg Tablet) 80 mg PO BEDTIME REPLACED BY [facility] Last Admin: 12/13/22 22:03 Dose: Not Given Carvedilol (Carvedilol 25 Mg Tablet) 25 mg PO BID REPLACED BY [facility]; Protocol Last Admin: 12/14/22 08:25 Dose: 25 mg Cyanocobalamin (Cyanocobalamin (Vitamin B-12) 1,000 Mcg Tablet) 1,000 mcg PO DAILY REPLACED BY [facility] Last Admin: 12/14/22 08:25 Dose: 1,000 mcg Furosemide (Furosemide 40 Mg Tablet) 80 mg PO DAILY REPLACED BY [facility]; Protocol Last Admin: 12/14/22 08:25 Dose: 80 mg Glucose (Glucose Gel 15 Gm Gel..Gram.) 15 gm PO Q15M PRN; Protocol PRN Reason: per Hypoglycemia Standing Ord. Hydralazine HCl (Hydralazine Hcl 25 Mg Tablet) 25 mg PO TID REPLACED BY [facility]; Protocol Last Admin: 12/14/22 08:25 Dose: 25 mg Dextrose (D10) 250 mls @ 750 mls/hr IV Q15M PRN; Protocol PRN Reason: per Hypoglycemia Standing Ord. Insulin Glargine (Insulin Glargine,Hum.Rec.Anlog 100 Unit/Ml 10 Ml Vial) 40 unit SUBCUT BEDTIME REPLACED BY [facility] Last Admin: 12/13/22 21:54 Dose: 40 unit Insulin Human Lispro (Insulin Lispro 100 Unit/Ml 3 Ml Vial) 0 unit SUBCUT QIDACHS REPLACED BY [facility]; Protocol Last Admin: 12/14/22 08:26 Dose: 4 unit Isosorbide Dinitrate (Isosorbide Dinitrate 5 Mg Tablet) 5 mg PO TID REPLACED BY [facility]; Protocol Last Admin: 12/14/22 08:25 Dose: 5 mg Lisinopril (Lisinopril 2.5 Mg Tablet) 2.5 mg PO DAILY REPLACED BY [facility]; Protocol Last Admin: 12/14/22 08:25 Dose: 2.5 mg Melatonin (Melatonin 3 Mg Tablet) 6 mg PO BEDTIME PRN PRN Reason: Insomnia Ondansetron HCl (Ondansetron Hcl 4 Mg/2 Ml Vial) 4 mg IVPUSH Q8H PRN PRN Reason: Nausea and Vomiting Pharmacy Consult (Consult Rx Perform Med Rec) 1 each MISCELLANE ONCE PRN PRN Reason: Consult order Home Medications Medication Instructions Recorded Confirmed Last Taken Type apixaban 5 mg tablet 5 mg PO BID 02/03/22 12/13/22 12/12/22 09:00 History cyanocobalamin (vitamin B-12) 1,000 mcg PO DAILY 02/03/22 12/13/22 12/12/22 09:00 History 1,000 mcg tablet insulin aspart U-100 100 unit/mL 18 unit subcut TIDAC 02/03/22 12/13/22 12/12/22 09:00 History (3 mL) subcutaneous pen (Novolog FlexPen U-100 Insulin aspart) insulin glargine 100 unit/mL (3 54 unit subcut BEDTIME 02/03/22 12/13/22 12/11/22 History mL) subcutaneous pen (Lantus Solostar U-100 Insulin) aspirin 81 mg tablet,delayed 81 mg PO DAILY 03/31/22 12/13/22 12/12/22 09:00 History release furosemide 40 mg tablet (Lasix) 80 mg PO DAILY 03/31/22 12/13/22 12/12/22 09:00 History atorvastatin 80 mg tablet 80 mg PO BEDTIME 04/10/22 12/13/22 12/12/22 09:00 History carvedilol 25 mg tablet 25 mg PO BID 04/10/22 12/13/22 12/12/22 09:00 History lisinopril 2.5 mg tablet 2.5 mg PO DAILY 12/13/22 12/13/22 Unknown History Physical Exam Vital Signs: Vital Signs: Last Vital Signs Temp 97.8 F 12/14/22 11:17 Pulse 60 12/14/22 11:17 Resp 20 12/14/22 11:17 BP 120/64 12/14/22 11:17 Pulse Ox 94 12/14/22 11:17 O2 Del Method Room Air 12/14/22 11:17 O2 Flow Rate 6 12/14/22 07:28 BMI result Body Mass Index 39.9 Const: General: comfortable and no acute distress Orientation/consciousness: patient oriented x3 HEENT: Other: Unremarkable Head: Yes normal to inspection Neck: Neck: Yes normal visual inspection Chest: Chest palpation & inspection: normal inspection of the chest Resp: Auscultation: clear to auscultation bilaterally Cardio: Palpation: normal PMI Heart sounds: S1 normal heart sound present, S2 normal heart sound present, no gallops, no murmurs and no rubs GI: Palpation (GI): Soft to palpation Back/Spine/Pelvis: Other: unremarkable Skin: General skin exam: no rashes or lesions noted Neuro: General: patient oriented x3 Extrem: General: Yes normal to inspection Psych: Mental Status: mental status grossly normal Objective Labs and Meds 12/14/22 06:19 12/14/22 06:19 Lab results: Laboratory Results - last 24 hr 12/13/22 12/13/22 12/13/22 11:44 15:56 20:33 WBC RBC Hgb Hct MCV MCH MCHC RDW Plt Count MPV Absolute Nucleated RBC Nucleated RBC % (auto) O2 Saturation ABG pH at Pt Temp ABG pCO2 at Pt Temp ABG pO2 at Pt Temp ABG HCO3 ABG Base Excess (Actual) Sodium Potassium Chloride Carbon Dioxide Anion Gap BUN Creatinine Estim Creat Clear Calc Estimated GFR POC Glucose 323 H 319 H Fasting Glucose Lactic Acid Lactic Acid F/U @ 2Hr Calcium Troponin I High Sens B-Natriuretic Peptide Urine Color Yellow Urine Appearance Clear Urine pH 5.5 Ur Specific [place] >= 1.030 H Urine Protein 100 (2+) H Urine Glucose (UA) >=1000 H Urine Ketones Negative Urine Blood Negative Urine Nitrite Negative Ur Leukocyte Esterase Negative Urine RBC 0-2 Urine WBC 0-5 Ur Squamous Epith Cells 0-2 Urine Bacteria None Seen Hyaline Casts 0-2 12/13/22 12/13/22 12/13/22 21:24 21:36 22:17 WBC RBC Hgb Hct MCV MCH MCHC RDW Plt Count MPV Absolute Nucleated RBC Nucleated RBC % (auto) O2 Saturation 94.0 ABG pH at Pt Temp 7.46 H ABG pCO2 at Pt Temp 29 L ABG pO2 at Pt Temp 70 L ABG HCO3 21 L ABG Base Excess (Actual) -1.1 Sodium Potassium Chloride Carbon Dioxide Anion Gap BUN Creatinine Estim Creat Clear Calc Estimated GFR POC Glucose Fasting Glucose Lactic Acid 2.2 H* Lactic Acid F/U @ 2Hr Calcium Troponin I High Sens 116.5 H* D B-Natriuretic Peptide Urine Color Urine Appearance Urine pH Ur Specific [place] Urine Protein Urine Glucose (UA) Urine Ketones Urine Blood Urine Nitrite Ur Leukocyte Esterase Urine RBC Urine WBC Ur Squamous Epith Cells Urine Bacteria Hyaline Casts 12/13/22 12/14/22 12/14/22 22:17 00:03 06:19 WBC 13.1 H RBC 4.10 L Hgb 12.9 L Hct 38.9 L MCV 94.9 MCH 31.5 MCHC 33.2 RDW 14.8 Plt Count 142 L MPV 10.6 Absolute Nucleated RBC 0.000 Nucleated RBC % (auto) 0.0 O2 Saturation ABG pH at Pt Temp ABG pCO2 at Pt Temp ABG pO2 at Pt Temp ABG HCO3 ABG Base Excess (Actual) Sodium Potassium Chloride Carbon Dioxide Anion Gap BUN Creatinine Estim Creat Clear Calc Estimated GFR POC Glucose Fasting Glucose Lactic Acid Lactic Acid F/U @ 2Hr 1.4 Calcium Troponin I High Sens B-Natriuretic Peptide 1645 H Urine Color Urine Appearance Urine pH Ur Specific [place] Urine Protein Urine Glucose (UA) Urine Ketones Urine Blood Urine Nitrite Ur Leukocyte Esterase Urine RBC Urine WBC Ur Squamous Epith Cells Urine Bacteria Hyaline Casts 12/14/22 12/14/22 12/14/22 06:19 06:19 07:32 WBC RBC Hgb Hct MCV MCH MCHC RDW Plt Count MPV Absolute Nucleated RBC Nucleated RBC % (auto) O2 Saturation ABG pH at Pt Temp ABG pCO2 at Pt Temp ABG pO2 at Pt Temp ABG HCO3 ABG Base Excess (Actual) Sodium 136 Potassium 3.5 Chloride 100 Carbon Dioxide 26 Anion Gap 14 BUN 32 H Creatinine 2.01 H Estim Creat Clear Calc 46.1 Estimated GFR 33 POC Glucose 237 H Fasting Glucose 198 H Lactic Acid Lactic Acid F/U @ 2Hr Calcium 8.8 Troponin I High Sens 164.2 H* B-Natriuretic Peptide Urine Color Urine Appearance Urine pH Ur Specific [place] Urine Protein Urine Glucose (UA) Urine Ketones Urine Blood Urine Nitrite Ur Leukocyte Esterase Urine RBC Urine WBC Ur Squamous Epith Cells Urine Bacteria Hyaline Casts ECG Interpretation: EKG shows atrial paced rhythm at 60/Min. Right bundle-branch block pattern. Imaging Radiologist's impression: Impressions Chest X-Ray 12/13/22 21:27 IMPRESSION: Cardiomegaly. No acute intrathoracic disease. Resolution of pulmonary vascular congestion. Assessment and Plan (1) Elevated troponin: Status: Acute (2) Coronary artery disease: Status: Acute (3) Ischemic cardiomyopathy: Status: Acute (4) Stroke: Status: Acute Plan In the most recent echocardiogram, LVEF 55%. Basal inferior akinesis. However, wall motion suboptimal as there was no working IV for contrast. Left atrium seemed severely dilated. High sensitivity troponins are 34 followed by 116 followed by 164. Cardiac BNP is 1645. Previously, 397. Hence there is significant rise. Head CT scan reported to have no acute process. Old infarction the right anterior external capsule. Per office note, cardiac catheterization had shown distal LAD lesion with moderate LAD disease. Right coronary artery chronic total occlusion with collaterals. Circumflex without any significant disease. At that time, it seems that CABG is contemplated but not pursued. He is only on medications. Overall, could be a demand related type 2 NSTEMI in the setting of stroke in other ongoing medical issues. Clinically is got absolutely no chest pain. No specific management for the elevated troponins. Is already on aspirin anticoagulation with Eliquis. They can be continued. He is also on nitrates and beta-blockers and statins. This can be continued without any major alterations. Upon discharge, follow-up in our clinic. Discussed with Dr. Son. Time Spent With Patient Time: Total time managing care of this patient today ____ minutes. Procedures Date of Service Date of Service: 12/14/22
[2022-12-14 11:35] LABS: Glucose, Whole Blood 382 mg/dL (60-115)
[2022-12-14 16:00] LABS: Glucose, Whole Blood 340 mg/dL (60-115)
[2022-12-14 20:28] LABS: Glucose, Whole Blood 424 mg/dL (60-115)
[2022-12-14 20:35] LABS: Glucose, Whole Blood 403 mg/dL (60-115)
--- NOTE | 2022-12-14 21:26 | PM.EVENT ---
Event Note Date of Service: 12/14/22 Event Note: Blood cultures with gram positive cocci. Initiating empiric vancomycin. Follow final cultures Time Spent With Patient Time: Total time managing care of this patient today ____ minutes.
[2022-12-14] MEDS: Atorvastatin Calcium 80 MG TABLET PO (21:41)
[2022-12-14] MEDS: Insulin Glargine,Hum.rec.anlog 100 UNIT/ML 10 ML VIAL 40 UNIT SUBCUT (21:42)
[2022-12-14] MEDS: Insulin Regular, Human 100 UNIT/ML 3 ML VIAL 10 UNIT IVPUSH (21:42)
--- NOTE | 2022-12-14 23:05 | P.CNID_ITS ---
History of Present Illness Data of Consult Service Date: 12/14/22 Requesting physician: Yasmeen Kramer Primary Care Provider: FIORELLA Cabrales HPI Reason for consult: bacteremia,possible CVA,pacer He presents with weakness and worsening left sided facial droop and left leg weakness. He had this day of admission and initially didnt want to come to hospital but nurse convinced him. He has no fever or chills. He has gram positive bacteremia. Review of Systems Review of Systems: Yes all other systems are reviewed and are negative [facility] Past Medical History Medical History (Updated 12/14/22 @ 23:11 by Thao Pennington MD) Afib Bacteremia due to Gram-positive bacteria Coronary artery disease History of diverticulitis History of intestinal obstruction Hyperlipidemia Hypertension Ischemic cardiomyopathy Morbid obesity Myocardial infarction Obstructive sleep apnea Stroke Type 2 diabetes mellitus Family History Family history: reviewed and not pertinent Surgical History Surgical History History of cardiac cath History of cardioversion History of carotid endarterectomy History of permanent cardiac pacemaker placement Social History Social History Household Members: [facility] Do you presently have visiting nurse or other home services: Yes Alcohol intake: never Patient Tobacco Use Status: Former Tobacco user Quit Date: 25 years ago Tobacco use type: Cigarette e-Cigarette/Vaping Use: Never Used Second Hand Smoke Exposure: No Advance Directives Date on File: 04/04/22 service: Yes Current occupational status: retired Meds Allergies Allergy/AdvReac Type Severity Reaction Status Date / Time No Known Allergies Allergy Verified 10/23/22 14:09 Active Medications: Current Medications Acetaminophen (Acetaminophen 325 Mg Tablet) 650 mg PO Q6H PRN PRN Reason: Pain, Mild (Pain Scale 1-3) Last Admin: 12/13/22 00:40 Dose: 650 mg Amiodarone HCl (Amiodarone Hcl 200 Mg Tablet) 200 mg PO DAILY [facility] Last Admin: 12/14/22 08:25 Dose: 200 mg Apixaban (Apixaban 5 Mg Tablet) 5 mg PO BID [facility] Last Admin: 12/14/22 21:41 Dose: 5 mg Aspirin (Aspirin Enteric Coated 81 Mg Tablet.) 81 mg PO DAILY [facility] Last Admin: 12/14/22 08:25 Dose: 81 mg Atorvastatin Calcium (Atorvastatin Calcium 80 Mg Tablet) 80 mg PO BEDTIME [facility] Last Admin: 12/14/22 21:41 Dose: 80 mg Carvedilol (Carvedilol 25 Mg Tablet) 25 mg PO BID [facility]; Protocol Last Admin: 12/14/22 21:40 Dose: 25 mg Cyanocobalamin (Cyanocobalamin (Vitamin B-12) 1,000 Mcg Tablet) 1,000 mcg PO DAILY [facility] Last Admin: 12/14/22 08:25 Dose: 1,000 mcg Furosemide (Furosemide 40 Mg Tablet) 80 mg PO DAILY [facility]; Protocol Last Admin: 12/14/22 08:25 Dose: 80 mg Glucose (Glucose Gel 15 Gm Gel..Gram.) 15 gm PO Q15M PRN; Protocol PRN Reason: per Hypoglycemia Standing Ord. Hydralazine HCl (Hydralazine Hcl 25 Mg Tablet) 25 mg PO TID [facility]; Protocol Last Admin: 12/14/22 21:41 Dose: 25 mg Dextrose (D10) 250 mls @ 750 mls/hr IV Q15M PRN; Protocol PRN Reason: per Hypoglycemia Standing Ord. Vancomycin HCl (Vancomycin/Ns) 2,000 mg in 500 mls @ 250 mls/hr IV ONCE ONE Stop: 12/14/22 23:24 Insulin Glargine (Insulin Glargine,Hum.Rec.Anlog 100 Unit/Ml 10 Ml Vial) 40 unit SUBCUT BEDTIME [facility] Last Admin: 12/14/22 21:42 Dose: 40 unit Insulin Human Lispro (Insulin Lispro 100 Unit/Ml 3 Ml Vial) 0 unit SUBCUT QIDACHS [facility]; Protocol Last Admin: 12/14/22 21:41 Dose: 10 unit Isosorbide Dinitrate (Isosorbide Dinitrate 5 Mg Tablet) 5 mg PO TID [facility]; Protocol Last Admin: 12/14/22 21:40 Dose: 5 mg Lisinopril (Lisinopril 2.5 Mg Tablet) 2.5 mg PO DAILY [facility]; Protocol Last Admin: 12/14/22 08:25 Dose: 2.5 mg Melatonin (Melatonin 3 Mg Tablet) 6 mg PO BEDTIME PRN PRN Reason: Insomnia Ondansetron HCl (Ondansetron Hcl 4 Mg/2 Ml Vial) 4 mg IVPUSH Q8H PRN PRN Reason: Nausea and Vomiting Pharmacy Consult (Consult Rx Perform Med Rec) 1 each MISCELLANE ONCE PRN PRN Reason: Consult order Pharmacy Consult (Consult Rx Vancomycin Dosing) 1 each MISCELLANE DAILY PRN PRN Reason: Consult order Home Medications Medication Instructions Recorded Confirmed Last Taken Type apixaban 5 mg tablet 5 mg PO BID 02/03/22 12/13/22 12/12/22 09:00 History cyanocobalamin (vitamin B-12) 1,000 mcg PO DAILY 02/03/22 12/13/22 12/12/22 09:00 History 1,000 mcg tablet insulin aspart U-100 100 unit/mL 18 unit subcut TIDAC 02/03/22 12/13/22 12/12/22 09:00 History (3 mL) subcutaneous pen (Novolog FlexPen U-100 Insulin aspart) insulin glargine 100 unit/mL (3 54 unit subcut BEDTIME 02/03/22 12/13/22 12/11/22 History mL) subcutaneous pen (Lantus Solostar U-100 Insulin) aspirin 81 mg tablet,delayed 81 mg PO DAILY 03/31/22 12/13/22 12/12/22 09:00 History release furosemide 40 mg tablet (Lasix) 80 mg PO DAILY 03/31/22 12/13/22 12/12/22 09:00 History atorvastatin 80 mg tablet 80 mg PO BEDTIME 04/10/22 12/13/22 12/12/22 09:00 History carvedilol 25 mg tablet 25 mg PO BID 04/10/22 12/13/22 12/12/22 09:00 History lisinopril 2.5 mg tablet 2.5 mg PO DAILY 12/13/22 12/13/22 Unknown History Physical Exam Vital Signs: Vital Signs: Last Vital Signs Temp 98.5 F 12/14/22 20:00 Pulse 55 12/14/22 20:00 Resp 18 12/14/22 21:41 BP 141/56 H 12/14/22 20:00 Pulse Ox 93 12/14/22 20:00 O2 Del Method Nasal Cannula 12/14/22 20:00 O2 Flow Rate 2 12/14/22 20:00 BMI result Body Mass Index 39.9 Const: General: cooperative HEENT: Head: Yes normal to inspection Face and sinus: Yes normal facial exam Mouth: Normal oral and palatal mucosa present Teeth and gingiva: dentition normal Eyes: General: appearance normal, both eyes and all related structures Pupils: Equal, round and reactive pupils present Resp: Effort & Inspection: normal respiratory effort Cardio: Other: 2/6 ANDI, no pacer pocket abnormality seen Rate: regular rate Rhythm: regular rhythm GI: Palpation (GI): Soft to palpation and nontender : General: Yes no CVA tenderness Back/Spine/Pelvis: Back: no CVA tenderness Skin: General skin exam: no rashes or lesions noted Neuro: Other: slt left facial droop,2/5 left leg strength General: moves all extremities Cranial nerves: Yes Equal, round and reactive pupils present Extrem: General: Yes normal to inspection Psych: Appearance: grossly normal Results Labs 12/14/22 06:19 12/14/22 06:19 Labs: Short CBC 12/14/22 Range/Units 06:19 WBC 13.1 H (4.8-10.8) X10*3/uL Hgb 12.9 L (14.0-18.0) g/dl Hct 38.9 L (42.0-52.0) % Plt Count 142 L (160-400) X10*3/uL BMP 12/14/22 06:19 Sodium 136 Potassium 3.5 Chloride 100 Carbon Dioxide 26 BUN 32 H Creatinine 2.01 H Calcium 8.8 Microbiology Microbiology Results: Microbiology 12/13/22 21:36 Blood - Venous Blood Culture - Preliminary Prelim: GPC Gram Stain only 12/13/22 21:37 Blood - Venous Blood Culture - Preliminary Prelim: GPC Gram Stain only Assessment and Plan (1) Elevated troponin: Status: Acute (2) Stroke: Status: Acute (3) Facial droop: Status: Acute (4) Bacteremia due to Gram-positive bacteria: Status: Acute He has stroke symptoms likely due to staph aureus with possible brain microabscesses,endocarditis with possible pacer lead infection Plan Continue Vancomycin awaiting ID of organism. If MRSA Vancomycin. If MSSA Kefzol Check HERMANN check valve as well as pacer wires. Check MRI brain evaluate any abscesses. Duration of antibiotics to be determined. Time Spent With Patient Time: Total time managing care of this patient today ____ minutes.
[2022-12-14] MEDS: vancomycin/NS 2,000 MG/500 ML PLAST..BAG 250 MG IV (23:35)
[2022-12-15] VITALS (8 sets, daily range): BP systolic 95–165; BP diastolic 52–79; PULSE 58–66; RESP 18–20; TEMP 36–36.9; O2SAT 90–98
[2022-12-15 06:23] LABS: Hemoglobin 12.3 g/dl (14.0-18.0); Mean Corpuscular HGB Conc 33.2 g/dl (31.0-36.0); Mean Corpuscular Hemoglobin 31.1 pg (27.0-33.0); Mean Corpuscular Volume 93.4 fL (80.0-98.0); Platelet Count 140 X10*3/uL (160-400); Red Blood Count 3.96 X10*6/uL (4.60-5.80); Red Cell Distribution Width 14.6 % (11.0-16.0); White Blood Count 6.9 X10*3/uL (4.8-10.8)
[2022-12-15 06:35] LABS: Anion Gap 14 (12-20); Blood Urea Nitrogen 38 mg/dL (9-16); Calcium 8.5 mg/dL (8.4-10.2); Carbon Dioxide 25 mmol/L (22-29); Chloride 103 mmol/L (96-108); Creatinine Clr Calc Pharmacy 47.1; Estimated Glomerular Filt Rate 33; Glucose Fasting 205 mg/dL (60-99); Potassium 3.5 mmol/L (3.3-5.1); Sodium 138 mmol/L (135-145)
--- NOTE | 2022-12-15 06:43 | PC.NURSE ---
Assumed care at 1900. Patient alert and oriented. Neuros with no changes. At bedtime, his POC glucose was critically high at 424. For accuracy, QC'd monitor device and rechecked and had a 403 glucose (still critically high). Discussed with MD, given 10 U lispro per sliding scale and 40 units lantus (he takes 54 at home). Anion gap was normal this morning. He wass asymptomatic. New order for 10 units of IV regular insulin, administered with good effect. Patient's blood culture from 12/13 result critically positive with gram positive cocci, MD notified, one time dose vancomycin ordered and given.
--- NOTE | 2022-12-15 06:50 | PHA.PROG ---
Admission Date/Time: December 12, 2022 22:00 Indication: BACTEREMIA Weight in k.3 kg Adjusted body weight in K.9 [place] body weight in K.9 Obesity Dosing Indication % IBW: Serum Creatinine - Last 168 Hours 12/12/22 12/13/22 12/14/22 20:33 06:01 06:19 Creatinine 1.75 H 1.82 H 2.01 H 12/15/22 06:02 Creatinine 1.97 H Estimated CrCl and GFR - Last 168 Hours 12/12/22 12/13/22 12/14/22 20:33 06:01 06:19 Estim Creat Clear Calc 53.9 51.0 46.1 Estimated GFR 38 36 33 12/15/22 06:02 Estim Creat Clear Calc 47.1 Estimated GFR 33 Vancomycin Loading Dose: 2000 MG Current Vancomycin Dosing REgimen: 1000 MG q24h Vancomycin Monitoring using AUC goal of 400 - 600 range with trough as surrogate marker: 550 Date and Time for next Vancomycin Level to be drawn: 12/16 @2100 Pharmacist Comments on Vancomycin Plan: PATIENTS RENAL FUNCTION IS SLIGHTLY IMPROVED AFTER LOAD DOSE, SCR WAS 2.01 TODAY IS IT 1.97. STILL HIGH HOWEVER SO CHOSE TO GET A LEVEL AFTER 1 MAINTENANCE DOSE TO SEE HOW PATIENT IS CLEARING. ALSO CHOSE q24H DOSE DUE TO PATIENTS AGE. VERY HARD TO TIME A GOOD TIME TO GET A LEVEL WHILE PHARMACY IS OPEN SO CHOSE TO GIVE DOSES AT 2300 INSTEAD OF 0000. Vancomycin dosing will take advantage of [employer] as a clinical decision support tool that uses Bayesian modeling to calculate individual patient's pharmacokinetic parameters and forecast the patient's drug concentration time course with the target goal AUC 24 range of 400 - 600 mg/L/hr.
[2022-12-15 07:41] LABS: Glucose, Whole Blood 212 mg/dL (60-115)
[2022-12-15] MEDS: Insulin Lispro 100 UNIT/ML 3 ML VIAL SUBCUT ×6 (08:19→21:58)
[2022-12-15] MEDS: Aspirin Enteric Coated 81 MG TABLET.DR PO (08:19)
[2022-12-15] MEDS: Apixaban 5 MG TABLET PO ×2 (08:19→21:57)
[2022-12-15] MEDS: Amiodarone HCL 200 MG TABLET PO (08:19)
[2022-12-15] MEDS: Cyanocobalamin (Vitamin B-12) 1,000 MCG TABLET 1000 MCG PO (08:19)
[2022-12-15] MEDS: carvediloL 3.125 MG TABLET 6.25 MG PO ×2 (08:25→21:57)
[2022-12-15] MEDS: Furosemide 40 MG TABLET 80 MG PO (08:26)
[2022-12-15] MEDS: polyethylene glycoL 3350 17 GM POWD.PACK PO (08:26)
--- NOTE | 2022-12-15 09:37 | P.PNIM_ITS ---
Subjective Subjective Date of Service: 12/15/22 Interval History: feeling better Physical Exam Vital Signs: Vital Signs: Last Vital Signs Temp 96.8 F 12/15/22 08:00 Pulse 59 12/15/22 08:00 Resp 18 12/15/22 08:00 BP 103/56 L 12/15/22 08:00 Pulse Ox 90 L 12/15/22 08:00 O2 Del Method Room Air 12/15/22 08:00 O2 Flow Rate 2 12/14/22 20:00 BMI result Body Mass Index 39.9 Const: General: cooperative HEENT: Head: Yes normal to inspection Face and sinus: Yes normal facial exam Mouth: Normal oral and palatal mucosa present Teeth and gingiva: dentition normal Eyes: General: appearance normal, both eyes and all related structures Pupils: Equal, round and reactive pupils present Resp: Effort & Inspection: normal respiratory effort Cardio: Other: 2/6 ANDI, no pacer pocket abnormality seen Rate: regular rate Rhythm: regular rhythm GI: Palpation (GI): Soft to palpation and nontender : General: Yes no CVA tenderness Back/Spine/Pelvis: Back: no CVA tenderness Skin: General skin exam: no rashes or lesions noted Neuro: Other: slt left facial droop,2/5 left leg strength General: moves all extremities Cranial nerves: Yes Equal, round and reactive pupils present Extrem: General: Yes normal to inspection Psych: Appearance: grossly normal Objective Data Active Medications Acetaminophen (Acetaminophen 325 Mg Tablet) 650 mg PO Q6H PRN PRN Reason: Pain, Mild (Pain Scale 1-3) Last Admin: 12/13/22 00:40 Dose: 650 mg Documented By: JACKIE Amiodarone HCl (Amiodarone Hcl 200 Mg Tablet) 200 mg PO DAILY [facility] Last Admin: 12/15/22 08:19 Dose: 200 mg Documented By: ISADORA Apixaban (Apixaban 5 Mg Tablet) 5 mg PO BID [facility] Last Admin: 12/15/22 08:19 Dose: 5 mg Documented By: ISADORA Aspirin (Aspirin Enteric Coated 81 Mg Tablet.) 81 mg PO DAILY [facility] Last Admin: 12/15/22 08:19 Dose: 81 mg Documented By: ISADORA Atorvastatin Calcium (Atorvastatin Calcium 80 Mg Tablet) 80 mg PO BEDTIME [facility] Last Admin: 12/14/22 21:41 Dose: 80 mg Documented By: ANNIE Carvedilol (Carvedilol 3.125 Mg Tablet) 6.25 mg PO BID [facility]; Protocol Last Admin: 12/15/22 08:25 Dose: 6.25 mg Documented By: ISADORA Cyanocobalamin (Cyanocobalamin (Vitamin B-12) 1,000 Mcg Tablet) 1,000 mcg PO DAILY [facility] Last Admin: 12/15/22 08:19 Dose: 1,000 mcg Documented By: ISADORA Furosemide (Furosemide 40 Mg Tablet) 80 mg PO DAILY [facility]; Protocol Last Admin: 12/15/22 08:26 Dose: 80 mg Documented By: ISADORA Glucose (Glucose Gel 15 Gm Gel..Gram.) 15 gm PO Q15M PRN; Protocol PRN Reason: per Hypoglycemia Standing Ord. Dextrose (D10) 250 mls @ 750 mls/hr IV Q15M PRN; Protocol PRN Reason: per Hypoglycemia Standing Ord. Vancomycin HCl 1,000 mg/ (Sodium Chloride) 270 mls @ 270 mls/hr IV Q24H [facility] Insulin Glargine (Insulin Glargine,Hum.Rec.Anlog 100 Unit/Ml 10 Ml Vial) 40 unit SUBCUT BEDTIME [facility] Last Admin: 12/14/22 21:42 Dose: 40 unit Documented By: ANNIE Insulin Human Lispro (Insulin Lispro 100 Unit/Ml 3 Ml Vial) 0 unit SUBCUT QIDACHS [facility]; Protocol Last Admin: 12/15/22 08:19 Dose: 4 unit Documented By: ISADORA Melatonin (Melatonin 3 Mg Tablet) 6 mg PO BEDTIME PRN PRN Reason: Insomnia Ondansetron HCl (Ondansetron Hcl 4 Mg/2 Ml Vial) 4 mg IVPUSH Q8H PRN PRN Reason: Nausea and Vomiting Pharmacy Consult (Consult Rx Perform Med Rec) 1 each MISCELLANE ONCE PRN PRN Reason: Consult order Pharmacy Consult (Consult Rx Vancomycin Dosing) 1 each MISCELLANE DAILY PRN PRN Reason: Consult order Labs 12/15/22 06:02 12/15/22 06:02 Labs: Laboratory Results - last 24 hr 12/14/22 12/14/22 12/14/22 11:21 15:56 20:09 MCV MCH MCHC RDW Plt Count MPV Absolute Nucleated RBC Nucleated RBC % (auto) Anion Gap Estim Creat Clear Calc Estimated GFR POC Glucose 382 H* 340 H 424 H* Fasting Glucose Calcium 12/14/22 12/15/22 12/15/22 20:32 06:02 06:02 MCV 93.4 MCH 31.1 MCHC 33.2 RDW 14.6 Plt Count 140 L MPV 10.0 Absolute Nucleated RBC 0.000 Nucleated RBC % (auto) 0.0 Anion Gap 14 Estim Creat Clear Calc 47.1 Estimated GFR 33 POC Glucose 403 H* Fasting Glucose 205 H Calcium 8.5 12/15/22 07:36 MCV MCH MCHC RDW Plt Count MPV Absolute Nucleated RBC Nucleated RBC % (auto) Anion Gap Estim Creat Clear Calc Estimated GFR POC Glucose 212 H Fasting Glucose Calcium Microbiology Microbiology Results: Microbiology 12/13/22 21:36 Blood Culture - Preliminary Blood - Venous Prelim: GPC Gram Stain only 12/13/22 21:37 Blood Culture - Preliminary Blood - Venous Prelim: GPC Gram Stain only Assessment and Plan (1) Facial droop: Status: Acute Plan 77M PMH chronic atrial fibrillation on Eliquis status post pacemaker placement, cad, congestive heart failure with reduced ejection fraction, PAULETTE on CPAP, insulin-dependent diabetes mellitus, essential hypertension, chronic kidney disease stage 3, history of CVA 7 years ago with mild residueal LLE weakness presented to the emergency department for evaluation of left-sided facial droop. Left-sided facial droop possible cva neuro appreciated cd with lien occlusion - vascular eval asa, statin, eliquis gpc bacteremia follow up repeat cultures vanc unclear origin, echo no vegetation elevated trop has known CAD, likely cardiac strain, not acs, Permanent atrial fibrillation:? On beta-rocío, amiodarone and Eliquis chronic chf with recovered EF On beta-rocío, Lasix and nitrate diabetes mellitus insulin morbid obesity weight loss recommended PAULETTE cpap ckd iii stable DVT prophylaxis:? On Eliquis DNR/DNI reason for continued hospitalization: bacteremia Time Spent With Patient Time: Total time managing care of this patient today ____ minutes. Quality Stroke Does the patient have a stroke diagnosis?: Yes Reason for No Anti-thrombotic by Day Two: N/A - Med Ordered VTE Prior VTE?: No VTE Risk Level:: Medical - moderate - high VTE Device Contraindication: Treatment Not Indicated VTE Drug Contraindication: N/A - Med Ordered
[2022-12-15 11:29] LABS: Glucose, Whole Blood 423 mg/dL (60-115)
[2022-12-15 16:30] LABS: Glucose, Whole Blood 408 mg/dL (60-115)
[2022-12-15 20:19] LABS: Glucose, Whole Blood 396 mg/dL (60-115)
[2022-12-15] MEDS: Insulin Glargine,Hum.rec.anlog 100 UNIT/ML 10 ML VIAL 40 UNIT SUBCUT (21:57)
[2022-12-15] MEDS: Atorvastatin Calcium 80 MG TABLET PO (21:57)
[2022-12-15] MEDS: vancomycin HCL 1,000 MG in 0.9 % Sodium Chloride 250 ML 270 MG IV (21:59)
[2022-12-16 03:47] VITALS: BP 164/86; PULSE 62; RESP 20; TEMP 36.9; O2SAT 92
[2022-12-16 07:23] LABS: Hemoglobin 13.1 g/dl (14.0-18.0); Mean Corpuscular HGB Conc 32.8 g/dl (31.0-36.0); Mean Corpuscular Hemoglobin 31.1 pg (27.0-33.0); Mean Platelet Volume 10.8 fL (9.4-12.4); Platelet Count 168 X10*3/uL (160-400); Red Blood Count 4.21 X10*6/uL (4.60-5.80); Red Cell Distribution Width 14.5 % (11.0-16.0); White Blood Count 6.4 X10*3/uL (4.8-10.8)
--- NOTE | 2022-12-16 07:37 | PC.NURSE ---
Pt pacemaker seemed to be having failure to capture and failure to sense. Tele was not picking up the pacemaker and would read asystole with complexes and spikes. Let know.
[2022-12-16 07:40] LABS: Anion Gap 12 (12-20); Blood Urea Nitrogen 35 mg/dL (9-16); Calcium 8.9 mg/dL (8.4-10.2); Carbon Dioxide 26 mmol/L (22-29); Chloride 106 mmol/L (96-108); Creatinine Clr Calc Pharmacy 54.6; Estimated Glomerular Filt Rate 39; Glucose Fasting 175 mg/dL (60-99); Potassium 3.7 mmol/L (3.3-5.1); Sodium 140 mmol/L (135-145)
[2022-12-16 07:41] LABS: Glucose, Whole Blood 201 mg/dL (60-115)
[2022-12-16 08:00] VITALS: BP 138/69; PULSE 60; RESP 18; TEMP 36.4; O2SAT 93
--- NOTE | 2022-12-16 08:02 | HO.VASCPN ---
Subjective Subjective Date of Service: 12/16/22 Patient reports: no new complaints and feels better Interval history: Very pleasant 77-year-old gentleman brought in her initially for left-sided facial drooping. This was what I believe to be in insurance wellness checkup. In subsequently discovered that he had this left facial droop. He was subsequently worked up and discovered to have a carotid occlusion. He has known carotid disease. He actually underwent Physical Exam Vital Signs: Vital Signs: Last Vital Signs Temp 98.5 F 12/16/22 03:47 Pulse 62 12/16/22 03:47 Resp 20 12/16/22 03:47 BP 164/86 H 12/16/22 03:47 Pulse Ox 92 12/16/22 03:47 O2 Del Method CPAP 12/16/22 03:47 O2 Flow Rate 2 12/16/22 03:47 BMI result Body Mass Index 39.9 Progress Note: A&P Time Spent With Patient Time: Total time managing care of this patient today ____ minutes. Procedures Date of Service Date of Service: 12/16/22 Quality Stroke Does the patient have a stroke diagnosis?: Yes Reason for No Anti-thrombotic by Day Two: N/A - Med Ordered VTE Prior VTE?: No VTE Risk Level:: Medical - moderate - high VTE Device Contraindication: Treatment Not Indicated VTE Drug Contraindication: N/A - Med Ordered
--- NOTE | 2022-12-16 08:04 | P.CONGS_ITS ---
History of Present Illness Consult details Consult date: 12/16/22 Reason for consult: other (Carotid stenosis) Narrative: Very pleasant 77-year-old gentleman who originally presented to the hospital for left facial drooping. This was originally discovered upon wellness check by the insurance company at the patient's house. He was subsequently brought into the hospital Um discovered to have a carotid occlusion. He has been subsequently worked up. Of note he had a prior left carotid endarterectomy which was performed several years prior in [place] and he does have a known right carotid occlusion. He has had no vascular follow-up since that time. He is being maintained on aspirin Eliquis and high-dose statin Review of Systems Review of Systems: Yes all other systems are reviewed and are negative Constitutional: Constitutional: Reports no additional constitutional complaints ENT: Reports Normal hearing present Cardiovascular: Cardiovascular: Denies chest pain, Denies chest pain at rest, Denies chest pain with activity and Denies pedal edema Respiratory: Respiratory: Denies cough Gastrointestinal: Gastrointestinal: Denies abdominal pain Musculoskeletal: Musculoskeletal: Denies abnormal gait, Denies muscle cramps and Denies radiating pain into limb Integumentary/Breasts: Skin/Breast: Denies skin ulcer and Denies wounds Neurologic: Reports Normal hearing present and Denies abnormal gait Psychiatric: Psychiatric: Reports no additional psychiatric complaints PMFSH Past Medical History Medical History (Updated 12/16/22 @ 08:06 by Jace Dotson MD) Afib Bacteremia due to Gram-positive bacteria Coronary artery disease History of diverticulitis History of intestinal obstruction Hyperlipidemia Hypertension Ischemic cardiomyopathy Morbid obesity Myocardial infarction Obstructive sleep apnea Stroke Type 2 diabetes mellitus Family History Family history: reviewed and not pertinent Surgical History Surgical History History of cardiac cath History of cardioversion History of carotid endarterectomy History of permanent cardiac pacemaker placement Social History Social History Household Members: Spouse Housing: Condominium Do you presently have visiting nurse or other home services: Yes Alcohol intake: never Patient Tobacco Use Status: Former Tobacco user Quit Date: 25 years ago Tobacco use type: Cigarette e-Cigarette/Vaping Use: Never Used Second Hand Smoke Exposure: No Advance Directives Date on File: 04/04/22 service: Yes Current occupational status: retired Meds Allergies Allergy/AdvReac Type Severity Reaction Status Date / Time No Known Allergies Allergy Verified 10/23/22 14:09 Active Medications: Current Medications Acetaminophen (Acetaminophen 325 Mg Tablet) 650 mg PO Q6H PRN PRN Reason: Pain, Mild (Pain Scale 1-3) Last Admin: 12/13/22 00:40 Dose: 650 mg Amiodarone HCl (Amiodarone Hcl 200 Mg Tablet) 200 mg PO DAILY [facility] Last Admin: 12/15/22 08:19 Dose: 200 mg Apixaban (Apixaban 5 Mg Tablet) 5 mg PO BID [facility] Last Admin: 12/15/22 21:57 Dose: 5 mg Aspirin (Aspirin Enteric Coated 81 Mg Tablet.Dr) 81 mg PO DAILY [facility] Last Admin: 12/15/22 08:19 Dose: 81 mg Atorvastatin Calcium (Atorvastatin Calcium 80 Mg Tablet) 80 mg PO BEDTIME [facility] Last Admin: 12/15/22 21:57 Dose: 80 mg Carvedilol (Carvedilol 3.125 Mg Tablet) 6.25 mg PO BID [facility]; Protocol Last Admin: 12/15/22 21:57 Dose: 6.25 mg Cyanocobalamin (Cyanocobalamin (Vitamin B-12) 1,000 Mcg Tablet) 1,000 mcg PO DAILY [facility] Last Admin: 12/15/22 08:19 Dose: 1,000 mcg Furosemide (Furosemide 40 Mg Tablet) 80 mg PO DAILY [facility]; Protocol Last Admin: 12/15/22 08:26 Dose: 80 mg Glucose (Glucose Gel 15 Gm Gel..Gram.) 15 gm PO Q15M PRN; Protocol PRN Reason: per Hypoglycemia Standing Ord. Dextrose (D10) 250 mls @ 750 mls/hr IV Q15M PRN; Protocol PRN Reason: per Hypoglycemia Standing Ord. Vancomycin HCl 1,000 mg/ (Sodium Chloride) 270 mls @ 270 mls/hr IV Q24H [facility] Last Infusion: 12/16/22 03:12 Dose: Infused Insulin Glargine (Insulin Glargine,Hum.Rec.Anlog 100 Unit/Ml 10 Ml Vial) 40 unit SUBCUT BEDTIME [facility] Last Admin: 12/15/22 21:57 Dose: 40 unit Insulin Human Lispro (Insulin Lispro 100 Unit/Ml 3 Ml Vial) 0 unit SUBCUT QIDACHS [facility]; Protocol Last Admin: 12/15/22 21:58 Dose: 10 unit Insulin Human Lispro (Insulin Lispro 100 Unit/Ml 3 Ml Vial) 5 unit SUBCUT QIDACHS [facility] Last Admin: 12/15/22 21:58 Dose: 5 unit Melatonin (Melatonin 3 Mg Tablet) 6 mg PO BEDTIME PRN PRN Reason: Insomnia Ondansetron HCl (Ondansetron Hcl 4 Mg/2 Ml Vial) 4 mg IVPUSH Q8H PRN PRN Reason: Nausea and Vomiting Pharmacy Consult (Consult Rx Perform Med Rec) 1 each MISCELLANE ONCE PRN PRN Reason: Consult order Pharmacy Consult (Consult Rx Vancomycin Dosing) 1 each MISCELLANE DAILY PRN PRN Reason: Consult order Home Medications Medication Instructions Recorded Confirmed Last Taken Type apixaban 5 mg tablet 5 mg PO BID 02/03/22 12/13/22 12/12/22 09:00 History cyanocobalamin (vitamin B-12) 1,000 mcg PO DAILY 02/03/22 12/13/22 12/12/22 09:00 History 1,000 mcg tablet insulin aspart U-100 100 unit/mL 18 unit subcut TIDAC 02/03/22 12/13/22 12/12/22 09:00 History (3 mL) subcutaneous pen (Novolog FlexPen U-100 Insulin aspart) insulin glargine 100 unit/mL (3 54 unit subcut BEDTIME 02/03/22 12/13/22 12/11/22 History mL) subcutaneous pen (Lantus Solostar U-100 Insulin) aspirin 81 mg tablet,delayed 81 mg PO DAILY 03/31/22 12/13/22 12/12/22 09:00 History release furosemide 40 mg tablet (Lasix) 80 mg PO DAILY 03/31/22 12/13/22 12/12/22 09:00 History atorvastatin 80 mg tablet 80 mg PO BEDTIME 04/10/22 12/13/22 12/12/22 09:00 History carvedilol 25 mg tablet 25 mg PO BID 04/10/22 12/13/22 12/12/22 09:00 History lisinopril 2.5 mg tablet 2.5 mg PO DAILY 12/13/22 12/13/22 Unknown History Physical Exam Vital Signs: Vital Signs: Last Vital Signs Temp 98.5 F 12/16/22 03:47 Pulse 62 12/16/22 03:47 Resp 20 12/16/22 03:47 BP 164/86 H 12/16/22 03:47 Pulse Ox 92 12/16/22 03:47 O2 Del Method CPAP 12/16/22 03:47 O2 Flow Rate 2 12/16/22 03:47 BMI result Body Mass Index 39.9 Const: General: cooperative, healthy appearing and comfortable Orientation/consciousness: oriented to person, oriented to place and oriented to time HEENT: Head: Yes normal to inspection Neck: Neck: Yes normal visual inspection Carotids: no bruits Chest: Chest palpation & inspection: normal inspection of the chest Resp: Effort & Inspection: normal respiratory effort and able to speak in complete sentences Auscultation: clear to auscultation bilaterally, no crackles, no rales, no rhonchi and no wheezes Cardio: Rate: regular rate Rhythm: regular rhythm Heart sounds: S1 normal heart sound present and S2 normal heart sound present Bruits: no carotid bruits Peripheral pulses: Peripheral pulses 2+ throughout GI: Inspection: Yes normal to inspection Skin: Wounds: no wounds Hair: normal Neuro: General: oriented to person, oriented to place and oriented to time Cranial nerves: Yes CN's II-XII intact bilaterally and Yes Normal hearing present Cognition (Neuro): normal cognition Motor exam (neuro): 5/5 motor strength present throughout Extrem: Other: venous exam: No significant superficial varicosities or spider telangiectasias, minimal edema General: No clubbing, No cyanosis and No edema Psych: Appearance: grossly normal Mental Status: mental status grossly normal Speech and movement: Normal speech and movement present Results Labs 12/16/22 06:48 12/16/22 06:48 Labs: Abnormal lab results 12/15/22 12/15/22 12/15/22 Range/Units 11:25 16:13 20:15 RBC (4.60-5.80) X10*6/uL Hgb (14.0-18.0) g/dl Hct (42.0-52.0) % BUN (9-16) mg/dL Creatinine (0.5-1.4) mg/dL POC Glucose 423 H* 408 H* 396 H* (60-115) mg/dL Fasting Glucose (60-99) mg/dL 12/16/22 12/16/22 12/16/22 Range/Units 06:48 06:48 07:30 RBC 4.21 L (4.60-5.80) X10*6/uL Hgb 13.1 L (14.0-18.0) g/dl Hct 40.0 L (42.0-52.0) % BUN 35 H (9-16) mg/dL Creatinine 1.70 H (0.5-1.4) mg/dL POC Glucose 201 H (60-115) mg/dL Fasting Glucose 175 H (60-99) mg/dL Short CBC 12/16/22 Range/Units 06:48 WBC 6.4 (4.8-10.8) X10*3/uL Hgb 13.1 L (14.0-18.0) g/dl Hct 40.0 L (42.0-52.0) % Plt Count 168 (160-400) X10*3/uL BMP 12/16/22 06:48 Sodium 140 Potassium 3.7 Chloride 106 Carbon Dioxide 26 BUN 35 H Creatinine 1.70 H Calcium 8.9 Urine 12/13/22 Range/Units 11:44 Urine Color Yellow Urine Appearance Clear Urine pH 5.5 (5.0-9.0) Ur Specific [place] >= 1.030 H (1.005-1.025) Urine Protein 100 (2+) H (Neg-Trace) mg/dL Urine Glucose (UA) >=1000 H (Negative) mg/dL All other labs normal. Imaging Additional studies: Carotid ultrasound demonstrates left-sided 0-49 right-sided known occlusion. Assessment and Plan (1) Bilateral carotid artery stenosis: Status: Acute Plan In short patient has a known right carotid occlusion and left-sided carotid stenosis. He actually had a carotid endarterectomy several years prior to in appears relatively clean. I do not believe that is the source of his facial issues. He is stable from a carotid perspective. We did discuss routine risk factor modification and the importance of follow-up as an outpatient for routine carotid surveillance. He can follow up with us as an outpatient. Thank you for allowing us to assist in his care. If there are any questions or concerns please do not hesitate to contact us. All of this was discussed with the jason martins and the patient's via telephone. Time Spent With Patient Time: Total time managing care of this patient today ____ minutes. Procedures Date of Service Date of Service: 12/16/22
--- NOTE | 2022-12-16 08:48 | HO.PM.IMPN ---
Subjective Subjective Date of Service: 12/16/22 Interval History: feeling better ENT Ears, Nose, Mouth, and Throat: Reports Normal hearing present Neurologic Neurologic: Reports Normal hearing present Physical Exam Vital Signs: Vital Signs: Last Vital Signs Temp 97.5 F 12/16/22 08:00 Pulse 60 12/16/22 08:00 Resp 18 12/16/22 08:00 BP 138/69 12/16/22 08:00 Pulse Ox 93 12/16/22 08:00 O2 Del Method Room Air 12/16/22 08:00 O2 Flow Rate 2 12/16/22 03:47 BMI result Body Mass Index 39.9 Const: General: cooperative, healthy appearing and comfortable Orientation/consciousness: oriented to person, oriented to place and oriented to time HEENT: Head: Yes normal to inspection Neck: Neck: Yes normal visual inspection Carotids: no bruits Chest: Chest palpation & inspection: normal inspection of the chest Resp: Effort & Inspection: normal respiratory effort and able to speak in complete sentences Auscultation: clear to auscultation bilaterally, no crackles, no rales, no rhonchi and no wheezes Cardio: Rate: regular rate Rhythm: regular rhythm Heart sounds: S1 normal heart sound present and S2 normal heart sound present Bruits: no carotid bruits Peripheral pulses: Peripheral pulses 2+ throughout GI: Inspection: Yes normal to inspection Skin: Wounds: no wounds Hair: normal Neuro: General: oriented to person, oriented to place and oriented to time Cranial nerves: Yes CN's II-XII intact bilaterally and Yes Normal hearing present Cognition (Neuro): normal cognition Motor exam (neuro): 5/5 motor strength present throughout Extrem: Other: venous exam: No significant superficial varicosities or spider telangiectasias, minimal edema General: No clubbing, No cyanosis and No edema Psych: Appearance: grossly normal Mental Status: mental status grossly normal Speech and movement: Normal speech and movement present Objective Data Active Medications Acetaminophen (Acetaminophen 325 Mg Tablet) 650 mg PO Q6H PRN PRN Reason: Pain, Mild (Pain Scale 1-3) Last Admin: 12/13/22 00:40 Dose: 650 mg Documented By: JACKIE Amiodarone HCl (Amiodarone Hcl 200 Mg Tablet) 200 mg PO DAILY [facility] Last Admin: 12/15/22 08:19 Dose: 200 mg Documented By: HO.DOBROB Apixaban (Apixaban 5 Mg Tablet) 5 mg PO BID [facility] Last Admin: 12/15/22 21:57 Dose: 5 mg Documented By: SYLVESTER Aspirin (Aspirin Enteric Coated 81 Mg Tablet.) 81 mg PO DAILY [facility] Last Admin: 12/15/22 08:19 Dose: 81 mg Documented By: ISADORA Atorvastatin Calcium (Atorvastatin Calcium 80 Mg Tablet) 80 mg PO BEDTIME [facility] Last Admin: 12/15/22 21:57 Dose: 80 mg Documented By: SYLVESTER Carvedilol (Carvedilol 3.125 Mg Tablet) 6.25 mg PO BID [facility]; Protocol Last Admin: 12/15/22 21:57 Dose: 6.25 mg Documented By: SYLVESTER Cyanocobalamin (Cyanocobalamin (Vitamin B-12) 1,000 Mcg Tablet) 1,000 mcg PO DAILY [facility] Last Admin: 12/15/22 08:19 Dose: 1,000 mcg Documented By: ISADORA Furosemide (Furosemide 40 Mg Tablet) 80 mg PO DAILY [facility]; Protocol Last Admin: 12/15/22 08:26 Dose: 80 mg Documented By: ISADORA Glucose (Glucose Gel 15 Gm Gel..Gram.) 15 gm PO Q15M PRN; Protocol PRN Reason: per Hypoglycemia Standing Ord. Dextrose (D10) 250 mls @ 750 mls/hr IV Q15M PRN; Protocol PRN Reason: per Hypoglycemia Standing Ord. Ceftriaxone Sodium 2 gm/ (Sodium Chloride) 50 mls @ 100 mls/hr IV Q24H [facility] Insulin Glargine (Insulin Glargine,Hum.Rec.Anlog 100 Unit/Ml 10 Ml Vial) 40 unit SUBCUT BEDTIME [facility] Last Admin: 12/15/22 21:57 Dose: 40 unit Documented By: SYLVESTER Insulin Human Lispro (Insulin Lispro 100 Unit/Ml 3 Ml Vial) 0 unit SUBCUT QIDACHS [facility]; Protocol Last Admin: 12/15/22 21:58 Dose: 10 unit Documented By: SYLVESTER Insulin Human Lispro (Insulin Lispro 100 Unit/Ml 3 Ml Vial) 5 unit SUBCUT QIDACHS [facility] Last Admin: 12/15/22 21:58 Dose: 5 unit Documented By: SYLVESTER Melatonin (Melatonin 3 Mg Tablet) 6 mg PO BEDTIME PRN PRN Reason: Insomnia Ondansetron HCl (Ondansetron Hcl 4 Mg/2 Ml Vial) 4 mg IVPUSH Q8H PRN PRN Reason: Nausea and Vomiting Pharmacy Consult (Consult Rx Perform Med Rec) 1 each MISCELLANE ONCE PRN PRN Reason: Consult order Labs 12/16/22 06:48 12/16/22 06:48 Labs: Laboratory Results - last 24 hr 12/14/22 12/15/22 12/15/22 17:45 11:25 16:13 MCV MCH MCHC RDW Plt Count MPV Absolute Nucleated RBC Nucleated RBC % (auto) Anion Gap Estim Creat Clear Calc Estimated GFR POC Glucose 423 H* 408 H* Fasting Glucose Calcium Respiratory Panel [place] Cancelled Adenovirus (Rapid PCR) Cancelled B.pert (TEM-PCR) Cancelled B.parapertussis DNA PCR Cancelled C. pneumoniae DNA (PCR) Cancelled Coronavirus OC43 (PCR) Cancelled Coronavirus HKU1 (PCR) Cancelled Coronavirus 229E (PCR) Cancelled Coronavirus NL63 (PCR) Cancelled Human Metapneumovir PCR Cancelled Influenza A (RT-PCR) Cancelled Influenza B (RT-PCR) Cancelled M. pneumoniae (PCR) Cancelled Parainfluenza 1 (PCR) Cancelled Parainfluenza 2 (PCR) Cancelled Parainfluenza 3 (PCR) Cancelled Parainfluenza 4 (PCR) Cancelled RSV (PCR) Cancelled Entero/Rhino (PCR) Cancelled SARS-CoV-2 RNA (RT-PCR) Cancelled 12/15/22 12/16/22 12/16/22 20:15 06:48 06:48 MCV 95.0 MCH 31.1 MCHC 32.8 RDW 14.5 Plt Count 168 MPV 10.8 Absolute Nucleated RBC 0.000 Nucleated RBC % (auto) 0.0 Anion Gap 12 Estim Creat Clear Calc 54.6 Estimated GFR 39 POC Glucose 396 H* Fasting Glucose 175 H Calcium 8.9 Respiratory Panel [place] Adenovirus (Rapid PCR) B.pert (TEM-PCR) B.parapertussis DNA PCR C. pneumoniae DNA (PCR) Coronavirus OC43 (PCR) Coronavirus HKU1 (PCR) Coronavirus 229E (PCR) Coronavirus NL63 (PCR) Human Metapneumovir PCR Influenza A (RT-PCR) Influenza B (RT-PCR) M. pneumoniae (PCR) Parainfluenza 1 (PCR) Parainfluenza 2 (PCR) Parainfluenza 3 (PCR) Parainfluenza 4 (PCR) RSV (PCR) Entero/Rhino (PCR) SARS-CoV-2 RNA (RT-PCR) 12/16/22 07:30 MCV MCH MCHC RDW Plt Count MPV Absolute Nucleated RBC Nucleated RBC % (auto) Anion Gap Estim Creat Clear Calc Estimated GFR POC Glucose 201 H Fasting Glucose Calcium Respiratory Panel [place] Adenovirus (Rapid PCR) B.pert (TEM-PCR) B.parapertussis DNA PCR C. pneumoniae DNA (PCR) Coronavirus OC43 (PCR) Coronavirus HKU1 (PCR) Coronavirus 229E (PCR) Coronavirus NL63 (PCR) Human Metapneumovir PCR Influenza A (RT-PCR) Influenza B (RT-PCR) M. pneumoniae (PCR) Parainfluenza 1 (PCR) Parainfluenza 2 (PCR) Parainfluenza 3 (PCR) Parainfluenza 4 (PCR) RSV (PCR) Entero/Rhino (PCR) SARS-CoV-2 RNA (RT-PCR) Microbiology Microbiology Results: Microbiology 12/13/22 21:36 Blood Culture - Preliminary Blood - Venous Streptococcus viridans group 12/13/22 21:37 Blood Culture - Preliminary Blood - Venous Streptococcus viridans group Assessment and Plan (1) Facial droop: Status: Acute Plan 77M PMH chronic atrial fibrillation on Eliquis status post pacemaker placement, cad, congestive heart failure with reduced ejection fraction, PAULETTE on CPAP, insulin-dependent diabetes mellitus, essential hypertension, chronic kidney disease stage 3, history of CVA 7 years ago with mild residueal LLE weakness presented to the emergency department for evaluation of left-sided facial droop. Left-sided facial droop possible cva neuro appreciated cd with lien occlusion - vascular appreciated, chronic, medical management asa, statin, eliquis strep viridans bacteremia follow up repeat cultures changed to rocephin unclear origin, echo no vegetation ID following elevated trop has known CAD, likely cardiac strain, not acs, Permanent atrial fibrillation:? On beta-rocío, amiodarone and Eliquis chronic chf with recovered EF On beta-rocío, Lasix and nitrate diabetes mellitus insulin morbid obesity weight loss recommended PAULETTE cpap ckd iii stable DVT prophylaxis:? On Eliquis DNR/DNI reason for continued hospitalization: bacteremia Time Spent With Patient Time: Total time managing care of this patient today ____ minutes. Quality Stroke Does the patient have a stroke diagnosis?: Yes Reason for No Anti-thrombotic by Day Two: N/A - Med Ordered VTE Prior VTE?: No VTE Risk Level:: Medical - moderate - high VTE Device Contraindication: Treatment Not Indicated VTE Drug Contraindication: N/A - Med Ordered
[2022-12-16] MEDS: carvediloL 3.125 MG TABLET 6.25 MG PO ×2 (09:49→21:51)
[2022-12-16] MEDS: Aspirin Enteric Coated 81 MG TABLET.DR PO (09:50)
[2022-12-16] MEDS: Apixaban 5 MG TABLET PO ×2 (09:50→21:51)
[2022-12-16] MEDS: Amiodarone HCL 200 MG TABLET PO (09:50)
[2022-12-16] MEDS: Furosemide 40 MG TABLET 80 MG PO (09:51)
[2022-12-16] MEDS: Cyanocobalamin (Vitamin B-12) 1,000 MCG TABLET 1000 MCG PO (09:51)
[2022-12-16] MEDS: Insulin Lispro 100 UNIT/ML 3 ML VIAL SUBCUT ×8 (09:51→22:06)
[2022-12-16] MEDS: cefTRIAXone sodium 2 GM in 0.9 % Sodium Chloride 50 ML IV (09:52)
[2022-12-16 11:45] LABS: Glucose, Whole Blood 260 mg/dL (60-115)
[2022-12-16 11:59] VITALS: BP 188/79; PULSE 60; RESP 18; TEMP 35.9; O2SAT 96
[2022-12-16 16:00] VITALS: BP 180/80; PULSE 56; RESP 19; TEMP 36.6; O2SAT 93
[2022-12-16 16:57] LABS: Glucose, Whole Blood 262 mg/dL (60-115)
[2022-12-16 19:49] VITALS: BP 180/84; PULSE 68; RESP 18; TEMP 37; O2SAT 96
[2022-12-16 20:50] LABS: Glucose, Whole Blood 327 mg/dL (60-115)
[2022-12-16] MEDS: Atorvastatin Calcium 80 MG TABLET PO (21:51)
[2022-12-16] MEDS: Insulin Glargine,Hum.rec.anlog 100 UNIT/ML 10 ML VIAL 40 UNIT SUBCUT (21:52)
[2022-12-16 22:59] VITALS: RESP 18
[2022-12-17] VITALS (9 sets, daily range): BP systolic 160–190; BP diastolic 68–95; PULSE 60–61; RESP 18–20; TEMP 36–37; O2SAT 91–97
[2022-12-17 06:39] LABS: Hematocrit 41.9 % (42.0-52.0); Hemoglobin 13.9 g/dl (14.0-18.0); Mean Corpuscular HGB Conc 33.2 g/dl (31.0-36.0); Mean Corpuscular Volume 93.3 fL (80.0-98.0); Mean Platelet Volume 9.9 fL (9.4-12.4); Platelet Count 174 X10*3/uL (160-400); Red Blood Count 4.49 X10*6/uL (4.60-5.80); Red Cell Distribution Width 14.3 % (11.0-16.0); White Blood Count 6.8 X10*3/uL (4.8-10.8)
[2022-12-17 07:00] LABS: Anion Gap 13 (12-20); Blood Urea Nitrogen 31 mg/dL (9-16); Carbon Dioxide 25 mmol/L (22-29); Chloride 107 mmol/L (96-108); Creatinine Clr Calc Pharmacy 59.5; Estimated Glomerular Filt Rate 44; Glucose Fasting 138 mg/dL (60-99); Potassium 3.7 mmol/L (3.3-5.1); Sodium 141 mmol/L (135-145)
[2022-12-17 07:56] LABS: Glucose, Whole Blood 175 mg/dL (60-115)
[2022-12-17] MEDS: Insulin Lispro 100 UNIT/ML 3 ML VIAL SUBCUT ×8 (09:04→23:41)
[2022-12-17] MEDS: cefTRIAXone sodium 2 GM in 0.9 % Sodium Chloride 50 ML IV (09:05)
[2022-12-17] MEDS: Amiodarone HCL 200 MG TABLET PO (09:06)
[2022-12-17] MEDS: Furosemide 40 MG TABLET 80 MG PO (09:06)
[2022-12-17] MEDS: Aspirin Enteric Coated 81 MG TABLET.DR PO (09:06)
[2022-12-17] MEDS: Apixaban 5 MG TABLET PO ×2 (09:06→20:27)
[2022-12-17] MEDS: Cyanocobalamin (Vitamin B-12) 1,000 MCG TABLET 1000 MCG PO (09:06)
[2022-12-17] MEDS: carvediloL 3.125 MG TABLET 6.25 MG PO ×2 (09:06→20:27)
--- NOTE | 2022-12-17 09:56 | HO.PM.IMPN ---
Subjective Subjective Date of Service: 12/17/22 Interval History: feeling better ENT Ears, Nose, Mouth, and Throat: Reports Normal hearing present Neurologic Neurologic: Reports Normal hearing present Physical Exam Vital Signs: Vital Signs: Last Vital Signs Temp 98.3 F 12/17/22 07:36 Pulse 60 12/17/22 07:36 Resp 20 12/17/22 07:36 BP 170/70 H 12/17/22 07:36 Pulse Ox 92 12/17/22 07:36 O2 Del Method Room Air 12/17/22 07:36 O2 Flow Rate 2 12/16/22 03:47 BMI result Body Mass Index 39.9 Const: General: cooperative, healthy appearing and comfortable Orientation/consciousness: oriented to person, oriented to place and oriented to time HEENT: Head: Yes normal to inspection Neck: Neck: Yes normal visual inspection Carotids: no bruits Chest: Chest palpation & inspection: normal inspection of the chest Resp: Effort & Inspection: normal respiratory effort and able to speak in complete sentences Auscultation: clear to auscultation bilaterally, no crackles, no rales, no rhonchi and no wheezes Cardio: Rate: regular rate Rhythm: regular rhythm Heart sounds: S1 normal heart sound present and S2 normal heart sound present Bruits: no carotid bruits Peripheral pulses: Peripheral pulses 2+ throughout GI: Inspection: Yes normal to inspection Skin: Wounds: no wounds Hair: normal Neuro: General: oriented to person, oriented to place and oriented to time Cranial nerves: Yes CN's II-XII intact bilaterally and Yes Normal hearing present Cognition (Neuro): normal cognition Motor exam (neuro): 5/5 motor strength present throughout Extrem: Other: venous exam: No significant superficial varicosities or spider telangiectasias, minimal edema General: No clubbing, No cyanosis and No edema Psych: Appearance: grossly normal Mental Status: mental status grossly normal Speech and movement: Normal speech and movement present Objective Data Active Medications Acetaminophen (Acetaminophen 325 Mg Tablet) 650 mg PO Q6H PRN PRN Reason: Pain, Mild (Pain Scale 1-3) Last Admin: 12/13/22 00:40 Dose: 650 mg Documented By: JACKIE Amiodarone HCl (Amiodarone Hcl 200 Mg Tablet) 200 mg PO DAILY [facility] Last Admin: 12/17/22 09:06 Dose: 200 mg Documented By: MARY Apixaban (Apixaban 5 Mg Tablet) 5 mg PO BID [facility] Last Admin: 12/17/22 09:06 Dose: 5 mg Documented By: MARY Aspirin (Aspirin Enteric Coated 81 Mg Tablet.Dr) 81 mg PO DAILY [facility] Last Admin: 12/17/22 09:06 Dose: 81 mg Documented By: MARY Atorvastatin Calcium (Atorvastatin Calcium 80 Mg Tablet) 80 mg PO BEDTIME [facility] Last Admin: 12/16/22 21:51 Dose: 80 mg Documented By: OSWALDO Carvedilol (Carvedilol 3.125 Mg Tablet) 6.25 mg PO BID [facility]; Protocol Last Admin: 12/17/22 09:06 Dose: 6.25 mg Documented By: MARY Cyanocobalamin (Cyanocobalamin (Vitamin B-12) 1,000 Mcg Tablet) 1,000 mcg PO DAILY [facility] Last Admin: 12/17/22 09:06 Dose: 1,000 mcg Documented By: MARY Furosemide (Furosemide 40 Mg Tablet) 80 mg PO DAILY [facility]; Protocol Last Admin: 12/17/22 09:06 Dose: 80 mg Documented By: MARY Glucose (Glucose Gel 15 Gm Gel..Gram.) 15 gm PO Q15M PRN; Protocol PRN Reason: per Hypoglycemia Standing Ord. Dextrose (D10) 250 mls @ 750 mls/hr IV Q15M PRN; Protocol PRN Reason: per Hypoglycemia Standing Ord. Ceftriaxone Sodium 2 gm/ (Sodium Chloride) 50 mls @ 100 mls/hr IV Q24H [facility] Last Admin: 12/17/22 09:05 Dose: 100 mls/hr Documented By: MARY Insulin Glargine (Insulin Glargine,Hum.Rec.Anlog 100 Unit/Ml 10 Ml Vial) 40 unit SUBCUT BEDTIME [facility] Last Admin: 12/16/22 21:52 Dose: 40 unit Documented By: OSWALDO Comments: Insulin Human Lispro (Insulin Lispro 100 Unit/Ml 3 Ml Vial) 0 unit SUBCUT QIDACHS [facility]; Protocol Last Admin: 12/17/22 09:04 Dose: 2 unit Documented By: MARY Insulin Human Lispro (Insulin Lispro 100 Unit/Ml 3 Ml Vial) 5 unit SUBCUT QIDACHS [facility] Last Admin: 12/17/22 09:05 Dose: 5 unit Documented By: MARY Melatonin (Melatonin 3 Mg Tablet) 6 mg PO BEDTIME PRN PRN Reason: Insomnia Ondansetron HCl (Ondansetron Hcl 4 Mg/2 Ml Vial) 4 mg IVPUSH Q8H PRN PRN Reason: Nausea and Vomiting Pharmacy Consult (Consult Rx Perform Med Rec) 1 each MISCELLANE ONCE PRN PRN Reason: Consult order Labs 12/17/22 06:07 12/17/22 06:07 Labs: Laboratory Results - last 24 hr 12/16/22 12/16/22 12/16/22 11:21 16:47 20:47 MCV MCH MCHC RDW Plt Count MPV Absolute Nucleated RBC Nucleated RBC % (auto) Anion Gap Estim Creat Clear Calc Estimated GFR POC Glucose 260 H 262 H 327 H Fasting Glucose Calcium 12/17/22 12/17/22 12/17/22 06:07 06:07 07:46 MCV 93.3 MCH 31.0 MCHC 33.2 RDW 14.3 Plt Count 174 MPV 9.9 Absolute Nucleated RBC 0.000 Nucleated RBC % (auto) 0.0 Anion Gap 13 Estim Creat Clear Calc 59.5 Estimated GFR 44 POC Glucose 175 H Fasting Glucose 138 H Calcium 9.0 Microbiology Microbiology Results: Microbiology 12/16/22 06:48 Blood Culture - Preliminary Blood - Venous No growth after 24 hours. 12/16/22 06:48 Blood Culture - Preliminary Blood - Venous No growth after 24 hours. 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 Left-sided facial droop possible cva neuro appreciated cd with lien occlusion - vascular appreciated, chronic, medical management asa, statin, eliquis strep viridans bacteremia follow up repeat cultures changed to rocephin, plan for 6 weeks from negative unclear origin, tte no vegetation, plan for [facility]MANN 12/18/22 ID following elevated trop has known CAD, likely cardiac strain, not acs, Permanent atrial fibrillation:? On beta-rocío, amiodarone and Eliquis chronic chf with recovered EF On beta-rocío, Lasix and nitrate diabetes mellitus insulin morbid obesity weight loss recommended PAULETTE cpap ckd iii stable DVT prophylaxis:? On Eliquis DNR/DNI reason for continued hospitalization: bacteremia Time Spent With Patient Time: Total time managing care of this patient today ____ minutes. Quality Stroke Does the patient have a stroke diagnosis?: Yes Reason for No Anti-thrombotic by Day Two: N/A - Med Ordered VTE Prior VTE?: No VTE Risk Level:: Medical - moderate - high VTE Device Contraindication: Treatment Not Indicated VTE Drug Contraindication: N/A - Med Ordered
[2022-12-17 11:06] LABS: Glucose, Whole Blood 249 mg/dL (60-115)
--- NOTE | 2022-12-17 13:43 | MHC.CM.PN ---
Per pt, recommendations are for home with services. [facility] referral placed prior to today, awaiting acceptance. Pt will need IV antibiotics while at home, this CM spoke with pts Kim who states she does not feel confident in giving the IV medications. This CM placed a referral to [facility] and requested an IV education session for the pts .
--- NOTE | 2022-12-17 15:47 | PC.NURSE ---
Removed Urinary catheter , patient to void by [id number]
[2022-12-17 16:10] LABS: Glucose, Whole Blood 286 mg/dL (60-115)
[2022-12-17 20:13] LABS: Glucose, Whole Blood 330 mg/dL (60-115)
[2022-12-17] MEDS: Insulin Glargine,Hum.rec.anlog 100 UNIT/ML 10 ML VIAL 40 UNIT SUBCUT (20:26)
[2022-12-17] MEDS: Atorvastatin Calcium 80 MG TABLET PO (20:27)
[2022-12-17] MEDS: Melatonin 3 MG TABLET 6 MG PO (20:31)
[2022-12-17 23:13] LABS: Glucose, Whole Blood 382 mg/dL (60-115)
[2022-12-18] VITALS (11 sets, daily range): BP systolic 95–160; BP diastolic 57–89; PULSE 60–72; RESP 18–21; TEMP 36–36.6; O2SAT 93–100
[2022-12-18 07:50] LABS: Glucose, Whole Blood 202 mg/dL (60-115)
[2022-12-18] MEDS: Aspirin Enteric Coated 81 MG TABLET.DR PO (08:38)
[2022-12-18] MEDS: Furosemide 40 MG TABLET 80 MG PO (08:38)
[2022-12-18] MEDS: carvediloL 3.125 MG TABLET 6.25 MG PO ×2 (08:38→19:39)
[2022-12-18] MEDS: Apixaban 5 MG TABLET PO ×2 (08:38→19:41)
[2022-12-18] MEDS: Cyanocobalamin (Vitamin B-12) 1,000 MCG TABLET 1000 MCG PO (08:38)
[2022-12-18] MEDS: Amiodarone HCL 200 MG TABLET PO (08:39)
[2022-12-18] MEDS: cefTRIAXone sodium 2 GM in 0.9 % Sodium Chloride 50 ML IV (08:39)
--- NOTE | 2022-12-18 09:49 | MHC.CM.PN ---
EMR REVIEWED, PER MD NOTES PT WILL NEED 6WKS OF IV ROCEPHIN 2GM Q24HRS X6 WKS, [facility] LIA[facility] TO CONTACT PT'S FOR IV ABX TEACH, PT REMAINS ON NPO AND PT WILL NEED PICC LINE PRIOR TO D/C. ANTIC PT WILL BE ABLE TO RETURN HOME W/[facility] AND [facility] IF TEACH GOES WELL WITH PT'S . CM WILL CONT TO FOLLOW D/C NEEDS.
--- NOTE | 2022-12-18 10:17 | HO.PM.IMPN ---
Subjective Subjective Date of Service: 12/18/22 Interval History: Seen and evaluatd this morning feels better overall no facial drop waiting HERMANN no other overnight events Review of Systems Review of Systems: Yes all other systems are reviewed and are negative Physical Exam Vital Signs: Vital Signs: Last Vital Signs Temp 97.0 F 12/18/22 07:42 Pulse 60 12/18/22 07:42 Resp 20 12/18/22 07:42 BP 124/74 12/18/22 07:42 Pulse Ox 93 12/18/22 07:42 O2 Del Method Room Air 12/18/22 07:42 O2 Flow Rate 2 12/16/22 03:47 BMI result Body Mass Index 39.9 Const: Other: Constitutional : Awake, interactive, obese, not in distress Neck : Normal inspection, Supple Cardiovascular : RRR, no JVP, no lower extremity edema Respiratory : fair bilateral air entry, no crackles, wheezes or rhonchi Gastrointestinal: soft, lax, Normal bowel sounds, Non tender Skin : Warm, Dry Neurological : Alert & oriented x3, No focal deficit , CN 2-12 within normal Objective Data Active Medications Acetaminophen (Acetaminophen 325 Mg Tablet) 650 mg PO Q6H PRN PRN Reason: Pain, Mild (Pain Scale 1-3) Last Admin: 12/13/22 00:40 Dose: 650 mg Documented By: JACKIE Amiodarone HCl (Amiodarone Hcl 200 Mg Tablet) 200 mg PO DAILY [facility] Last Admin: 12/18/22 08:39 Dose: 200 mg Documented By: ANTOINETTE Apixaban (Apixaban 5 Mg Tablet) 5 mg PO BID [facility] Last Admin: 12/18/22 08:38 Dose: 5 mg Documented By: ANTOINETTE Aspirin (Aspirin Enteric Coated 81 Mg Tablet.) 81 mg PO DAILY [facility] Last Admin: 12/18/22 08:38 Dose: 81 mg Documented By: ANTOINETTE Atorvastatin Calcium (Atorvastatin Calcium 80 Mg Tablet) 80 mg PO BEDTIME [facility] Last Admin: 12/17/22 20:27 Dose: 80 mg Documented By: OSWALDO Carvedilol (Carvedilol 3.125 Mg Tablet) 6.25 mg PO BID [facility]; Protocol Last Admin: 12/18/22 08:38 Dose: 6.25 mg Documented By: ANTOINETTE Cyanocobalamin (Cyanocobalamin (Vitamin B-12) 1,000 Mcg Tablet) 1,000 mcg PO DAILY [facility] Last Admin: 12/18/22 08:38 Dose: 1,000 mcg Documented By: ANTOINETTE Furosemide (Furosemide 40 Mg Tablet) 80 mg PO DAILY [facility]; Protocol Last Admin: 12/18/22 08:38 Dose: 80 mg Documented By: ANTOINETTE Glucose (Glucose Gel 15 Gm Gel..Gram.) 15 gm PO Q15M PRN; Protocol PRN Reason: per Hypoglycemia Standing Ord. Dextrose (D10) 250 mls @ 750 mls/hr IV Q15M PRN; Protocol PRN Reason: per Hypoglycemia Standing Ord. Ceftriaxone Sodium 2 gm/ (Sodium Chloride) 50 mls @ 100 mls/hr IV Q24H [facility] Last Infusion: 12/18/22 09:20 Dose: 0 mls/hr Documented By: ANTOINETTE Insulin Glargine (Insulin Glargine,Hum.Rec.Anlog 100 Unit/Ml 10 Ml Vial) 40 unit SUBCUT BEDTIME [facility] Last Admin: 12/17/22 20:26 Dose: 40 unit Documented By: OSWALDO Insulin Human Lispro (Insulin Lispro 100 Unit/Ml 3 Ml Vial) 0 unit SUBCUT QIDACHS [facility]; Protocol Last Admin: 12/18/22 08:39 Dose: Not Given Documented By: ANTOINETTE Non-Admin Reason: NPO Insulin Human Lispro (Insulin Lispro 100 Unit/Ml 3 Ml Vial) 5 unit SUBCUT QIDACHS [facility] Last Admin: 12/18/22 08:39 Dose: Not Given Documented By: ANTOINETTE Non-Admin Reason: NPO Melatonin (Melatonin 3 Mg Tablet) 6 mg PO BEDTIME PRN PRN Reason: Insomnia Last Admin: 12/17/22 20:31 Dose: 6 mg Documented By: OSWALDO Ondansetron HCl (Ondansetron Hcl 4 Mg/2 Ml Vial) 4 mg IVPUSH Q8H PRN PRN Reason: Nausea and Vomiting Pharmacy Consult (Consult Rx Perform Med Rec) 1 each MISCELLANE ONCE PRN PRN Reason: Consult order Labs 12/17/22 06:07 12/17/22 06:07 Labs: Laboratory Results - last 24 hr 05/30/23 05/30/23 05/30/23 10:57 16:06 20:07 POC Glucose 249 H 286 H 330 H 12/17/22 12/18/22 23:08 07:40 POC Glucose 382 H* 202 H Microbiology Microbiology Results: Microbiology 12/13/22 21:36 Blood Culture - Preliminary Blood - Venous Streptococcus intermedius 12/13/22 21:37 Blood Culture - Preliminary Blood - Venous Streptococcus intermedius 12/16/22 06:48 Blood Culture - Preliminary Blood - Venous No growth after 48 hours. 12/16/22 06:48 Blood Culture - Preliminary Blood - Venous No growth after 48 hours. 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 Left-sided facial droop possible cva neuro input appreciated, vascular eval and antiplatelets CTA showed cd with lien occlusion - vascular appreciated, chronic, medical management asa, statin, eliquis strep intermedius bacteremia follow up repeat cultures changed to rocephin, plan for 6 weeks from negative unclear origin, tte no vegetation, plan for [facility] 12/18/22 ID following elevated trop has known CAD, likely cardiac strain, not acs, Permanent atrial fibrillation:? beta-rocío, amiodarone and Eliquis chronic chf with recovered EF beta-rocío, Lasix and nitrate diabetes mellitus insulin morbid obesity weight loss recommended PAULETTE cpap ckd iii stable DVT prophylaxis:? On Eliquis DNR/DNI reason for continued hospitalization: bacteremia on IV Abx Time Spent With Patient Time: Total time managing care of this patient today ____ minutes. Quality Stroke Does the patient have a stroke diagnosis?: Yes Reason for No Anti-thrombotic by Day Two: N/A - Med Ordered VTE Prior VTE?: No VTE Risk Level:: Medical - moderate - high VTE Device Contraindication: Treatment Not Indicated VTE Drug Contraindication: N/A - Med Ordered
[2022-12-18 11:24] LABS: Glucose, Whole Blood 210 mg/dL (60-115)
--- NOTE | 2022-12-18 12:19 | P.CONAN_ITS ---
HPI - Anesthesia Eval Consult details Narrative: 77 yo M admitted for bacteremia [facility] Active Problems Active Problems: All Active Problems (Updated 12/16/22 @ 08:06 by Jace Dotson MD) Bilateral carotid artery stenosis (Acute) Bacteremia due to Gram-positive bacteria (Acute) Elevated troponin (Acute) Stroke (Acute) Facial droop (Acute) Ischemic cardiomyopathy (Acute) Coronary artery disease (Acute) PATEL (dyspnea on exertion) (Acute) Hematuria (Acute) Nephrolithiasis (Acute) Afib (Acute) Past Medical History Medical History Afib Bacteremia due to Gram-positive bacteria Coronary artery disease History of diverticulitis History of intestinal obstruction Hyperlipidemia Hypertension Ischemic cardiomyopathy Morbid obesity Myocardial infarction Obstructive sleep apnea Stroke Type 2 diabetes mellitus Family History Family history of problems with anesthesia: No Surgical History Surgical History History of cardiac cath History of cardioversion History of carotid endarterectomy History of permanent cardiac pacemaker placement History of Problems with Anesthesia: No Social History Social History Household Members: Spouse Housing: [facility] Do you presently have visiting nurse or other home services: Yes Alcohol intake: never Patient Tobacco Use Status: Former Tobacco user Quit Date: 15 years Tobacco use type: Cigarette e-Cigarette/Vaping Use: Never Used Second Hand Smoke Exposure: No Advance Directives Date on File: 04/04/22 service: Yes Current occupational status: retired Meds Allergies Allergy/AdvReac Type Severity Reaction Status Date / Time No Known Allergies Allergy Verified 10/23/22 14:09 Active Medications: Current Medications Acetaminophen (Acetaminophen 325 Mg Tablet) 650 mg PO Q6H PRN PRN Reason: Pain, Mild (Pain Scale 1-3) Last Admin: 12/13/22 00:40 Dose: 650 mg Amiodarone HCl (Amiodarone Hcl 200 Mg Tablet) 200 mg PO DAILY [facility] Last Admin: 12/18/22 08:39 Dose: 200 mg Apixaban (Apixaban 5 Mg Tablet) 5 mg PO BID [facility] Last Admin: 12/18/22 08:38 Dose: 5 mg Aspirin (Aspirin Enteric Coated 81 Mg Tablet.) 81 mg PO DAILY [facility] Last Admin: 12/18/22 08:38 Dose: 81 mg Atorvastatin Calcium (Atorvastatin Calcium 80 Mg Tablet) 80 mg PO BEDTIME [facility] Last Admin: 12/17/22 20:27 Dose: 80 mg Carvedilol (Carvedilol 3.125 Mg Tablet) 6.25 mg PO BID [facility]; Protocol Last Admin: 12/18/22 08:38 Dose: 6.25 mg Cyanocobalamin (Cyanocobalamin (Vitamin B-12) 1,000 Mcg Tablet) 1,000 mcg PO DAILY [facility] Last Admin: 12/18/22 08:38 Dose: 1,000 mcg Furosemide (Furosemide 40 Mg Tablet) 80 mg PO DAILY [facility]; Protocol Last Admin: 12/18/22 08:38 Dose: 80 mg Glucose (Glucose Gel 15 Gm Gel..Gram.) 15 gm PO Q15M PRN; Protocol PRN Reason: per Hypoglycemia Standing Ord. Dextrose (D10) 250 mls @ 750 mls/hr IV Q15M PRN; Protocol PRN Reason: per Hypoglycemia Standing Ord. Ceftriaxone Sodium 2 gm/ (Sodium Chloride) 50 mls @ 100 mls/hr IV Q24H [facility] Last Infusion: 12/18/22 09:20 Dose: Infused Insulin Glargine (Insulin Glargine,Hum.Rec.Anlog 100 Unit/Ml 10 Ml Vial) 40 unit SUBCUT BEDTIME [facility] Last Admin: 12/17/22 20:26 Dose: 40 unit Insulin Human Lispro (Insulin Lispro 100 Unit/Ml 3 Ml Vial) 0 unit SUBCUT QIDACHS [facility]; Protocol Last Admin: 12/18/22 11:55 Dose: Not Given Insulin Human Lispro (Insulin Lispro 100 Unit/Ml 3 Ml Vial) 5 unit SUBCUT QIDACHS [facility] Last Admin: 12/18/22 11:55 Dose: Not Given Melatonin (Melatonin 3 Mg Tablet) 6 mg PO BEDTIME PRN PRN Reason: Insomnia Last Admin: 12/17/22 20:31 Dose: 6 mg Ondansetron HCl (Ondansetron Hcl 4 Mg/2 Ml Vial) 4 mg IVPUSH Q8H PRN PRN Reason: Nausea and Vomiting Pharmacy Consult (Consult Rx Perform Med Rec) 1 each MISCELLANE ONCE PRN PRN Reason: Consult order Home Medications Medication Instructions Recorded Confirmed Last Taken Type apixaban 5 mg tablet 5 mg PO BID 02/03/22 12/13/22 12/12/22 09:00 History cyanocobalamin (vitamin B-12) 1,000 mcg PO DAILY 02/03/22 12/13/22 12/12/22 09:00 History 1,000 mcg tablet insulin aspart U-100 100 unit/mL 18 unit subcut TIDAC 02/03/22 12/13/22 12/12/22 09:00 History (3 mL) subcutaneous pen (Novolog FlexPen U-100 Insulin aspart) insulin glargine 100 unit/mL (3 54 unit subcut BEDTIME 02/03/22 12/13/22 History mL) subcutaneous pen (Lantus Solostar U-100 Insulin) aspirin 81 mg tablet,delayed 81 mg PO DAILY 03/31/22 12/13/22 12/12/22 09:00 History release furosemide 40 mg tablet (Lasix) 80 mg PO DAILY 03/31/22 12/13/22 12/12/22 09:00 History atorvastatin 80 mg tablet 80 mg PO BEDTIME 04/10/22 12/13/22 12/12/22 09:00 History carvedilol 25 mg tablet 25 mg PO BID 04/10/22 12/13/22 12/12/22 09:00 History lisinopril 2.5 mg tablet 2.5 mg PO DAILY 12/13/22 12/13/22 Unknown History Exam Exam Date and Time: December 18, 2022 1200 Height,Weight and Vital Signs: Height 6 ft 1 in Weight 137.3 kg Last Vital Signs Temp 97.0 F 12/18/22 11:11 Pulse 60 12/18/22 11:11 Resp 20 12/18/22 11:11 BP 160/89 H 12/18/22 11:11 Pulse Ox 95 12/18/22 11:11 O2 Del Method Room Air 12/18/22 11:11 O2 Flow Rate 2 12/16/22 03:47 Pertinent Lab Results Pertinent Lab Results: Laboratory Tests 12/12/22 12/12/22 12/12/22 20:01 20:33 20:33 WBC 16.0 H RBC 4.64 Hgb 14.7 Hct 43.6 MCV 94.0 MCH 31.7 MCHC 33.7 RDW 14.5 Plt Count 205 D MPV 9.9 Immature Gran % (Auto) 0.4 Neut % (Auto) 79.3 H Lymph % (Auto) 11.9 L [place] % (Auto) 8.2 Eos % (Auto) 0.0 Baso % (Auto) 0.2 Lymph # (Auto) 1.9 [place] # (Auto) 1.3 H Eos # (Auto) 0.0 Baso # (Auto) 0.0 Abs Immat Gran (auto) 0.06 H Absolute Neuts (auto) 12.7 H Absolute Nucleated RBC 0.000 Nucleated RBC % (auto) 0.0 PT 16.2 H INR 1.4 H APTT 33.9 O2 Saturation ABG pH at Pt Temp ABG pCO2 at Pt Temp ABG pO2 at Pt Temp ABG HCO3 ABG Base Excess (Actual) Sodium Potassium Chloride Carbon Dioxide Anion Gap BUN Creatinine Estim Creat Clear Calc Estimated GFR POC Glucose 138 H Random Glucose Fasting Glucose Estimat Average Glucose Hemoglobin A1c % Lactic Acid Lactic Acid F/U @ 2Hr Calcium Total Bilirubin AST ALT Alkaline Phosphatase Troponin I High Sens B-Natriuretic Peptide Total Protein Albumin Triglycerides Cholesterol LDL Cholesterol, Calc HDL Cholesterol Urine Color Urine Appearance Urine pH Ur Specific [place] Urine Protein Urine Glucose (UA) Urine Ketones Urine Blood Urine Nitrite Ur Leukocyte Esterase Urine RBC Urine WBC Ur Squamous Epith Cells Urine Bacteria Hyaline Casts Respiratory Panel [place] Adenovirus (Rapid PCR) B.pert (TEM-PCR) B.parapertussis DNA PCR C. pneumoniae DNA (PCR) Coronavirus OC43 (PCR) Coronavirus HKU1 (PCR) Coronavirus 229E (PCR) Coronavirus NL63 (PCR) Human Metapneumovir PCR Influenza A (RT-PCR) Influenza B (RT-PCR) M. pneumoniae (PCR) Parainfluenza 1 (PCR) Parainfluenza 2 (PCR) Parainfluenza 3 (PCR) Parainfluenza 4 (PCR) RSV (PCR) Entero/Rhino (PCR) SARS-CoV-2 RNA (RT-PCR) 12/12/22 12/12/22 12/12/22 20:33 20:33 22:48 WBC RBC Hgb Hct MCV MCH MCHC RDW Plt Count MPV Immature Gran % (Auto) Neut % (Auto) Lymph % (Auto) [place] % (Auto) Eos % (Auto) Baso % (Auto) Lymph # (Auto) [place] # (Auto) Eos # (Auto) Baso # (Auto) Abs Immat Gran (auto) Absolute Neuts (auto) Absolute Nucleated RBC Nucleated RBC % (auto) PT INR APTT O2 Saturation ABG pH at Pt Temp ABG pCO2 at Pt Temp ABG pO2 at Pt Temp ABG HCO3 ABG Base Excess (Actual) Sodium 140 Potassium 3.7 Chloride 102 Carbon Dioxide 27 Anion Gap 15 BUN 27 H Creatinine 1.75 H Estim Creat Clear Calc 53.9 Estimated GFR 38 POC Glucose 95 Random Glucose 108 Fasting Glucose Estimat Average Glucose Hemoglobin A1c % Lactic Acid Lactic Acid F/U @ 2Hr Calcium 9.3 Total Bilirubin 1.4 H AST 14 ALT 14 Alkaline Phosphatase 157 H Troponin I High Sens 34.8 B-Natriuretic Peptide Total Protein 7.2 Albumin 4.1 Triglycerides Cholesterol LDL Cholesterol, Calc HDL Cholesterol Urine Color Urine Appearance Urine pH Ur Specific [place] Urine Protein Urine Glucose (UA) Urine Ketones Urine Blood Urine Nitrite Ur Leukocyte Esterase Urine RBC Urine WBC Ur Squamous Epith Cells Urine Bacteria Hyaline Casts Respiratory Panel [place] Adenovirus (Rapid PCR) B.pert (TEM-PCR) B.parapertussis DNA PCR C. pneumoniae DNA (PCR) Coronavirus OC43 (PCR) Coronavirus HKU1 (PCR) Coronavirus 229E (PCR) Coronavirus NL63 (PCR) Human Metapneumovir PCR Influenza A (RT-PCR) Influenza B (RT-PCR) M. pneumoniae (PCR) Parainfluenza 1 (PCR) Parainfluenza 2 (PCR) Parainfluenza 3 (PCR) Parainfluenza 4 (PCR) RSV (PCR) Entero/Rhino (PCR) SARS-CoV-2 RNA (RT-PCR) 12/12/22 12/12/22 12/13/22 23:42 23:42 06:01 WBC 13.0 H RBC 4.50 L Hgb 14.3 Hct 42.7 MCV 94.9 MCH 31.8 MCHC 33.5 RDW 14.7 Plt Count 161 MPV 10.3 Immature Gran % (Auto) 0.5 H Neut % (Auto) 79.2 H Lymph % (Auto) 13.5 L [place] % (Auto) 6.3 Eos % (Auto) 0.0 Baso % (Auto) 0.5 Lymph # (Auto) 1.8 [place] # (Auto) 0.8 Eos # (Auto) 0.0 Baso # (Auto) 0.1 Abs Immat Gran (auto) 0.07 H Absolute Neuts (auto) 10.3 H Absolute Nucleated RBC 0.000 Nucleated RBC % (auto) 0.0 PT INR APTT O2 Saturation ABG pH at Pt Temp ABG pCO2 at Pt Temp ABG pO2 at Pt Temp ABG HCO3 ABG Base Excess (Actual) Sodium Potassium Chloride Carbon Dioxide Anion Gap BUN Creatinine Estim Creat Clear Calc Estimated GFR POC Glucose Random Glucose Fasting Glucose Estimat Average Glucose 232 Hemoglobin A1c % 9.7 Lactic Acid Lactic Acid F/U @ 2Hr Calcium Total Bilirubin AST ALT Alkaline Phosphatase Troponin I High Sens B-Natriuretic Peptide Total Protein Albumin Triglycerides 93 Cholesterol 140 LDL Cholesterol, Calc 88 HDL Cholesterol 34 Urine Color Urine Appearance Urine pH Ur Specific [place] Urine Protein Urine Glucose (UA) Urine Ketones Urine Blood Urine Nitrite Ur Leukocyte Esterase Urine RBC Urine WBC Ur Squamous Epith Cells Urine Bacteria Hyaline Casts Respiratory Panel [place] Adenovirus (Rapid PCR) B.pert (TEM-PCR) B.parapertussis DNA PCR C. pneumoniae DNA (PCR) Coronavirus OC43 (PCR) Coronavirus HKU1 (PCR) Coronavirus 229E (PCR) Coronavirus NL63 (PCR) Human Metapneumovir PCR Influenza A (RT-PCR) Influenza B (RT-PCR) M. pneumoniae (PCR) Parainfluenza 1 (PCR) Parainfluenza 2 (PCR) Parainfluenza 3 (PCR) Parainfluenza 4 (PCR) RSV (PCR) Entero/Rhino (PCR) SARS-CoV-2 RNA (RT-PCR) 12/13/22 12/13/22 12/13/22 06:01 06:01 07:17 WBC RBC Hgb Hct MCV MCH MCHC RDW Plt Count MPV Immature Gran % (Auto) Neut % (Auto) Lymph % (Auto) [place] % (Auto) Eos % (Auto) Baso % (Auto) Lymph # (Auto) [place] # (Auto) Eos # (Auto) Baso # (Auto) Abs Immat Gran (auto) Absolute Neuts (auto) Absolute Nucleated RBC Nucleated RBC % (auto) PT INR APTT O2 Saturation ABG pH at Pt Temp ABG pCO2 at Pt Temp ABG pO2 at Pt Temp ABG HCO3 ABG Base Excess (Actual) Sodium 139 Potassium 3.3 Chloride 101 Carbon Dioxide 27 Anion Gap 14 BUN 28 H Creatinine 1.82 H Estim Creat Clear Calc 51.0 Estimated GFR 36 POC Glucose 158 H Random Glucose 184 H Fasting Glucose Estimat Average Glucose Hemoglobin A1c % Lactic Acid Lactic Acid F/U @ 2Hr Calcium 9.0 Total Bilirubin AST ALT Alkaline Phosphatase Troponin I High Sens B-Natriuretic Peptide Total Protein Albumin Triglycerides 94 Cancelled Cholesterol 131 Cancelled LDL Cholesterol, Calc 81 Cancelled HDL Cholesterol 32 Cancelled Urine Color Urine Appearance Urine pH Ur Specific [place] Urine Protein Urine Glucose (UA) Urine Ketones Urine Blood Urine Nitrite Ur Leukocyte Esterase Urine RBC Urine WBC Ur Squamous Epith Cells Urine Bacteria Hyaline Casts Respiratory Panel [place] Adenovirus (Rapid PCR) B.pert (TEM-PCR) B.parapertussis DNA PCR C. pneumoniae DNA (PCR) Coronavirus OC43 (PCR) Coronavirus HKU1 (PCR) Coronavirus 229E (PCR) Coronavirus NL63 (PCR) Human Metapneumovir PCR Influenza A (RT-PCR) Influenza B (RT-PCR) M. pneumoniae (PCR) Parainfluenza 1 (PCR) Parainfluenza 2 (PCR) Parainfluenza 3 (PCR) Parainfluenza 4 (PCR) RSV (PCR) Entero/Rhino (PCR) SARS-CoV-2 RNA (RT-PCR) 12/13/22 12/13/22 12/13/22 11:12 11:44 15:56 WBC RBC Hgb Hct MCV MCH MCHC RDW Plt Count MPV Immature Gran % (Auto) Neut % (Auto) Lymph % (Auto) [place] % (Auto) Eos % (Auto) Baso % (Auto) Lymph # (Auto) [place] # (Auto) Eos # (Auto) Baso # (Auto) Abs Immat Gran (auto) Absolute Neuts (auto) Absolute Nucleated RBC Nucleated RBC % (auto) PT INR APTT O2 Saturation ABG pH at Pt Temp ABG pCO2 at Pt Temp ABG pO2 at Pt Temp ABG HCO3 ABG Base Excess (Actual) Sodium Potassium Chloride Carbon Dioxide Anion Gap BUN Creatinine Estim Creat Clear Calc Estimated GFR POC Glucose 386 H* 323 H Random Glucose Fasting Glucose Estimat Average Glucose Hemoglobin A1c % Lactic Acid Lactic Acid F/U @ 2Hr Calcium Total Bilirubin AST ALT Alkaline Phosphatase Troponin I High Sens B-Natriuretic Peptide Total Protein Albumin Triglycerides Cholesterol LDL Cholesterol, Calc HDL Cholesterol Urine Color Yellow Urine Appearance Clear Urine pH 5.5 Ur Specific [place] >= 1.030 H Urine Protein 100 (2+) H Urine Glucose (UA) >=1000 H Urine Ketones Negative Urine Blood Negative Urine Nitrite Negative Ur Leukocyte Esterase Negative Urine RBC 0-2 Urine WBC 0-5 Ur Squamous Epith Cells 0-2 Urine Bacteria None Seen Hyaline Casts 0-2 Respiratory Panel [place] Adenovirus (Rapid PCR) B.pert (TEM-PCR) B.parapertussis DNA PCR C. pneumoniae DNA (PCR) Coronavirus OC43 (PCR) Coronavirus HKU1 (PCR) Coronavirus 229E (PCR) Coronavirus NL63 (PCR) Human Metapneumovir PCR Influenza A (RT-PCR) Influenza B (RT-PCR) M. pneumoniae (PCR) Parainfluenza 1 (PCR) Parainfluenza 2 (PCR) Parainfluenza 3 (PCR) Parainfluenza 4 (PCR) RSV (PCR) Entero/Rhino (PCR) SARS-CoV-2 RNA (RT-PCR) 12/13/22 12/13/22 12/13/22 20:33 21:24 21:36 WBC RBC Hgb Hct MCV MCH MCHC RDW Plt Count MPV Immature Gran % (Auto) Neut % (Auto) Lymph % (Auto) [place] % (Auto) Eos % (Auto) Baso % (Auto) Lymph # (Auto) [place] # (Auto) Eos # (Auto) Baso # (Auto) Abs Immat Gran (auto) Absolute Neuts (auto) Absolute Nucleated RBC Nucleated RBC % (auto) PT INR APTT O2 Saturation 94.0 ABG pH at Pt Temp 7.46 H ABG pCO2 at Pt Temp 29 L ABG pO2 at Pt Temp 70 L ABG HCO3 21 L ABG Base Excess (Actual) -1.1 Sodium Potassium Chloride Carbon Dioxide Anion Gap BUN Creatinine Estim Creat Clear Calc Estimated GFR POC Glucose 319 H Random Glucose Fasting Glucose Estimat Average Glucose Hemoglobin A1c % Lactic Acid 2.2 H* Lactic Acid F/U @ 2Hr Calcium Total Bilirubin AST ALT Alkaline Phosphatase Troponin I High Sens B-Natriuretic Peptide Total Protein Albumin Triglycerides Cholesterol LDL Cholesterol, Calc HDL Cholesterol Urine Color Urine Appearance Urine pH Ur Specific [place] Urine Protein Urine Glucose (UA) Urine Ketones Urine Blood Urine Nitrite Ur Leukocyte Esterase Urine RBC Urine WBC Ur Squamous Epith Cells Urine Bacteria Hyaline Casts Respiratory Panel [place] Adenovirus (Rapid PCR) B.pert (TEM-PCR) B.parapertussis DNA PCR C. pneumoniae DNA (PCR) Coronavirus OC43 (PCR) Coronavirus HKU1 (PCR) Coronavirus 229E (PCR) Coronavirus NL63 (PCR) Human Metapneumovir PCR Influenza A (RT-PCR) Influenza B (RT-PCR) M. pneumoniae (PCR) Parainfluenza 1 (PCR) Parainfluenza 2 (PCR) Parainfluenza 3 (PCR) Parainfluenza 4 (PCR) RSV (PCR) Entero/Rhino (PCR) SARS-CoV-2 RNA (RT-PCR) 12/13/22 12/13/22 12/14/22 22:17 22:17 00:03 WBC RBC Hgb Hct MCV MCH MCHC RDW Plt Count MPV Immature Gran % (Auto) Neut % (Auto) Lymph % (Auto) [place] % (Auto) Eos % (Auto) Baso % (Auto) Lymph # (Auto) [place] # (Auto) Eos # (Auto) Baso # (Auto) Abs Immat Gran (auto) Absolute Neuts (auto) Absolute Nucleated RBC Nucleated RBC % (auto) PT INR APTT O2 Saturation ABG pH at Pt Temp ABG pCO2 at Pt Temp ABG pO2 at Pt Temp ABG HCO3 ABG Base Excess (Actual) Sodium Potassium Chloride Carbon Dioxide Anion Gap BUN Creatinine Estim Creat Clear Calc Estimated GFR POC Glucose Random Glucose Fasting Glucose Estimat Average Glucose Hemoglobin A1c % Lactic Acid Lactic Acid F/U @ 2Hr 1.4 Calcium Total Bilirubin AST ALT Alkaline Phosphatase Troponin I High Sens 116.5 H* D B-Natriuretic Peptide 1645 H Total Protein Albumin Triglycerides Cholesterol LDL Cholesterol, Calc HDL Cholesterol Urine Color Urine Appearance Urine pH Ur Specific [place] Urine Protein Urine Glucose (UA) Urine Ketones Urine Blood Urine Nitrite Ur Leukocyte Esterase Urine RBC Urine WBC Ur Squamous Epith Cells Urine Bacteria Hyaline Casts Respiratory Panel [place] Adenovirus (Rapid PCR) B.pert (TEM-PCR) B.parapertussis DNA PCR C. pneumoniae DNA (PCR) Coronavirus OC43 (PCR) Coronavirus HKU1 (PCR) Coronavirus 229E (PCR) Coronavirus NL63 (PCR) Human Metapneumovir PCR Influenza A (RT-PCR) Influenza B (RT-PCR) M. pneumoniae (PCR) Parainfluenza 1 (PCR) Parainfluenza 2 (PCR) Parainfluenza 3 (PCR) Parainfluenza 4 (PCR) RSV (PCR) Entero/Rhino (PCR) SARS-CoV-2 RNA (RT-PCR) 12/14/22 12/14/22 12/14/22 06:19 06:19 06:19 WBC 13.1 H RBC 4.10 L Hgb 12.9 L Hct 38.9 L MCV 94.9 MCH 31.5 MCHC 33.2 RDW 14.8 Plt Count 142 L MPV 10.6 Immature Gran % (Auto) Neut % (Auto) Lymph % (Auto) [place] % (Auto) Eos % (Auto) Baso % (Auto) Lymph # (Auto) [place] # (Auto) Eos # (Auto) Baso # (Auto) Abs Immat Gran (auto) Absolute Neuts (auto) Absolute Nucleated RBC 0.000 Nucleated RBC % (auto) 0.0 PT INR APTT O2 Saturation ABG pH at Pt Temp ABG pCO2 at Pt Temp ABG pO2 at Pt Temp ABG HCO3 ABG Base Excess (Actual) Sodium 136 Potassium 3.5 Chloride 100 Carbon Dioxide 26 Anion Gap 14 BUN 32 H Creatinine 2.01 H Estim Creat Clear Calc 46.1 Estimated GFR 33 POC Glucose Random Glucose Fasting Glucose 198 H Estimat Average Glucose Hemoglobin A1c % Lactic Acid Lactic Acid F/U @ 2Hr Calcium 8.8 Total Bilirubin AST ALT Alkaline Phosphatase Troponin I High Sens 164.2 H* B-Natriuretic Peptide Total Protein Albumin Triglycerides Cholesterol LDL Cholesterol, Calc HDL Cholesterol Urine Color Urine Appearance Urine pH Ur Specific [place] Urine Protein Urine Glucose (UA) Urine Ketones Urine Blood Urine Nitrite Ur Leukocyte Esterase Urine RBC Urine WBC Ur Squamous Epith Cells Urine Bacteria Hyaline Casts Respiratory Panel [place] Adenovirus (Rapid PCR) B.pert (TEM-PCR) B.parapertussis DNA PCR C. pneumoniae DNA (PCR) Coronavirus OC43 (PCR) Coronavirus HKU1 (PCR) Coronavirus 229E (PCR) Coronavirus NL63 (PCR) Human Metapneumovir PCR Influenza A (RT-PCR) Influenza B (RT-PCR) M. pneumoniae (PCR) Parainfluenza 1 (PCR) Parainfluenza 2 (PCR) Parainfluenza 3 (PCR) Parainfluenza 4 (PCR) RSV (PCR) Entero/Rhino (PCR) SARS-CoV-2 RNA (RT-PCR) 12/14/22 12/14/22 12/14/22 07:32 11:21 15:56 WBC RBC Hgb Hct MCV MCH MCHC RDW Plt Count MPV Immature Gran % (Auto) Neut % (Auto) Lymph % (Auto) [place] % (Auto) Eos % (Auto) Baso % (Auto) Lymph # (Auto) [place] # (Auto) Eos # (Auto) Baso # (Auto) Abs Immat Gran (auto) Absolute Neuts (auto) Absolute Nucleated RBC Nucleated RBC % (auto) PT INR APTT O2 Saturation ABG pH at Pt Temp ABG pCO2 at Pt Temp ABG pO2 at Pt Temp ABG HCO3 ABG Base Excess (Actual) Sodium Potassium Chloride Carbon Dioxide Anion Gap BUN Creatinine Estim Creat Clear Calc Estimated GFR POC Glucose 237 H 382 H* 340 H Random Glucose Fasting Glucose Estimat Average Glucose Hemoglobin A1c % Lactic Acid Lactic Acid F/U @ 2Hr Calcium Total Bilirubin AST ALT Alkaline Phosphatase Troponin I High Sens B-Natriuretic Peptide Total Protein Albumin Triglycerides Cholesterol LDL Cholesterol, Calc HDL Cholesterol Urine Color Urine Appearance Urine pH Ur Specific [place] Urine Protein Urine Glucose (UA) Urine Ketones Urine Blood Urine Nitrite Ur Leukocyte Esterase Urine RBC Urine WBC Ur Squamous Epith Cells Urine Bacteria Hyaline Casts Respiratory Panel [place] Adenovirus (Rapid PCR) B.pert (TEM-PCR) B.parapertussis DNA PCR C. pneumoniae DNA (PCR) Coronavirus OC43 (PCR) Coronavirus HKU1 (PCR) Coronavirus 229E (PCR) Coronavirus NL63 (PCR) Human Metapneumovir PCR Influenza A (RT-PCR) Influenza B (RT-PCR) M. pneumoniae (PCR) Parainfluenza 1 (PCR) Parainfluenza 2 (PCR) Parainfluenza 3 (PCR) Parainfluenza 4 (PCR) RSV (PCR) Entero/Rhino (PCR) SARS-CoV-2 RNA (RT-PCR) 12/14/22 12/14/22 12/14/22 17:45 20:09 20:32 WBC RBC Hgb Hct MCV MCH MCHC RDW Plt Count MPV Immature Gran % (Auto) Neut % (Auto) Lymph % (Auto) [place] % (Auto) Eos % (Auto) Baso % (Auto) Lymph # (Auto) [place] # (Auto) Eos # (Auto) Baso # (Auto) Abs Immat Gran (auto) Absolute Neuts (auto) Absolute Nucleated RBC Nucleated RBC % (auto) PT INR APTT O2 Saturation ABG pH at Pt Temp ABG pCO2 at Pt Temp ABG pO2 at Pt Temp ABG HCO3 ABG Base Excess (Actual) Sodium Potassium Chloride Carbon Dioxide Anion Gap BUN Creatinine Estim Creat Clear Calc Estimated GFR POC Glucose 424 H* 403 H* Random Glucose Fasting Glucose Estimat Average Glucose Hemoglobin A1c % Lactic Acid Lactic Acid F/U @ 2Hr Calcium Total Bilirubin AST ALT Alkaline Phosphatase Troponin I High Sens B-Natriuretic Peptide Total Protein Albumin Triglycerides Cholesterol LDL Cholesterol, Calc HDL Cholesterol Urine Color Urine Appearance Urine pH Ur Specific [place] Urine Protein Urine Glucose (UA) Urine Ketones Urine Blood Urine Nitrite Ur Leukocyte Esterase Urine RBC Urine WBC Ur Squamous Epith Cells Urine Bacteria Hyaline Casts Respiratory Panel [place] Cancelled Adenovirus (Rapid PCR) Cancelled B.pert (TEM-PCR) Cancelled B.parapertussis DNA PCR Cancelled C. pneumoniae DNA (PCR) Cancelled Coronavirus OC43 (PCR) Cancelled Coronavirus HKU1 (PCR) Cancelled Coronavirus 229E (PCR) Cancelled Coronavirus NL63 (PCR) Cancelled Human Metapneumovir PCR Cancelled Influenza A (RT-PCR) Cancelled Influenza B (RT-PCR) Cancelled M. pneumoniae (PCR) Cancelled Parainfluenza 1 (PCR) Cancelled Parainfluenza 2 (PCR) Cancelled Parainfluenza 3 (PCR) Cancelled Parainfluenza 4 (PCR) Cancelled RSV (PCR) Cancelled Entero/Rhino (PCR) Cancelled SARS-CoV-2 RNA (RT-PCR) Cancelled 12/15/22 12/15/22 12/15/22 06:02 06:02 07:36 WBC 6.9 RBC 3.96 L Hgb 12.3 L Hct 37.0 L MCV 93.4 MCH 31.1 MCHC 33.2 RDW 14.6 Plt Count 140 L MPV 10.0 Immature Gran % (Auto) Neut % (Auto) Lymph % (Auto) [place] % (Auto) Eos % (Auto) Baso % (Auto) Lymph # (Auto) [place] # (Auto) Eos # (Auto) Baso # (Auto) Abs Immat Gran (auto) Absolute Neuts (auto) Absolute Nucleated RBC 0.000 Nucleated RBC % (auto) 0.0 PT INR APTT O2 Saturation ABG pH at Pt Temp ABG pCO2 at Pt Temp ABG pO2 at Pt Temp ABG HCO3 ABG Base Excess (Actual) Sodium 138 Potassium 3.5 Chloride 103 Carbon Dioxide 25 Anion Gap 14 BUN 38 H Creatinine 1.97 H Estim Creat Clear Calc 47.1 Estimated GFR 33 POC Glucose 212 H Random Glucose Fasting Glucose 205 H Estimat Average Glucose Hemoglobin A1c % Lactic Acid Lactic Acid F/U @ 2Hr Calcium 8.5 Total Bilirubin AST ALT Alkaline Phosphatase Troponin I High Sens B-Natriuretic Peptide Total Protein Albumin Triglycerides Cholesterol LDL Cholesterol, Calc HDL Cholesterol Urine Color Urine Appearance Urine pH Ur Specific [place] Urine Protein Urine Glucose (UA) Urine Ketones Urine Blood Urine Nitrite Ur Leukocyte Esterase Urine RBC Urine WBC Ur Squamous Epith Cells Urine Bacteria Hyaline Casts Respiratory Panel [place] Adenovirus (Rapid PCR) B.pert (TEM-PCR) B.parapertussis DNA PCR C. pneumoniae DNA (PCR) Coronavirus OC43 (PCR) Coronavirus HKU1 (PCR) Coronavirus 229E (PCR) Coronavirus NL63 (PCR) Human Metapneumovir PCR Influenza A (RT-PCR) Influenza B (RT-PCR) M. pneumoniae (PCR) Parainfluenza 1 (PCR) Parainfluenza 2 (PCR) Parainfluenza 3 (PCR) Parainfluenza 4 (PCR) RSV (PCR) Entero/Rhino (PCR) SARS-CoV-2 RNA (RT-PCR) 12/15/22 12/15/22 12/15/22 11:25 16:13 20:15 WBC RBC Hgb Hct MCV MCH MCHC RDW Plt Count MPV Immature Gran % (Auto) Neut % (Auto) Lymph % (Auto) [place] % (Auto) Eos % (Auto) Baso % (Auto) Lymph # (Auto) [place] # (Auto) Eos # (Auto) Baso # (Auto) Abs Immat Gran (auto) Absolute Neuts (auto) Absolute Nucleated RBC Nucleated RBC % (auto) PT INR APTT O2 Saturation ABG pH at Pt Temp ABG pCO2 at Pt Temp ABG pO2 at Pt Temp ABG HCO3 ABG Base Excess (Actual) Sodium Potassium Chloride Carbon Dioxide Anion Gap BUN Creatinine Estim Creat Clear Calc Estimated GFR POC Glucose 423 H* 408 H* 396 H* Random Glucose Fasting Glucose Estimat Average Glucose Hemoglobin A1c % Lactic Acid Lactic Acid F/U @ 2Hr Calcium Total Bilirubin AST ALT Alkaline Phosphatase Troponin I High Sens B-Natriuretic Peptide Total Protein Albumin Triglycerides Cholesterol LDL Cholesterol, Calc HDL Cholesterol Urine Color Urine Appearance Urine pH Ur Specific [place] Urine Protein Urine Glucose (UA) Urine Ketones Urine Blood Urine Nitrite Ur Leukocyte Esterase Urine RBC Urine WBC Ur Squamous Epith Cells Urine Bacteria Hyaline Casts Respiratory Panel [place] Adenovirus (Rapid PCR) B.pert (TEM-PCR) B.parapertussis DNA PCR C. pneumoniae DNA (PCR) Coronavirus OC43 (PCR) Coronavirus HKU1 (PCR) Coronavirus 229E (PCR) Coronavirus NL63 (PCR) Human Metapneumovir PCR Influenza A (RT-PCR) Influenza B (RT-PCR) M. pneumoniae (PCR) Parainfluenza 1 (PCR) Parainfluenza 2 (PCR) Parainfluenza 3 (PCR) Parainfluenza 4 (PCR) RSV (PCR) Entero/Rhino (PCR) SARS-CoV-2 RNA (RT-PCR) 12/16/22 12/16/22 12/16/22 06:48 06:48 07:30 WBC 6.4 RBC 4.21 L Hgb 13.1 L Hct 40.0 L MCV 95.0 MCH 31.1 MCHC 32.8 RDW 14.5 Plt Count 168 MPV 10.8 Immature Gran % (Auto) Neut % (Auto) Lymph % (Auto) [place] % (Auto) Eos % (Auto) Baso % (Auto) Lymph # (Auto) [place] # (Auto) Eos # (Auto) Baso # (Auto) Abs Immat Gran (auto) Absolute Neuts (auto) Absolute Nucleated RBC 0.000 Nucleated RBC % (auto) 0.0 PT INR APTT O2 Saturation ABG pH at Pt Temp ABG pCO2 at Pt Temp ABG pO2 at Pt Temp ABG HCO3 ABG Base Excess (Actual) Sodium 140 Potassium 3.7 Chloride 106 Carbon Dioxide 26 Anion Gap 12 BUN 35 H Creatinine 1.70 H Estim Creat Clear Calc 54.6 Estimated GFR 39 POC Glucose 201 H Random Glucose Fasting Glucose 175 H Estimat Average Glucose Hemoglobin A1c % Lactic Acid Lactic Acid F/U @ 2Hr Calcium 8.9 Total Bilirubin AST ALT Alkaline Phosphatase Troponin I High Sens B-Natriuretic Peptide Total Protein Albumin Triglycerides Cholesterol LDL Cholesterol, Calc HDL Cholesterol Urine Color Urine Appearance Urine pH Ur Specific [place] Urine Protein Urine Glucose (UA) Urine Ketones Urine Blood Urine Nitrite Ur Leukocyte Esterase Urine RBC Urine WBC Ur Squamous Epith Cells Urine Bacteria Hyaline Casts Respiratory Panel [place] Adenovirus (Rapid PCR) B.pert (TEM-PCR) B.parapertussis DNA PCR C. pneumoniae DNA (PCR) Coronavirus OC43 (PCR) Coronavirus HKU1 (PCR) Coronavirus 229E (PCR) Coronavirus NL63 (PCR) Human Metapneumovir PCR Influenza A (RT-PCR) Influenza B (RT-PCR) M. pneumoniae (PCR) Parainfluenza 1 (PCR) Parainfluenza 2 (PCR) Parainfluenza 3 (PCR) Parainfluenza 4 (PCR) RSV (PCR) Entero/Rhino (PCR) SARS-CoV-2 RNA (RT-PCR) 12/16/22 12/16/22 12/16/22 11:21 16:47 20:47 WBC RBC Hgb Hct MCV MCH MCHC RDW Plt Count MPV Immature Gran % (Auto) Neut % (Auto) Lymph % (Auto) [place] % (Auto) Eos % (Auto) Baso % (Auto) Lymph # (Auto) [place] # (Auto) Eos # (Auto) Baso # (Auto) Abs Immat Gran (auto) Absolute Neuts (auto) Absolute Nucleated RBC Nucleated RBC % (auto) PT INR APTT O2 Saturation ABG pH at Pt Temp ABG pCO2 at Pt Temp ABG pO2 at Pt Temp ABG HCO3 ABG Base Excess (Actual) Sodium Potassium Chloride Carbon Dioxide Anion Gap BUN Creatinine Estim Creat Clear Calc Estimated GFR POC Glucose 260 H 262 H 327 H Random Glucose Fasting Glucose Estimat Average Glucose Hemoglobin A1c % Lactic Acid Lactic Acid F/U @ 2Hr Calcium Total Bilirubin AST ALT Alkaline Phosphatase Troponin I High Sens B-Natriuretic Peptide Total Protein Albumin Triglycerides Cholesterol LDL Cholesterol, Calc HDL Cholesterol Urine Color Urine Appearance Urine pH Ur Specific [place] Urine Protein Urine Glucose (UA) Urine Ketones Urine Blood Urine Nitrite Ur Leukocyte Esterase Urine RBC Urine WBC Ur Squamous Epith Cells Urine Bacteria Hyaline Casts Respiratory Panel [place] Adenovirus (Rapid PCR) B.pert (TEM-PCR) B.parapertussis DNA PCR C. pneumoniae DNA (PCR) Coronavirus OC43 (PCR) Coronavirus HKU1 (PCR) Coronavirus 229E (PCR) Coronavirus NL63 (PCR) Human Metapneumovir PCR Influenza A (RT-PCR) Influenza B (RT-PCR) M. pneumoniae (PCR) Parainfluenza 1 (PCR) Parainfluenza 2 (PCR) Parainfluenza 3 (PCR) Parainfluenza 4 (PCR) RSV (PCR) Entero/Rhino (PCR) SARS-CoV-2 RNA (RT-PCR) 12/17/22 12/17/22 12/17/22 06:07 06:07 07:46 WBC 6.8 RBC 4.49 L Hgb 13.9 L Hct 41.9 L MCV 93.3 MCH 31.0 MCHC 33.2 RDW 14.3 Plt Count 174 MPV 9.9 Immature Gran % (Auto) Neut % (Auto) Lymph % (Auto) [place] % (Auto) Eos % (Auto) Baso % (Auto) Lymph # (Auto) [place] # (Auto) Eos # (Auto) Baso # (Auto) Abs Immat Gran (auto) Absolute Neuts (auto) Absolute Nucleated RBC 0.000 Nucleated RBC % (auto) 0.0 PT INR APTT O2 Saturation ABG pH at Pt Temp ABG pCO2 at Pt Temp ABG pO2 at Pt Temp ABG HCO3 ABG Base Excess (Actual) Sodium 141 Potassium 3.7 Chloride 107 Carbon Dioxide 25 Anion Gap 13 BUN 31 H Creatinine 1.56 H Estim Creat Clear Calc 59.5 Estimated GFR 44 POC Glucose 175 H Random Glucose Fasting Glucose 138 H Estimat Average Glucose Hemoglobin A1c % Lactic Acid Lactic Acid F/U @ 2Hr Calcium 9.0 Total Bilirubin AST ALT Alkaline Phosphatase Troponin I High Sens B-Natriuretic Peptide Total Protein Albumin Triglycerides Cholesterol LDL Cholesterol, Calc HDL Cholesterol Urine Color Urine Appearance Urine pH Ur Specific [place] Urine Protein Urine Glucose (UA) Urine Ketones Urine Blood Urine Nitrite Ur Leukocyte Esterase Urine RBC Urine WBC Ur Squamous Epith Cells Urine Bacteria Hyaline Casts Respiratory Panel [place] Adenovirus (Rapid PCR) B.pert (TEM-PCR) B.parapertussis DNA PCR C. pneumoniae DNA (PCR) Coronavirus OC43 (PCR) Coronavirus HKU1 (PCR) Coronavirus 229E (PCR) Coronavirus NL63 (PCR) Human Metapneumovir PCR Influenza A (RT-PCR) Influenza B (RT-PCR) M. pneumoniae (PCR) Parainfluenza 1 (PCR) Parainfluenza 2 (PCR) Parainfluenza 3 (PCR) Parainfluenza 4 (PCR) RSV (PCR) Entero/Rhino (PCR) SARS-CoV-2 RNA (RT-PCR) 12/17/22 12/17/22 12/17/22 10:57 16:06 20:07 WBC RBC Hgb Hct MCV MCH MCHC RDW Plt Count MPV Immature Gran % (Auto) Neut % (Auto) Lymph % (Auto) [place] % (Auto) Eos % (Auto) Baso % (Auto) Lymph # (Auto) [place] # (Auto) Eos # (Auto) Baso # (Auto) Abs Immat Gran (auto) Absolute Neuts (auto) Absolute Nucleated RBC Nucleated RBC % (auto) PT INR APTT O2 Saturation ABG pH at Pt Temp ABG pCO2 at Pt Temp ABG pO2 at Pt Temp ABG HCO3 ABG Base Excess (Actual) Sodium Potassium Chloride Carbon Dioxide Anion Gap BUN Creatinine Estim Creat Clear Calc Estimated GFR POC Glucose 249 H 286 H 330 H Random Glucose Fasting Glucose Estimat Average Glucose Hemoglobin A1c % Lactic Acid Lactic Acid F/U @ 2Hr Calcium Total Bilirubin AST ALT Alkaline Phosphatase Troponin I High Sens B-Natriuretic Peptide Total Protein Albumin Triglycerides Cholesterol LDL Cholesterol, Calc HDL Cholesterol Urine Color Urine Appearance Urine pH Ur Specific [place] Urine Protein Urine Glucose (UA) Urine Ketones Urine Blood Urine Nitrite Ur Leukocyte Esterase Urine RBC Urine WBC Ur Squamous Epith Cells Urine Bacteria Hyaline Casts Respiratory Panel [place] Adenovirus (Rapid PCR) B.pert (TEM-PCR) B.parapertussis DNA PCR C. pneumoniae DNA (PCR) Coronavirus OC43 (PCR) Coronavirus HKU1 (PCR) Coronavirus 229E (PCR) Coronavirus NL63 (PCR) Human Metapneumovir PCR Influenza A (RT-PCR) Influenza B (RT-PCR) M. pneumoniae (PCR) Parainfluenza 1 (PCR) Parainfluenza 2 (PCR) Parainfluenza 3 (PCR) Parainfluenza 4 (PCR) RSV (PCR) Entero/Rhino (PCR) SARS-CoV-2 RNA (RT-PCR) 12/17/22 12/18/22 12/18/22 23:08 07:40 11:21 WBC RBC Hgb Hct MCV MCH MCHC RDW Plt Count MPV Immature Gran % (Auto) Neut % (Auto) Lymph % (Auto) [place] % (Auto) Eos % (Auto) Baso % (Auto) Lymph # (Auto) [place] # (Auto) Eos # (Auto) Baso # (Auto) Abs Immat Gran (auto) Absolute Neuts (auto) Absolute Nucleated RBC Nucleated RBC % (auto) PT INR APTT O2 Saturation ABG pH at Pt Temp ABG pCO2 at Pt Temp ABG pO2 at Pt Temp ABG HCO3 ABG Base Excess (Actual) Sodium Potassium Chloride Carbon Dioxide Anion Gap BUN Creatinine Estim Creat Clear Calc Estimated GFR POC Glucose 382 H* 202 H 210 H Random Glucose Fasting Glucose Estimat Average Glucose Hemoglobin A1c % Lactic Acid Lactic Acid F/U @ 2Hr Calcium Total Bilirubin AST ALT Alkaline Phosphatase Troponin I High Sens B-Natriuretic Peptide Total Protein Albumin Triglycerides Cholesterol LDL Cholesterol, Calc HDL Cholesterol Urine Color Urine Appearance Urine pH Ur Specific [place] Urine Protein Urine Glucose (UA) Urine Ketones Urine Blood Urine Nitrite Ur Leukocyte Esterase Urine RBC Urine WBC Ur Squamous Epith Cells Urine Bacteria Hyaline Casts Respiratory Panel [place] Adenovirus (Rapid PCR) B.pert (TEM-PCR) B.parapertussis DNA PCR C. pneumoniae DNA (PCR) Coronavirus OC43 (PCR) Coronavirus HKU1 (PCR) Coronavirus 229E (PCR) Coronavirus NL63 (PCR) Human Metapneumovir PCR Influenza A (RT-PCR) Influenza B (RT-PCR) M. pneumoniae (PCR) Parainfluenza 1 (PCR) Parainfluenza 2 (PCR) Parainfluenza 3 (PCR) Parainfluenza 4 (PCR) RSV (PCR) Entero/Rhino (PCR) SARS-CoV-2 RNA (RT-PCR) Airway Mallampati Class: III TM Dist: >3cm Neck ROM: Limited Loose/Missing/Broken Teeth: Yes (Poor dentition. Multiple broken teeth) Heart: S1S2 Lungs: CTAB Assessment and Plan Assessment Anesthesia Assessment: Anesthesia Plan Discussed and Chart Reviewed Final Anesthetic Review Family History of Problems with Anesthesia: No History of Problems with Anesthesia: No NPO: Yes ASA Class: IV Final Preanesthetic Review: No Changes in Pt Med Stat, Meds/Allgs Chart Reviewed, Consent Obtained/Reviewed, Anes Risks/Benef Reviewed and DNR Form (If Appl.) (DNR/DNI will be reversed until patient leaves PACU.) Patient Risk: High Procedure Risk: Low Anesthetic Plan Anesthetic Plan: MAC: and Agree w/ Assess. and Plan Disposition: Standard PACU
--- NOTE | 2022-12-18 12:19 | MHC.SHP ---
Pre-Procedural Eval Section A Date of Service: 12/18/22 Section B Chief Complaint: Bacteremia Details of Present Illness: See the hospitalist note Relevant Family History (Specify if Yes): No Relevant Social History: Other (specify) Present Medications: see Short Stay Collaborative assessment Medical History: Significant History History of Previous Operations: Relevant previous surgery/procedure and date(s) Allergies: Allergies Allergy/AdvReac Type Severity Reaction Status Date / Time No Known Allergies Allergy Verified 10/23/22 14:09 Review of Systems Sugical H&P ROS: Negative: Cardiovascular and Respiratory and Yes, Specify: Constitution (Weakness) Exam Surgical H&P Exam: Normal: HEENT, Normal: Heart, Normal: Lungs, Normal: Extremities, Normal: Abdomen and Normal: Skin Plan I have reviewed the history and physical and performed a pertinent physical examination on my patient. No changes have occurred unless specified. HERMANN to evaluate for cardiac sourse of bactermia. Time Spent With Patient Time: Total time managing care of this patient today ____ minutes.
--- NOTE | 2022-12-18 12:21 | CA_ITS ---
Transesophageal Echocardiogram Patient (Last, First, Middle): Benedict Wang O Gender: Male Date of : 1945 Age: 77 Procedure Date: 12/18/2022 Procedure Type: Transesophageal Echocardiogram Location: [facility] [place] Height: 157.48 cm Weight: kg Certified Nursing Attendant: WHIT Referring MD: Carlos Salcedo MD Cartographic Drafter: Carlos Salcedo MD Symptoms: to evaluate for endocarditis Conclusion: ??? 1. No clear vegetations suggestive of endocarditis on this study 2. Low normal LV ejection fraction 50-55% 3. Normal cardiac valvular Doppler 4. No pericardial effusion 5. Marked lipomatous hypertrophy of the interatrial septum 6. Significant atherosclerotic burden in the descending thoracic as well as the arch of the aorta 7. No evidence of intracardiac shunting and no evidence of intracardiac masses or thrombi Findings Procedure Information Consent was obtained prior to the procedure. Pre HERMANN oral cavity was checked and revealed significant overcrowding. The adult 3D probe was passed with no difficulty. Left Ventricle Normal left ventricular cavity size. There is mildly increased left ventricular wall thickness. The left ventricular systolic function is low normal. The visually estimated ejection fraction is between 50-55%. Right Ventricle Mildly increased right ventricular cavity size. There is low normal right ventricular systolic function. the right ventricular pacer lead was also difficult to visualize in its entirety. The visualized portion was without any significant evidence of vegetation Atria The left atrium is moderately dilated. There is lipomatous hypertrophy of the interatrial septum. There is no evidence of thrombus or mass in the left atrium. there was marked lipomatous hypertrophy of the interatrial septum with measured thickness of 4.5 cm. There is no clear evidence of PFO. The left atrial appendage was identified without any significant thrombus or smoke formation. The left upper and right sided pulmonary vein I defer draining into the left atrium. The right atrium is normal in size. The right atrial cavity was not well visualized due to significant shadowing artifact related to marked lipomatous hypertrophy of the interatrial septum. In the right atrial lead was identified in segments with no clear mobile masses suggestive of vegetations noted. Aortic Valve Normal aortic valve structure and function. There is no aortic valve stenosis. There is no evidence of a mass on the aortic valve. There is no aortic valve regurgitation. The inter valvular fibrosis of was without any significant thickening or lucency suggestive of an abscess Mitral Valve There is mild anterior and posterior mitral leaflet thickening. There is trace mitral valve regurgitation. There is no mitral valve stenosis. There is no mass noted on the mitral valve. Pulmonic Valve The pulmonic valve is likely normal. There is no mass noted on the pulmonic valve. Tricuspid Valve Likely normal tricuspid valve structure and function. There is mild tricuspid valve regurgitation. There is no evidence of a mass on the tricuspid valve. The right ventricular systolic pressure is not calculated. Great Vessels Large plaque is seen in the arch and descending thoracic aorta. The visualized portions of the pulmonary artery and branches are normal. Venous The inferior vena cava is normal in size and collapses greater than 50% with inspiration. Pericardium/Pleural There is no evidence of pericardial effusion. Prior Study Comparison No prior study available for comparison. Updated by Carlos Salcedo on 04:07 PM with Status of Final Carlos Salcedo MD electronically signed on 12/18/2022 4:07:47 PM with status of Final
--- NOTE | 2022-12-18 15:39 | MHC.CM.PN ---
REFERRAL AND IV ABX ORDERS FAXED TO [facility] FOR [facility] AND [facility]. PER [facility] LIAISON SHE WILL MEET W/PT'S AT 10AM TOMORROW 12/19 FOR BEDSIDE TEACH. CM WILL CONT TO FOLLOW.
[2022-12-18 16:07] LABS: Glucose, Whole Blood 264 mg/dL (60-115)
[2022-12-18] MEDS: Insulin Lispro 100 UNIT/ML 3 ML VIAL SUBCUT ×4 (17:14→21:23)
[2022-12-18] MEDS: Atorvastatin Calcium 80 MG TABLET PO (19:39)
[2022-12-18 21:10] LABS: Glucose, Whole Blood 349 mg/dL (60-115)
[2022-12-18] MEDS: Insulin Glargine,Hum.rec.anlog 100 UNIT/ML 10 ML VIAL 40 UNIT SUBCUT (21:23)
[2022-12-19] VITALS (9 sets, daily range): BP systolic 131–166; BP diastolic 59–89; PULSE 60–75; RESP 18–20; TEMP 36–37.1; O2SAT 95–98
[2022-12-19 06:44] LABS: Hematocrit 43.2 % (42.0-52.0); Hemoglobin 14.3 g/dl (14.0-18.0); Mean Corpuscular HGB Conc 33.1 g/dl (31.0-36.0); Mean Corpuscular Hemoglobin 31.4 pg (27.0-33.0); Mean Corpuscular Volume 94.7 fL (80.0-98.0); Platelet Count 245 X10*3/uL (160-400); Red Blood Count 4.56 X10*6/uL (4.60-5.80); Red Cell Distribution Width 14.4 % (11.0-16.0); White Blood Count 10.1 X10*3/uL (4.8-10.8)
[2022-12-19 07:02] LABS: Anion Gap 11 (12-20); Blood Urea Nitrogen 28 mg/dL (9-16); Calcium 9.6 mg/dL (8.4-10.2); Carbon Dioxide 32 mmol/L (22-29); Chloride 100 mmol/L (96-108); Creatinine Clr Calc Pharmacy 58.7; Estimated Glomerular Filt Rate 43; Glucose Random 144 mg/dL (60-115); Potassium 3.9 mmol/L (3.3-5.1); Sodium 139 mmol/L (135-145)
[2022-12-19 07:13] LABS: Glucose, Whole Blood 191 mg/dL (60-115)
[2022-12-19] MEDS: Insulin Lispro 100 UNIT/ML 3 ML VIAL SUBCUT ×8 (08:08→21:11)
[2022-12-19] MEDS: Apixaban 5 MG TABLET PO ×2 (08:09→20:48)
[2022-12-19] MEDS: Furosemide 40 MG TABLET 80 MG PO (08:09)
[2022-12-19] MEDS: carvediloL 3.125 MG TABLET 6.25 MG PO ×2 (08:09→20:48)
[2022-12-19] MEDS: Amiodarone HCL 200 MG TABLET PO (08:09)
[2022-12-19] MEDS: Aspirin Enteric Coated 81 MG TABLET.DR PO (08:09)
[2022-12-19] MEDS: Cyanocobalamin (Vitamin B-12) 1,000 MCG TABLET 1000 MCG PO (08:09)
[2022-12-19] MEDS: cefTRIAXone sodium 2 GM in 0.9 % Sodium Chloride 50 ML IV (08:09)
[2022-12-19 11:03] LABS: Glucose, Whole Blood 250 mg/dL (60-115)
--- NOTE | 2022-12-19 11:05 | HO.POSTANES ---
Post Anesthesia Evaluation Post Anesthesia Evaluation Date of Service: 12/19/22 Vital Signs: Vital Signs Temp Pulse Resp BP Pulse Ox O2 Del Method 12/19/22 07:48 96.8 F 62 20 166/81 H 98 Room Air 12/19/22 03:00 97.4 F 60 20 131/69 97 CPAP 12/18/22 23:27 20 12/18/22 23:06 97.8 F 60 20 146/65 H 95 CPAP Anesthesia: Monitored Mental Status: Awake Pain Control: Satisfactory Nausea/Vomiting: None Hydration: Adequate Anesthesia-Related Issues: No Anes. Related Issues
--- NOTE | 2022-12-19 11:47 | HO.MIDLINE_ITS ---
Midline Insertion MIDLINE INSERTION Diagnosis: BACTEREMIA Indication: 2 WEEKS ANTIBX Pertinent Labs: REVIEWED Technique: Using sterile technique including cap and mask, glove and drape, the RIGHT arm was prepped and draped in the usual sterile fashion of full barrier technique with CHG. Using ultrasound guidance, RIGHT CEPHALICvein access was obtained ON FIRST ATTEMPT BY PEDRITO QUINTERO. [[id number] ST MIDLINE NON-PASV was positioned. The procedure was performed in RM 272. Ultrasound was used to document vein patency and for needle entry. A formal ultrasound picture was recorded. [employer] Equipment Operator has released the line for use and it is currently dressed with a StatLock, Tegaderm, and CHG disc. Verification has been performed for blood return and line patency. Arm Circumference: [35.5CM] Equipment: BARD POWERGLIDE ST MIDLINE NON-PASV Catheter Type: [id number] MIDLINE NON-PASV Lot #: [id number]
--- NOTE | 2022-12-19 12:14 | P.PNIM_ITS ---
Subjective Subjective Date of Service: 12/19/22 Interval History: Seen and evaluatd this morning feels better overall Midline placement negative HERMANN no other overnight events Review of Systems Review of Systems: Yes all other systems are reviewed and are negative Physical Exam Vital Signs: Vital Signs: Last Vital Signs Temp 97.3 F 12/19/22 12:00 Pulse 70 12/19/22 12:00 Resp 20 12/19/22 12:00 BP 166/89 H 12/19/22 12:00 Pulse Ox 98 12/19/22 12:00 O2 Del Method Room Air 12/19/22 12:00 O2 Flow Rate 6 12/18/22 12:59 BMI result Body Mass Index 39.9 Const: Other: Constitutional : Awake, interactive, obese, not in distress Neck : Normal inspection, Supple Cardiovascular : RRR, no JVP, no lower extremity edema Respiratory : fair bilateral air entry, no crackles, wheezes or rhonchi Gastrointestinal: soft, lax, Normal bowel sounds, Non tender Skin : Warm, Dry Neurological : Alert & oriented x3, No focal deficit , CN 2-12 within normal Objective Data Active Medications Acetaminophen (Acetaminophen 325 Mg Tablet) 650 mg PO Q6H PRN PRN Reason: Pain, Mild (Pain Scale 1-3) Last Admin: 12/13/22 00:40 Dose: 650 mg Documented By: JACKIE Amiodarone HCl (Amiodarone Hcl 200 Mg Tablet) 200 mg PO DAILY [facility] Last Admin: 12/19/22 08:09 Dose: 200 mg Documented By: ISADORA Apixaban (Apixaban 5 Mg Tablet) 5 mg PO BID [facility] Last Admin: 12/19/22 08:09 Dose: 5 mg Documented By: ISADORA Aspirin (Aspirin Enteric Coated 81 Mg Tablet.) 81 mg PO DAILY [facility] Last Admin: 12/19/22 08:09 Dose: 81 mg Documented By: ISADORA Atorvastatin Calcium (Atorvastatin Calcium 80 Mg Tablet) 80 mg PO BEDTIME [facility] Last Admin: 12/18/22 19:39 Dose: 80 mg Documented By: YARIEL Carvedilol (Carvedilol 3.125 Mg Tablet) 6.25 mg PO BID [facility]; Protocol Last Admin: 12/19/22 08:09 Dose: 6.25 mg Documented By: ISADORA Cyanocobalamin (Cyanocobalamin (Vitamin B-12) 1,000 Mcg Tablet) 1,000 mcg PO DAILY [facility] Last Admin: 12/19/22 08:09 Dose: 1,000 mcg Documented By: ISADORA Furosemide (Furosemide 40 Mg Tablet) 80 mg PO DAILY [facility]; Protocol Last Admin: 12/19/22 08:09 Dose: 80 mg Documented By: ISADORA Glucose (Glucose Gel 15 Gm Gel..Gram.) 15 gm PO Q15M PRN; Protocol PRN Reason: per Hypoglycemia Standing Ord. Dextrose (D10) 250 mls @ 750 mls/hr IV Q15M PRN; Protocol PRN Reason: per Hypoglycemia Standing Ord. Ceftriaxone Sodium 2 gm/ (Sodium Chloride) 50 mls @ 100 mls/hr IV Q24H [facility] Last Infusion: 12/19/22 09:11 Dose: 0 mls/hr Documented By: ISADORA Insulin Glargine (Insulin Glargine,Hum.Rec.Anlog 100 Unit/Ml 10 Ml Vial) 40 unit SUBCUT BEDTIME [facility] Last Admin: 12/18/22 21:23 Dose: 40 unit Documented By: LISA Insulin Human Lispro (Insulin Lispro 100 Unit/Ml 3 Ml Vial) 0 unit SUBCUT Q IDACHS [facility]; Protocol Last Admin: 12/19/22 08:08 Dose: 2 unit Documented By: ISADORA Insulin Human Lispro (Insulin Lispro 100 Unit/Ml 3 Ml Vial) 5 unit SUBCUT QIDACHS [facility] Last Admin: 12/19/22 08:08 Dose: 5 unit Documented By: ISADORA Melatonin (Melatonin 3 Mg Tablet) 6 mg PO BEDTIME PRN PRN Reason: Insomnia Last Admin: 12/17/22 20:31 Dose: 6 mg Documented By: OSWALDO Ondansetron HCl (Ondansetron Hcl 4 Mg/2 Ml Vial) 4 mg IVPUSH Q8H PRN PRN Reason: Nausea and Vomiting Pharmacy Consult (Consult Rx Perform Med Rec) 1 each MISCELLANE ONCE PRN PRN Reason: Consult order Labs 12/19/22 06:04 12/19/22 06:04 Labs: Laboratory Results - last 24 hr 12/18/22 12/18/22 12/19/22 16:03 21:05 06:04 MCV 94.7 MCH 31.4 MCHC 33.1 RDW 14.4 Plt Count 245 D MPV 10.0 Absolute Nucleated RBC 0.000 Nucleated RBC % (auto) 0.0 Anion Gap Estim Creat Clear Calc Estimated GFR POC Glucose 264 H 349 H Random Glucose Calcium 12/19/22 12/19/22 12/19/22 06:04 07:10 10:45 MCV MCH MCHC RDW Plt Count MPV Absolute Nucleated RBC Nucleated RBC % (auto) Anion Gap 11 L Estim Creat Clear Calc 58.7 Estimated GFR 43 POC Glucose 191 H 250 H Random Glucose 144 H Calcium 9.6 D Microbiology Microbiology Results: Microbiology 12/13/22 21:36 Blood Culture - Preliminary Blood - Venous Streptococcus intermedius 12/13/22 21:37 Blood Culture - Preliminary Blood - Venous Streptococcus intermedius 12/16/22 06:48 Blood Culture - Preliminary Blood - Venous No growth after 48 hours. 12/16/22 06:48 Blood Culture - Preliminary Blood - Venous No growth after 48 hours. 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 Left-sided facial droop possible cva neuro input appreciated, vascular eval and antiplatelets CTA showed cd with lien occlusion - vascular appreciated, chronic, medical management asa, statin, eliquis strep intermedius bacteremia follow up repeat cultures changed to rocephin unclear origin, tte no vegetation, negative HERMANN 12/18/22 ID recommended 2 weeks of IV Ceftriaxone at time of discharge, Midline placement today elevated trop has known CAD, likely cardiac strain, not acs, Permanent atrial fibrillation:? beta-rocío, amiodarone and Eliquis chronic chf with recovered EF beta-rocío, Lasix and nitrate diabetes mellitus insulin morbid obesity weight loss recommended PAULETTE cpap ckd iii stable DVT prophylaxis:? On Eliquis DNR/DNI reason for continued hospitalization: bacteremia on IV Abx pending Home IV antibiotics and VNA Time Spent With Patient Time: Total time managing care of this patient today ____ minutes. Quality Stroke Does the patient have a stroke diagnosis?: Yes Reason for No Anti-thrombotic by Day Two: N/A - Med Ordered VTE Prior VTE?: No VTE Risk Level:: Medical - moderate - high VTE Device Contraindication: Treatment Not Indicated VTE Drug Contraindication: N/A - Med Ordered
[2022-12-19] MEDS: polyethylene glycoL 3350 17 GM POWD.PACK PO (12:17)
--- NOTE | 2022-12-19 13:47 | MHC.CM.PN ---
IMM 12/19/22 DELIVERED TO BEDSIDE, PT TO D//C TOMORROW 12/20 W/[facility] FOR 2WKS IV CEFTRIAXONE, PT'S WILL TRANSPORT BETWEEN 11-11:30AM. [facility] FOR SOC THURSDAY 12/21
[2022-12-19 16:01] LABS: Glucose, Whole Blood 281 mg/dL (60-115)
[2022-12-19] MEDS: Heparin Sodium,Porcine Flush 50 UNITS, 0.9 % Sodium Chloride Flush 5 ML IVFLUSH ×2 (16:57→20:49)
[2022-12-19 19:51] LABS: Glucose, Whole Blood 285 mg/dL (60-115)
[2022-12-19] MEDS: Atorvastatin Calcium 80 MG TABLET PO (20:48)
[2022-12-19] MEDS: Insulin Glargine,Hum.rec.anlog 100 UNIT/ML 10 ML VIAL 40 UNIT SUBCUT (20:54)
[2022-12-20 03:27] VITALS: BP 127/75; PULSE 60; RESP 20; TEMP 37; O2SAT 91
[2022-12-20 04:25] VITALS: PULSE 60; RESP 20; O2SAT 92
[2022-12-20 07:16] LABS: Glucose, Whole Blood 181 mg/dL (60-115)
[2022-12-20 07:33] VITALS: BP 160/70; PULSE 70; RESP 20; TEMP 36.2; O2SAT 96
[2022-12-20] MEDS: Heparin Sodium,Porcine Flush 50 UNITS, 0.9 % Sodium Chloride Flush 5 ML IVFLUSH (08:48)
[2022-12-20] MEDS: Insulin Lispro 100 UNIT/ML 3 ML VIAL SUBCUT ×4 (08:49→12:44)
[2022-12-20] MEDS: carvediloL 3.125 MG TABLET 6.25 MG PO (08:49)
[2022-12-20] MEDS: Cyanocobalamin (Vitamin B-12) 1,000 MCG TABLET 1000 MCG PO (08:50)
[2022-12-20] MEDS: Amiodarone HCL 200 MG TABLET PO (08:50)
[2022-12-20] MEDS: cefTRIAXone sodium 2 GM in 0.9 % Sodium Chloride 50 ML IV (08:50)
[2022-12-20] MEDS: Aspirin Enteric Coated 81 MG TABLET.DR PO (08:50)
[2022-12-20] MEDS: Furosemide 40 MG TABLET 80 MG PO (08:50)
[2022-12-20] MEDS: Apixaban 5 MG TABLET PO (08:50)
--- NOTE | 2022-12-20 10:52 | MHC.CM.PN ---
PER MD, PT IS READY TO DC [facility] HAS CONFIRMED [facility] AND PT IS 100% COVERED THEY ARE PREPARED TO DELIVER MEDS/SUPPLIES TODAY [facility] NOTIFIED OF INTENT TO DC TODAY [facility] TO TRANSPORT
[2022-12-20 11:09] VITALS: BP 170/60; PULSE 63; RESP 20; TEMP 36.6; O2SAT 93
[2022-12-20 11:09] LABS: Glucose, Whole Blood 329 mg/dL (60-115)
[2022-12-20 12:00] VITALS: O2SAT 94
--- NOTE | 2022-12-20 12:05 | PM.DS ---
DS: Providers Provider Date of Service: 12/20/22 Date of admission: 12/12/22 22:00 Primary care physician: FIORELLA Cabrales Consults: 12/12/22 21:59 Consult to Neurology Routine Consulting Provider: [facility] Reason for consultation: CVA 12/13/22 13:51 Consult to Vascular Surgery Routine Consulting Provider: [facility] Reason for consultation: lien occlusion, left facial droop 12/13/22 23:08 Consult to Cardiology Routine Consulting Provider: [facility] Reason for consultation: elevated troponin Has provider been notified: Yes 12/14/22 10:38 Consult to Infectious Diseases Routine Consulting Provider: [facility] Reason for consultation: FUO DS: Diagnosis Discharge Diagnosis (1) Bilateral carotid artery stenosis: Status: Acute (2) Bacteremia due to Gram-positive bacteria: Status: Acute (3) Facial droop: Status: Acute DS: Summary Hospital Course Hospital Course: Admission note HPI This is a 77-year-old male with pertinent history of chronic atrial fibrillation on Eliquis status post pacemaker placement, congestive heart failure with reduced ejection fraction, PAULETTE on CPAP, insulin-dependent diabetes mellitus, essential hypertension, chronic kidney disease stage 3, history of CVA 7 years ago who presents to the emergency department for evaluation of left-sided facial droop.? Patient got a new CPAP mask and states he in order to be comfortable he laid on his left side.? [employer] visiting nurse noted left-sided facial droop at around 15:00.? Patient states that 7 years ago he had a similar left-sided facial droop with left sided weakness which had completely resolved.? Patient states the left-sided facial droop noted today is new and he was sent to the ER for further evaluation.? Patient denies fever, chills, chest discomfort, palpitations, shortness of breath, changes in urinary or bowel habits.? The reported that patient also had left lower extremity weakness today and difficulty ambulating because of the same In the emergency department, CT head without any acute abnormalities Hospital course The patient was primarly admitted for reported Left-sided facial droop. CT scan showed chronic changes as chronic right basal ganglia area infarct but no obvious acute infarction. evaluated by neurologist who recommended vascular imaging, Antiplatelets, Statin and control of vascular risks with presentations suggestive of possible CVA\TIA. US carotids showed Right internal carotic occlusion - vascular evaluated the patient and reported the finding is chronic and to continue with medical management and outpatient follow up for now with no intervention planned. patient on Aspirin, statin, eliquis. MRI was not done for hx of PPM. He had fever while inpatient. work up done did not show a clear source of infection but blood cultures came back positive for streptococcus intermedius bacteremia. treated with IV antibiotics of Vancomycin primarly.follow up repeat cultures came back negative. Abx changed to Ceftriaxone as he was followed by ID specialist who recommended 2 weeks of IV Ceftriaxone as TTE and HERMANN were both negative for any cardiac vegetations. Midline placed and will be followed home by [facility]. Continue Aspirin and Atorvastatin as prescribed Continue Ceftriaxone as prescribed for 2 weeks To follow with PCP as outpatient for BP monitoring and medication adjustment Come back to ER for any fever, fatigue or focal weakness. Time Spent with Patient Time attestation: Total time managing care of this patient today ____ minutes. Discharge coordination time: Greater than 30 minutes Quality: Safe Use of Opioids Does Pt have an Active Cancer Diagnosis on the Problem List?: No Quality: Stroke Does the patient have a stroke diagnosis?: No Physical Exam Vital Signs: Vital Signs: Last Vital Signs Temp 97.8 F 12/20/22 11:09 Pulse 63 12/20/22 11:09 Resp 20 12/20/22 11:09 BP 170/60 H 12/20/22 11:09 Pulse Ox 93 12/20/22 11:09 O2 Del Method Room Air 12/20/22 11:09 O2 Flow Rate 6 12/18/22 12:59 BMI result Body Mass Index 39.9 Const: Other: Constitutional : Awake, interactive, obese, not in distress Neck : Normal inspection, Supple Cardiovascular : RRR, no JVP, no lower extremity edema Respiratory : fair bilateral air entry, no crackles, wheezes or rhonchi Gastrointestinal: soft, lax, Normal bowel sounds, Non tender Skin : Warm, Dry Neurological : Alert & oriented x3, No focal deficit , CN 2-12 within normal DS: Data Data Completed and Pending Completed studies during hospitalization [Text1]: Procedures Assistance with Respiratory Ventilation, Less than 24 Consecutive Hours, Continuous Positive Airway Pressure (03/31/22) Congregation of Cardiac Rhythm, Single (03/31/22) Labs on day of discharge: Laboratory Results - last 24 hr 12/19/22 12/19/2212/20/23 15:57 19:44 07:11 POC Glucose 281 H 285 H 181 H 12/20/22 10:55 POC Glucose 329 H Preliminary micro results at discharge 12/16/22 06:48 Blood Culture - Preliminary Blood - Venous No growth after 48 hours. 12/16/22 06:48 Blood Culture - Preliminary Blood - Venous No growth after [address] scan - head: Radiologist's impression: ITS Impressions Chest X-Ray 12/12/22 20:17 IMPRESSION: No acute intracranial process seen. Right anterior external capsule old infarction with ex-vacuole dilatation of right frontal horn lateral ventricle. Mild cardiomegaly without congestion. Head CT 12/12/22 20:17 IMPRESSION: No acute intracranial process seen. Right anterior external capsule old infarction with ex-vacuole dilatation of right frontal horn lateral ventricle. Mild cardiomegaly without congestion. Carotid Doppler Study 12/12/22 22:38 IMPRESSION: 1. 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 2. LEFT: Minimal, non-hemodynamically significant stenosis of the proximal left internal carotid artery corresponding to a 0-49% stenosis by velocity criteria. 3. Incidental note of an irregular cardiac rhythm. Chest X-Ray 12/13/22 21:27 IMPRESSION: Cardiomegaly. No acute intrathoracic disease. Resolution of pulmonary vascular congestion. Discharge Plan Discharge Anticipated Discharge Date/Time: 12/20/22 Patient Disposition: Home Health Service Discharge Diagnosis: Streptococcus bacteremia Facial droop - possible TIA Referrals: [facility] [Other] - 1 Week ([facility] will deliver your medications/supplies before you are due for the next dose. They will contact you or family directly to provide a delivery time. ) [facility] [Outside] - 1 Day Isaac Montoya PA [Primary Care Provider] - 1 Week Discharge Medications: New ceftriaxone 2 gram Recon Soln 2 g IV Q24H 13 Days Qty: 1 0RF Continued insulin aspart U-100 [Novolog FlexPen U-100 Insulin] 100 unit/mL (3 mL) Insulin Pen 18 unit SUBCUT TIDAC insulin glargine [Lantus Solostar U-100 Insulin] 100 unit/mL (3 mL) Insulin Pen 54 unit SUBCUT BEDTIME apixaban 5 mg Tablet 5 mg PO BID cyanocobalamin (vitamin B-12) 1,000 mcg Tablet 1,000 mcg PO DAILY atorvastatin 80 mg tablet 80 mg PO BEDTIME furosemide [Lasix] 40 mg tablet 80 mg PO DAILY aspirin 81 mg Tablet,Delayed Release (Dr/Ec) 81 mg PO DAILY amiodarone 200 mg Tablet 200 mg PO DAILY Qty: 30 0RF hydralazine 25 mg Tablet 25 mg PO TID Qty: 90 0RF Protocol: Hold for SBP< HOLD for SBP < : 90 isosorbide dinitrate 5 mg Tablet 5 mg PO TID Qty: 90 0RF Protocol: Hold for SBP< HOLD for SBP < : 90 carvedilol 25 mg tablet 25 mg PO BID lisinopril 2.5 mg Tablet 2.5 mg PO DAILY Discharge Orders: Discharge Order (Routine); Ordered 12/20/22 Ordered By: Noe Marin Diet: Advance to usual diet Activity on Discharge: As tolerated Stand Alone Forms: Patient Portal Discharge page Care Plan Goals: Read below Health Concerns: Read below Plan of Treatment: Read below Assessment: You were admitted for evaluation of facial droop and weakness. CT scan showed old changes but no acute stroke as you were evaluated by neurology team. symptoms improved during the hospital stay as blood cultures grew bacteria called Streptococcus treated with IV antibiotics as you were seen by infectious disease specialist who recommended 2 weeks of IV antibiotics. Continue Aspirin and Atorvastatin as prescribed Continue Ceftriaxone as prescribed for 2 weeks To follow with PCP as outpatient for BP monitoring and medication adjustment Come back to ER for any fever, fatigue or focal weakness. Discharge Date/Time: 12/20/22 15:51
--- NOTE | 2022-12-25 07:14 | P.CDIM_ITS ---
PROVIDER RESPONSE TEXT: To clarify, the appropriate diagnosis supported by the clinical indicators: Diagnosis of Sepsis is still a likely, suspected, probable diagnosis QUERY TEXT: PHYSICIAN'S DOCUMENTATION REQUEST Date of Query: 12/17/2022 02:32 PM EDT Patient Name: Benedict Wang Admit Date: 12/13/2022 Dear Heriberto Son, A review of the medical record indicates additional documentation may be needed. Please review below and update the documentation accordingly. Clinical Indicators: Per Event Note 12/13/22: tachypnea and hypoxemia. Patient put on his nighttime CPAP with 4 L supplemental oxygen. BP and hear t rate okay. Tachypnea noted. His oral temp was 101.3 degrees. Does meet sepsis criteria, will order 1 dose of empiric antib iotic and fluids Per Hospitalist Progress Note 12/15/22: gpc bacteremia follow up repeat cultures vanc unclear origin, echo no vegetation The diagnosis of Sepsis was documented on 12/13/22 but is not consistently noted in subsequent documen tation. Please clarify the following: Diagnosis of Sepsis was present and is now resolved Diagnosis of Sepsis was present and is still being monitored, evaluated, or treated Diagnosis of Sepsis was ruled out Diagnosis of Sepsis is still a likely, suspected, probable diagnosis Other (explain)Clinically unable to determine (explain)Thank you, Erika Hermosillo RN Use of terms such as suspected, likely, concern for, or probable (associated with a specific diagnosi s that is being evaluated, monitored, or treated as if it exists) are acceptable and can be coded in the inpatient se tting, when documented at the time of discharge. Please use your independent medical judgment in providing your response. THIS QUERY IS PART OF THE PERMANENT MEDICAL RECORD
== END 2022-12-20 15:51 | disposition home health service (06) | DRG 872 ==
LOC: HO.ED 21:59 → HO.EDOVER 22:05 → HO.IMC 22:46
PROVIDERS: Internal Medicine; Internal Medicine Cardiovascular Disease; Admitting Provider Student in an Organized Health Care Education/Training Program; Emergency Provider Emergency Medicine Emergency Medical Services; PCP Physician Assistant; Visit Provider Student in an Organized Health Care Education/Training Program
PROC: B24BZZ4 Ultrasonography of Heart with Aorta, Transesophageal (ICD-10-PCS; CPT 93312; principal; 2022-12-18 12:00)
DX: A41.9 Sepsis, unspecified organism (principal); G45.9 Transient cerebral ischemic attack, unspecified; I13.0 Hypertensive heart and chronic kidney disease with heart failure and stage 1 through stage 4 chronic kidney disease, or unspecified chronic kidney disease; I48.21 Permanent atrial fibrillation; I50.32 Chronic diastolic (congestive) heart failure; Z66 Do not resuscitate; N18.30 Chronic kidney disease, stage 3 unspecified; E11.22 Type 2 diabetes mellitus with diabetic chronic kidney disease; E66.01 Morbid (severe) obesity due to excess calories; Z68.39 Body mass index [BMI] 39.0-39.9, adult; I65.21 Occlusion and stenosis of right carotid artery; G47.33 Obstructive sleep apnea (adult) (pediatric); E78.5 Hyperlipidemia, unspecified; Z95.0 Presence of cardiac pacemaker; Z87.891 Personal history of nicotine dependence; Z79.82 Long term (current) use of aspirin; Z79.01 Long term (current) use of anticoagulants; Z79.4 Long term (current) use of insulin; Z79.899 Other long term (current) drug therapy
CPT/HCPCS: 36410; 36415; 36600; 70450; 71045; 71046; 80048; 80053; 80061; 81001; 82803; 82947; 83036; 83605; 83880; 84484; 85025; 85027; 85610; 85730; 87040; 87077; 87205; 87633; 92950; 93005; 93306; 93880; 94660; 97116; 97161; 97165; 99285; C1758; J0131; J0696; J1642; J2270; J3370; Q9957

== ENCOUNTER 2022-12-25 13:19 | Outpatient (REF) | payer OTHER, MEDICARE, SELFPAY ==
[2022-12-25 13:22] LABS: MANUAL DIFF FLAG NO
[2022-12-25 13:57] LABS: Basophils Absolute Auto 0.1 X10*3/uL (0.0-0.2); Basophils Percent Auto 0.7 % (0-2); Eosinophils Absolute Auto 0.1 X10*3/uL (0.0-0.4); Eosinophils Percent Auto 0.8 % (0-4); Hemoglobin 13.2 g/dl (14.0-18.0); Imm Gran Abs Auto 0.03 X10*3/uL (0.00-0.03); Imm Gran Pct Auto 0.4 % (0.0-0.4); Lymphocytes Absolute Auto 2.6 X10*3/uL (1.2-4.9); Lymphocytes Percent Auto 36.2 % (20-40); Mean Corpuscular HGB Conc 32.2 g/dl (31.0-36.0); Mean Corpuscular Hemoglobin 30.6 pg (27.0-33.0); Mean Corpuscular Volume 95.1 fL (80.0-98.0); Mean Platelet Volume 9.7 fL (9.4-12.4); Monocytes Absolute Auto 0.6 X10*3/uL (0.1-1.2); Monocytes Percent Auto 7.6 % (2-11); Neutrophils Absolute Auto 3.9 x10*3/uL (2.0-8.3); Neutrophils Percent Auto 54.3 % (45-73); Platelet Count 267 X10*3/uL (160-400); Red Blood Count 4.31 X10*6/uL (4.60-5.80); Red Cell Distribution Width 14.6 % (11.0-16.0); White Blood Count 7.2 X10*3/uL (4.8-10.8)
[2022-12-25 15:39] LABS: Blood Urea Nitrogen 21 mg/dL (9-16); Estimated Glomerular Filt Rate 40
== END 2022-12-25 13:20 | disposition home or self-care (01) ==
LOC: HO.LNP 13:19
PROVIDERS: Visit Provider Internal Medicine
DX: A40.9 Streptococcal sepsis, unspecified (principal); Z79.2 Long term (current) use of antibiotics
CPT/HCPCS: 82565; 84520; 85025

== ENCOUNTER → 2022-12-30 12:59 | Outpatient (BNVA) | payer OTHER, MEDICARE, SELFPAY | PROVIDERS: PCP Physician Assistant; Visit Provider Internal Medicine | DX: I25.5 Ischemic cardiomyopathy (principal); R06.09 Other forms of dyspnea; R78.81 Bacteremia | CPT/HCPCS: 93005; 99212 ==

== ENCOUNTER → 2022-12-31 13:10 | Outpatient (BNVA) | payer MEDICARE, SELFPAY | PROVIDERS: PCP Physician Assistant; Visit Provider Internal Medicine | DX: G47.33 Obstructive sleep apnea (adult) (pediatric) (principal); R06.09 Other forms of dyspnea; E66.01 Morbid (severe) obesity due to excess calories; Z68.41 Body mass index [BMI] 40.0-44.9, adult | CPT/HCPCS: 99202 ==

== ENCOUNTER 2023-02-21 08:57 | Outpatient (REF) | payer MEDICARE, SELFPAY ==
--- NOTE | ~2023-02-21 | XR_ITS ---
EXAMINATION: XR ABDOMEN COMPLETE CLINICAL INDICATION: Renal stones COMPARISON: CT abdomen pelvis 08/16/2022 TECHNIQUE: AP view of the abdomen. FINDINGS: Lines or devices: Right upper quadrant cholecystectomy clips. Partially imaged cardiac leads. Nonobstructive bowel gas pattern. Mild colonic stool burden. Supine technique limits evaluation for extraluminal air although no secondary findings are appreciated. Few calcified phleboliths in the pelvis. The previously seen right lower pole renal stone demonstrates no definite radiographic correlate. Dextroconvex curvature of the lumbar spine with multilevel degenerative disc disease. XR/XR KUB IMPRESSION: 1. The previously seen right lower pole renal stone demonstrates no definite radiographic correlate. Few calcified phleboliths in the pelvis. 2. Nonobstructive bowel gas pattern. Mild colonic stool burden.
== END 2023-02-21 08:58 | disposition home or self-care (01) ==
LOC: HO.XRAY 08:57
PROVIDERS: PCP Physician Assistant; Visit Provider Urology
DX: N20.0 Calculus of kidney (principal)
CPT/HCPCS: 74018

== ENCOUNTER 2023-03-06 08:10 | Outpatient (AMB) | payer MEDICARE, SELFPAY ==
--- NOTE | 2023-03-06 08:28 | A.OFFVIS_ITS ---
Intake Intake Visit Reasons: 6M KUB(set) Intake Note: Patient is present for Follow Up KUB Urology Med: None Antibiotic Allergy: None Blood Thinner: Apixaban Pharmacy: [facility] Allergies No Known Allergies Allergy (Verified 03/06/23 08:31) HPI HPI Comments History of Present Illness Details Benedict is a pleasant male. He is a patient of Dr. Tubbs. He he is seen for the following urologic conditions - gross hematuria - nephrolithiasis Repeat stone Imaging shows minimal stone seen on x-ray This would be consistent with uric acid stone Given his complicated cardiac history would recommend he has a potassium citrate Will not interfere with any Current medications Six month follow-up imaging Nephrolithiasis Recurrent stone former Recent episode of gross hematuria on combination anticoagulation with Eliquis and aspirin Imaging - 08/12 CT scan 1.1 cm right renal stone Cytology - 08/12 normal Cystoscopy - 08/12 normal Therapeutic plan - imaging 6 months renal ultrasound [facility] Medical History Afib Bacteremia Bacteremia due to Gram-positive bacteria Bilateral carotid artery stenosis Coronary artery disease History of diverticulitis History of intestinal obstruction Hyperlipidemia Hypertension Ischemic cardiomyopathy Morbid obesity Myocardial infarction Obstructive sleep apnea PAULETTE on CPAP Stroke Type 2 diabetes mellitus Surgical History History of cardiac cath History of cardioversion History of carotid endarterectomy History of permanent cardiac pacemaker placement Social History Household Members: Spouse Housing: [employer] [employer] Do you presently have visiting nurse or other home services: Yes Alcohol intake: never Patient Tobacco Use Status: Former Tobacco user Quit Date: 15 years Tobacco use type: Cigarette e-Cigarette/Vaping Use: Never Used Second Hand Smoke Exposure: No Advance Directives Date on File: 04/04/22 service: Yes Current occupational status: retired Review of Systems Const Denies chills and Denies fever(s) Card Reports no additional complaints and Denies syncope Resp Denies cough GI Denies abdominal pain and Denies heartburn Reports as per HPI and Denies change in libido Neuro Denies syncope Psych Denies change in libido Endo Denies change in libido Physical Exam Const General: cooperative, healthy appearing, comfortable and no acute distress Orientation/consciousness: patient oriented x3 HEENT Face and sinus: Yes normal facial exam Mouth: moist mucous membranes Neck Neck: Yes normal visual inspection, Yes full ROM and Yes trachea midline Chest Chest palpation & inspection: normal inspection of the chest Resp Effort & Inspection: normal respiratory effort, able to speak in complete sentences and no respiratory distress GI Inspection: Yes normal to inspection Back/Spine/Pelvis Cervical Spine: normal cervical lordosis Thoracic/Lumbar Spine: thoracic and lumbar spine normal to inspection Skin General skin exam: no rashes or lesions noted Neuro General: patient oriented x3, gait normal, tone normal and moves all extremities Extrem General: Yes normal to inspection and Yes capillary refill normal Results AMB Urinalysis, Automated UA Leukoctes 0 Leah/uL Last Edit by KENROY Casillas on 03/06/23 08:37 UA Nitrite Negative Last Edit by Alla Maldonado [facility] on 03/06/23 08:37 UA Urobilinogen 0.2 mg/dL Last Edit by KENROY Casillas on 03/06/23 08:3 7 UA Protein 15 mg/dL Last Edit by Alla Maldonado [facility] on 03/06/23 08:37 UA pH 6.0 Last Edit by Alla Maldonado [facility] on 03/06/23 08:37 UA Blood 0 Joni/uL Last Edit by KENROY Casillas on 03/06/23 08:37 UA Specific Gentry 1.015 Last Edit by ALECIA CasillasA on 03/06/23 08: 37 UA Ketone Negative Last Edit by KENROY Casillas on 03/06/23 08:37 UA Bilirubin 0 mg/dL Last Edit by Alla Maldonado [facility] on 03/06/23 08:37 UA Glucose 0 mg/dL Last Edit by Alla Maldonado [facility] on 03/06/23 08:37 Results Reviewed Results Reviewed: Laboratory Last Values Urine pH (Auto) 6.0 03/06/23 08:31 Specific Gentry (Auto) 1.015 03/06/23 08:31 Urine Protein (Auto) 15 mg/dL 03/06/23 08:31 Glucose (UA)(Auto) 0 mg/dL 03/06/23 08:31 Urine Ketones (Auto) Negative 03/06/23 08:31 Urine Blood (Auto) 0 Joni/uL 03/06/23 08:31 Urine Nitrite (Auto) Negative 03/06/23 08:31 Urine Bilirubin (Auto) 0 mg/dL 03/06/23 08:31 Urine Urobilinogen (Auto) 0.2 mg/dL 03/06/23 08:31 Leukocyte Esterase (Auto) 0 Leah/uL 03/06/23 08:31 Assessment & Plan Assessment & Plan (1) Nephrolithiasis: Code(s): N20.0 - Calculus of kidney Plan Six month follow-up imaging Orders: Orders AMB Urinalysis Automated Today Z13.9 - Encounter for screening, unspecified US renal BI 6 Months N20.0 - Calculus of kidney Medications: New potassium citrate ER 20 mEq (2 x 10 mEq (1,080 mg)) PO BID 360 tabs 1RF 90 days N20.0 - Calculus of kidney Patient Instructions: Imaging studies, laboratory and physical exam results were discussed and reviewed in detail. No major barriers to patient understanding were identified. An opportunity to ask questions regarding the treatment plan was provided. All questions were answered. The patient expressed understanding and agreement with the above treatment plan. The patient is aware they should contact our office by phone for worsening of their current condition or the appearance of new urologic symptoms. Compliance is encouraged with any medications and followup testing that is ordered. It is a privilege to participate in the urologic care of your patient. If you have any questions or concerns regarding treatment for the above conditions, or other urologic issues, please do not hesitate to contact me. The office telephone contact is [phone]. This note is constructed using voice recognition software. While every effort has been made to ensure accuracy silver wrapper errors may have been included. Yours sincerely, Dr Dex Shah MD, [facility] - Urology Providers of Expert, Compassionate Care for the Genitourinary System Coding Level of Care Code Est Pt Level 4 (15960) Diagnoses Nephrolithiasis N20.0
== END 2023-03-06 09:07 | disposition home or self-care (01) ==
PROVIDERS: PCP Physician Assistant; Visit Provider Urology
DX: Z13.9 Encounter for screening, unspecified (principal); N20.0 Calculus of kidney
CPT/HCPCS: 99214

== ENCOUNTER → 2023-03-06 08:10 | Outpatient (BNVA) | payer MEDICARE, SELFPAY | PROVIDERS: PCP Physician Assistant; Visit Provider Urology | DX: N20.0 Calculus of kidney (principal) | CPT/HCPCS: 81003; 99212 ==

== ENCOUNTER 2023-04-02 08:46 | Outpatient (AMB) | payer OTHER, MEDICARE, SELFPAY ==
[2022-07-09 10:42] VITALS: BP 132/74; BP 136/68
[2023-04-02 09:26] VITALS: BP 122/72; PULSE 60; BMI 41.3
--- NOTE | 2023-04-02 09:26 | MHC.OFFVIS ---
Intake Vital Signs 04/02/23 09:26 Height 6 ft 1 in Weight 313 lb 0.902 oz BMI 41.3 BP 122/72 Blood Pressure Location Rt brachial Position Sitting Pulse 60 Intake Visit Reasons: 3 month follow up Intake Note: 3 month f/u Allergies No Known Allergies Allergy (Verified 03/06/23 08:31) Medication List - Last Reconciled 04/02/23 by Samuel Meeks MD amiodarone 200 mg PO DAILY apixaban 5 mg PO BID aspirin 81 mg PO DAILY atorvastatin 80 mg PO BEDTIME carvedilol 25 mg PO BID cyanocobalamin (vitamin B-12) 1,000 mcg PO DAILY furosemide (Lasix) 80 mg PO DAILY hydralazine 25 mg See Protocol PO TID insulin aspart U-100 (Novolog FlexPen U-100 Insulin aspart) 18 units subcut TIDAC insulin glargine (Lantus Solostar U-100 Insulin) 54 units subcut BEDTIME isosorbide dinitrate 5 mg See Protocol PO TID lisinopril 2.5 mg PO DAILY potassium citrate ER 20 mEq (2 x 10 mEq (1,080 mg)) PO BID 90 days HPI HPI Comments History of Present Illness Details 77 year gentleman is here for follow-up. He was previously following with Dr. Matos but wishes to changes care at [facility]. He has background history of cardiomyopathy with EF 30 35%. He underwent cardiac catheterization at [facility] recently when he presented with elevated blood pressure, NSTEMI and AFib RVR. He was in congestive heart failure. He was diuresed and had antihypertensive medication titration. He had HERMANN cardioversion and was started on amiodarone. He underwent cardiac catheterization which showed distal LAD lesion with moderate LAD disease. He was noted to have right coronary artery [employer] with collaterals. Circumflex did not have any significant disease. He was referred for CABG and was turned down and decision was made to medically manage. After that he had admission at [facility] in March 2022 with congestive heart failure. He was found to be in flutter/atrial tach. He was complaining of PATEL. We planned cardioversion and he was successfully cardioverted. He was referred for ongoing dyspnea to pulmonology. He has yet to see them. He just got out of hospital when he presented with left-sided facial droop and was thought to have a TIA. During the same admission he was also diagnosed with streptococcal bacteremia. He underwent transthoracic echocardiography which showed EF of 50 55% with basal inferior wall motion abnormality. No obvious vegetation was noticed. He also had HERMANN performed on Dec [address] Salcedo which showed no clear vegetations suggestive endocarditis. There was significant atherosclerotic burden in the descending thoracic aorta as well as arch of the aorta. No intracardiac shunt was noticed. Is recovered from the TIA completely. He is still short of breath and is due to see pulmonology in this week. He completed course of ceftriaxone. 04/02/2023: He is here for follow-up. He is denying any chest discomfort shortness of breath. Mild peripheral edema as before. No orthopnea. He has been using CPAP. Denying palpitations. No bleeding concerns. Taking medications regularly. [facility] Medical History Afib Bacteremia Bacteremia due to Gram-positive bacteria Bilateral carotid artery stenosis Coronary artery disease History of diverticulitis History of intestinal obstruction Hyperlipidemia Hypertension Ischemic cardiomyopathy Morbid obesity Myocardial infarction Obstructive sleep apnea PAULETTE on CPAP Stroke Type 2 diabetes mellitus Surgical History History of cardiac cath History of cardioversion History of carotid endarterectomy History of permanent cardiac pacemaker placement Social History Household Members: Spouse Housing: [facility] Do you presently have visiting nurse or other home services: Yes Alcohol intake: never Patient Tobacco Use Status: Former Tobacco user Quit Date: 15 years Tobacco use type: Cigarette e-Cigarette/Vaping Use: Never Used Second Hand Smoke Exposure: No Advance Directives Date on File: 04/04/22 service: Yes Current occupational status: retired Review of Systems ENT Reports dizziness Card Denies chest pain, Denies chest pain at rest, Denies chest pain with activity, Denies rapid heart rate, Denies pedal edema, Denies edema, Denies leg edema, Denies lightheadedness, Denies palpitations, Denies dyspnea, Denies dyspnea on exertion and Denies orthopnea Resp Denies cough, Denies dyspnea and Denies dyspnea on exertion GI Denies hematochezia and Denies change in stool character Musc Denies abnormal gait, Reports limited range of motion, Reports muscle cramps, Denies muscle weakness, Denies numbness, Denies radiating pain into limb, Denies stiffness and Denies tingling Neuro Denies abnormal gait, Reports dizziness, Denies numbness and Denies tingling Endo Denies palpitations Physical Exam Vital Signs: Last Vital Signs Pulse 60 04/02/23 09:26 BP 122/72 04/02/23 09:26 BMI result Body Mass Index 41.3 GENERAL APPEARANCE: in no acute distress, pleasant. NECK: no carotid bruit, no jugular venous distention. SKIN: no suspicious lesions, warm and dry. HEART: no murmurs, regular rate and rhythm. LUNGS: clear to auscultation bilaterally. ABDOMEN: soft, nontender. EXTREMITIES: + edema. PERIPHERAL PULSES: equal. NEUROLOGIC: No gross deficits, AAO X 3 Office Procedures EKG Details: Atrial paced rhythm with prolonged AV conduction, right bundle-branch block, QTC 458 milliseconds. [id number], Complete Assessment & Plan Assessment & Plan (1) Morbid obesity: Comment: THIS GENTLEMAN IS MORBIDLY OBESE, AND HAS BEEN LIKE THIS FOR THE PAST MANY YEARS. I TALKED TO HIM AND HIS THAT HE NEEDS TO CUT DOWN ON CALORIES INTAKE, AND DO SOME EXERCISE. AND HE NEEDS TO LOSE WEIGHT MUCH HE CAN. Code(s): E66.01 - Morbid (severe) obesity due to excess calories (2) Ischemic cardiomyopathy: Code(s): I25.5 - Ischemic cardiomyopathy (3) Chronic diastolic heart failure: Code(s): I50.32 - Chronic diastolic (congestive) heart failure Plan 77-year-old gentleman with chronic diastolic heart failure. Clinically appears to be euvolemic. Continue same medication for now. He had atrial fibrillation in the past. He is currently on apixaban 5 mg twice a day. ECG showing atrial paced rhythm like before. Overall clinically stable. Thank you for allowing me to participate in the care of your patient. Please feel free to contact me if you have any questions. Coding Level of Care Code Est Pt Level 4 (15872) Diagnoses Morbid obesity E66.01 Ischemic cardiomyopathy I25.5 Chronic diastolic heart failure I50.32 CPT Codes EKG - CPT: 99426-[id number], Complete ([id number])
== END 2023-04-02 09:59 | disposition home or self-care (01) ==
PROVIDERS: PCP Physician Assistant; Visit Provider Internal Medicine Cardiovascular Disease
DX: E66.01 Morbid (severe) obesity due to excess calories (principal); I25.5 Ischemic cardiomyopathy; I50.32 Chronic diastolic (congestive) heart failure
CPT/HCPCS: 93010; 99214

== ENCOUNTER → 2023-04-02 08:46 | Outpatient (BNVA) | payer OTHER, MEDICARE, SELFPAY | PROVIDERS: PCP Physician Assistant; Visit Provider Internal Medicine Cardiovascular Disease | DX: I50.32 Chronic diastolic (congestive) heart failure (principal); I25.5 Ischemic cardiomyopathy; E66.01 Morbid (severe) obesity due to excess calories; Z68.41 Body mass index [BMI] 40.0-44.9, adult | CPT/HCPCS: 93005; 99212 ==

== ENCOUNTER → 2023-04-15 23:59 | Outpatient (BNV) | payer OTHER, SELFPAY ==
--- NOTE | 2023-04-16 21:49 | A.OFFVIS_ITS ---
Intake Intake Visit Reasons: Remote Device Check- [place] & [place] Allergies No Known Allergies Allergy (Verified 03/06/23 08:31) [facility] Medical History Afib Bacteremia Bacteremia due to Gram-positive bacteria Bilateral carotid artery stenosis Coronary artery disease History of diverticulitis History of intestinal obstruction Hyperlipidemia Hypertension Ischemic cardiomyopathy Morbid obesity Myocardial infarction Obstructive sleep apnea PAULETTE on CPAP Stroke Type 2 diabetes mellitus Surgical History History of cardiac cath History of cardioversion History of carotid endarterectomy History of permanent cardiac pacemaker placement Social History Household Members: Spouse Housing: Condominium Do you presently have visiting nurse or other home services: Yes Alcohol intake: never Patient Tobacco Use Status: Former Tobacco user Quit Date: 15 years Tobacco use type: Cigarette e-Cigarette/Vaping Use: Never Used Second Hand Smoke Exposure: No Advance Directives Date on File: 04/04/22 service: Yes Current occupational status: retired Office Procedures Cardiac Device Check Cardiac Device Check Details: PPM Good battery life No new alerts. [id number] Cardiac Device Interrogation, pacemaker or defibrillator Procedure code (CPT) selection complete Assessment & Plan Assessment & Plan (1) Chronic diastolic heart failure: Code(s): I50.32 - Chronic diastolic (congestive) heart failure Orders: Orders AMB Cardiac Device Follow-up 04/15/23 I50.32 - Chronic diastolic (congestive) heart failure Coding Level of Care Code Procedure Only Diagnoses Chronic diastolic heart failure I50.32 CPT Codes Cardiac Device Check - Cardiac Device 14: [id number] Cardiac Device Interrogation, pacemaker or defibrillator ([id number])
== END ==
PROVIDERS: PCP Physician Assistant; Visit Provider Internal Medicine Cardiovascular Disease
DX: I50.32 Chronic diastolic (congestive) heart failure (principal); Z95.0 Presence of cardiac pacemaker
CPT/HCPCS: 93294

== ENCOUNTER 2023-07-01 15:15 | Emergency (ER) | payer OTHER, MEDICARE, SELFPAY ==
[2022-07-09 10:42] VITALS: BP 132/74; BP 136/68
[2023-07-01] VITALS (7 sets, daily range): BP systolic 108–144; BP diastolic 61–100; PULSE 60–73; RESP 16–20; TEMP 37.2; O2SAT 90–96; BMI 40.1
--- NOTE | 2023-07-01 | ECG_ITS ---
Test Reason : SYNCOPY Blood Pressure : / mmHG Vent. Rate : 062 BPM Atrial Rate : 062 BPM P-R Int : 360 ms QRS Dur : 144 ms QT Int : 480 ms P-R-T Axes : 000 029 005 degrees QTc Int : 487 ms Atrial paced V-sensed rhythm Abnormal ECG When compared with ECG of 13-DEC-2022 23:15, No significant changes seen Referred By: Generic ED Physician Electronically Signed By:Samuel Meeks
--- NOTE | ~2023-07-01 | CT_ITS ---
EXAMINATION: CT HEAD WITHOUT CONTRAST CT CERVICAL SPINE WITHOUT CONTRAST CLINICAL INFORMATION: Fall. Patient on blood thinner. COMPARISON: CT head performed 12/12/2022 TECHNIQUE: Contiguous axial imaging was performed from the skull base to vertex without intravenous administration of contrast. This CT examination was performed using dose optimization techniques as appropriate, variously including the following: *Automated exposure control *Adjustment of mA and/or kV according to patient size (this includes techniques or standardized protocols for targeted exams where dose is matched to indication/reason for exam; i.e. extremities or head) *Use of iterative reconstruction technique DLP: 1744 mGy-cm FINDINGS: There is cerebral volume loss with prominence of the lateral and the third ventricles. The cortical sulci are widened appropriately. The fourth ventricle and basal cisterns are normally outlined. There is mild bilateral perinephric central white matter diminished attenuation. 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 There is no acute territorial defect, hemorrhage or midline shift. The extra-axial spaces are unremarkable. Calvarium: Intact. Maxillofacial sinuses and mastoids: There are extensive opacities throughout the axial facial sinuses with sinus sclerosis. The mastoids are clear. Cervical spine: The alignment is within normal limits. There is diffuse [id number]-dh-bewfxwor cervical disc degenerative change with loss of disc space, endplate change and posterior osteophytes associated with diffuse vleo-ok-bbtiaiwm facet osteoarthritic hypertrophic change with multilevel mild spinal canal and neuroforaminal narrowing. No fracture is seen. Soft tissues are unremarkable. The visualized upper lung montero are unremarkable CT/CT cervical spine wo IV con IMPRESSION: No acute intracranial abnormality. Cervical disc degenerative change. No evidence for acute fracture or malalignment.
--- NOTE | ~2023-07-01 | CT_ITS ---
EXAMINATION: CT CHEST, ABDOMEN AND PELVIS WITHOUT CONTRAST CLINICAL INFORMATION: Pain status-post fall; acute left rib fractures. COMPARISON: Chest radiographs dated 07/01/2023. TECHNIQUE: Multidetector volumetric imaging was performed from the thoracic inlet through the pubic symphysis without intravenous contrast. Sagittal and coronal reformatted images were obtained on the technologist workstation. This CT examination was performed using dose optimization techniques as appropriate, variously including the following: *Automated exposure control. *Adjustment of mA and/or kV according to patient size (this includes techniques or standardized protocols for targeted exams where dose is matched to indication/reason for exam, i.e., extremities or head). *Use of iterative reconstruction technique. DLP: 1785 mGy-cm. FINDINGS: CHEST: LUNGS: There is respiratory artifact. There is bibasilar scar/subsegmental atelectasis, left greater than right. There is no associated focal airway obstruction. No mass, infiltrate or groundglass opacity is seen. The central airways appear patent. MEDIASTINUM: The thyroid is unremarkable. There is no thoracic aortic aneurysm. There are moderate atherosclerotic calcifications of the great vessel origins, thoracic aorta and coronary arteries. No mediastinal or hilar lymphadenopathy is seen. PERICARDIUM/PLEURA: There is no significant effusion. No pleural mass or thickening. CHEST WALL/AXILLA: Unremarkable. A pacemaker device is noted. ABDOMEN/PELVIS: LIVER, GALLBLADDER, BILIARY TREE: The liver is normal in size, shape, and attenuation. No focal hepatic lesion or biliary ductal dilatation is present. The gallbladder is surgically absent. PANCREAS: Unremarkable. SPLEEN: Unremarkable. ADRENAL GLANDS: Unremarkable. KIDNEYS AND URETERS: The right kidney is atrophic. The left kidney is normal in size, shape, and attenuation. At the lower pole of the right kidney (6:41), a 1.1 x 0.6 cm calculus is seen. No further urinary calculus or obstruction is seen bilaterally. There is mild nonspecific bilateral perinephric stranding. BLADDER: Somewhat distended and thin-walled, without mass, nodularity or calculus noted. GASTROINTESTINAL TRACT: There is a moderate stool burden. There is very mild diverticulosis, without acute diverticulitis. No bowel obstruction, free intraperitoneal air or abscess is seen. There is no focal bowel wall thickening. The vermiform appendix is not identified with certainty; however, there is no finding to suggest appendicitis. ABDOMINAL WALL: There is a diastases rectus. There is a fat-containing umbilical hernia, with neck measuring 4.1 x 2.3 cm (6:58 and 15:85). LYMPH NODES: Normal. VASCULAR: There is moderate aortoiliac atherosclerotic calcifications. No abdominal aortic aneurysm is seen. PELVIC VISCERA: The prostate and seminal vesicles are unremarkable. OSSEOUS STRUCTURES: There is multi-level marked thoracolumbar degenerative disc disease and spondylosis. There are lateral left fourth through seventh and ninth rib fractures. CT/CT abdomen pelvis wo IV con IMPRESSION: 1. There are multiple left rib fractures. No pleural effusion or pneumothorax is seen. 2. There is bibasilar scar/subsegmental atelectasis, left greater than right, without associated focal airway obstruction. 3. The right kidney is atrophic and it is lower pole contains a 1.1 cm nonobstructing calculus. 4. There is very mild diverticulosis, without acute diverticulitis. 5. There is a fat-containing umbilical hernia. 6. No abdominopelvic parenchymal laceration, free intraperitoneal air, hemorrhage or ascites is noted.
--- NOTE | ~2023-07-01 | XR_ITS ---
EXAMINATION: XR RIBS, LEFT CLINICAL INFORMATION: Trauma with left rib pain COMPARISON: Chest radiograph 12/13/2022 TECHNIQUE: Single view chest with 5 views of the left ribs were obtained. FINDINGS: There is mild cardiac enlargement. A left chest wall dual-lead pacemaker is present with leads in good position. Bibasilar atelectasis is seen. There is mild upper zone redistribution compared to the prior study. Multiple acute left-sided rib fractures are present which are not optimally visualized. There is fracture of the left sixth anterior rib as well as the ninth anterolateral rib.. There are fractures of the posterolateral fourth and fifth left-sided ribs. Other intervening left-sided rib fractures are most likely present as well. XR/XR ribs LT min 3V w CXR1V IMPRESSION: 1. Multiple acute left-sided rib fractures as described above. If the exact nature and number of these rib fractures is important, CT of the chest could always be performed. 2. Bibasilar atelectasis. 3. Mild upper zone redistribution.
--- NOTE | ~2023-07-01 | CT_ITS ---
EXAMINATION: CT HEAD WITHOUT CONTRAST CT CERVICAL SPINE WITHOUT CONTRAST CLINICAL INFORMATION: Fall. Patient on blood thinner. COMPARISON: CT head performed 12/12/2022 TECHNIQUE: Contiguous axial imaging was performed from the skull base to vertex without intravenous administration of contrast. This CT examination was performed using dose optimization techniques as appropriate, variously including the following: *Automated exposure control *Adjustment of mA and/or kV according to patient size (this includes techniques or standardized protocols for targeted exams where dose is matched to indication/reason for exam; i.e. extremities or head) *Use of iterative reconstruction technique DLP: 1744 mGy-cm FINDINGS: There is cerebral volume loss with prominence of the lateral and the third ventricles. The cortical sulci are widened appropriately. The fourth ventricle and basal cisterns are normally outlined. There is mild bilateral perinephric central white matter diminished attenuation. 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 There is no acute territorial defect, hemorrhage or midline shift. The extra-axial spaces are unremarkable. Calvarium: Intact. Maxillofacial sinuses and mastoids: There are extensive opacities throughout the axial facial sinuses with sinus sclerosis. The mastoids are clear. Cervical spine: The alignment is within normal limits. There is diffuse [id number] cervical disc degenerative change with loss of disc space, endplate change and posterior osteophytes associated with diffuse [id number] facet osteoarthritic hypertrophic change with multilevel mild spinal canal and neuroforaminal narrowing. No fracture is seen. Soft tissues are unremarkable. The visualized upper lung montero are unremarkable CT/CT head/brain wo IV con IMPRESSION: No acute intracranial abnormality. Cervical disc degenerative change. No evidence for acute fracture or malalignment.
[2023-07-01 15:38] LABS: MANUAL DIFF FLAG NO
[2023-07-01 15:46] LABS: Basophils Absolute Auto 0.1 X10*3/uL (0.0-0.2); Basophils Percent Auto 0.4 % (0-2); Eosinophils Percent Auto 0.3 % (0-4); Hematocrit 47.5 % (42.0-52.0); Hemoglobin 15.4 g/dl (14.0-18.0); Imm Gran Abs Auto 0.05 X10*3/uL (0.00-0.03); Imm Gran Pct Auto 0.4 % (0.0-0.4); Lymphocytes Absolute Auto 2.5 X10*3/uL (1.2-4.9); Lymphocytes Percent Auto 19.7 % (20-40); Mean Corpuscular HGB Conc 32.4 g/dl (31.0-36.0); Mean Corpuscular Hemoglobin 32.5 pg (27.0-33.0); Mean Corpuscular Volume 100.2 fL (80.0-98.0); Monocytes Absolute Auto 1.1 X10*3/uL (0.1-1.2); Monocytes Percent Auto 8.6 % (2-11); Neutrophils Absolute Auto 8.8 x10*3/uL (2.0-8.3); Neutrophils Percent Auto 70.6 % (45-73); Platelet Count 209 X10*3/uL (160-400); Red Blood Count 4.74 X10*6/uL (4.60-5.80); Red Cell Distribution Width 13.8 % (11.0-16.0); White Blood Count 12.5 X10*3/uL (4.8-10.8)
[2023-07-01 15:50] LABS: Partial Thromboplastin Time 37.6 SEC (26.0-36.4)
[2023-07-01 15:54] LABS: Anion Gap 11 (12-20); Blood Urea Nitrogen 37 mg/dL (9-16); Calcium 9.9 mg/dL (8.4-10.2); Carbon Dioxide 29 mmol/L (22-29); Chloride 104 mmol/L (96-108); Estimated Glomerular Filt Rate 32; Glucose Random 125 mg/dL (60-115); Potassium 4.2 mmol/L (3.3-5.1); Sodium 140 mmol/L (135-145)
[2023-07-01 16:02] LABS: Glucose, Whole Blood 127 mg/dL (60-115)
--- NOTE | 2023-07-01 16:03 | PC.NURSE ---
Pt is a&ox4 coming in after having a mechanical fall. Pt reports he was reaching to grab something and felt lightheaded and fell. +LOC +Blood thinners. Reports 9/10 left rib pain. Pt denies all other symptoms. skin pwd.
[2023-07-01 16:06] LABS: Troponin-I High Sensitivity 15.4 ng/L (<3.5-35.0)
--- NOTE | 2023-07-01 16:10 | PC.NURSE ---
Pt transported to ct.
--- NOTE | 2023-07-01 16:52 | ED_ITS ---
HPI - General Adult General Chief complaint: Fall Stated complaint: syncopal episode @10am,fell hit head Time Seen by Provider: 07/01/23 16:43 Source: patient and RN notes reviewed Mode of arrival: EMS Limitations: no limitations History of Present Illness HPI narrative: Pt is a 77yo male who presents to the ED after a syncopal episode at approx. 10am this morning with headstrike. Pt reports he stood up and felt dizzy causing him to pass out. He notes that he has passed out before but not recently. Pt states he hit his head on the hardwood floor but denies any headaches, changes in vision, or bumps. Pt is on Eliquis. He was able to stand up on his own after regaining consciousness and walk to his chair. His biggest concern is 10/10 left rib pain that is worse with inspiration. He notes that the pain has been getting worse since the fall and was not relieved by Tylenol. Pt states the pain is pulsating in nature. Pt has a hx of a.fib and has a permanent pacemaker in place. Notes a surgical hx of the pacemaker implantation and abdominal surgery for an unknown blockage. Related Data Home Medications Medication Instructions Recorded Confirmed apixaban 5 mg tablet 5 mg PO BID 02/03/22 07/01/23 cyanocobalamin (vitamin B-12) 1,000 mcg PO DAILY 02/03/22 07/01/23 1,000 mcg tablet insulin aspart U-100 100 unit/mL 18 unit subcut TIDAC 02/03/22 07/01/23 (3 mL) subcutaneous pen (Novolog FlexPen U-100 Insulin aspart) insulin glargine 100 unit/mL (3 46 unit subcut BEDTIME 02/03/22 07/01/23 mL) subcutaneous pen (Lantus Solostar U-100 Insulin) aspirin 81 mg tablet,delayed 81 mg PO DAILY 03/31/22 07/01/23 release furosemide 40 mg tablet (Lasix) 80 mg PO DAILY 03/31/22 07/01/23 atorvastatin 80 mg tablet 80 mg PO BEDTIME 04/10/22 07/01/23 carvedilol 25 mg tablet 25 mg PO BID 04/10/22 07/01/23 empagliflozin 10 mg tablet 10 mg PO DAILY 04/15/23 07/01/23 losartan 50 mg tablet 50 mg PO DAILY 04/15/23 07/01/23 melatonin 10 mg tablet 10 mg PO BEDTIME 07/01/23 07/01/23 semaglutide 0.25 mg or 0.5 mg (2 0.5 mg subcut MO 07/01/23 07/01/23 mg/3 mL) subcutaneous pen injector (Ozempic) Previous Rx's Medication Instructions Recorded amiodarone 200 mg tablet 200 mg PO DAILY #30 tabs 04/06/22 isosorbide dinitrate 5 mg tablet 5 mg PO TID #90 tabs 04/06/22 potassium citrate 10 mEq (1,080 20 meq (2 x 10 mEq (1,080 mg)) PO 03/06/23 mg) tablet,extended release BID 90 days #360 tabs hydralazine 50 mg tablet 50 mg PO TID 90 days #270 tabs 04/18/23 Allergies Allergy/AdvReac Type Severity Reaction Status Date / Time No Known Allergies Allergy Verified 03/06/23 08:31 Review of Systems 2 Constitutional: Constitutional: Denies fever(s), Denies frequent falls, Denies headache(s) and Denies weakness Eyes: Eyes: Denies change in vision ENT: Denies dizziness and Denies headache(s) Cardiovascular: Cardiovascular: Denies chest pain, Reports syncope, Denies lightheadedness and Denies dyspnea Respiratory: Respiratory: Denies cough, Reports pain on inspiration and Denies dyspnea Gastrointestinal: Gastrointestinal: Denies abdominal pain, Denies diarrhea, Denies nausea and Denies vomiting Musculoskeletal: Musculoskeletal: Denies back pain and Denies deformity Integumentary/Breasts: Skin/Breast: Denies swelling and Denies wounds Neurologic: Denies dizziness, Reports syncope, Denies frequent falls, Denies headache(s) and Denies weakness [facility] Past Medical History Medical History Afib Bacteremia Bacteremia due to Gram-positive bacteria Bilateral carotid artery stenosis Coronary artery disease History of diverticulitis History of intestinal obstruction Hyperlipidemia Hypertension Ischemic cardiomyopathy Morbid obesity Myocardial infarction Obstructive sleep apnea PAULETTE on CPAP Stroke Type 2 diabetes mellitus Surgical History History of cardiac cath History of cardioversion History of carotid endarterectomy History of permanent cardiac pacemaker placement Social History Social History Household Members: Spouse Housing: Condominium Do you presently have visiting nurse or other home services: Yes Alcohol intake: never Patient Tobacco Use Status: Former Tobacco user Quit Date: 15 years Tobacco use type: Cigarette Smoked in Last 30 Days: No e-Cigarette/Vaping Use: Never Used Second Hand Smoke Exposure: No Use of substances other than those prescribed or required for medical reasons: No Advance Directives: Yes Advance Directives on File: Yes Advance Directives Date on File: 04/04/22 service: Yes Current occupational status: retired Physical Exam ED Vital Signs: Vital Signs - 24 hr 07/01/23 15:53 07/01/23 15:58 07/01/23 17:56 Temperature 98.9 F 98.9 F Pulse Rate 70 70 60 Respiratory Rate 16 18 18 Blood Pressure 144/76 H 144/76 H 131/70 Pulse Oximetry 95 95 Oxygen Delivery Method Room Air Oxygen Flow Rate 07/01/23 18:04 07/01/23 20:00 07/01/23 21:55 Temperature Pulse Rate 60 65 Respiratory Rate 20 16 Blood Pressure 135/65 108/61 Pulse Oximetry 90 L 96 94 Oxygen Delivery Method Room Air Nasal Cannula Nasal Cannula Oxygen Flow Rate 2 2 BMI result Body Mass Index 40.1 Const General: cooperative, comfortable, no acute distress, alert and awake Orientation/consciousness: patient oriented x3 HENMT Head: Yes normal to inspection, Yes No palpable skull fracture present, Yes normocephalic and Yes atraumatic Ears: hearing grossly normal bilaterally General nose exam: Normal external nose present Eyes General: appearance normal, both eyes and all related structures Eyelids: Yes eyelids normal Conjunctivae: conjunctivae normal Pupils: Equal, round and reactive pupils present Chest Chest palpation & inspection: normal inspection of the chest, no crepitus and tenderness (tenderness to palpation of the left ribs 7-10) Resp Effort & Inspection: normal respiratory effort and able to speak in complete sentences Auscultation: clear to auscultation bilaterally Cardio Rate: regular rate Rhythm: regular rhythm Heart sounds: S1 normal heart sound present and S2 normal heart sound present GI Inspection: Yes normal to inspection and Yes scar (midline) Palpation (GI): nontender Neuro General: patient oriented x3 and moves all extremities Cranial nerves: Yes CN's II-XII intact bilaterally and Yes Equal, round and reactive pupils present Cognition (Neuro): normal cognition Motor exam (neuro): 5/5 motor strength present throughout Course Reevaluation(s) Reevaluation #1: Patient has at least 4 rib fractures on x-ray per Radiology. Given the significant discomfort he is still experiencing and the fact is hypoxic 90% complete a CT scan of chest. This will be done without contrast as the patient has fairly significant chronic kidney disease with a creatinine over 2. He is on Eliquis will also get a CT scan of the abdomen pelvis to evaluate for traumatic injury of the abdomen. I feel this is less likely as he has no abdominal pain or tenderness. The patient likely require admission for multiple rib fractures, hypoxia and syncope. Time: 20:02 Reevaluation #2: Patient has [address] scan with no evidence of pneumothorax, hemothorax or flail chest. CT abdomen pelvis shows no evidence of acute traumatic injuries. Will discuss with hospitalist for admission due to syncope, multiple rib fractures and hypoxia Time: 22:03 Reevaluation #3: Discussed with hospitalist, Dr. Mas who recommends discussion with [facility] trauma team. I sent the CT images over [facility] and will attempt to discuss with the [facility] trauma team for recommendations of treatment versus transfer Time: 23:23 Additional Reevaluation(s): 23:42 discussed with [facility] trauma team, Dr. Rosario who recommends transfer to [facility] ED for a trauma consult. I discussed this with the patient. He asked me to discuss with his which I also called Kim and spoke to her on the phone. I discussed with her CT team to have them uploaded all the images to [facility] and will have a disc burning. Medications Administered Discontinued Medications Generic Name Dose Route Start Last Admin Trade Name Freq PRN Reason Stop Dose Admin Sodium Chloride 1,000 mls @ 999 mls/hr 07/01/23 17:15 07/01/23 19:41 Ns IV 07/01/23 18:15 Infused .Q1H1M ERWIN Infusion Morphine Sulfate 4 mg 07/01/23 17:14 07/01/23 17:50 Morphine Sulfate 4 Mg/Ml Cartridge IVPUSH 07/01/23 17:15 4 mg ONCE ONE Administration Protocol Morphine Sulfate 4 mg 07/01/23 19:57 07/01/23 20:47 Morphine Sulfate 4 Mg/Ml Cartridge IVPUSH 07/01/23 19:58 4 mg ONCE ONE Administration Protocol Ondansetron HCl 4 mg 07/01/23 17:14 07/01/23 17:50 Ondansetron Hcl 4 Mg/2 Ml Vial IVPUSH 07/01/23 17:15 4 mg ONCE ONE Administration Oxycodone HCl 5 mg 07/01/23 22:24 07/01/23 22:29 Oxycodone Hcl Immed Release 5 Mg Tablet PO 07/01/23 22:25 5 mg ONCE ONE Administration Medical Decision Making Medical Decision Making [facility] Narrative: 77-year-old male with extensive past medical history presents for evaluation I syncopal episode after standing up this morning. Patient reports that he felt well when he got up this morning however around 10:00 a.m. he stood up from a chair he felt dizzy and passed out. This was witnessed by his . Currently he feels well except for left chest wall pain in the area where he landed on in the left anterior axillary line. Given the fall with still have CT brain and C- spine pending. If this is cleared, will get x-ray of the left ribs. Will check orthostatics. Patient's EKG is nonischemic. His troponin is 15, will get a repeat troponin. His creatinine is slightly up above his 1.7 baseline headache current 2.05 P is favored to be less likely as the patient is anticoagulated on Eliquis. Differential Diagnosis Differential Diagnoses: The differential diagnosis associated with the presentation includes (rib fracture, orthostatic hypotension, pacemaker failure, subdural hematoma, pleuritic cp, syncope) Admission/Observation Consideration of admission/observation: Escalation of care including admission/observation considered 77-year-old male presents for evaluation of a syncopal episode. Workup is pain Consult Healthcare Provider Management of the patient was discussed with: Hospitalist Lab Data [facility] Lab Attestation statement: I reviewed the patient's lab results. Mild leukocytosis with a white count 12.5, no significant left shift. No significant anemia. Normal platelet count. No electrolyte abnormalities. Patient has mild SUSI top of chronic kidney disease as mentioned above. Glucose is slightly elevated to 125 but no evidence of DKA. Troponin is 15.4 down from his most recent in November of 164.2. 07/01/23 15:33 07/01/23 15:33 Labs: Lab Results 07/01/23 07/01/23 07/01/23 Range/Units 15:33 15:58 17:30 WBC 12.5 H (4.8-10.8) X10*3/uL RBC 4.74 (4.60-5.80) X10*6/uL Hgb 15.4 (14.0-18.0) g/dl Hct 47.5 (42.0-52.0) % MCV 100.2 H (80.0-98.0) fL MCH 32.5 (27.0-33.0) pg MCHC 32.4 (31.0-36.0) g/dl RDW 13.8 (11.0-16.0) % Plt Count 209 (160-400) X10*3/uL MPV 10.0 (9.4-12.4) fL Immature Gran % (Auto) 0.4 (0.0-0.4) % Neut % (Auto) 70.6 (45-73) % Lymph % (Auto) 19.7 L (20-40) % Faulk % (Auto) 8.6 (2-11) % Eos % (Auto) 0.3 (0-4) % Baso % (Auto) 0.4 (0-2) % Lymph # (Auto) 2.5 (1.2-4.9) X10*3/uL Faulk # (Auto) 1.1 (0.1-1.2) X10*3/uL Eos # (Auto) 0.0 (0.0-0.4) X10*3/uL Baso # (Auto) 0.1 (0.0-0.2) X10*3/uL Abs Immat Gran (auto) 0.05 H (0.00-0.03) X10*3/uL Absolute Neuts (auto) 8.8 H (2.0-8.3) x10*3/uL Absolute Nucleated RBC 0.000 (0.0-0.012) X10*3/uL Nucleated RBC % (auto) 0.0 (0.0-0.2) /100WBC APTT 37.6 H (26.0-36.4) SEC Sodium 140 (135-145) mmol/L Potassium 4.2 (3.3-5.1) mmol/L Chloride 104 (96-108) mmol/L Carbon Dioxide 29 (22-29) mmol/L Anion Gap 11 L (12-20) BUN 37 H (9-16) mg/dL Creatinine 2.05 H (0.5-1.4) mg/dL Estim Creat Clear Calc TNP Estimated GFR 32 POC Glucose 127 H (60-115) mg/dL Random Glucose 125 H (60-115) mg/dL Calcium 9.9 (8.4-10.2) mg/dL Troponin I High Sens 15.4 D 16.0 (<3.5-35.0) ng/L Independent Interpretation I performed an independent interpretation of an: EKG (AV dual paced rhythm with a rate of 62 beats per minute.) and Plain X-Ray (Multiple left-sided rib fractures without pneumothorax) Radiology Impression Discussion of test interpretation with radiology: I have reviewed the radiologist's reading. (CT chest shows acute rib fractures of left 4, 5, 6, 7 and 9) Discharge Plan Discharge Clinical Impression: Syncope, Multiple fractures of ribs of left side, Hypoxia Patient Disposition: [facility] Transfer Details: [facility] Prescriptions: No Action losartan 50 mg tablet 50 mg PO DAILY empagliflozin 10 mg tablet 10 mg PO DAILY hydralazine 50 mg tablet 50 mg PO TID 90 Days Qty: 270 3RF Protocol: Hold for SBP< HOLD for SBP < : 90 insulin aspart U-100 [Novolog FlexPen U-100 Insulin] 100 unit/mL (3 mL) Insulin Pen 18 unit SUBCUT TIDAC insulin glargine [Lantus Solostar U-100 Insulin] 100 unit/mL (3 mL) Insulin Pen 46 unit SUBCUT BEDTIME apixaban 5 mg Tablet 5 mg PO BID cyanocobalamin (vitamin B-12) 1,000 mcg Tablet 1,000 mcg PO DAILY atorvastatin 80 mg tablet 80 mg PO BEDTIME furosemide [Lasix] 40 mg tablet 80 mg PO DAILY aspirin 81 mg Tablet,Delayed Release (Dr/Ec) 81 mg PO DAILY amiodarone 200 mg Tablet 200 mg PO DAILY Qty: 30 0RF isosorbide dinitrate 5 mg Tablet 5 mg PO TID Qty: 90 0RF Protocol: Hold for SBP< HOLD for SBP < : 90 carvedilol 25 mg tablet 25 mg PO BID melatonin 10 mg Tablet 10 mg PO BEDTIME Ozempic 0.25 mg or 0.5 mg (2 mg/3 mL) Pen Injector 0.5 mg SUBCUT MO potassium citrate 10 mEq (1,080 mg) tablet extended release 20 meq PO BID 90 Days Qty: 360 1RF
[2023-07-01] MEDS: ondansetron HCL 4 MG/2 ML VIAL IVPUSH (17:50)
[2023-07-01] MEDS: Morphine Sulfate 4 MG/ML CARTRIDGE IVPUSH ×2 (17:50→20:47)
[2023-07-01] MEDS: 0.9 % Sodium Chloride 1,000 ML 999 ML IV (17:52)
--- NOTE | 2023-07-01 18:04 | PC.NURSE ---
Pt denies any SOB but reports left sided rib pain and inability to take deep breath without pain, 02 at 2lpm via nc applied RA sat 90%, on 2lpm 94% IV established, medicated as charted and fluids infusing on pressure bag as pt has 22g (positional)
--- NOTE | 2023-07-01 18:08 | PC.NURSE ---
pain 8/10 s/p med interventions. With movement pain 10/10
--- NOTE | 2023-07-01 19:39 | PC.NURSE ---
Assumed care of pt. pt taken to XR for CXR. Pending XR read for dispo. Pt denies acute distress at this time.
--- NOTE | 2023-07-01 21:01 | PC.NURSE ---
Pt demonstrating increase in lung function with splinting and use of incentive spirometer. aware.
--- NOTE | 2023-07-01 21:15 | PHA.MEDREC ---
Pharmacy Consult ? Medication Reconciliation Pharmacy has completed the medication reconciliation. Patient had written list of medications. Eden [place], JeanieD
--- NOTE | 2023-07-01 21:55 | MHC.EDTECH ---
Attempted orthostatic measurements, unable to complete due to pain. Pt did not tolerate positioning to a seated position.
[2023-07-01] MEDS: oxyCODONE HCl Immed Release 5 MG TABLET PO (22:29)
--- NOTE | 2023-07-01 23:36 | PC.NURSE ---
Per provider, pt to be transferred to [facility] trauma.
[2023-07-02] MEDS: fentaNYL citrate/PF 100 MCG/2 ML VIAL 50 MCG IVPUSH (00:22)
== END 2023-07-02 00:45 | disposition short-term general hospital (02) ==
PROVIDERS: Physician Assistant; Emergency Provider Emergency Medicine; PCP Physician Assistant
DX: S22.42XA Multiple fractures of ribs, left side, initial encounter for closed fracture (principal); W19.XXXA Unspecified fall, initial encounter; R55 Syncope and collapse; R09.02 Hypoxemia; E11.9 Type 2 diabetes mellitus without complications; I10 Essential (primary) hypertension; E78.5 Hyperlipidemia, unspecified; I48.91 Unspecified atrial fibrillation; I25.2 Old myocardial infarction; G47.33 Obstructive sleep apnea (adult) (pediatric); Z99.89 Dependence on other enabling machines and devices; E66.9 Obesity, unspecified; Z68.41 Body mass index [BMI] 40.0-44.9, adult; Z87.891 Personal history of nicotine dependence; Z95.0 Presence of cardiac pacemaker; Z79.01 Long term (current) use of anticoagulants; Z79.4 Long term (current) use of insulin; Z79.82 Long term (current) use of aspirin; Z79.02 Long term (current) use of antithrombotics/antiplatelets; Z79.899 Other long term (current) drug therapy; Y93.89 Activity, other specified; Y92.018 Other place in single-family (private) house as the place of occurrence of the external cause; Y99.9 Unspecified external cause status
CPT/HCPCS: 36415; 70450; 71101; 71250; 72125; 74176; 80048; 82947; 84484; 85025; 85730; 93005; 96361; 96374; 96375; 96376; 99285; J2270; J2405; J3010

== ENCOUNTER → 2023-07-01 15:25 | Outpatient (BNV) | payer OTHER, MEDICARE, SELFPAY | PROVIDERS: Emergency Provider Emergency Medicine; PCP Physician Assistant; Visit Provider Internal Medicine Cardiovascular Disease | DX: R94.31 Abnormal electrocardiogram [ECG] [EKG] (principal) | CPT/HCPCS: 93010 ==